=== PATIENT | male | born 1965 | race Caucasian/White ===

== ENCOUNTER → 2019-12-21 09:48 | Outpatient (BNVA) | payer MEDICAID, SELFPAY | PROVIDERS: PCP Internal Medicine; Referring Provider Internal Medicine; Visit Provider Internal Medicine Cardiovascular Disease | DX: Z76.89 Persons encountering health services in other specified circumstances (principal) | CPT/HCPCS: 99204 ==

== ENCOUNTER → 2020-01-19 09:25 | Outpatient (REF) | payer MEDICAID, SELFPAY ==
--- NOTE | 2020-01-19 | NM_ITS ---
EXERCISE MYOCARDIAL PERFUSION STUDY INDICATION: Chest pain, hypertension, hyperlipidemia, assess for coronary disease, ischemia TECHNIQUE: The patient was brought in for an exercise perfusion study on 01/19/2020. Patient performed exercise as per Haris protocol and was injected 40 mCi of sestamibi once target heart rate was achieved. Images were obtained using the SPECT gamma camera interlaced with the gating device. Images were obtained in supine and prone position. Resting perfusion study was performed on 01/20/2020. Patient was administered 40 mCi of sestamibi intravenously at rest. Images were then obtained in supine position. Images were processed with the software and compared side to side in short axis, horizontal long axis and vertical long axis views. FINDINGS: Raw images were reviewed. The stress perfusion study showed diminished tracer uptake along the inferior wall. This is more prominent in the basal to mid inferior wall. Using prone imaging, there is significant improvement in uptake suggestive of diaphragmatic attenuation artifact. The gated study shows normal LV systolic function with calculated LVEF of 64%. LV cavity is normal in size. The gated study shows normal wall thickening and contraction of segments. Resting study shows diminished tracer uptake along the basal to mid inferior wall. Gating at rest reveals normal wall motion with ejection fraction at 69%. The findings are consistent with fixed inferior perfusion defect suspected to be from diaphragmatic artifact. No reversible defects. NM/NM amaury perf SPECT rest & str IMPRESSION: 1. Myocardial perfusion imaging study shows no evidence of any ischemia or infarction. Fixed inferior defect from diaphragmatic attenuation artifact. 2. Gated LVEF is 64% during stress and 69% during rest. 3. Transient ischemic dilatation not present. EKG component of the test reported separately.
--- NOTE | 2020-01-19 09:30 | CA_ITS ---
Acquisition Time: 2020-01-19 09:48:01 Total Exercise Time: 00:06:55 Test Indications: Chest Pain Medications: Protocol: RICH Max HR: 153 BPM 91% of Pred: 168 BPM Max BP: 150/080 mmHG Max Work Load: 8.4 METS Exercise stress nuclear using Rich protocol. Total of 6 min 55 sec., METS 8.4. Pt tolerated well, Moderate SOB at peak exercise, that improves in recovery, denies CP. EKG without any arrhythmias, ST inversion in leads 2, 3, aVF, V3 and V6 seen in recovery period. Nuclear images to follow. Normotensive response to exercise Test reviewed with Dr. Blanton. Referred By: Bhavin Munguia Overread By: Usha Hatch
== END ==
LOC: HO.CARD 09:25
PROVIDERS: Visit Provider Internal Medicine Cardiovascular Disease
DX: R07.9 Chest pain, unspecified (principal)
CPT/HCPCS: 78452; 93017; A9500; J0280; J2785; J2805

== ENCOUNTER → 2020-01-26 09:13 | Outpatient (BNVA) | payer MEDICAID, SELFPAY | PROVIDERS: PCP Internal Medicine; Referring Provider Internal Medicine; Visit Provider Hospitalist | DX: G47.33 Obstructive sleep apnea (adult) (pediatric) (principal); J45.909 Unspecified asthma, uncomplicated; F17.200 Nicotine dependence, unspecified, uncomplicated; Z79.899 Other long term (current) drug therapy; Z99.89 Dependence on other enabling machines and devices; Z71.6 Tobacco abuse counseling | CPT/HCPCS: 99212 ==

== ENCOUNTER → 2020-02-05 09:50 | Outpatient (BNVA) | payer MEDICAID, SELFPAY | PROVIDERS: PCP Internal Medicine; Referring Provider Internal Medicine; Visit Provider Internal Medicine Endocrinology, Diabetes & Metabolism | DX: Z76.89 Persons encountering health services in other specified circumstances (principal) ==

== ENCOUNTER → 2020-02-22 10:38 | Outpatient (BNVA) | payer MEDICAID, SELFPAY | PROVIDERS: PCP Internal Medicine; Referring Provider Internal Medicine; Visit Provider Internal Medicine Cardiovascular Disease | DX: K21.9 Gastro-esophageal reflux disease without esophagitis (principal); I10 Essential (primary) hypertension; R07.9 Chest pain, unspecified | CPT/HCPCS: 99212 ==

== ENCOUNTER → 2020-04-08 10:11 | Outpatient (BNVA) | payer MEDICAID, SELFPAY | PROVIDERS: PCP Internal Medicine; Visit Provider Nurse Practitioner ==

== ENCOUNTER 2020-04-21 | Outpatient (REF) | payer MEDICAID, SELFPAY | END 2020-04-21 00:01 | disposition home or self-care (01) | LOC: HO.LNP | PROVIDERS: Visit Provider Nurse Practitioner | DX: R10.13 Epigastric pain (principal) | CPT/HCPCS: 87338 ==

== ENCOUNTER 2020-04-21 09:26 | Outpatient (REF) | payer MEDICAID, SELFPAY ==
--- NOTE | 2020-04-21 09:56 | XR_ITS ---
EXAMINATION: XR CHEST CLINICAL INFORMATION: Chest pain. COMPARISON: 11/03/2019 chest radiograph. TECHNIQUE: 2 views of the chest were obtained. FINDINGS: No significant abnormality is noted involving the heart, lungs, mediastinum, bony thorax or soft tissues. XR/XR chest 2V IMPRESSION: No acute cardiopulmonary process.
[2020-04-21 10:25] LABS: Estimated Average Glucose 252 mg/dL; Hemoglobin A1c % 10.4 %
[2020-04-21 10:50] LABS: Alanine Aminotransferase 28 U/L (0-40); Albumin Level 4.6 g/dL (3.5-5.0); Alkaline Phosphatase 83 U/L (39-117); Anion Gap 12 (12-20); Aspartate Amino Transferase 19 U/L (5-37); Bilirubin Total 0.3 mg/dL (0.0-1.0); Blood Urea Nitrogen 11 mg/dL (9-16); Calcium 9.5 mg/dL (8.4-10.2); Carbon Dioxide 26 mmol/L (22-29); Chloride 101 mmol/L (96-108); Cholesterol 234 mg/dL; Estimated Glomerular Filt Rate > 60; Glucose Fasting 249 mg/dL (60-99); HDL Cholesterol 42 mg/dL; LDL Cholesterol Calculated 154 mg/dl; Potassium 4.4 mmol/L (3.3-5.1); Sodium 135 mmol/L (135-145); Total Protein 7.8 g/dL (6.5-8.0); Triglycerides 190 mg/dL
[2020-04-21 10:57] LABS: Creatinine Urine 217.92 mg/dL; Microalbum/Creatinine Ratio Ur 24.7 ug/mg cr
[2020-04-21 11:08] LABS: Vitamin B12 618 pg/mL (200-900)
[2020-04-22 04:07] LABS: LDL Cholesterol Direct 151 mg/dL (<100)
== END 2020-04-21 09:27 | disposition home or self-care (01) ==
LOC: HO.LAB 09:26
PROVIDERS: PCP Internal Medicine; Visit Provider Internal Medicine Endocrinology, Diabetes & Metabolism
DX: R07.9 Chest pain, unspecified (principal); E11.65 Type 2 diabetes mellitus with hyperglycemia
CPT/HCPCS: 36415; 71046; 80053; 80061; 82043; 82607; 83036; 83721

== ENCOUNTER → 2020-04-22 11:08 | Outpatient (BNVA) | payer MEDICAID, SELFPAY | PROVIDERS: Visit Provider Nurse Practitioner ==

== ENCOUNTER 2020-04-22 16:59 | Outpatient (REF) | payer MEDICAID, SELFPAY | END 2020-04-22 17:00 | disposition home or self-care (01) | LOC: HO.LNP 16:59 | PROVIDERS: Visit Provider Nurse Practitioner | DX: Z13.89 Encounter for screening for other disorder (principal) ==

== ENCOUNTER → 2020-04-29 12:14 | Outpatient (BNVA) | payer MEDICAID, SELFPAY | PROVIDERS: PCP Internal Medicine; Visit Provider Internal Medicine Endocrinology, Diabetes & Metabolism ==

== ENCOUNTER → 2020-05-30 10:07 | Outpatient (BNVA) | payer MEDICAID, SELFPAY | PROVIDERS: PCP Internal Medicine; Visit Provider Nurse Practitioner ==

== ENCOUNTER → 2020-06-06 13:35 | Outpatient (BNVA) | payer MEDICAID, SELFPAY | PROVIDERS: PCP Internal Medicine; Visit Provider Dietitian, Registered ==

== ENCOUNTER → 2020-06-27 11:13 | Outpatient (BNVA) | payer MEDICAID, SELFPAY | PROVIDERS: PCP Internal Medicine; Visit Provider Nurse Practitioner ==

== ENCOUNTER 2020-07-13 13:12 | Outpatient (REF) | payer MEDICAID, SELFPAY ==
--- NOTE | ~2020-07-13 | US_ITS ---
EXAMINATION: US EXTRACRANIAL CAROTID DUPLEX, BILATERAL CLINICAL INFORMATION: This is a 54-year-old male with history of diabetes, tobacco use, hypertension, hyperlipidemia. Carotid artery disease. COMPARISON: None TECHNIQUE: Real-time ultrasound and Doppler techniques (integrating B-mode 2-D vascular images, Doppler spectral analysis and color-flow Doppler imaging) were utilized to interrogate the extracranial carotid arteries, the vertebral arteries and proximal subclavian arteries bilaterally. The degree of stenosis is determined by criteria similar to NASCET. FINDINGS: Right Side: 1. There is minimal atherosclerotic plaque seen in the bifurcation/proximal ICA region. 2. The common carotid artery PSV proximally is 147 cm/s and distally 96 cm/s. 3. The proximal internal carotid artery velocities are 64 cm/s systolic and 77 cm/s diastolic. 4. The proximal external carotid artery PSV is 143 cm/s. 5. The vertebral artery shows antegrade flow. 6. The subclavian artery waveforms are normal. Left Side: 1. There is normal atherosclerotic plaque seen in the bifurcation/proximal ICA region. 2. The common carotid artery PSV proximally is 156 cm/s and distally 100 cm/s. 3. The proximal internal carotid artery velocities are 75 cm/s systolic and 32 cm/s diastolic. 4. The proximal external carotid artery PSV is 118 cm/s. 5. The vertebral artery shows antegrade flow. 6. The subclavian artery waveforms are normal. US/US carotid duplex BI IMPRESSION: 1. RIGHT: Minimal, non-hemodynamically significant stenosis of the proximal right internal carotid artery corresponding to a 0-49% stenosis by velocity criteria. 2. LEFT: Minimal, non-hemodynamically significant stenosis of the proximal left internal carotid artery corresponding to a 0-49% stenosis by velocity criteria.
== END 2020-07-13 13:13 | disposition home or self-care (01) ==
LOC: HO.US 13:12
PROVIDERS: Visit Provider Internal Medicine
DX: R42 Dizziness and giddiness (principal)
CPT/HCPCS: 93880

== ENCOUNTER → 2020-07-18 12:13 | Outpatient (BNVA) | payer MEDICAID, SELFPAY | PROVIDERS: PCP Internal Medicine; Visit Provider Nurse Practitioner | DX: E11.65 Type 2 diabetes mellitus with hyperglycemia (principal); Z12.11 Encounter for screening for malignant neoplasm of colon; R10.9 Unspecified abdominal pain; R10.13 Epigastric pain; K59.04 Chronic idiopathic constipation; K21.9 Gastro-esophageal reflux disease without esophagitis; R68.81 Early satiety; R14.0 Abdominal distension (gaseous) | CPT/HCPCS: 97803 ==

== ENCOUNTER → 2020-07-26 09:04 | Outpatient (BNVA) | payer MEDICAID, SELFPAY | PROVIDERS: PCP Internal Medicine; Visit Provider Hospitalist | DX: G47.33 Obstructive sleep apnea (adult) (pediatric) (principal); K21.00 Gastro-esophageal reflux disease with esophagitis, without bleeding; J45.40 Moderate persistent asthma, uncomplicated | CPT/HCPCS: 99212 ==

== ENCOUNTER → 2020-09-22 09:55 | Outpatient (BNVA) | payer MEDICAID, SELFPAY | PROVIDERS: PCP Internal Medicine; Visit Provider Hospitalist | DX: G47.33 Obstructive sleep apnea (adult) (pediatric) (principal); J45.40 Moderate persistent asthma, uncomplicated; F17.200 Nicotine dependence, unspecified, uncomplicated | CPT/HCPCS: 99212 ==

== ENCOUNTER 2020-11-15 08:48 | Outpatient (REF) | payer MEDICAID, SELFPAY ==
[2020-11-15 09:14] LABS: MANUAL DIFF FLAG NO
[2020-11-15 09:21] LABS: Basophils Percent Auto 0.4 % (0-2); Eosinophils Absolute Auto 0.3 X10*3/uL (0.0-0.4); Eosinophils Percent Auto 4.2 % (0-4); Hemoglobin 15.3 g/dl (14.0-18.0); Imm Gran Abs Auto 0.02 X10*3/uL (0.00-0.03); Imm Gran Pct Auto 0.3 % (0.0-0.4); Lymphocytes Absolute Auto 2.7 X10*3/uL (1.2-4.9); Mean Corpuscular HGB Conc 33.3 g/dl (31.0-36.0); Mean Corpuscular Hemoglobin 28.8 pg (27.0-33.0); Mean Corpuscular Volume 86.5 fL (80-98); Mean Platelet Volume 9.9 fL (9.4-12.4); Monocytes Absolute Auto 0.5 X10*3/uL (0.1-1.2); Monocytes Percent Auto 6.5 % (2-11); Neutrophils Absolute Auto 3.4 X10*3/uL (2.0-8.3); Neutrophils Percent Auto 49.6 % (45-73); Platelet Count 282 X10*3/uL (160-400); Red Blood Count 5.32 X10*6/uL (4.60-5.80); Red Cell Distribution Width 13.1 % (11.0-16.0); White Blood Count 6.9 X10*3/uL (4.8-10.8)
[2020-11-15 09:45] LABS: Alanine Aminotransferase 25 U/L (0-40); Albumin Level 4.6 g/dL (3.5-5.0); Alkaline Phosphatase 81 U/L (39-117); Aspartate Amino Transferase 21 U/L (5-37); Bilirubin Direct < 0.2 mg/dL (0.0-0.5); Bilirubin Total 0.6 mg/dL (0.0-1.0); Cholesterol 235 mg/dL; HDL Cholesterol 42 mg/dL; LDL Cholesterol Calculated 152 mg/dl; Total Protein 7.6 g/dL (6.5-8.0); Triglycerides 206 mg/dL
[2020-11-15 14:29] LABS: Estimated Average Glucose 226 mg/dL; Hemoglobin A1c % 9.5 %
== END 2020-11-15 08:49 | disposition home or self-care (01) ==
LOC: HO.LAB 08:48
PROVIDERS: PCP Internal Medicine; Visit Provider Internal Medicine
DX: Z00.00 Encounter for general adult medical examination without abnormal findings (principal)
CPT/HCPCS: 36415; 80061; 80076; 83036; 85025

== ENCOUNTER → 2021-01-12 15:37 | Outpatient (BNVA) | payer MEDICAID, SELFPAY | PROVIDERS: Visit Provider Nurse Practitioner ==

== ENCOUNTER → 2021-01-25 09:37 | Outpatient (BNVA) | payer MEDICAID, SELFPAY | PROVIDERS: PCP Internal Medicine; Visit Provider Nurse Practitioner Gerontology | DX: E11.65 Type 2 diabetes mellitus with hyperglycemia (principal); E11.42 Type 2 diabetes mellitus with diabetic polyneuropathy; I10 Essential (primary) hypertension; E78.5 Hyperlipidemia, unspecified; E66.9 Obesity, unspecified; Z79.4 Long term (current) use of insulin; Z91.19 Patient's noncompliance with other medical treatment and regimen | CPT/HCPCS: 82947; 99212 ==

== ENCOUNTER → 2021-02-14 13:14 | Outpatient (BNVA) | payer MEDICAID, SELFPAY | PROVIDERS: PCP Internal Medicine; Visit Provider Dietitian, Registered | DX: E11.65 Type 2 diabetes mellitus with hyperglycemia (principal); E11.42 Type 2 diabetes mellitus with diabetic polyneuropathy; I10 Essential (primary) hypertension; I87.2 Venous insufficiency (chronic) (peripheral); E78.5 Hyperlipidemia, unspecified; E66.9 Obesity, unspecified; G47.33 Obstructive sleep apnea (adult) (pediatric); F17.210 Nicotine dependence, cigarettes, uncomplicated; Z79.4 Long term (current) use of insulin; Z71.3 Dietary counseling and surveillance | CPT/HCPCS: 97803 ==

== ENCOUNTER → 2021-03-29 15:05 | Outpatient (BNVA) | payer MEDICAID, SELFPAY | PROVIDERS: PCP Internal Medicine; Visit Provider Dietitian, Registered | DX: E11.65 Type 2 diabetes mellitus with hyperglycemia (principal); E66.9 Obesity, unspecified | CPT/HCPCS: 97803 ==

== ENCOUNTER → 2021-04-10 10:19 | Outpatient (BNVA) | payer MEDICAID, SELFPAY | PROVIDERS: PCP Internal Medicine; Visit Provider Hospitalist | DX: G47.33 Obstructive sleep apnea (adult) (pediatric) (principal); J45.40 Moderate persistent asthma, uncomplicated; F17.210 Nicotine dependence, cigarettes, uncomplicated | CPT/HCPCS: 99212 ==

== ENCOUNTER → 2021-05-19 09:57 | Outpatient (BNVA) | payer MEDICAID, SELFPAY | PROVIDERS: PCP Internal Medicine; Visit Provider Nurse Practitioner Gerontology | DX: E11.65 Type 2 diabetes mellitus with hyperglycemia (principal); E11.42 Type 2 diabetes mellitus with diabetic polyneuropathy; E78.5 Hyperlipidemia, unspecified; E66.9 Obesity, unspecified; I10 Essential (primary) hypertension; Z91.19 Patient's noncompliance with other medical treatment and regimen; Z79.4 Long term (current) use of insulin; Z68.37 Body mass index [BMI] 37.0-37.9, adult | CPT/HCPCS: 82947; 83036; 99212 ==

== ENCOUNTER 2021-05-31 09:01 | Outpatient (REF) | payer MEDICAID, SELFPAY ==
[2021-05-31 10:14] LABS: Alanine Aminotransferase 28 U/L (0-40); Albumin Level 4.7 g/dL (3.5-5.0); Alkaline Phosphatase 88 U/L (39-117); Anion Gap 14 (12-20); Aspartate Amino Transferase 22 U/L (5-37); Bilirubin Total 0.5 mg/dL (0.0-1.0); Blood Urea Nitrogen 10 mg/dL (9-16); Calcium 10.2 mg/dL (8.4-10.2); Carbon Dioxide 27 mmol/L (22-29); Chloride 102 mmol/L (96-108); Cholesterol 235 mg/dL; Estimated Glomerular Filt Rate > 60; Glucose Fasting 231 mg/dL (60-99); HDL Cholesterol 41 mg/dL; LDL Cholesterol Calculated 155 mg/dl; Potassium 4.6 mmol/L (3.3-5.1); Sodium 138 mmol/L (135-145); Triglycerides 196 mg/dL
== END 2021-05-31 09:02 | disposition home or self-care (01) ==
LOC: HO.LAB 09:01
PROVIDERS: PCP Internal Medicine; Visit Provider Nurse Practitioner Gerontology
DX: E11.65 Type 2 diabetes mellitus with hyperglycemia (principal)
CPT/HCPCS: 36415; 80053; 80061

== ENCOUNTER 2021-06-01 14:49 | Outpatient (REF) | payer MEDICAID, SELFPAY ==
[2021-06-01 15:48] LABS: Creatinine Urine 144.69 mg/dL
== END 2021-06-01 14:50 | disposition home or self-care (01) ==
LOC: HO.LNP 14:49
PROVIDERS: Visit Provider Nurse Practitioner Gerontology
DX: E11.65 Type 2 diabetes mellitus with hyperglycemia (principal)
CPT/HCPCS: 82043

== ENCOUNTER → 2021-06-09 08:55 | Outpatient (BNVA) | payer MEDICAID, SELFPAY | PROVIDERS: PCP Internal Medicine; Visit Provider Registered Nurse Diabetes Educator | DX: E11.65 Type 2 diabetes mellitus with hyperglycemia (principal); Z79.4 Long term (current) use of insulin | CPT/HCPCS: 99202; 99211 ==

== ENCOUNTER → 2021-06-29 12:55 | Outpatient (BNVA) | payer MEDICAID, SELFPAY | PROVIDERS: PCP Internal Medicine; Visit Provider Dietitian, Registered | DX: E11.65 Type 2 diabetes mellitus with hyperglycemia (principal) | CPT/HCPCS: 97803 ==

== ENCOUNTER → 2021-08-01 14:48 | Outpatient (BNVA) | payer MEDICAID, SELFPAY | PROVIDERS: PCP Internal Medicine; Visit Provider Hospitalist | DX: G47.33 Obstructive sleep apnea (adult) (pediatric) (principal); J45.40 Moderate persistent asthma, uncomplicated; F17.210 Nicotine dependence, cigarettes, uncomplicated | CPT/HCPCS: 99212 ==

== ENCOUNTER 2021-08-28 11:24 | Outpatient (REF) | payer MEDICAID, SELFPAY ==
--- NOTE | ~2021-08-28 | XR_ITS ---
EXAMINATION: XR CHEST CLINICAL INFORMATION: Cough COMPARISON: Chest radiographs 04/21/2020, 11/03/2019 TECHNIQUE: 2 views of the chest were obtained. FINDINGS: The lungs are clear and there is no airspace consolidation, groundglass opacity, or effusion. The cardiac and hilar and mediastinal contours and visualized bony structures are similar to prior studies. XR/XR chest 2V IMPRESSION: Unremarkable examination.
== END 2021-08-28 11:25 | disposition home or self-care (01) ==
LOC: HO.XRAY 11:24
PROVIDERS: Absent Provider Internal Medicine; PCP Internal Medicine; Visit Provider Emergency Medicine
DX: R05.9 Cough, unspecified (principal); Z72.0 Tobacco use
CPT/HCPCS: 71046

== ENCOUNTER → 2021-09-01 15:49 | Outpatient (BNVA) | payer MEDICAID, SELFPAY | PROVIDERS: PCP Internal Medicine; Visit Provider Nurse Practitioner | DX: K59.04 Chronic idiopathic constipation (principal); K21.00 Gastro-esophageal reflux disease with esophagitis, without bleeding; R10.13 Epigastric pain; Z91.19 Patient's noncompliance with other medical treatment and regimen | CPT/HCPCS: 99212 ==

== ENCOUNTER 2022-01-06 14:46 | Emergency (ER) | payer MEDICAID, SELFPAY ==
[2022-01-06 15:18] VITALS: BP 143/69; PULSE 93; RESP 18; TEMP 36.8; O2SAT 96; BMI 37.1
[2022-01-06 15:58] LABS: MANUAL DIFF FLAG NO
[2022-01-06 15:59] LABS: Basophils Percent Auto 0.3 % (0-2); Eosinophils Absolute Auto 0.2 X10*3/uL (0.0-0.4); Eosinophils Percent Auto 1.9 % (0-4); Hematocrit 44.6 % (42.0-52.0); Hemoglobin 15.1 g/dl (14.0-18.0); Imm Gran Abs Auto 0.02 X10*3/uL (0.00-0.03); Imm Gran Pct Auto 0.2 % (0.0-0.4); Lymphocytes Absolute Auto 2.2 X10*3/uL (1.2-4.9); Lymphocytes Percent Auto 23.5 % (20-40); Mean Corpuscular HGB Conc 33.9 g/dl (31.0-36.0); Mean Corpuscular Hemoglobin 29.1 pg (27.0-33.0); Mean Corpuscular Volume 85.9 fL (80.0-98.0); Mean Platelet Volume 9.8 fL (9.4-12.4); Monocytes Absolute Auto 0.6 X10*3/uL (0.1-1.2); Monocytes Percent Auto 6.2 % (2-11); Neutrophils Absolute Auto 6.5 x10*3/uL (2.0-8.3); Neutrophils Percent Auto 67.9 % (45-73); Platelet Count 289 X10*3/uL (160-400); Red Blood Count 5.19 X10*6/uL (4.60-5.80); Red Cell Distribution Width 12.5 % (11.0-16.0); White Blood Count 9.5 X10*3/uL (4.8-10.8)
[2022-01-06 16:11] LABS: Anion Gap 14 (12-20); Blood Urea Nitrogen 10 mg/dL (9-16); Calcium 9.9 mg/dL (8.4-10.2); Carbon Dioxide 25 mmol/L (22-29); Chloride 103 mmol/L (96-108); Creatinine Clr Calc Pharmacy 125.7; Estimated Glomerular Filt Rate > 60; Glucose Random 201 mg/dL (60-115); Potassium 4.3 mmol/L (3.3-5.1); Sodium 138 mmol/L (135-145)
--- NOTE | 2022-01-06 20:36 | PC.NURSE ---
Pt c/o left foot pain, cannot walk long distances on it. Has been like this for approx one month. On observation, three toes are affected (middle towards the left). skin is red and raw with some skin peeling. Pt states it does not hurt when this nurse touched them but typically hurts when he puts pressure on them
--- NOTE | 2022-01-06 21:17 | ED_ITS ---
HPI - General Adult General Chief complaint: General Medical Stated complaint: L foot issue Time Seen by Provider: 01/06/22 20:28 Source: patient Mode of arrival: ambulatory Limitations: no limitations History of Present Illness HPI narrative: Patient comes to the emergency room complaining of a fungal infection in his toes on the left foot. Patient has tried topical steroid, oral fluconazole four doses, oral terbinafine for 2 weeks, and 1 round of Bactrim. Patient states that he has not improved but it is not getting any worse either. Patient denies fever chills, no pain Related Data Home Medications Medication Instructions Recorded Confirmed albuterol sulfate 90 mcg/actuation 2 puff inhalation Q6H PRN 12/21/19 01/25/21 aerosol inhaler (ProAir HFA) fluticasone propionate 50 1 spray intranasal DAILY 12/21/19 01/25/21 mcg/actuation nasal spray,suspension (Flonase Allergy Relief) sertraline 100 mg tablet 100 mg PO DAILY 12/21/19 01/25/21 aspirin 81 mg tablet,delayed 81 mg PO DAILY 01/12/21 01/25/21 release calcium carbonate 200 mg calcium 400 mg PO BID 01/12/21 01/25/21 (500 mg) chewable tablet (Calcium Antacid) fluvoxamine 25 mg tablet 25 mg PO BEDTIME 01/25/21 01/25/21 empagliflozin 10 mg tablet 10 mg PO QAM 11/24/21 (Jardiance) Previous Rx's Medication Instructions Recorded nicotine 14 mg/24 hr daily 1 patch transdermal DAILY 28 days 01/26/20 transdermal patch #28 ea insulin syringe-needle U-100 0.5 #100 ea 04/29/20 mL 30 gauge x 1/2 (BD Insulin Syringe Ultra-Fine) budesonide-formoterol HFA 160 2 puff PO BID #10.2 grams 06/28/20 mcg-4.5 mcg/actuation aerosol inhaler (Symbicort) nicotine 10 mg inhalation 1 inh inhalation Q2-4H PRN 07/26/20 cartridge (Nicotrol) nicotine cravings 30 days #168 ea lisinopril 10 mg tablet 10 mg PO DAILY 30 days #30 tabs 01/25/21 rosuvastatin 20 mg tablet 20 mg PO DAILY 30 days #30 tabs 01/25/21 montelukast 10 mg tablet 10 mg PO DAILY #30 tabs 04/28/21 blood sugar diagnostic (FreeStyle #100 ea 05/02/21 Lite Strips) gabapentin 300 mg capsule 300 mg PO BEDTIME #30 caps 05/02/21 lancets 33 gauge (TRUEplus Lancets) #100 ea 05/02/21 insulin glargine 100 unit/mL 18 unit (0.18 mL) subcut DAILY 30 05/19/21 subcutaneous solution (Lantus days #10 mL U-100 Insulin) insulin lispro 100 unit/mL 4 unit (0.04 mL) subcut TID #15 mL 05/19/21 subcutaneous pen (Humalog KwikPen (U-100) Insulin) pen needle, diabetic 32 gauge x #100 ea 05/19/21 (BD Ultra-Fine Madhavi Pen Needle) linaclotide 290 mcg capsule 290 mcg PO QAM 30 days #30 caps 08/01/21 (Linzess) dexlansoprazole 60 mg 60 mg PO DAILY #30 caps 09/01/21 capsule,biphase delayed release (Dexilant) terbinafine HCl 250 mg tablet 250 mg PO DAILY #30 tabs 01/06/22 Allergies Allergy/AdvReac Type Severity Reaction Status Date / Time No Known Allergies Allergy Verified 01/06/22 15:18 Review of Systems Review of Systems: Constitutional : No Weight loss, No Fever, No Chills, No Night Sweats, No Fatigue, No Malaise ENT/Mouth : No Hearing loss, No Ear Pain, No Nasal Congestion, No Sinus Pain, No Hoarseness, No sore throat, No Rhinorrhea, No Swallowing Difficulty Eyes: No Eye Pain, No Swelling, No Redness, No Foreign Body, No Discharge, No Vision Changes Cardiovascular : No Chest Pain, No SOB, No Dyspnea on Exertion, No Orthopnea, No Edema, No Palpitations Respiratory : No Cough, No Sputum, No Wheezing, No Smoke Exposure, No Dyspnea Gastrointestinal : No Nausea, No Vomiting, No Diarrhea, No Constipation, No abdominal Pain, No Hematochezia, No Melena Genitourinary : no irregular bleeding, No Dysuria, No Urinary Frequency, No Hematuria, No Urinary Incontinence, No Urgency, No Flank Pain, No Urinary Flow Changes, No Hesitancy Musculoskeletal : No joint pain, No Myalgias, No Joint Swelling Skin : Fungal infection in the left foot between the toes Neuro : No Weakness, No Numbness, No Paresthesias, No Loss of Consciousness, No Dizziness, No Headache Psych : No Anxiety/Panic, No Depression, No SI/HI/AH/VH, No Social Issues, Heme/Lymph: No Bruising, No Bleeding,No Lymphadenopathy Endocrine : No Polyuria, No Polydipsia, No Temperature Intolerance PMFSH Past Medical History Medical History Asthma Diabetes Diabetes type 2, uncontrolled Diabetic polyneuropathy associated with type 2 diabetes mellitus Hyperlipidemia Hypertension MCC (current) use of insulin Non-adherence to medical treatment Obesity (BMI 30-39.9) TENZIN (obstructive sleep apnea) Tobacco dependence Venous insufficiency Surgical History History of surgery History of tonsillectomy Hx of hernia repair Family History Family History Father Renal failure Mother Depression Hypertension Social History Social History Household Members: Spouse and Children Alcohol intake: current Alcohol intake frequency: does not drink Patient Tobacco Use Status: Current everyday Tobacco user Tobacco use type: Cigarette Cigarettes Per Day: 10 Years Smoked: since age 19 Advance Directives: No Advance Directives Information Provided: No Current occupational status: disabled Physical Exam ED Vital Signs: Vital Signs - 24 hr 01/06/22 15:18 Temperature 98.3 F Pulse Rate 93 Respiratory Rate 18 Blood Pressure 143/69 H Pulse Oximetry 96 Oxygen Delivery Method Room Air BMI result Body Mass Index 37.1 Const Other: Appearance: Alert. Oriented X3. No acute distress. Eyes: Pupils equal, round and reactive to light. ENT: Pharynx normal. Neck: Normal inspection. Neck supple. No lymph nodes noted. No crepitus CVS: Normal heart rate and rhythm. Pulses normal. Normal S1 and S2 Respiratory: No respiratory distress. Breath sounds normal. No Wheezing. No rales Abdomen: Soft and nontender. No rigidity. No distention. Skin: Skin warm and dry. Patient has athlete's foot in the left foot between the toes, peeling in between the toes Extremities: No lower extremity edema. No Lacerations. No Rash Neuro: Oriented X 3. No motor deficit. No sensory deficit. Moving all extremities. No slurred speech. CN 2 through 12 grossly intact Psych: calm, cooperative, normal affect Course Course Course Narrative: I discussed with the patient that the treatment may be weeks to months. Patient's LFTs are pending. Patient's LFTs are within normal limits. I will prescribe of 4 weeks worth of the treatment for the patient. I discussed with the patient that he needs close follow-up with his primary care physician as he will need LFT check Medical Decision Making Lab Data Result diagrams: 01/06/22 15:53 01/06/22 15:53 Labs: Lab Results 01/06/22 01/06/22 Range/Units 15:53 15:53 WBC 9.5 (4.8-10.8) X10*3/uL RBC 5.19 (4.60-5.80) X10*6/uL Hgb 15.1 (14.0-18.0) g/dl Hct 44.6 (42.0-52.0) % MCV 85.9 (80.0-98.0) fL MCH 29.1 (27.0-33.0) pg MCHC 33.9 (31.0-36.0) g/dl RDW 12.5 (11.0-16.0) % Plt Count 289 (160-400) X10*3/uL MPV 9.8 (9.4-12.4) fL Immature Gran % (Auto) 0.2 (0.0-0.4) % Neut % (Auto) 67.9 (45-73) % Lymph % (Auto) 23.5 (20-40) % [place] % (Auto) 6.2 (2-11) % Eos % (Auto) 1.9 (0-4) % Baso % (Auto) 0.3 (0-2) % Lymph # (Auto) 2.2 (1.2-4.9) X10*3/uL [place] # (Auto) 0.6 (0.1-1.2) X10*3/uL Eos # (Auto) 0.2 (0.0-0.4) X10*3/uL Baso # (Auto) 0.0 (0.0-0.2) X10*3/uL Abs Immat Gran (auto) 0.02 (0.00-0.03) X10*3/uL Absolute Neuts (auto) 6.5 (2.0-8.3) x10*3/uL Absolute Nucleated RBC 0.000 (0.0-0.012) X10*3/uL Nucleated RBC % (auto) 0.0 (0.0-0.2) /100WBC Sodium 138 (135-145) mmol/L Potassium 4.3 (3.3-5.1) mmol/L Chloride 103 (96-108) mmol/L Carbon Dioxide 25 (22-29) mmol/L Anion Gap 14 (12-20) BUN 10 (9-16) mg/dL Creatinine 0.76 (0.5-1.4) mg/dL Estim Creat Clear Calc 125.7 Estimated GFR > 60 Random Glucose 201 H (60-115) mg/dL Calcium 9.9 (8.4-10.2) mg/dL Total Bilirubin 0.2 (0.0-1.0) mg/dL Direct Bilirubin < 0.2 (0.0-0.5) mg/dL AST 21 (5-37) U/L ALT 20 (0-40) U/L Alkaline Phosphatase 100 (39-117) U/L Total Protein 7.8 (6.5-8.0) g/dL Albumin 4.7 (3.5-5.0) g/dL Discharge Plan Discharge Clinical Impression: Fungal infection of foot Patient Disposition: Home, Self-Care Instructions: Skin Yeast Infection (ED) Additional Instructions: Please follow-up with your primary care physician tomorrow. If you have any worsening or new symptoms, please return to the emergency room or call 911 Prescriptions: New terbinafine HCl 250 mg tablet 250 mg PO DAILY Qty: 30 0RF No Action budesonide-formoterol [Symbicort] 160-4.5 mcg/actuation HFA aerosol inhaler 2 puff PO BID Qty: 10.2 3RF montelukast 10 mg tablet 10 mg PO DAILY Qty: 30 11RF gabapentin 300 mg capsule 300 mg PO BEDTIME Qty: 30 6RF (DME) FreeStyle Lite Strips Strip See Rx Instructions .Route Qty: 100 11RF Rx Instructions: As directed to test blood sugars 4 times daily (DME) lancets [TRUEplus Lancets] 33 gauge misc See Rx Instructions .Route Qty: 100 11RF Rx Instructions: As directed 4 times a day Linzess 290 mcg capsule 290 mcg PO QAM 30 Days Qty: 30 1RF nicotine 14 mg/24 hr patch 24 hour 1 patch transdermal DAILY 28 Days Qty: 28 5RF Nicotrol 10 mg cartridge 1 inh inhalation Q2-4H PRN (Reason: nicotine cravings) 30 Days Qty: 168 5RF (DME) insulin syringe-needle U-100 [BD Insulin Syringe Ultra-Fine] 0.5 mL 30 gauge x 1/2 syringe See Rx Instructions .ROUTE .MEDSUPPLY Qty: 100 3RF Rx Instructions: Daily rosuvastatin 20 mg tablet 20 mg PO DAILY 30 Days Qty: 30 6RF lisinopril 10 mg tablet 10 mg PO DAILY 30 Days Qty: 30 6RF sertraline 100 mg tablet 100 mg PO DAILY albuterol sulfate [ProAir HFA] 90 mcg/actuation HFA aerosol inhaler 2 puff inhalation Q6H PRN fluticasone propionate [Flonase Allergy Relief] 50 mcg/actuation spray,suspension 1 spray intranasal DAILY Rx Instructions: administer into each nostril calcium carbonate [Calcium Antacid] 200 mg calcium (500 mg) tablet,chewable 400 mg PO BID aspirin 81 mg tablet,delayed release (DR/EC) 81 mg PO DAILY fluvoxamine 25 mg tablet 25 mg PO BEDTIME dexlansoprazole [Dexilant] 60 mg capsule,biphase delayed releas 60 mg PO DAILY Qty: 30 6RF insulin lispro [Humalog KwikPen Insulin] 100 unit/mL insulin pen 4 unit subcut TID Qty: 15 5RF Lantus U-100 Insulin 100 unit/mL solution 18 unit subcut DAILY 30 Days Qty: 10 5RF (DME) pen needle, diabetic [BD Ultra-Fine Madhavi Pen Needle] 32 gauge x / needle See Rx Instructions .ROUTE .MEDSUPPLY Qty: 100 11RF Rx Instructions: As directed three times a day Jardiance 10 mg tablet 10 mg PO QAM
[2022-01-06 21:50] LABS: Alanine Aminotransferase 20 U/L (0-40); Albumin Level 4.7 g/dL (3.5-5.0); Alkaline Phosphatase 100 U/L (39-117); Aspartate Amino Transferase 21 U/L (5-37); Bilirubin Direct < 0.2 mg/dL (0.0-0.5); Bilirubin Total 0.2 mg/dL (0.0-1.0); Total Protein 7.8 g/dL (6.5-8.0)
== END 2022-01-06 22:27 | disposition home or self-care (01) ==
PROVIDERS: Emergency Provider Emergency Medicine; PCP Internal Medicine
DX: B35.3 Tinea pedis (principal); E11.9 Type 2 diabetes mellitus without complications; I10 Essential (primary) hypertension; E78.5 Hyperlipidemia, unspecified; F17.210 Nicotine dependence, cigarettes, uncomplicated; Z79.4 Long term (current) use of insulin; Z79.02 Long term (current) use of antithrombotics/antiplatelets; Z79.899 Other long term (current) drug therapy
CPT/HCPCS: 36415; 80048; 80076; 85025; 99283

== ENCOUNTER → 2022-02-01 11:21 | Outpatient (BNVA) | payer MEDICAID, SELFPAY | PROVIDERS: PCP Internal Medicine; Visit Provider Hospitalist | DX: G47.33 Obstructive sleep apnea (adult) (pediatric) (principal); J45.40 Moderate persistent asthma, uncomplicated; F17.200 Nicotine dependence, unspecified, uncomplicated; Z99.89 Dependence on other enabling machines and devices | CPT/HCPCS: 99212 ==

== ENCOUNTER → 2022-02-27 10:52 | Outpatient (BNVA) | payer MEDICAID, SELFPAY | PROVIDERS: PCP Internal Medicine; Visit Provider Nurse Practitioner | DX: K59.04 Chronic idiopathic constipation (principal); K21.00 Gastro-esophageal reflux disease with esophagitis, without bleeding; R10.13 Epigastric pain; R14.0 Abdominal distension (gaseous); Z12.11 Encounter for screening for malignant neoplasm of colon; Z91.14 Patient's other noncompliance with medication regimen | CPT/HCPCS: 99212 ==

== ENCOUNTER → 2022-06-29 11:12 | Outpatient (BNVA) | payer MEDICAID, SELFPAY | PROVIDERS: PCP Internal Medicine; Visit Provider Hospitalist ==

== ENCOUNTER → 2022-08-28 11:03 | Outpatient (BNVA) | payer MEDICAID, SELFPAY | PROVIDERS: PCP Internal Medicine; Visit Provider Nurse Practitioner | DX: K59.04 Chronic idiopathic constipation (principal); K21.00 Gastro-esophageal reflux disease with esophagitis, without bleeding; R14.0 Abdominal distension (gaseous) | CPT/HCPCS: 99212 ==

== ENCOUNTER 2022-10-09 10:05 | Outpatient (AMB) | payer MEDICAID, SELFPAY ==
[2022-10-09 10:12] VITALS: BP 133/59; PULSE 99; BMI 36.9
--- NOTE | 2022-10-09 10:12 | MHC.OFFVIS ---
Intake Vital Signs 10/09/22 10:12 Height 5 ft 6.5 in Weight 232 lb 5.875 oz BMI 36.9 BP 133/59 L Blood Pressure Location Rt brachial Position Sitting Pulse 99 Intake Visit Reasons: follow up Intake Note: Sergo presents in the office as a 6 month follow up of GERD. CC: He states he has been having abdominal cramps but is having BM. He reports occasional diarrhea. 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 However, he continues to have trouble with CIC with his stools coming out hard initially then softer. He usually is now taking the Linzess 290 daily unless he forgets. I will add bisacodyl at night for him 1-2 tablets along with the LInzess. He continues on his Dexilant with good control of his GERD. ROV 6 weeks. (2) Chronic idiopathic constipation: ?Code(s): K59.04 - Chronic idiopathic constipation (3) GERD (gastroesophageal reflux disease): ?Code(s): K21.9 - Gastro-esophageal reflux disease without esophagitis ?Qualifiers: ?Esophagitis bleeding:?without hemorrhage??Esophagitis presence:?with esophagitis? Qualified Code(s):?K21.00 - Gastro-esophageal reflux disease with esophagitis, without bleeding ? ? ? Medications: New bisacodyl ([place] x (bisacodyl)) 1-2 tabs qhs prn c ic orally bedtime; ? 60 tabs 6RF 30 d ays K59.04 - Chronic i diopathic constipa tion ? Refilled linaclotide (Linze ss) 290 mcg PO QAM 30 caps 6RF 30 days K59.04 - Chronic i diopathic constipa tion ? dexlansoprazole (D exilant) 60 mg PO DAILY 30 caps 6RF K21.9 - Gastro-eso phageal reflux dis ease without esoph agitis, R10.13 - E pigastric pain, Z9 1.19 - Patient's n oncompliance with other medical elisabet tment and regimen ?Patient Instructions: Para munoz estre?imiento, contin?e con Linzess 290 mcg por la ma?cb e intentaremos agregar 5 mg de bisacodilo 1-2 tabletas a la hora de acostarse y puede usar seg?n munoz criterio. TODAY'S VISIT MONTENEGRIN #Vane Rice He has been having episodes of periumbilical abdominal pain, that is severe but only lasts for minutes, but recurs. It is followed by diarrhea at times. BUT he is taking the bisacodyl every night and I think this is too much. He is educated. Also I will give him dicyclomine to see if this is cramping. He continues on his Linzess 290 and his Dexilant in the past he his simethicone chewable by think this has fallen off his medication list. ROV 6 weeks to evaluate his response to modify the medication and potentially the dicyclomine. [facility] Medical History Asthma Diabetes Diabetes type 2, uncontrolled Diabetic polyneuropathy associated with type 2 diabetes mellitus Hyperlipidemia Hypertension [facility] (current) use of insulin Non-adherence to medical treatment Obesity (BMI 30-39.9) TENZIN (obstructive sleep apnea) Tobacco dependence Venous insufficiency Surgical History History of surgery History of tonsillectomy Hx of hernia repair Family History Father Renal failure Mother Depression Hypertension Social History Household Members: Spouse and Children Alcohol intake: current Alcohol intake frequency: does not drink Patient Tobacco Use Status: Current everyday Tobacco user Tobacco use type: Cigarette Cigarettes Per Day: 10 Years Smoked: since age 19 Current occupational status: disabled Review of Systems Const Denies fatigue, Denies fever(s), Denies night sweats, Denies poor appetite and Denies weight loss ENT Reports Normal hearing present, Denies dental pain, Denies dysphagia, Denies hearing loss, Denies mouth pain, Denies odynophagia, Denies throat swelling, Denies tongue swelling and Reports other (Dentition adequate) Card Reports no additional complaints Resp Reports no additional complaints GI Denies abdominal pain, Denies melena, Reports bloating, Denies hematochezia, Reports constipation, Reports GI cramping, Denies dysphagia, Denies excessive flatus, Denies early satiety, Reports heartburn, Denies diarrhea, Denies nausea, Denies odynophagia, Denies vomiting and Denies hematemesis Skin/Breast Denies pruritus, Denies lesions, Denies rash and Denies jaundice Neuro Reports Normal hearing present and Denies Abnormal speech present Endo Denies fatigue Aller/Immun Denies throat swelling and Denies tongue swelling Physical Exam Vital Signs: Last Vital Signs Pulse 99 10/09/22 10:12 BP 133/59 L 10/09/22 10:12 BMI result Body Mass Index 36.9 Const General: cooperative, no acute distress, well developed and well groomed Nutritional Appearance: well nourished and obese centrally obese Orientation/consciousness: oriented to person, oriented to place and oriented to time Limitations: language barrier HEENT Head: Yes normocephalic and Yes atraumatic Eyes General: appearance normal, both eyes and all related structures Pupils: Equal, round and reactive pupils present Neck Neck: Yes normal visual inspection and Yes no lymphadenopathy Thyroid: Thyroid normal Resp Effort & Inspection: normal respiratory effort and able to speak in complete sentences Auscultation: clear to auscultation bilaterally Cardio Rate: regular rate Rhythm: regular rhythm Heart sounds: Normal, physiologic split S2 sound present Peripheral pulses: radial pulses present and posterior tibial pulses present GI Inspection: Yes distended, No Abdominal panniculus present and Yes obesity Palpation (GI): Soft to palpation, nontender, no guarding, not rigid and No hepatosplenomegaly present Percussion: Yes normal to percussion Auscultation: normal bowel sounds Rectal Exam - Male: Yes deferred Abdomen image: 1. Surgical scar Skin General skin exam: no rashes or lesions noted, turgor normal, skin not dry, no jaundice, No spider nevi and no striae Rashes: no rashes Nails: normal Neuro General: oriented to person, oriented to place and oriented to time Cranial nerves: Yes Equal, round and reactive pupils present and Yes Normal hearing present Speech: No Abnormal speech present Extrem General: Yes normal to inspection, No clubbing, No cyanosis and No edema Psych Appearance: grossly normal and well kempt Mental Status: mental status grossly normal Speech and movement: Normal speech and movement present Affect: normal affect Attitude: cooperative Thought process: Normal thought process present and not confabulating Thought content: Normal thought content present Insight: Limited insight present (Psych) Judgement: Limited judgement present (Psych) Assessment & Plan Assessment & Plan (1) Chronic idiopathic constipation: Code(s): K59.04 - Chronic idiopathic constipation Plan: MONTENEGRIN #Vane Rice He has been having episodes of periumbilical abdominal pain, that is severe but only lasts for minutes, but recurs. It is followed by diarrhea at times. BUT he is taking the bisacodyl every night and I think this is too much. He is educated. Also I will give him dicyclomine to see if this is cramping. He continues on his Linzess 290 and his Dexilant in the past he his simethicone chewable by think this has fallen off his medication list. ROV 6 weeks to evaluate his response to modify the medication and potentially the dicyclomine. (2) GERD (gastroesophageal reflux disease): Code(s): K21.9 - Gastro-esophageal reflux disease without esophagitis Qualifiers: Esophagitis bleeding: without hemorrhage Esophagitis presence: with esophagitis Qualified Code(s): K21.00 - Gastro-esophageal reflux disease with esophagitis, without bleeding (3) Abdominal bloating: Code(s): R14.0 - Abdominal distension (gaseous) Medications: New dicyclomine 20 mg PO QID 30 days PRN 120 tabs 1RF abdominal pain Patient Instructions: Sergo MoralesPara el dolor, tome el bisacodyl solo por la noche cuando no est? defecando y se sienta retenido. Contin?e tomando Linzess todas las ma?anas. SI esto detiene el dolor, joyce. Tangela tambi?n le remigio? un medicamento llamado diciclomina para que lo use para el dolor si esto no lo lauro. Puede airam enid medicamento hasta 4 veces al d?a si es necesario. Quiero verte en 6 semanas para jah c?mo te va Quality Reporting (2019) Adult ([facility] 138/05/09/68) Smoking risk assessment performed?: Yes Patient Tobacco Use Status: Current everyday Tobacco user Coding Level of Care Code Est Pt Level 3 (07632) Diagnoses Chronic idiopathic constipation K59.04 GERD (gastroesophageal reflux disease) K21.00 Esophagitis bleeding: without hemorrhage Esophagitis presence: with esophagitis Abdominal bloating R14.0
== END 2022-10-09 10:32 | disposition home or self-care (01) ==
PROVIDERS: PCP Internal Medicine; Visit Provider Nurse Practitioner
DX: K59.04 Chronic idiopathic constipation (principal); K21.00 Gastro-esophageal reflux disease with esophagitis, without bleeding; R14.0 Abdominal distension (gaseous)
CPT/HCPCS: 99213

== ENCOUNTER → 2022-10-09 10:05 | Outpatient (BNVA) | payer MEDICAID, SELFPAY | PROVIDERS: PCP Internal Medicine; Visit Provider Nurse Practitioner | DX: K21.00 Gastro-esophageal reflux disease with esophagitis, without bleeding (principal); K59.04 Chronic idiopathic constipation; R14.0 Abdominal distension (gaseous) | CPT/HCPCS: 99213 ==

== ENCOUNTER 2022-11-06 14:21 | Outpatient (REF) | payer MEDICAID, SELFPAY ==
--- NOTE | ~2022-11-06 | XR_ITS ---
EXAMINATION: XR KNEE, LEFT CLINICAL INFORMATION: Left knee pain for 4 days. COMPARISON: None available. TECHNIQUE: Four views of the left knee. FINDINGS: No fracture or joint effusion. Alignment is anatomic. Joint spaces are maintained. No abnormal soft tissue calcification. XR/XR knee LT 4V IMPRESSION: Unremarkable left knee.
== END 2022-11-06 14:22 | disposition home or self-care (01) ==
LOC: HO.HHCX 14:21
PROVIDERS: Visit Provider Internal Medicine
DX: M17.12 Unilateral primary osteoarthritis, left knee (principal)
CPT/HCPCS: 73564

== ENCOUNTER 2022-11-27 10:28 | Outpatient (AMB) | payer MEDICAID, SELFPAY ==
--- NOTE | 2022-11-27 10:31 | A.OFFVIS_ITS ---
Intake Vital Signs 11/27/22 10:32 Height 5 ft 6.5 in Weight 230 lb 2.601 oz BMI 36.6 BP 152/76 H Blood Pressure Location Lt brachial Position Sitting Pulse 85 Intake Visit Reasons: 7 week follow up Intake Note: Sergo presents in the office as a 7 weeks follow up of GERD. CC: Patient reports he has been doing better from abdominal pain and Registered Nurse Bone Marrow Transplant Required: Yes Registered Nurse Bone Marrow Transplant Name: Vane Rice science interpreter Accompanied by: Self / Same As Patient Allergies No Known Allergies Allergy (Verified 10/09/22 10:17) HPI 7 week follow up HPI Details Assessment & Plan (1) Chronic idiopathic constipation: Code(s): K59.04 - Chronic idiopathic constipation Plan: [place] [place] #Vane Rice He has been having episodes of periumbilical abdominal pain, that is severe but only lasts for minutes, but recurs. It is followed by diarrhea at times. BUT he is taking the bisacodyl every night and I think this is too much. He is educated. Also I will give him dicyclomine to see if this is cramping. He continues on his Linzess 290 and his Dexilant in the past he his simethicone chewable by think this has fallen off his medication list. ROV 6 weeks to evaluate his response to modify the medication and potentially the dicyclomine. (2) GERD (gastroesophageal reflux diseas e): Code(s): K21.9 - Gastro-esophageal reflux disease without esophagitis Qualifiers: Esophagitis bleeding: without hemorrhage Esophagitis presence: with esophagitis Qualified Code(s): K21.00 - Gastro-esophageal reflux disease with esophagitis, without bleeding (3) Abdominal bloating: Code(s): R14.0 - Abdominal distension (gaseous) Medications: New dicyclomine 20 mg PO QID 30 d ays PRN 120 tabs 1 RF abdominal pain Patient Instructions: Sergo MoralesPara el dolor, tome el bisacodyl solo por la noche cuando no est? defecando y se sienta retenido. Contin?e tomando Linzess todas las ma?anas. SI esto detiene el dolor, joyce. Tangela tambi?n le remigio? un medicamento llamado diciclomina para que lo use para el dolor si esto no lo lauro. Puede airam enid medicamento hasta 4 veces al d?a si es necesario. Quiero verte en 6 semanas para jah c?mo te va TODAY'S VISIT CENTRAL AFRICAN #[employer] [employer] He was having alysia umbilical abd pain and diarrhea last visit. I asked him to cut back on the bisacodyl and use it only prn, and we added bentyl. He is having normal BM's now, and only occasional pain. When he has the pain it is a severe burning but this is only occurring about once a month. HOWEVER, he does not know if he stopped the bisacodyl or not, so this makes it hard for me to know what to do next. I would say to take 2 bentyl when he has severe pain (20mg tabs x 2) but it may be better to decrease the bisacodyl. I reiterate this and will reprint the instructions in [place]. He has an unrelated problem of not getting his CPAP supplies - he has the machine but not the rest. There appears to be a disconnect in communication between the company and Dr. Ritter office. Supply company is [phone] [facility] Josiane martinez. ROV 3 weeks. Bring all meds to his next visit. 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 Non-adherence to medical treatment Obesity (BMI 30-39.9) TENZIN (obstructive sleep apnea) Tobacco dependence Venous insufficiency Surgical History History of surgery History of tonsillectomy Hx of hernia repair Family History Father Renal failure Mother Depression Hypertension Social History Household Members: Spouse and Children Alcohol intake: current Alcohol intake frequency: does not drink Patient Tobacco Use Status: Current everyday Tobacco user Tobacco use type: Cigarette Cigarettes Per Day: 10 Years Smoked: since age 19 Current occupational status: disabled Review of Systems Const Denies fatigue, Denies fever(s), Denies night sweats, Denies poor appetite, Reports snoring and Denies weight loss Eyes Details: glasses Reports requires corrective lenses ENT Reports Normal hearing present, Denies dental pain, Denies dysphagia, Denies hearing loss, Denies mouth pain, Denies odynophagia, Denies throat swelling, Denies tongue swelling and Reports other (Dentition adequate) Card Reports no additional complaints Resp Reports snoring GI Denies abdominal pain, Denies melena, Reports bloating, Denies hematochezia, Reports constipation, Reports GI cramping, Denies dysphagia, Denies excessive flatus, Denies early satiety, Reports heartburn, Reports diarrhea, Denies nausea, Denies odynophagia, Denies vomiting and Denies hematemesis Skin/Breast Denies pruritus, Denies lesions, Denies rash and Denies jaundice Neuro Reports Normal hearing present and Denies Abnormal speech present Endo Denies fatigue Aller/Immun Denies throat swelling and Denies tongue swelling Physical Exam Vital Signs: Last Vital Signs Pulse 85 11/27/22 10:32 BP 152/76 H 11/27/22 10:32 BMI result Body Mass Index 36.6 Const General: cooperative, no acute distress, well developed and well groomed Nutritional Appearance: well nourished and obese Orientation/consciousness: oriented to person, oriented to place and oriented to time Limitations: language barrier HEENT Head: Yes normocephalic and Yes atraumatic Eyes General: appearance normal, both eyes and all related structures Pupils: Equal, round and reactive pupils present Neck Neck: Yes normal visual inspection and Yes no lymphadenopathy Thyroid: Thyroid normal Resp Effort & Inspection: normal respiratory effort and able to speak in complete sentences Auscultation: clear to auscultation bilaterally Cardio Rate: regular rate Rhythm: regular rhythm Heart sounds: Normal, physiologic split S2 sound present Peripheral pulses: radial pulses present and posterior tibial pulses present GI Inspection: No distended, No Abdominal panniculus present and Yes obesity Palpation (GI): Soft to palpation, nontender, no guarding, not rigid and No hepatosplenomegaly present Percussion: Yes normal to percussion Auscultation: normal bowel sounds Rectal Exam - Male: Yes deferred Skin General skin exam: no rashes or lesions noted, turgor normal, skin not dry, no jaundice, No spider nevi and no striae Rashes: no rashes Nails: normal Neuro General: oriented to person, oriented to place and oriented to time Cranial nerves: Yes Equal, round and reactive pupils present and Yes Normal hearing present Speech: No Abnormal speech present Extrem General: Yes normal to inspection, No clubbing, No cyanosis and No edema Psych Appearance: grossly normal and well kempt Mental Status: mental status grossly normal Speech and movement: Normal speech and movement present Affect: normal affect Attitude: cooperative Thought process: Normal thought process present and not confabulating Thought content: Normal thought content present Insight: Fair insight present (Psych) and Limited insight present (Psych) Judgement: Fair judgement present (Psych) and Limited judgement present (Psych) Assessment & Plan Assessment & Plan (1) Chronic idiopathic constipation: Code(s): K59.04 - Chronic idiopathic constipation Plan: [place] [place] #[employer] He was having alysia umbilical abd pain and diarrhea last visit. I asked him to cut back on the bisacodyl and use it only prn, and we added bentyl. He is having normal BM's now, and only occasional pain. When he has the pain it is a severe burning but this is only occurring about once a month. HOWEVER, he does not know if he stopped the bisacodyl or not, so this makes it hard for me to know what to do next. I would say to take 2 bentyl when he has severe pain (20mg tabs x 2) but it may be better to decrease the bisacodyl. I reiterate this and will reprint the instructions in [place]. He has an unrelated problem of not getting his CPAP supplies - he has the chrissy e but not the rest. There appears to be a disconnect in communication between the company and Dr. Ritter office. Supply company is [phone] [facility] Josiane martinez. ROV 3 weeks. Bring all meds to his next visit. (2) GERD (gastroesophageal reflux disease): Code(s): K21.9 - Gastro-esophageal reflux disease without esophagitis Qualifiers: Esophagitis bleeding: without hemorrhage Esophagitis presence: with esophagitis Qualified Code(s): K21.00 - Gastro-esophageal reflux disease with esophagitis, without bleeding (3) Abdominal bloating: Code(s): R14.0 - Abdominal distension (gaseous) (4) Abdominal cramping: Code(s): R10.9 - Unspecified abdominal pain (5) TENZIN (obstructive sleep apnea): Code(s): G47.33 - Obstructive sleep apnea (adult) (pediatric) Medications: Changed From dicyclomine 20 mg PO QID 30 days PRN 120 tabs 1RF abdominal pain R10.9 - Unspecified abdominal pain To dicyclomine 20 mg PO .six times a day 30 days 180 tabs 6RF abdominal pain R10.9 - Unspecified abdominal pain Patient Instructions: Sergo Garcia Por favor, suspenda el bisacodilo por ahora. Contin?e tomando Linzess todas las ma?anas. SI esto detiene el dolor, joyce. Tangela tambi?n le remigio? un medicamento llamado diciclomina para que lo use para el dolor si esto no lo lauro. Puede airam enid medicamento hasta 4 veces al ? Si tiene dolor intenso, tome 2 diciclominas a la vez para controlarlo. Quiero verte en 3 semanas para jah c?mo va esto. Traiga todos aniket medicamentos a munoz pr?xima visita para que pueda ayudarle a saber qu? airam. . Quality Reporting (2020) Adult ([facility] 138/05/09/68) Smoking risk assessment performed?: Yes Patient Tobacco Use Status: Current everyday Tobacco user Coding Level of Care Code Est Pt Level 3 (24399) Diagnoses Chronic idiopathic constipation K59.04 Gastroesophageal reflux disease with esophagitis without hemorrhage K21.00 Esophagitis bleeding: without hemorrhage Esophagitis presence: with esophagitis Abdominal bloating R14.0 Abdominal cramping R10.9 TENZIN (obstructive sleep apnea) G47.33
[2022-11-27 10:32] VITALS: BP 152/76; PULSE 85; BMI 36.6
== END 2022-11-27 11:47 | disposition home or self-care (01) ==
PROVIDERS: PCP Internal Medicine; Visit Provider Nurse Practitioner
DX: K59.04 Chronic idiopathic constipation (principal); K21.00 Gastro-esophageal reflux disease with esophagitis, without bleeding; R14.0 Abdominal distension (gaseous); R10.9 Unspecified abdominal pain; G47.33 Obstructive sleep apnea (adult) (pediatric)
CPT/HCPCS: 99213

== ENCOUNTER → 2022-11-27 10:28 | Outpatient (BNVA) | payer MEDICAID, SELFPAY | PROVIDERS: PCP Internal Medicine; Visit Provider Nurse Practitioner | DX: K59.04 Chronic idiopathic constipation (principal); K21.00 Gastro-esophageal reflux disease with esophagitis, without bleeding; R14.0 Abdominal distension (gaseous); R10.9 Unspecified abdominal pain; G47.33 Obstructive sleep apnea (adult) (pediatric) | CPT/HCPCS: 99212 ==

== ENCOUNTER 2023-01-11 13:42 | Outpatient (AMB) | payer MEDICAID, SELFPAY ==
[2023-01-11 13:53] VITALS: BP 130/60; PULSE 88; BMI 36.7
--- NOTE | 2023-01-11 13:53 | A.OFFVIS_ITS ---
Intake Vital Signs 01/11/23 13:53 Height 5 ft 6.5 in Weight 231 lb 0.711 oz BMI 36.7 BP 130/60 Blood Pressure Location Rt brachial Position Sitting Pulse 88 Intake Visit Reasons: 3 Weeks Follow up Intake Note: Sergo presents in the office as a 3 weeks follow up of GERD. CC: Patient reports he has been doing better with medications and denies having any GI symptoms or concerns. Motor Route Carrier Required: Yes Accompanied by: Self / Same As Patient Allergies No Known Allergies Allergy (Verified 02/15/23 14:28) HPI 3 Weeks Follow up HPI Details Assessment & Plan (1) Chronic idiopathic constipation: Code(s): K59.04 - Chronic idiopathic constipation Plan: [place] [facility] [employer] He was having alysia umbilical abd pain and diarrhea last visit. I asked him to cut back on the bisacodyl and use it only prn, and we added bentyl. He is having normal BM's now, and only occasional pain. When he has the pain it is a severe burning but this is only occurring about once a month. HOWEVER, he does not know if he stopped the bisacodyl or not, so this makes it hard for me to know what to do next. I would say to take 2 bentyl when he has severe pain (20mg tabs x 2) but it may be better to decrease the bisacodyl. I reiterate this and will reprint the instructions in E[place]an. He has an unrelated problem of not getting his CPAP supplies - he has the machine but not the rest. There appears to be a disconnect in communication between the company and Dr. Ritter office. Supply [facility] [phone] [facility] Bring all meds to his next visit. (2) GERD (gastroesophageal reflux diseas e): Code(s): K21.9 - Gastro-esophageal reflux disease without esophagitis Qualifiers: Esophagitis bleeding: without hemorrhage Esophagitis presence: with esophagitis Qualified Code(s): K21.00 - Gastro-esophageal reflux disease with esophagitis, without bleeding (3) Abdominal bloating: Code(s): R14.0 - Abdominal distension (gaseous) (4) Abdominal cramping: Code(s): R10.9 - Unspecified abdominal pain (5) TENZIN (obstructive sleep apnea): Code(s): G47.33 - Obstructive sleep apnea (adult) (pediatric) Medications: Changed From dicyclomine 20 mg PO QID 30 d ays PRN 120 tabs 1 RF abdominal pain R10.9 - Unspecifie d abdominal pain To dicyclomine 20 mg PO .six nela es a day 30 days 1 80 tabs 6RF abdomi nal pain R10.9 - Unspecifie d abdominal pain Patient Instructions: Sergo Garcia Por favor, suspenda el bisacodilo por ahora. Contin?e tomando Linzess todas las ma?anas. SI esto detiene el dolor, joyce. Tangela tambi?n le remigio? un medicamento llamado diciclomina para que lo use para el dolor si esto no lo lauro. Puede airam enid medicamento hasta 4 veces al ? Si tiene dolor intenso, tome 2 diciclominas a la vez para controlarlo. Quiero verte en 3 semanas para jah c?mo va esto. Traiga todos aniket medicamentos a munoz pr?xima visita para que pueda ayudarle a saber qu? airam. TODAY'S VISIT [place] [facility] [employer] He still has pain in the lower rib area that radiates up to the chest. He feels like air is stuck in the lower esophagus, but this is not well relieved with his simethicone. He continues on his Dexilant. He cannot say that the pain occurs a particular time of day but it is worsened with straining to lift things, but it is also worsened when he drinks juices and carbonated things. He also admits that he had stopped coffee because of his GERD and he is now drinking about 3 cups a day again. He is moving his bowels well now. Since he is a diabetic and out of an abundance of caution I think that we should get an EKG a chest x-ray and a troponin. I will also give him a trial of famotidine to take when the pain is bad to see if this helps relieve it. It may be that we need to changes PPI depending on how he response to this and how these tests progress. He also mentions that his primary care visit his blood pressure was high and he was supposed to go for nursing visit to recheck it but he missed the appointment because he was having ?panic attacks. ? he does have a machine at home and he checks his pressure. I explained to him that when we get abnormal readings we want to check it against a home machine because sometimes the small units can get out of calibration and give inaccurate information. However, today in the office his blood pressure appears to be well controlled at 130 systolic. Return office visit in 3 weeks [facility] Medical History Tobacco dependence Non-adherence to medical treatment Obesity (BMI 30-39.9) [facility] (current) use of insulin Diabetic polyneuropathy associated with type 2 diabetes mellitus Diabetes type 2, uncontrolled Asthma TENZIN (obstructive sleep apnea) Venous insufficiency Diabetes Hypertension Hyperlipidemia Surgical History History of surgery History of tonsillectomy Hx of hernia repair Family History Father Renal failure Mother Depression Hypertension Social History (Updated 02/15/23 @ 14:31 by Noni Overton [facility]) Household Members: Spouse and Children Alcohol intake: current Alcohol intake frequency: does not drink Patient Tobacco Use Status: Current everyday Tobacco user Tobacco use type: Cigarette Cigarettes Per Day: 7 Years Smoked: since age 19 Current occupational status: disabled Review of Systems Const Denies fatigue, Denies fever(s), Denies night sweats, Denies poor appetite and Denies weight loss ENT Reports Normal hearing present, Denies dental pain, Denies dysphagia, Denies hearing loss, Denies mouth pain, Denies odynophagia, Denies throat swelling, Denies tongue swelling and Reports other (Dentition adequate) Card Reports chest pain Resp Reports no additional complaints GI Denies abdominal pain, Denies melena, Reports bloating, Denies hematochezia, Reports constipation, Reports GI cramping, Denies dysphagia, Denies excessive flatus, Denies early satiety, Reports heartburn, Denies diarrhea, Denies nausea, Denies odynophagia, Denies vomiting and Denies hematemesis Skin/Breast Denies pruritus, Denies lesions, Denies rash and Denies jaundice Neuro Reports Normal hearing present and Denies Abnormal speech present Endo Denies fatigue Aller/Immun Denies throat swelling and Denies tongue swelling Physical Exam Vital Signs: Last Vital Signs Pulse 88 01/11/23 13:53 BP 130/60 01/11/23 13:53 BMI result Body Mass Index 36.7 Const General: cooperative, no acute distress, well developed and well groomed Nutritional Appearance: well nourished and obese Orientation/consciousness: oriented to person, oriented to place and oriented to time Limitations: language barrier HEENT Head: Yes normocephalic and Yes atraumatic Eyes General: appearance normal, both eyes and all related structures Pupils: Equal, round and reactive pupils present Neck Neck: Yes normal visual inspection and Yes no lymphadenopathy Thyroid: Thyroid normal Resp Effort & Inspection: normal respiratory effort and able to speak in complete sentences Auscultation: clear to auscultation bilaterally Cardio Rate: regular rate Rhythm: regular rhythm Heart sounds: Normal, physiologic split S2 sound present Peripheral pulses: radial pulses present and posterior tibial pulses present GI Inspection: No distended, No Abdominal panniculus present and Yes obesity Palpation (GI): Soft to palpation, nontender, no guarding, not rigid and No hepatosplenomegaly present Percussion: Yes normal to percussion Auscultation: normal bowel sounds Rectal Exam - Male: Yes deferred Skin General skin exam: no rashes or lesions noted, turgor normal, skin not dry, no jaundice, No spider nevi and no striae Rashes: no rashes Nails: normal Neuro General: oriented to person, oriented to place and oriented to time Cranial nerves: Yes Equal, round and reactive pupils present and Yes Normal hearing present Speech: No Abnormal speech present Extrem General: Yes normal to inspection, No clubbing, No cyanosis and No edema Psych Appearance: grossly normal and well kempt Mental Status: mental status grossly normal Speech and movement: Normal speech and movement present Affect: normal affect Attitude: cooperative Thought process: Normal thought process present and not confabulating Thought content: Normal thought content present Insight: Limited insight present (Psych) Judgement: Limited judgement present (Psych) Assessment & Plan Assessment & Plan (1) Chronic idiopathic constipation: Code(s): K59.04 - Chronic idiopathic constipation (2) GERD (gastroesophageal reflux disease): Code(s): K21.9 - Gastro-esophageal reflux disease without esophagitis Qualifiers: Esophagitis bleeding: without hemorrhage Esophagitis presence: with esophagitis Qualified Code(s): K21.00 - Gastro-esophageal reflux disease with esophagitis, without bleeding (3) Abdominal bloating: Code(s): R14.0 - Abdominal distension (gaseous) (4) Epigastric pain: Code(s): R10.13 - Epigastric pain (5) Chest pain: Comment: Her cardiac evaluation. She does have an x-ray repeated. Code(s): R07.9 - Chest pain, unspecified Plan [place] [facility] [employer] He still has pain in the lower rib area that radiates up to the chest. He feels like air is stuck in the lower esophagus, but this is not well relieved with his simethicone. He continues on his Dexilant. He cannot say that the pain occurs a particular time of day but it is worsened with straining to lift things, but it is also worsened when he drinks juices and carbonated things. He also admits that he had stopped coffee because of his GERD and he is now drinking about 3 cups a day again. He is moving his bowels well now. He continues on his bisacodyl, Linzess 290, simethicone, Dexilant daily with famotidine for breakthrough, and dicyclomine for cramping. Since he is a diabetic and out of an abundance of caution I think that we should get an EKG a chest x-ray and a troponin. I will also give him a trial of famotidine to take when the pain is bad to see if this helps relieve it. It may be that we need to changes PPI depending on how he response to this and how these tests progress. He also mentions that his primary care visit his blood pressure was high and he was supposed to go for nursing visit to recheck it but he missed the appointment because he was having ?panic attacks. ? he does have a machine at home and he checks his pressure. I explained to him that when we get abnormal readings we want to check it against a home machine because sometimes the small units can get out of calibration and give inaccurate information. However, today in the office his blood pressure appears to be well controlled at 130 systolic. Return office visit in 3 weeks Orders: Orders Troponin-I High Sensitivity 01/11/23 R07.9 - Chest pain, unspecified ECG 12 lead EKG 01/11/23 R07.9 - Chest pain, unspecified XR chest 2V 01/11/23 R07.9 - Chest pain, unspecified Medications: New famotidine (Pepcid) 40 mg PO BEDTIME 30 tabs 3RF R10.13 - Epigastric pain, K21.9 - Gastro-esophageal reflux disease without esophagitis Quality Reporting (2019) Adult ([facility] 138/05/09/68) Smoking risk assessment performed?: Yes Patient Tobacco Use Status: Current everyday Tobacco user Coding Level of Care Code Est Pt Level 4 (33167) Diagnoses Chronic idiopathic constipation K59.04 Gastroesophageal reflux disease with esophagitis without hemorrhage K21.00 Esophagitis bleeding: without hemorrhage Esophagitis presence: with esophagitis Abdominal bloating R14.0 Epigastric pain R10.13 Chest pain R07.9
== END 2023-01-11 14:34 | disposition home or self-care (01) ==
PROVIDERS: PCP Internal Medicine; Visit Provider Nurse Practitioner
DX: K59.04 Chronic idiopathic constipation (principal); K21.00 Gastro-esophageal reflux disease with esophagitis, without bleeding; R14.0 Abdominal distension (gaseous); R10.13 Epigastric pain; R07.9 Chest pain, unspecified
CPT/HCPCS: 99214

== ENCOUNTER → 2023-01-11 13:42 | Outpatient (BNVA) | payer MEDICAID, SELFPAY | PROVIDERS: PCP Internal Medicine; Visit Provider Nurse Practitioner | DX: K59.04 Chronic idiopathic constipation (principal); K21.00 Gastro-esophageal reflux disease with esophagitis, without bleeding; R10.13 Epigastric pain; R14.0 Abdominal distension (gaseous); R07.9 Chest pain, unspecified | CPT/HCPCS: 99212 ==

== ENCOUNTER 2023-02-15 14:17 | Outpatient (AMB) | payer MEDICAID, SELFPAY ==
--- NOTE | 2023-02-15 14:23 | A.OFFVIS_ITS ---
Intake Vital Signs 02/15/23 14:24 Height 5 ft 6.5 in Weight 224 lb BMI 35.6 BP 110/58 L Blood Pressure Location Lt brachial Position Sitting Pulse 90 Pulse Source Pulse Oximeter Pulse Oximetry (%) 97 Oxygen Delivery Method Room Air Intake Visit Reasons: chidi Intake Note: pt is here for follow up and is so so, states pain when breathing, problems with cpap, hasn't used it in 6 months. Allergies No Known Allergies Allergy (Verified 02/15/23 14:28) HPI HPI Comments History of Present Illness Details The patient is 57 y/o man with asthma and CHIDI. He has a history of obstructive sleep apnea on CPAP in addition to asthma. He has been having issues with his CPAP. He has been using a nasal mask and then having a dry mouth. After awhile he does take off the mask because of worsening shortness of breath and he feels like his throat is closing up . He is concerned that this could be something serious. I reassured him that is likely dryness of the throat due to the fact that he is leaking air through his mouth. Therefore, I did supply him with a fullface mask,F30. In addition to that he has been having increasing wheezing. He has been using his short-acting beta agonists 3 to 4 times a week. He is wondering if he should be on other medication. We also have to perform his pulmonary function studies. 11/03/2019The patient is here for pulmonary follow-up visit. Since we last spoke he has been using his CPAP in the CPAP therapy continues to be affecting beneficial. He does uses CPAP more than 4 hours a night. Back during the last visit we did request supplies from his current [employer] company. However, they have not delivered any as of yet for unclear reason. I did call the [employer] company and will resend another script for supplies to be delivered to the patient. He needs to have a mask fitting and therefore I did talk to the DME and they will give him a call to set up an appointment with the respiratory therapist in order to set up his mask fitting. In the meantime he is complaining of chest pain. Substernal in nature pressure sensation for out of 10. Seems to be constant. Does radiate to the back. Also has a respiratory phasic component. Sometimes it wakes him up. In the office she did have an EKG demonstrating some nonspecific T-wave changes very similar to his previous EKG from April 2019. He also go for chest x-ray and blood work. He needs to be set up with a customer care team coach, therefore, will make arrangements for that so he can have a stress test. In the meantime he continues with his current respiratory therapy and will try to facilitate him getting CPAP supplies as soon as possible as well. 01/26/2020 the patient is here for pulmonary follow-up visit. He continues uses CPAP. The CPAP therapy continues to be affecting beneficial. He has been getting supplies. This the [employer] has been trying to get in touch with them in order to since supplies per the patient has not responded calls. We emphasized importance of responding to the [employer] company in order for him to continue getting regular supplies and staying active with accompanying. In the meantime the patient continues to have shortness of breath and wheezing. He also has intermittent coughing moderate severity. Unfortunately has not been using his inhalers in he has also been smoking. Patient understands that he needs to quit. She is willing to try the nicotine patch at this time. He did undergo a cardiac evaluation and overall doing well from that standpoint. 07/26/2020 the patient is here for pulmonary follow-up visit. Overall he is doing a lot better. He continues uses CPAP every night. The therapy continues to be very effective beneficial for him. He does use it for more than 4 hours a night. He still having hard time with smoking. He continues to smoke on a daily basis. This is resulting increasing chest congestion and also shortness of breath. Wjef-zf-pctvvank severity. He does uses respiratory therapy including Symbicort in his albuterol with partial resolution of the symptoms. He needs to make sure that he use Symbicort on a regular basis. At this point the patient is willing to try the Nicotrol inhaler to quit smoking altogether. I did send a prescription to the pharmacy and helping get covered. Once he gets it will be able to alternate cigarette for the Nicotrol inhaler and subsequently wing of all surgery and continue with the Nicotrol inhaler as needed. 09/22/2020 The patient is here for pulmonary follow-up visit. Overall the patient is doing well from a respiratory status. He continues uses inhalers with good adherence. Unfortunately, Still's struggling with smoking. He did follow-up with his psychologist in new continue supplementation symptoms the pharmacy. Patient will start taking this time. In regards to the CPAP he has been using very well. The CPAP therapy continues to be affecting beneficial. He has been getting supplies from his DME company. He has major concerns about the COVID-19 vaccine. He has been concerned about potential adverse effects from the vaccine self. I reassured him that vaccine safe but, the virus was not specially since he is high risk. Therefore, will need an appointment to get back needed disease coming Saturday at [facility]. Did provide him with all the information about the date and time of his vaccination. 04/10/2021 the patient is here for a pulmonary follow-up visit. Overall the patient has been doing relatively good. He is still trying to uses CPAP as much as possible. The CPAP therapy has been affecting beneficial. His grandson was playing with a and change him settings and he thinks he is now not working appropriately. He did bring it in. I was able to increase the ramp time to 30 minutes at 6 cm and then currently the CPAP is set up at 9 cm. His AHI is down to 1.6. His average use is more than 6 hours. However, looking at the machine there appears to be some mold growing inside of it. I am concerned that this is within the inside of the machine in no longer able to be clean appropriately. He has had this machine now for more than 5 years. The patient should get a replacement machine at this time. Will submit a application for new machine through his [employer] company. The patient stands with the pandemic and the recall with the rest bronchus machine this will take a longer than usual. In the mean time he is going to try to clean as well as possible although I know that he will be about clinic completely. Will send a script for new CPAP to replace is older contaminated machine to his [employer] company. The patient also has a Symbicort inhaler. We did go to the instructions on how to use it correctly. I answered all his questions. Will set him up to follow up with deployment technician in order to help him with the CPAP that he is having some difficulties with as well. I did provide him with a new [employer] nasal mask. He does need new supplies delivered. 08/01/2021 the patient is here for a pulmonary follow-up visit. He is frustrated that he has not been able to get any supplies from his CPAP company. Explained to the patient that he needs to agree to get supplies and therefore the DME companies to call him and gets verbal agreement. However, he does not filler picker his phone. I did reach out to the [employer] company to try to help him. In addition to that his machine is colonized with mold and is not working appropriately. He does need a replacement machine whenever possible. from an asthma standpoint the patient is doing well continues uses Symbicort has not had to use his rescue inhaler. He continues on his allergy medicine. Otherwise follow-up in 6 months. If the patient does not hear back from the [employer] by next week he is to [facility]. In the meantime the patient continues smoking. He has tried to cut down. He is not ready to quit. 02/01/2022 the patient is here for a pulmonary follow-up visit. He is going to significant changes in his life. Recently moved to a different residence. He has everything box. Unfortunate has not been able to find his CPAP in all the boxes. He is going to start looking for it. Since he has not used it he has notice increasing daytime drowsiness. His has been concerned about his significant snoring in his apneic episodes. His Magnolia score is elevated 02/08. More importantly explained to the patient that untreated sleep apnea can result in heart disease and worsening cardiovascular risks. The patient is already having elevations in the blood pressure. Therefore, he is now more opt to starting to use it more regularly. In addition to this he still smoking cigarettes. He has been concerned about using a patch because he may forget about it and smoke over a. Explained to him that it is reasonable at least for him to try the smallest patch that will be safe. He is down to about a quarter pack a day which is reassuring. He continues with respiratory therapy. Does have some shortness of breath with activity. Mild in severity. But overall doing well. 02/15/2023 this is a pulmonary follow-up visit.. Still struggling with sleep. He does have significant daytime drowsiness. He wakes up with headaches. His Magnolia score is elevated 24. He is having a lot of snoring and apneic episodes that his is very concerned. His machine was no longer working and he needs a replacement. I did send a script back in January and sent other scrip in May to try to get the patient a replacement machine. However, he has not received any machine as of yet. He still struggling with the old 1 is not getting supplies. I did reach out to the [employer] to see if they can help with his status. The patient is also Thai-speaking only so therefore he will need a sexual assault counsellor when calling his home for supplies. From a respiratory status unfortunately continues to smoke cigarettes. He is still having shortness of breath and chest tightness and cough. Oclz-cx-itfiqxyy severity. He does use his respiratory therapy partial improvement of the symptoms. The patient understands the need to quit smoking altogether in order to improve his symptoms. [facility] Medical History Tobacco dependence Non-adherence to medical treatment Obesity (BMI 30-39.9) MCC (current) use of insulin Diabetic polyneuropathy associated with type 2 diabetes mellitus Diabetes type 2, uncontrolled Asthma CHIDI (obstructive sleep apnea) Venous insufficiency Diabetes Hypertension Hyperlipidemia Surgical History History of surgery History of tonsillectomy Hx of hernia repair Family History Father Renal failure Mother Depression Hypertension Social History (Updated 02/15/23 @ 14:31 by Noni Overton [facility]) Household Members: Spouse and Children Alcohol intake: current Alcohol intake frequency: does not drink Patient Tobacco Use Status: Current everyday Tobacco user Tobacco use type: Cigarette Cigarettes Per Day: 7 Years Smoked: since age 19 Current occupational status: disabled Review of Systems Const Denies fatigue, Denies fever(s), Denies night sweats, Denies poor appetite and Denies weight loss Eyes Reports requires corrective lenses ENT Reports Normal hearing present, Denies dental pain, Denies dysphagia, Denies hearing loss, Denies mouth pain, Denies odynophagia, Denies throat swelling, Denies tongue swelling and Reports other (Dentition adequate) GI Denies abdominal pain, Denies melena, Denies bloating, Denies hematochezia, Denies constipation, Denies GI cramping, Denies dysphagia, Denies excessive flatus, Denies early satiety, Denies heartburn, Denies diarrhea, Denies nausea, Denies odynophagia, Denies vomiting and Denies hematemesis Skin/Breast Denies pruritus, Denies lesions, Denies rash and Denies jaundice Neuro Reports Normal hearing present and Denies Abnormal speech present Endo Denies fatigue Aller/Immun Denies throat swelling and Denies tongue swelling Physical Exam Vital Signs: Last Vital Signs Pulse 90 02/15/23 14:24 BP 110/58 L 02/15/23 14:24 Pulse Ox 97 02/15/23 14:24 Oxygen Delivery Method Room Air 02/15/23 14:24 BMI result Body Mass Index 35.6 Const General: cooperative, no acute distress, well developed and well groomed Nutritional Appearance: well nourished and obese Orientation/consciousness: oriented to person, oriented to place and oriented to time Limitations: language barrier HEENT Head: Yes normocephalic and Yes atraumatic Eyes General: appearance normal, both eyes and all related structures Pupils: Equal, round and reactive pupils present Neck Neck: Yes normal visual inspection and Yes no lymphadenopathy Thyroid: Thyroid normal Resp Effort & Inspection: normal respiratory effort and able to speak in complete sentences Auscultation: diminished lung sounds Cardio Rate: regular rate Rhythm: regular rhythm Heart sounds: Normal, physiologic split S2 sound present Peripheral pulses: radial pulses present and posterior tibial pulses present GI Inspection: No distended, No Abdominal panniculus present and Yes obesity Palpation (GI): Soft to palpation, nontender, no guarding, not rigid and No hepatosplenomegaly present Percussion: Yes normal to percussion Auscultation: normal bowel sounds Rectal Exam - Male: Yes deferred Skin General skin exam: no rashes or lesions noted, turgor normal, skin not dry, no jaundice, No spider nevi and no striae Rashes: no rashes Nails: normal Neuro General: oriented to person, oriented to place and oriented to time Cranial nerves: Yes Equal, round and reactive pupils present and Yes Normal hearing present Speech: No Abnormal speech present Extrem General: Yes normal to inspection, No clubbing, No cyanosis and No edema Psych Appearance: grossly normal and well kempt Mental Status: mental status grossly normal Speech and movement: Normal speech and movement present Affect: normal affect Attitude: cooperative Thought process: Normal thought process present and not confabulating Thought content: Normal thought content present Insight: Limited insight present (Psych) Judgement: Limited judgement present (Psych) Assessment & Plan Assessment & Plan (1) CHIDI (obstructive sleep apnea): Code(s): G47.33 - Obstructive sleep apnea (adult) (pediatric) (2) Asthma: Code(s): J45.909 - Unspecified asthma, uncomplicated Qualifiers: Asthma complication type: uncomplicated Asthma persistence: persistent Asthma severity: moderate Qualified Code(s): J45.40 - Moderate persistent asthma, uncomplicated (3) Tobacco dependence: Code(s): F17.200 - Nicotine dependence, unspecified, uncomplicated Plan short-acting beta agonist as needed continue Symbicort twice a day CPAP therapy broken beyond repair. Needs replacement and also needs supplies. We did reach out to the [employer] tobacco cessation refer to LDCT program follow-up in 6 months Orders: Referrals Thoracic Surgery Referral F17.200 - Nicotine dependence, unspecified, uncomplicated Quality Reporting (2019) Adult ([facility] 138/05/09/68) Smoking risk assessment performed?: Yes Patient Tobacco Use Status: Current everyday Tobacco user Coding Level of Care Code Est Pt Level 4 (06986) Diagnoses CHIDI (obstructive sleep apnea) G47.33 Moderate persistent asthma without complication J45.40 Asthma complication type: uncomplicated Asthma persistence: persistent Asthma severity: moderate Tobacco dependence F17.200 Time Spent (min) 17
[2023-02-15 14:24] VITALS: BP 110/58; PULSE 90; O2SAT 97; BMI 35.6
== END 2023-02-15 14:53 | disposition home or self-care (01) ==
PROVIDERS: PCP Internal Medicine; Visit Provider Hospitalist
DX: G47.33 Obstructive sleep apnea (adult) (pediatric) (principal); J45.40 Moderate persistent asthma, uncomplicated; F17.200 Nicotine dependence, unspecified, uncomplicated
CPT/HCPCS: 99214

== ENCOUNTER → 2023-02-15 14:17 | Outpatient (BNVA) | payer MEDICAID, SELFPAY | PROVIDERS: PCP Internal Medicine; Visit Provider Hospitalist | DX: G47.33 Obstructive sleep apnea (adult) (pediatric) (principal); J45.40 Moderate persistent asthma, uncomplicated; F17.210 Nicotine dependence, cigarettes, uncomplicated | CPT/HCPCS: 99212 ==

== ENCOUNTER 2023-02-22 13:13 | Emergency (ER) | payer MEDICAID, SELFPAY ==
--- NOTE | ~2023-02-22 | XR_ITS ---
EXAMINATION: XR FOOT, LEFT CLINICAL INFORMATION: Pain. COMPARISON: None available. TECHNIQUE: AP, lateral, and oblique views of the left foot. FINDINGS: The bones and soft tissues are normal. No fracture. Alignment is anatomic. Joint spaces are maintained. There is a small calcaneal heel and retrocalcaneal enthesophyte XR/XR foot LT min 3V IMPRESSION: Small calcaneal heel and Small calcaneal heel and retrocalcaneal enthesophytes. No visible acute fracture or dislocation. No evidence of periosteal elevation or thickening, especially involving the second digit. No soft tissue swelling or gas seen.
--- NOTE | 2023-02-22 13:50 | ED_ITS ---
HPI - General Adult General Chief complaint: Extremity Injury, Lower Stated complaint: foot rash ? Time Seen by Provider: 02/22/23 15:37 Source: patient Mode of arrival: ambulatory Limitations: no limitations History of Present Illness HPI narrative: patient is a 57-year-old male with past medical history of asthma, type 2 diabetes insulin-dependent with polyneuropathy, hyperlipidemia, hypertension DM obesity, TENZIN, venous insufficiency presenting to emergency department for evaluation of pain to the left foot. He was seen at urgent care earlier today and advised to come to the emergency department to rule out osteomyelitis of the left 2nd and 3rd digit which currently has increasing redness, swelling, and drainage. He has been treated for recurrent tinea pedis in this region not responding to clotrimazole cream or terbinafine as this resulted in side effects. Related Data Home Medications Medication Instructions Recorded Confirmed albuterol sulfate 90 mcg/actuation 2 puff inhalation Q6H PRN 12/21/19 01/25/21 aerosol inhaler (ProAir HFA) fluticasone propionate 50 1 spray intranasal DAILY 12/21/19 01/25/21 mcg/actuation nasal spray,suspension (Flonase Allergy Relief) sertraline 100 mg tablet 100 mg PO DAILY 12/21/19 01/25/21 aspirin 81 mg tablet,delayed 81 mg PO DAILY 01/12/21 01/25/21 release empagliflozin 10 mg tablet 10 mg PO QAM 11/24/21 (Jardiance) insulin syringe-needle U-100 1/2 #10 ea 02/27/22 mL 31 gauge x 15/64 (BD Veo Insulin Syringe Ultra-Fine) clonazepam 0.5 mg tablet 0.5 mg PO DAILY 06/29/22 cholecalciferol (vitamin D3) 50 50 mcg PO QAM 11/27/22 mcg (2,000 unit) tablet sertraline 50 mg tablet 50 mg PO DAILY 01/11/23 Previous Rx's Medication Instructions Recorded insulin syringe-needle U-100 0.5 #100 ea 04/29/20 mL 30 gauge x 1/2 (BD Insulin Syringe Ultra-Fine) budesonide-formoterol HFA 160 2 puff PO BID #10.2 grams 06/28/20 mcg-4.5 mcg/actuation aerosol inhaler (Symbicort) montelukast 10 mg tablet 10 mg PO DAILY #30 tabs 04/28/21 blood sugar diagnostic (FreeStyle #100 ea 05/02/21 Lite Strips) gabapentin 300 mg capsule 300 mg PO BEDTIME #30 caps 05/02/21 lancets 33 gauge (TRUEplus Lancets) #100 ea 05/02/21 insulin glargine 100 unit/mL 18 unit (0.18 mL) subcut DAILY 30 05/19/21 subcutaneous solution (Lantus days #10 mL U-100 Insulin) insulin lispro 100 unit/mL 4 unit (0.04 mL) subcut TID #15 mL 05/19/21 subcutaneous pen (Humalog KwikPen (U-100) Insulin) pen needle, diabetic 32 gauge x #100 ea 05/19/21 (BD Ultra-Fine Madhavi Pen Needle) terbinafine HCl 250 mg tablet 250 mg PO DAILY #30 tabs 01/08/22 lisinopril 10 mg tablet 10 mg PO DAILY 30 days #30 tabs 02/19/22 rosuvastatin 20 mg tablet 20 mg PO DAILY 30 days #30 tabs 02/19/22 simethicone 125 mg chewable tablet 125 mg PO TID abdominal distention 02/27/22 (Gas Relief (simethicone)) #90 tabs bisacodyl 5 mg tablet,delayed See Rx Instructions PO BEDTIME 30 08/28/22 release (Dulcolax (bisacodyl)) days #60 tabs dexlansoprazole 60 mg 60 mg PO DAILY #30 caps 08/28/22 capsule,biphase delayed release (Dexilant) linaclotide 290 mcg capsule 290 mcg PO QAM 30 days #30 caps 08/28/22 (Linzess) dicyclomine 20 mg tablet 20 mg PO .six times a day 11/27/22 abdominal pain 30 days #180 tabs famotidine 40 mg tablet (Pepcid) 40 mg PO BEDTIME #30 tabs 01/11/23 cephalexin 500 mg capsule 500 mg PO QID #28 caps 02/22/23 doxycycline hyclate 100 mg capsule 100 mg PO BID #14 caps 02/22/23 Allergies Allergy/AdvReac Type Severity Reaction Status Date / Time No Known Allergies Allergy Verified 02/22/23 13:51 Review of Systems 2 Review of Systems: Yes all other systems are reviewed and are negative PMFSH Past Medical History Attestation statement: The following information was validated with the patient. 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 Diabetic polyneuropathy associated with type 2 diabetes mellitus Diabetes type 2, uncontrolled Asthma TENZIN (obstructive sleep apnea) Venous insufficiency Diabetes Hypertension Hyperlipidemia Surgical History History of surgery History of tonsillectomy Hx of hernia repair Family History Family History Father Renal failure Mother Depression Hypertension Social History Social History (Updated 02/15/23 @ 14:31 by Noni Overton Van) Household Members: Spouse and Children Alcohol intake: current Alcohol intake frequency: does not drink Patient Tobacco Use Status: Current everyday Tobacco user Tobacco use type: Cigarette Cigarettes Per Day: 7 Years Smoked: since age 19 Advance Directives: No Advance Directives Information Provided: Yes Current occupational status: disabled Physical Exam ED Vital Signs: Vital Signs - 24 hr 02/22/23 13:51 Temperature 97.8 F Pulse Rate 92 Respiratory Rate 16 Blood Pressure 133/68 Pulse Oximetry 98 Oxygen Delivery Method Room Air BMI result Body Mass Index 35.7 Appearance: Alert.?Oriented to person, place and time. No acute distress.?Normal affect. Eyes: Pupils equal, round and reactive to light.? ENT: Pharynx normal.?? Neck: Normal inspection.? Neck supple.?? CVS: Heart sounds normal. Normal heart rate and rhythm.? Pulses normal.?? Respiratory: No respiratory distress.? Lung sounds clear to auscultation bilaterally?? Abdomen: Soft and non-tender. Normoactive bowel sounds. Skin: Skin warm and dry.? Normal skin color.? Extremities: No lower extremity edema.? No calf ttp? Neuro: Moves all extremities spontaneously. Sensation intact bilaterally. Ambulates with normal steady gait. Course Course Course Narrative: DIONNA- 57-year-old male presents for evaluation of left foot pain. He was sent by urgent care to rule out osteomyelitis of the left 2nd 3rd toes. Plan for labs, x-ray Medical Decision Making Medical Decision Making [facility] Narrative: patient is a 57-year-old male with past medical history of asthma, type 2 diabetes insulin-dependent with polyneuropathy, hyperlipidemia, hypertension DM obesity, TENZIN, venous insufficiency presenting to emergency department for evaluation of wound to the left foot as per HPI. Overall he is well-appearing, nontoxic, afebrile. Examination of the foot reveals Findings most concerning for tinea pedis, although given reported worsening of symptoms and purulent drainage on the dressing I have concern for superimposed bacterial infection for which I will send course of treatment with cephalexin and doxycycline to pharmacy to cover MRSA. Serum labs are overall unremarkable. XR of the foot reveals no visible fracture dislocation, no evidence of periosteal elevation or thickening, no soft tissue swelling or gas is seen. Lower likelihood that this is osteomyelitis at this time. Reviewed these findings with patient and his spouse. Advised outpatient follow-up with primary care provider, worrisome signs and symptoms that would warrant re-evaluation in the emergency department. All questions answered. Stable for discharge. 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 CBC is without leukocytosis or left shift. ESR and CRP are within normal limits. CMP is unremarkable. No lactic acidosis. Blood cultures were sent remain pending at this time. 02/22/23 14:37 02/22/23 14:37 Labs: Lab Results 02/22/23 Range/Units 14:37 WBC 9.0 (4.8-10.8) X10*3/uL RBC 5.49 (4.60-5.80) X10*6/uL Hgb 15.7 (14.0-18.0) g/dl Hct 47.4 (42.0-52.0) % MCV 86.3 (80.0-98.0) fL MCH 28.6 (27.0-33.0) pg MCHC 33.1 (31.0-36.0) g/dl RDW 13.3 (11.0-16.0) % Plt Count 330 (160-400) X10*3/uL MPV 9.4 (9.4-12.4) fL Immature Gran % (Auto) 0.2 (0.0-0.4) % Neut % (Auto) 68.5 (45-73) % Lymph % (Auto) 22.4 (20-40) % Hinds % (Auto) 5.3 (2-11) % Eos % (Auto) 3.3 (0-4) % Baso % (Auto) 0.3 (0-2) % Lymph # (Auto) 2.0 (1.2-4.9) X10*3/uL Hinds # (Auto) 0.5 (0.1-1.2) X10*3/uL Eos # (Auto) 0.3 (0.0-0.4) X10*3/uL Baso # (Auto) 0.0 (0.0-0.2) X10*3/uL Abs Immat Gran (auto) 0.02 (0.00-0.03) X10*3/uL Absolute Neuts (auto) 6.2 (2.0-8.3) x10*3/uL Absolute Nucleated RBC 0.000 (0.0-0.012) X10*3/uL Nucleated RBC % (auto) 0.0 (0.0-0.2) /100WBC ESR 12 (0-15) MM/HR Sodium 141 (135-145) mmol/L Potassium 4.0 (3.3-5.1) mmol/L Chloride 105 (96-108) mmol/L Carbon Dioxide 28 (22-29) mmol/L Anion Gap 12 (12-20) BUN 10 (9-16) mg/dL Creatinine 0.83 (0.5-1.4) mg/dL Estim Creat Clear Calc 111.4 Estimated GFR > 60 Random Glucose 152 H (60-115) mg/dL Lactic Acid 1.8 (0.5-2.0) mmol/L Calcium 10.2 (8.4-10.2) mg/dL Total Bilirubin 0.5 (0.0-1.0) mg/dL AST 19 (5-37) U/L ALT 17 (0-40) U/L Alkaline Phosphatase 107 (39-117) U/L C-Reactive Protein 0.20 (< or = 0.50) mg/dL Total Protein 8.9 H (6.5-8.0) g/dL Albumin 5.0 (3.5-5.0) g/dL Independent Interpretation I performed an independent interpretation of an: Plain X-Ray ( I personally interpreted XR imaging and agree with radiologist impression.) Radiology Impression Discussion of test interpretation with radiology: I have reviewed the radiologist's reading. Radiologist Impression: XR/XR foot LT min 3V IMPRESSION: Small calcaneal heel and Small calcaneal heel and retrocalcaneal enthesophytes. No visible acute fracture or dislocation. No evidence of periosteal elevation or thickening, especially involving the second digit. No soft tissue swelling or gas seen. Independent Historian Clinical information obtained from an independent historian. History obtained from or confirmed by: Spouse ( Present who confirms history) External Record Review External record reviewed: Outpatient record Prescription Management I considered prescription management with: Antibiotic Chronic Conditions Patient?s care impacted by: Diabetes and Hypertension Discharge Plan Discharge Clinical Impression: Cellulitis, Tinea pedis Patient Disposition: Home, Self-Care Instructions: Athlete's Foot (ED), Cellulitis (ED) Additional Instructions: Complete the entire course of antibiotics as prescribed. Return back to emergency department any new or worsening symptoms or concerns, follow up with her primary care provider, as discussed, we sent referrals for visiting nurse services to come to the home and assist with dressing changes and wound management, you will receive a telephone call regarding establishing the services Prescriptions: New cephalexin 500 mg capsule 500 mg PO QID Qty: 28 0RF doxycycline hyclate 100 mg capsule 100 mg PO BID Qty: 14 0RF No Action budesonide-formoterol [Symbicort] 160-4.5 mcg/actuation HFA aerosol inhaler 2 puff PO BID Qty: 10.2 3RF montelukast 10 mg tablet 10 mg PO DAILY Qty: 30 11RF gabapentin 300 mg capsule 300 mg PO BEDTIME Qty: 30 6RF (DME) FreeStyle Lite Strips Strip See Rx Instructions .Route Qty: 100 11RF Rx Instructions: As directed to test blood sugars 4 times daily (DME) lancets [TRUEplus Lancets] 33 gauge misc See Rx Instructions .Route Qty: 100 11RF Rx Instructions: As directed 4 times a day rosuvastatin 20 mg tablet 20 mg PO DAILY 30 Days Qty: 30 0RF lisinopril 10 mg tablet 10 mg PO DAILY 30 Days Qty: 30 0RF terbinafine HCl 250 mg tablet 250 mg PO DAILY Qty: 30 0RF (DME) insulin syringe-needle U-100 [BD Insulin Syringe Ultra-Fine] 0.5 mL 30 gauge x 1/2 syringe See Rx Instructions .ROUTE .MEDSUPPLY Qty: 100 3RF Rx Instructions: Daily sertraline 100 mg tablet 100 mg PO DAILY albuterol sulfate [ProAir HFA] 90 mcg/actuation HFA aerosol inhaler 2 puff inhalation Q6H PRN fluticasone propionate [Flonase Allergy Relief] 50 mcg/actuation spray,suspension 1 spray intranasal DAILY Rx Instructions: administer into each nostril aspirin 81 mg tablet,delayed release (DR/EC) 81 mg PO DAILY clonazepam 0.5 mg tablet 0.5 mg PO DAILY insulin lispro [Humalog KwikPen Insulin] 100 unit/mL insulin pen 4 unit subcut TID Qty: 15 5RF Lantus U-100 Insulin 100 unit/mL solution 18 unit subcut DAILY 30 Days Qty: 10 5RF (DME) pen needle, diabetic [BD Ultra-Fine Madhavi Pen Needle] 32 gauge x 5/32 needle See Rx Instructions .ROUTE .MEDSUPPLY Qty: 100 11RF Rx Instructions: As directed three times a day Jardiance 10 mg tablet 10 mg PO QAM (DME) insulin syringe-needle U-100 [BD Veo Insulin Syringe UF] 1/2 mL 31 gauge x 15/64 syringe See Rx Instructions .ROUTE BEDTIME Qty: 10 Rx Instructions: As directed simethicone [Gas Relief (simethicone)] 125 mg tablet,chewable 125 mg PO TID Qty: 90 6RF bisacodyl [Dulcolax (bisacodyl)] 5 mg tablet,delayed release (DR/EC) See Rx Instructions PO BEDTIME 30 Days Qty: 60 6RF Rx Instructions: 1-2 tabs qhs prn cic orally bedtime; Linzess 290 mcg capsule 290 mcg PO QAM 30 Days Qty: 30 6RF dexlansoprazole [Dexilant] 60 mg capsule,biphase delayed releas 60 mg PO DAILY Qty: 30 6RF cholecalciferol (vitamin D3) 50 mcg (2,000 unit) tablet 50 mcg PO QAM dicyclomine 20 mg tablet 20 mg PO .six times a day 30 Days Qty: 180 6RF sertraline 50 mg tablet 50 mg PO DAILY famotidine [Pepcid] 40 mg tablet 40 mg PO BEDTIME Qty: 30 3RF Referrals: Physician,None [Primary Care Provider] -
[2023-02-22 13:51] VITALS: BP 133/68; PULSE 92; RESP 16; TEMP 36.6; O2SAT 98; BMI 35.7
[2023-02-22 14:44] LABS: MANUAL DIFF FLAG NO
[2023-02-22 14:46] LABS: Basophils Percent Auto 0.3 % (0-2); Eosinophils Absolute Auto 0.3 X10*3/uL (0.0-0.4); Eosinophils Percent Auto 3.3 % (0-4); Hematocrit 47.4 % (42.0-52.0); Hemoglobin 15.7 g/dl (14.0-18.0); Imm Gran Abs Auto 0.02 X10*3/uL (0.00-0.03); Imm Gran Pct Auto 0.2 % (0.0-0.4); Lymphocytes Percent Auto 22.4 % (20-40); Mean Corpuscular HGB Conc 33.1 g/dl (31.0-36.0); Mean Corpuscular Hemoglobin 28.6 pg (27.0-33.0); Mean Corpuscular Volume 86.3 fL (80.0-98.0); Mean Platelet Volume 9.4 fL (9.4-12.4); Monocytes Absolute Auto 0.5 X10*3/uL (0.1-1.2); Monocytes Percent Auto 5.3 % (2-11); Neutrophils Absolute Auto 6.2 x10*3/uL (2.0-8.3); Neutrophils Percent Auto 68.5 % (45-73); Platelet Count 330 X10*3/uL (160-400); Red Blood Count 5.49 X10*6/uL (4.60-5.80); Red Cell Distribution Width 13.3 % (11.0-16.0)
[2023-02-22 14:57] LABS: Lactic Acid 1.8 mmol/L (0.5-2.0)
[2023-02-22 15:00] LABS: Alanine Aminotransferase 17 U/L (0-40); Alkaline Phosphatase 107 U/L (39-117); Anion Gap 12 (12-20); Aspartate Amino Transferase 19 U/L (5-37); Bilirubin Total 0.5 mg/dL (0.0-1.0); Blood Urea Nitrogen 10 mg/dL (9-16); Calcium 10.2 mg/dL (8.4-10.2); Carbon Dioxide 28 mmol/L (22-29); Chloride 105 mmol/L (96-108); Creatinine Clr Calc Pharmacy 111.4; Estimated Glomerular Filt Rate > 60; Glucose Random 152 mg/dL (60-115); Sodium 141 mmol/L (135-145); Total Protein 8.9 g/dL (6.5-8.0)
[2023-02-22 15:31] LABS: Erythrocyte Sedimentation Rate 12 MM/HR (0-15)
--- NOTE | 2023-02-22 16:41 | MHC.CM.PN ---
REFERRALS TO [facility], [facility], AND [facility] TO INQUIRE ABOUT 2-3 X/WEEK DRESSING CHANGE AND TEACH.
--- NOTE | 2023-02-23 14:24 | MHC.CM.ED ---
Patient was d/c'd from ER on 02/22. VNA was attempted to be arranged. No agency has accepted patient yet. Referral rebroadcasted. Continue to monitor for d/c needs.
--- NOTE | 2023-02-26 07:38 | MHC.CM.ED ---
[facility] accepted patient.
--- NOTE | 2023-02-26 12:01 | MHC.CM.ED ---
Late Entry for 02/25/23 Pt has been accepted onto service with [facility] for wound care and teaching. Message left for pt informing him of agency.
== END 2023-02-22 17:39 | disposition home or self-care (01) ==
PROVIDERS: Physician Assistant; Emergency Provider Emergency Medicine
DX: L03.116 Cellulitis of left lower limb (principal); R21 Rash and other nonspecific skin eruption; B35.3 Tinea pedis; E11.9 Type 2 diabetes mellitus without complications; F17.210 Nicotine dependence, cigarettes, uncomplicated; Z71.6 Tobacco abuse counseling; Z79.4 Long term (current) use of insulin; Z79.899 Other long term (current) drug therapy
CPT/HCPCS: 36415; 73630; 80053; 83605; 85025; 85652; 86140; 87040; 99283

== ENCOUNTER 2023-03-06 13:09 | Outpatient (REF) | payer MEDICAID, SELFPAY ==
--- NOTE | ~2023-03-06 | XR_ITS ---
EXAMINATION: XR CHEST CLINICAL INFORMATION: Chest pain COMPARISON: None available. TECHNIQUE: 2 views of the chest were obtained. FINDINGS: No significant abnormality is noted involving the heart, lungs, mediastinum, bony thorax or soft tissues. XR/XR chest 2V IMPRESSION: Unremarkable chest examination.
--- NOTE | 2023-03-06 13:18 | ECG_ITS ---
Test Reason : chest pain Blood Pressure : / mmHG Vent. Rate : 090 BPM Atrial Rate : 090 BPM P-R Int : 196 ms QRS Dur : 084 ms QT Int : 350 ms P-R-T Axes : 058 041 -09 degrees QTc Int : 428 ms Normal sinus rhythm Normal ECG When compared with ECG of 05-MAY-2019 07:48, No significant change was found Referred By: Yany Cole Electronically Signed By:JOSH SIMEON MD
[2023-03-06 14:11] LABS: Troponin-I High Sensitivity < 2.7 ng/L (<3.5-35.0)
== END 2023-03-06 13:10 | disposition home or self-care (01) ==
LOC: HO.XRAY 13:09
PROVIDERS: PCP Internal Medicine; Visit Provider Nurse Practitioner
DX: R07.9 Chest pain, unspecified (principal)
CPT/HCPCS: 36415; 71046; 84484; 93005

== ENCOUNTER → 2023-03-06 13:18 | Outpatient (BNV) | payer MEDICAID, SELFPAY | PROVIDERS: PCP Internal Medicine; Visit Provider Internal Medicine Cardiovascular Disease | DX: R07.9 Chest pain, unspecified (principal) | CPT/HCPCS: 93010 ==

== ENCOUNTER → 2023-04-01 15:43 | Outpatient (REF) | payer MEDICAID, SELFPAY | LOC: HO.SL 15:43 | PROVIDERS: PCP Internal Medicine; Visit Provider Hospitalist | DX: G47.33 Obstructive sleep apnea (adult) (pediatric) (principal) | CPT/HCPCS: 95806 ==

== ENCOUNTER → 2023-04-01 15:52 | Outpatient (BNV) | payer MEDICAID, SELFPAY | PROVIDERS: PCP Internal Medicine; Visit Provider Internal Medicine | DX: G47.33 Obstructive sleep apnea (adult) (pediatric) (principal) | CPT/HCPCS: 95806 ==

== ENCOUNTER 2023-04-26 10:24 | Outpatient (AMB) | payer MEDICAID, SELFPAY ==
--- NOTE | 2023-04-26 09:03 | MHC.OFFVIS ---
Intake Intake Visit Reasons: LDCT SD Allergies No Known Allergies Allergy (Verified 02/22/23 13:51) HPI HPI Comments History of Present Illness Details Sergo is a pleasant 57 year old male, current/former smoker with a 33 PYH. Patient has been smoking since age 19 for 38 years at 1/2 to 3/4 ppd. Previously smoking 1 ppd x 19 years. Denies marijuana use. Denies exposure to chemicals or substances like asbestos. Denies second hand smoke exposure. Denies known family history of lung cancer. Denies personal history of cancers. Denies chest CT in last year. Reports travel to [place]. Denies testing positive for COVID. Admits receiving COVID Vaccine. Denies fever, chills, chest pain, new cough, hemoptysis or unintentional weight loss. Lung Cancer Screening Questionnaire reviewed with patient by provider. Shared Decision Making Completed. Discussed in detail with patient, the risk versus benefit of LDCT screening. Patient in agreement of proceeding with scan. 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 Diabetic polyneuropathy associated with type 2 diabetes mellitus Diabetes type 2, uncontrolled Asthma TENZIN (obstructive sleep apnea) Venous insufficiency Diabetes Hypertension Hyperlipidemia Surgical History History of surgery History of tonsillectomy Hx of hernia repair Family History Father Renal failure Mother Depression Hypertension Social History (Updated 04/26/23 @ 10:51 by Luciana Gagnon NP) Household Members: Spouse and Children Alcohol intake: current Alcohol intake frequency: does not drink Patient Tobacco Use Status: Current everyday Tobacco user Tobacco use type: Cigarette Cigarettes Per Day: 15 Years Smoked: since age 19 Current occupational status: disabled Assessment & Plan Assessment & Plan (1) Nicotine dependence, cigarettes, uncomplicated: Code(s): F17.210 - Nicotine dependence, cigarettes, uncomplicated Plan Shared decision-making visit completed today in office. This patient meets criteria for LDCT for lung cancer screening purposes and is asymptomatic. Offered smoking cessation, will enter referral to nurse navigator. Patient has been scheduled for a low dose chest CT for screening purposes at [facility]. We discussed how the results will be obtained depending on CT findings. RADS 1 and RADS 2 will receive a letter with results and will follow up for annual LDCT. Patient informed they will be contacted at later date to schedule upcoming LDCT scan. RADS 3 and RADS 4 will receive a telephone call, or an office visit after reviewing case at our Lung Cancer Conference to determine when the next LDCT will be scheduled or further interventions that may be needed. Discussed importance of screening program and compliance with yearly LDCT scan as scheduled. Risks, benefits, and alternatives were discussed in detail and patient agrees to proceed. Risks discussed include but are not limited to: radiation exposure and possibility of additional intervention for benign disease. Benefits include detection of lung cancer at an early stage. A copy of today's visit and LDCT results will be sent to patient's PCP. Incidental findings on LDCT are PCP's responsibility. If there are incidental findings, our office will ensure that PCP office is aware of these findings. All questions were answered and patient is in agreement of plan. Orders: Referrals Nurse Navigator Referral F17.200 - Nicotine dependence, unspecified, uncomplicated Quality Reporting (2019) Adult ([facility] 138//) Smoking risk assessment performed?: Yes Patient Tobacco Use Status: Current everyday Tobacco user Coding Level of Care Code Lung Cancer Screening G0296 Diagnoses Nicotine dependence, cigarettes, uncomplicated F17.210
== END 2023-04-26 10:55 | disposition home or self-care (01) ==
PROVIDERS: PCP Internal Medicine; Referring Provider Hospitalist; Visit Provider Nurse Practitioner Family
DX: F17.210 Nicotine dependence, cigarettes, uncomplicated (principal)
CPT/HCPCS: G0296

== ENCOUNTER 2023-04-26 10:47 | Outpatient (REF) | payer MEDICAID, SELFPAY ==
--- NOTE | ~2023-04-26 | CT_ITS ---
EXAMINATION: CT CHEST SCREENING CLINICAL INFORMATION: Nicotine dependence. COMPARISON: Chest x-ray 03/06/2023. TECHNIQUE: Multidetector volumetric CT imaging of the chest is performed without contrast using low dose technique. Additional 2D coronal and sagittal reformatted images and axial 3D maximum intensity projection (MIP) images are generated on the CT workstation. This CT examination was performed using dose optimization techniques as appropriate, variously including the following: *Automated exposure control *Adjustment of mA and/or kV according to patient size (this includes techniques or standardized protocols for targeted exams where dose is matched to indication/reason for exam; i.e. extremities or head) *Use of iterative reconstruction technique DLP: 65 mGy-cm FINDINGS: LUNGS: The lungs are well expanded and clear of acute pneumonic process. There are no pulmonary nodule, mass, consolidation or atelectasis. No ground-glass attenuation seen either. MEDIASTINUM: Thyroid lobes are symmetrical and normal. Central trachea and the bronchi are widely patent. Heart size and the great vessels are normal caliber. There is no pericardial effusion. No abnormal-sized mediastinal or hilar lymph nodes seen. CORONARY ARTERY CALCIFICATION: Mild coronary artery calcifications are present. PLEURA: There is no pleural effusion. No pleural mass or thickening. AXILLA: No lymphadenopathy. UPPER ABDOMEN: Visualized liver, spleen, pancreas and bilateral adrenal glands are unremarkable. No radiopaque gallstone seen. OSSEOUS STRUCTURES: No aggressive lytic or sclerotic process seen. There is moderate ventral spondylosis mid and lower dorsal spine. CT/CT lung screening IMPRESSION: Unremarkable CT chest exam. ASSESSMENT: Lung-RADS category 1: Negative. RECOMMENDATION: Low-dose annual CT chest
== END 2023-04-26 10:48 | disposition home or self-care (01) ==
LOC: HO.CT 10:47
PROVIDERS: PCP Internal Medicine; Visit Provider Nurse Practitioner Family
DX: Z12.2 Encounter for screening for malignant neoplasm of respiratory organs (principal); F17.210 Nicotine dependence, cigarettes, uncomplicated
CPT/HCPCS: 71271; G0296

== ENCOUNTER 2023-05-09 14:08 | Outpatient (AMB) | payer MEDICAID, SELFPAY ==
[2023-05-09 14:43] VITALS: BMI 35.8
--- NOTE | 2023-05-09 14:43 | MHC.OFFVIS ---
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 Pt went back to PCP again and was sent to ED again. He was sent for some Xray testing to r/o osteomyelitis, nothing was found. 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 Complaints include pain over varicosities, swelling of lower extremities, cramping, fatigue, and heaviness of the lower extremities. It has been affecting there daily activities including walking. It is noted more so in left leg. Patient denies any previous venous surgery or injections. Patient denies any history of DVT/ PE. Patient denies any history of phlebitis. Trial of compression includes - [id number] They now present for vascular evaluation regarding their varicose veins. 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 Diabetic polyneuropathy associated with type 2 diabetes mellitus Diabetes type 2, uncontrolled Asthma TENZIN (obstructive sleep apnea) Venous insufficiency Diabetes Hypertension Hyperlipidemia Surgical History History of surgery History of tonsillectomy Hx of hernia repair Family History Father Renal failure Mother Depression Hypertension Social History Household Members: Spouse and Children Alcohol intake: current Alcohol intake frequency: does not drink Patient Tobacco Use Status: Current everyday Tobacco user Tobacco use type: Cigarette Cigarettes Per Day: 15 Years Smoked: since age 19 Current occupational status: disabled Review of Systems Const Reports as per HPI ENT Reports no additional complaints Card Denies chest pain, Denies chest pain at rest and Denies chest pain with activity Resp Denies chest congestion and Denies cough GI Reports no additional complaints Musc Details: pain over varicosities, aching of lower extremities, swelling, cramping, heaviness and tiredness, itching Denies abnormal gait Skin/Breast Reports pruritus and Denies wounds Neuro Reports no additional complaints and Denies abnormal gait Psych Denies no additional complaints Physical Exam Vital Signs: BMI result Body Mass Index 35.8 Const General: cooperative, healthy appearing and comfortable Orientation/consciousness: oriented to person, oriented to place and oriented to time Neck Carotids: no bruits Chest Chest palpation & inspection: normal inspection of the chest and normal palpation of entire chest wall Resp Effort & Inspection: normal respiratory effort and able to speak in complete sentences Cardio Rate: regular rate Heart sounds: S1 normal heart sound present and S2 normal heart sound present Peripheral pulses: Peripheral pulses 2+ throughout GI Inspection: Yes normal to inspection Skin Other: +2 edema CEAP Classification C4 - skin color changes Ep - Etiology Primary As - superficial veins P - reflux There excoriated open areas between toes 234 General skin exam: dry skin Wounds: wounds noted Neuro General: oriented to person, oriented to place and oriented to time Extrem Right lower extremity: full ROM, normal capillary refill and edema Left lower extremity: full ROM, normal capillary refill and edema Psych Mental Status: mental status grossly normal Assessment & Plan Assessment & Plan (1) Varicose veins of left lower extremity with inflammation: Code(s): I83.12 - Varicose veins of left lower extremity with inflammation Plan: In short, the patient has evidence of venous insufficiency. I have discussed the pathophysiology with the patient. In addition I have provided informational material regarding venous disease to the patient. We have discussed conservative measures including compression, elevation, and exercise. I have also provided a handout regarding appropriate use of compression stockings and where to purchase good compression stockings as well. I have taken the liberty of ordering venous insufficiency testing with the patient. They will follow up with me after testing. In addition I have prescribed an antifungal cream for in between his toes to try to see if that will help with these excoriated areas. The patient had an opportunity to ask questions regarding the treatment plan. All questions were answered. Imaging studies, laboratory studies and physical exam results were discussed and reviewed in detail. No major barriers to understanding were identified. The patient expressed understanding and agreement with the above treatment plan. The patient is aware they should contact our office by phone for worsening of the current condition or the appearance of new symptoms. Thank you for allowing me to participate in the vascular care of this patient. If you have any questions or concerns regarding the treatment for the above condition please do not hesitate to contact me. The office telephone contact is [phone]. This note is constructed using voice recognition software. While every effort has been made to ensure accuracy, cnc laser operator errors may have been included. Thank you for allowing me to participate in the care of your patient. Yours sincerely, Abdon Kaur MD, FACS, R.P.V.I. Orders: Orders US venous insuf bilat 1 Week I83.12 - Varicose veins of left lower extremity with inflammation Medications: New nystatin-triamcinolone 100,000-0.1 unit/g-% Please apply between toes daily 1 appl topical DAILY 30 grams 0RF I83.12 - Varicose veins of left lower extremity with inflammation Quality Reporting (2019) Adult ([facility] ) Smoking risk assessment performed?: Yes Patient Tobacco Use Status: Current everyday Tobacco user Coding Level of Care Code Est Pt Level 4 (74069) Diagnoses Varicose veins of left lower extremity with inflammation I83.12
== END 2023-05-09 15:37 | disposition home or self-care (01) ==
PROVIDERS: PCP Internal Medicine; Visit Provider Surgery Vascular Surgery
DX: I83.12 Varicose veins of left lower extremity with inflammation (principal)
CPT/HCPCS: 99214

== ENCOUNTER → 2023-05-09 14:08 | Outpatient (BNVA) | payer MEDICAID, SELFPAY | PROVIDERS: PCP Internal Medicine; Visit Provider Surgery Vascular Surgery | DX: I83.12 Varicose veins of left lower extremity with inflammation (principal) | CPT/HCPCS: 99212 ==

== ENCOUNTER 2023-05-20 12:51 | Outpatient (REF) | payer MEDICAID, SELFPAY ==
--- NOTE | ~2023-05-20 | US_ITS ---
EXAMINATION: US LOWER EXTREMITY VENOUS (REFLUX EXAM), BILATERAL CLINICAL INFORMATION: Varicose veins of left lower extremity with inflammation COMPARISON: None. TECHNIQUE: Color flow triplex imaging and compression Doppler was performed to evaluate both the deep and the superficial systems bilaterally. To evaluate the superficial system, the examination was performed in the upright position. Color-flow Doppler ultrasound and compression ultrasound were utilized. In addition, maneuvers were utilized to demonstrate reflux. FINDINGS: 1. DEEP VENOUS ULTRASOUND OF THE RIGHT LOWER EXTREMITY: Common Femoral Vein: Compressible, normal respiratory variation and augmented flow. Femoral Vein: Compressible, normal color flow and augmentation. Popliteal Vein: Compressible, normal augmentation. Deep Reflux: There is no evidence of reflux in the deep system in either the common femoral vein, superficial femoral or the popliteal vein. There is no evidence of a Cole's cyst. Prominent lymph nodes in the right inguinal region are seen. 2. SUPERFICIAL ULTRASOUND WITH DOPPLER OF RIGHT LOWER EXTREMITY: GREAT SAPHENOUS VEIN: Saphenofemoral Junction: 0.6 cm; Reflux: 0 ms Proximal Thigh: 0.3 cm; Reflux: 0 ms Mid Thigh: 0.2 cm; Reflux: 0 ms Distal Thigh: 0.2 cm; Reflux: 0 ms At Knee: 0.2 cm; Reflux: 0 ms Proximal Calf: 0.3 cm; Reflux: 0 ms Mid Calf: 0.2 cm; Reflux: 0 ms Distal Calf: 0.2 cm; Reflux: 0 ms DUPLICATED RIGHT LATERAL GREAT SAPHENOUS VEIN: Diameter: 0.3; Reflux: 0 SMALL SAPHENOUS VEIN: Saphenopopliteal Junction: 0.2 cm; Reflux: 0 ms Proximal: 0.2 cm; Reflux: 0 ms Distal: 0.2 cm; Reflux: 0 ms PERFORATORS: Location: Distal small saphenous vein Size: 0.2; Reflux: 0 Location: Proximal calf Size: 0.2; Reflux: 0 Location: Midcalf Size: 0.3; Reflux: 0 3. DEEP VENOUS ULTRASOUND OF THE LEFT LOWER EXTREMITY: Common Femoral Vein: Compressible, normal respiratory variation and augmented flow. Femoral Vein: Compressible, normal color flow and augmentation. Popliteal Vein: Compressible, normal augmentation. Deep Reflux: There is no evidence of reflux in the deep system in either the common femoral vein, superficial femoral or the popliteal vein. There is no evidence of a Cole's cyst. Prominent lymph nodes in the left inguinal region and left popliteal fossa are seen. 4. SUPERFICIAL ULTRASOUND WITH DOPPLER OF LEFT LOWER EXTREMITY: GREAT SAPHENOUS VEIN: Saphenofemoral Junction: 0.6 cm; Reflux: 0 ms Proximal Thigh: 0.3 cm; Reflux: 0 ms Mid Thigh: 0.3 cm; Reflux: 0 ms Distal Thigh: 0.3 cm; Reflux: 0 ms At Knee: 0.3 cm; Reflux: 0 ms Proximal Calf: 0.3 cm; Reflux: 0 ms Mid Calf: 0.2 cm; Reflux: 0 ms Distal Calf: 0.2 cm; Reflux: 0 ms SMALL SAPHENOUS VEIN: Saphenopopliteal Junction: 0.1 cm; Reflux: 0 ms Proximal: 0.06 cm; Reflux: 0 ms Distal: 0.2 cm; Reflux: 0 ms PERFORATORS: Location: Mid small saphenous vein Size: 0.2; Reflux: 0 Location: Distal thigh Size: 0.2; Reflux: 0 Location: Proximal calf Size: 0.1; Reflux: 0 US/US venous insuf bilat IMPRESSION: 1. No evidence of deep venous thrombosis in the bilateral common femoral veins, femoral veins, and popliteal veins. 2. No evidence of reflux in the bilateral superficial veins. 3. Multiple bilateral perforators visualized without reflux. 4. Prominent bilateral inguinal and left popliteal lymph nodes.
== END 2023-05-20 12:52 | disposition home or self-care (01) ==
LOC: HO.US 12:51
PROVIDERS: Visit Provider Surgery Vascular Surgery
DX: I83.12 Varicose veins of left lower extremity with inflammation (principal)
CPT/HCPCS: 93970

== ENCOUNTER 2023-05-23 12:02 | Outpatient (AMB) | payer MEDICAID, SELFPAY ==
--- NOTE | 2023-05-23 12:09 | A.OFFVIS_ITS ---
Intake Vital Signs 05/23/23 12:14 Height 5 ft 6 in Weight 210 lb 12.191 oz BMI 34.0 BP 137/64 Blood Pressure Location Rt brachial Position Sitting Pulse 88 Intake Visit Reasons: CI, CIC follow up PT has many N/S Intake Note: Sergo presents in the office today in follow up of CIC. CC: Patient c/o abdominal pain for a few weeks. Denies other GI symptoms. Compensation Administrator Required: Yes Accompanied by: Self / Same As Patient Allergies No Known Allergies Allergy (Verified 05/23/23 12:22) HPI CI, CIC follow up PT has many N/S HPI Details Assessment & Plan (1) Chronic idiopathic constipation: Code(s): K59.04 - Chronic idiopathic constipation (2) GERD (gastroesophageal reflux diseas e): Code(s): K21.9 - Gastro-esophageal reflux disease without esophagitis Qualifiers: Esophagitis bleeding: without hemorrhage Esophagitis presence: with esophagitis Qualified Code(s): K21.00 - Gastro-esophageal reflux disease with esophagitis, without bleeding (3) Abdominal bloating: Code(s): R14.0 - Abdominal distension (gaseous) (4) Epigastric pain: Code(s): R10.13 - Epigastric pain (5) Chest pain: Comment: Her cardiac evaluation. She does have an x-ray repeated. Code(s): R07.9 - Chest pain, unspecified Plan TRISTANIAN #Jacinta Live He still has pain in the lower rib area that radiates up to the chest. He feels like air is stuck in the lower esophagus, but this is not well relieved with his simethicone. He continues on his Dexilant. He cannot say that the pain occurs a particular time of day but it is worsened with straining to lift things, but it is also worsened when he drinks juices and carbonated things. He also admits that he had stopped coffee because of his GERD and he is now drinking about 3 cups a day again. He is moving his bowels well now. He continues on his bisacodyl, Linzess 290, simethicone, Dexilant daily with famotidine for breakthrough, and dicyclomine for cramping. Since he is a diabetic and out of an abundance of caution I think that we should get an EKG a chest x-ray and a troponin. I will also give him a trial of famotidine to take when the pain is bad to see if this helps relieve it. It may be that we need to changes PPI depending on how he response to this and how these tests progress. He also mentions that his primary care visit his blood pressure was high and he was supposed to go for nursing visit to recheck it but he missed the appointment because he was having ?panic attacks. ? he does have a machine at home and he checks his pressure. I explained to him that when we get abnormal readings we want to check it against a home machine because sometimes the small units can get out of calibration and give inaccurate information. However, today in the office his blood pressure appears to be well controlled at 130 systolic. Return office visit in 3 weeks Orders: Orders Troponin-I High Se nsitivity 01/11/23 R07.9 - Chest pain , unspecified ECG 12 lead EKG 01/11/23 R07.9 - Chest pain , unspecified XR chest 2V 01/11/23 R07.9 - Chest pain , unspecified Medications: New famotidine (Pepcid ) 40 mg PO BEDTIME 3 0 tabs 3RF R10.13 - Epigastri c pain, K21.9 - Ga stro-esophageal re flux disease witho ut esophagitis . LABS: Laboratory Tests 03/06/23 13:15 Troponin I High Se ns < 2.7 EKG 03/06/23 Test Reason : chest pain Blood Pressure : / mmHG Vent. Rate : 090 BPM Atrial Rate : 090 BPM P-R Int : 196 ms QRS Dur : 084 ms QT Int : 350 ms P-R-T Axes : 058 041 -09 degrees QTc Int : 428 ms Normal sinus rhythm Normal ECG When compared with ECG of 05-MAY-2019 07:48, No significant change was found CHEST X-RAY FINDINGS: No significant abnormality is noted involving the heart, lungs, mediastinum, bony thorax or soft tissues. XR/XR chest 2V IMPRESSION: Unremarkable chest examination. CHEST CT OSSEOUS STRUCTURES: No aggressive lytic or sclerotic process seen. There is moderate ventral spondylosis mid and lower dorsal spine. TODAY'S VISIT TRISTANIAN #Annalee Rice We review the cardiac testing which I am happy did not seem to indicate any serious cause for his chest pain relative to the cardiac system. He is now having pain lower in the bilateral mid abdomen he describes as burning/throbbing. It comes and goes out of nowhere. It is not r/t eating or moving his bowels. It does not happen every day. Once it starts it will last 5-6 minutes. Overall, this sounds musculoskeletal to me, and he does have spondylosis of the thoracic and lumbar spine. He also endorses a lot of low back pain. He just started on Ozempic and has lost 20 lbs, he is unsure if this may be a c/f. He continues on his bisacodyl, Linzess 290, simethicone, Dexilant daily with famotidine for breakthrough, and dicyclomine for cramping. ROV 6 mos. 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 Diabetic polyneuropathy associated with type 2 diabetes mellitus Diabetes type 2, uncontrolled Asthma TENZIN (obstructive sleep apnea) Venous insufficiency Diabetes Hypertension Hyperlipidemia Surgical History History of surgery History of tonsillectomy Hx of hernia repair Family History Father Renal failure Mother Depression Hypertension Social History Household Members: Spouse and Children Alcohol intake: current Alcohol intake frequency: does not drink Patient Tobacco Use Status: Current everyday Tobacco user Tobacco use type: Cigarette Cigarettes Per Day: 15 Years Smoked: since age 19 Current occupational status: disabled Review of Systems Const Denies fatigue, Denies fever(s), Denies night sweats, Denies poor appetite and Denies weight loss Eyes Details: glasses Reports requires corrective lenses ENT Reports Normal hearing present, Denies dental pain, Denies dysphagia, Denies hearing loss, Denies mouth pain, Denies odynophagia, Denies throat swelling, Denies tongue swelling and Reports other (Dentition adequate) Card Reports no additional complaints Resp Reports no additional complaints GI Details: Reports abdominal pain, Denies melena, Denies bloating, Denies hematochezia, Reports constipation, Denies GI cramping, Denies dysphagia, Denies excessive flatus, Denies early satiety, Reports heartburn, Denies diarrhea, Denies nausea, Denies odynophagia, Denies vomiting and Denies hematemesis Musc Reports back pain and Reports myalgias Skin/Breast Denies pruritus, Denies lesions, Denies rash and Denies jaundice Neuro Reports Normal hearing present and Denies Abnormal speech present Endo Denies fatigue Aller/Immun Denies throat swelling and Denies tongue swelling Physical Exam Vital Signs: Last Vital Signs Pulse 88 05/23/23 12:14 BP 137/64 05/23/23 12:14 BMI result Body Mass Index 34.0 Const General: cooperative, no acute distress, well developed and well groomed Nutritional Appearance: well nourished and obese Orientation/consciousness: oriented to person, oriented to place and oriented to time Limitations: language barrier HEENT Head: Yes normocephalic and Yes atraumatic Eyes General: appearance normal, both eyes and all related structures Pupils: Equal, round and reactive pupils present Neck Neck: Yes normal visual inspection and Yes no lymphadenopathy Thyroid: Thyroid normal Resp Effort & Inspection: normal respiratory effort and able to speak in complete sentences Auscultation: clear to auscultation bilaterally Cardio Rate: regular rate Rhythm: regular rhythm Heart sounds: Normal, physiologic split S2 sound present Peripheral pulses: radial pulses present and posterior tibial pulses present GI Inspection: No distended, No Abdominal panniculus present and Yes obesity Palpation (GI): Soft to palpation, nontender, no guarding, not rigid and No hepatosplenomegaly present Percussion: Yes normal to percussion Auscultation: normal bowel sounds Rectal Exam - Male: Yes deferred Skin General skin exam: no rashes or lesions noted, turgor normal, skin not dry, no jaundice, No spider nevi and no striae Rashes: no rashes Nails: normal Neuro General: oriented to person, oriented to place and oriented to time Cranial nerves: Yes Equal, round and reactive pupils present and Yes Normal hearing present Speech: No Abnormal speech present Extrem General: Yes normal to inspection, No clubbing, No cyanosis and No edema Psych Appearance: grossly normal and well kempt Mental Status: mental status grossly normal Speech and movement: Normal speech and movement present Affect: normal affect Attitude: cooperative Thought process: Normal thought process present and not confabulating Thought content: Normal thought content present Insight: Limited insight present (Psych) Judgement: Limited judgement present (Psych) Assessment & Plan Assessment & Plan (1) Chronic idiopathic constipation: Code(s): K59.04 - Chronic idiopathic constipation (2) GERD (gastroesophageal reflux disease): Code(s): K21.9 - Gastro-esophageal reflux disease without esophagitis Qualifiers: Esophagitis bleeding: without hemorrhage Esophagitis presence: with es ophagitis Qualified Code(s): K21.00 - Gastro-esophageal reflux disease with esophagitis, without bleeding (3) Epigastric pain: Code(s): R10.13 - Epigastric pain Plan TRISTANIAN #Annalee Live We review the cardiac testing which I am happy did not seem to indicate any serious cause for his chest pain relative to the cardiac system. He is now having pain lower in the bilateral mid abdomen he describes as burning/throbbing. It comes and goes out of nowhere. It is not r/t eating or moving his bowels. It does not happen every day. Once it starts it will last 5-6 minutes. Overall, this sounds musculoskeletal to me, and he does have spondylosis of the thoracic and lumbar spine. He also endorses a lot of low back pain. He just started on Ozempic and has lost 20 lbs, he is unsure if this may be a c/f. He continues on his bisacodyl, Linzess 290, simethicone, Dexilant daily with famotidine for breakthrough, and dicyclomine for cramping. ROV 6 mos. Medications: Refilled linaclotide (Linzess) 290 mcg PO QAM 30 days 30 caps 6RF K59.04 - Chronic idiopathic constipation simethicone (Gas Relief (simethicone)) 125 mg PO TID 90 tabs 6RF abdominal dist ention bisacodyl 5 - 10 mg (1 - 2 x 5 mg) PO BEDTIME PRN 60 tabs 6RF constipation K59.04 - Chronic idiopathic constipation dexlansoprazole (Dexilant) 60 mg PO DAILY 30 caps 6RF K21.9 - Gastro-esophageal reflux disease without esophagitis, R10.13 - Epigastric pain, Z91.19 - Patient's noncompliance with other medical treatment and regimen dicyclomine 20 mg PO .six times a day 30 days 180 tabs 6RF abdominal pain R10.9 - Unspecified abdominal pain famotidine (Pepcid) 40 mg PO BEDTIME 30 tabs 3RF K21.9 - Gastro-esophageal reflux disease without esophagitis, R10.13 - Epigastric pain Quality Reporting (2019) Adult ([facility] 13805/09/68) Smoking risk assessment performed?: Yes Patient Tobacco Use Status: Current everyday Tobacco user Coding Level of Care Code Est Pt Level 3 (42875) Diagnoses Chronic idiopathic constipation K59.04 Gastroesophageal reflux disease with esophagitis without hemorrhage K21.00 Esophagitis bleeding: without hemorrhage Esophagitis presence: with esophagitis Epigastric pain R10.13
[2023-05-23 12:14] VITALS: BP 137/64; PULSE 88; BMI 34.0
== END 2023-05-23 13:11 | disposition home or self-care (01) ==
PROVIDERS: PCP Internal Medicine; Visit Provider Nurse Practitioner
DX: K59.04 Chronic idiopathic constipation (principal); K21.00 Gastro-esophageal reflux disease with esophagitis, without bleeding; R10.13 Epigastric pain
CPT/HCPCS: 99213

== ENCOUNTER → 2023-05-23 12:02 | Outpatient (BNVA) | payer MEDICAID, SELFPAY | PROVIDERS: PCP Internal Medicine; Visit Provider Nurse Practitioner | DX: K59.04 Chronic idiopathic constipation (principal); K21.00 Gastro-esophageal reflux disease with esophagitis, without bleeding; R10.13 Epigastric pain | CPT/HCPCS: 99212 ==

== ENCOUNTER 2023-06-21 14:18 | Outpatient (AMB) | payer MEDICAID, SELFPAY ==
--- NOTE | 2023-06-21 14:29 | A.OFFVIS_ITS ---
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 He has a history of obstructive sleep apnea on CPAP in addition to asthma. He has been having issues with his CPAP. He has been using a nasal mask and then having a dry mouth. After awhile he does take off the mask because of worsening shortness of breath and he feels like his throat is closing up . He is concerned that this could be something serious. I reassured him that is likely dryness of the throat due to the fact that he is leaking air through his mouth. Therefore, I did supply him with a fullface mask,F30. In addition to that he has been having increasing wheezing. He has been using his short-acting beta agonists 3 to 4 times a week. He is wondering if he should be on other medication. We also have to perform his pulmonary function studies. 11/03/2019The patient is here for pulmonary follow-up visit. Since we last spoke he has been using his CPAP in the CPAP therapy continues to be affecting beneficial. He does uses CPAP more than 4 hours a night. Back during the last visit we did request supplies from his current DME company. However, they have not delivered any as of yet for unclear reason. I did call the DME company and will resend another script for supplies to be delivered to the patient. He needs to have a mask fitting and therefore I did talk to the [employer] and they will give him a call to set up an appointment with the respiratory therapist in order to set up his mask fitting. In the meantime he is complaining of chest pain. Substernal in nature pressure sensation for out of 10. Seems to be constant. Does radiate to the back. Also has a respiratory phasic component. Sometimes it wakes him up. In the office she did have an EKG demonstrating some nonspecific T-wave changes very similar to his previous EKG from April 2019. He also go for chest x-ray and blood work. He needs to be set up with a section cutter, therefore, will make arrangements for that so he can have a stress test. In the meantime he continues with his current respiratory therapy and will try to facilitate him getting CPAP supplies as soon as possible as well. 01/26/2020 the patient is here for pulmonary follow-up visit. He red gutierrez uses CPAP. The CPAP therapy continues to be affecting beneficial. He has been getting supplies. This the [employer] has been trying to get in touch with them in order to since supplies per the patient has not responded calls. We emphasized importance of responding to the [employer] company in order for him to continue getting regular supplies and staying active with accompanying. In the meantime the patient continues to have shortness of breath and wheezing. He also has intermittent coughing moderate severity. Unfortunately has not been using his inhalers in he has also been smoking. Patient understands that he needs to quit. She is willing to try the nicotine patch at this time. He did undergo a cardiac evaluation and overall doing well from that standpoint. 07/26/2020 the patient is here for pulmonary follow-up visit. Overall he is doing a lot better. He continues uses CPAP every night. The therapy continues to be very effective beneficial for him. He does use it for more than 4 hours a night. He still having hard time with smoking. He continues to smoke on a daily basis. This is resulting increasing chest congestion and also shortness of breath. [id number] severity. He does uses respiratory therapy including Symbicort in his albuterol with partial resolution of the symptoms. He needs to make sure that he use Symbicort on a regular basis. At t his point the patient is willing to try the Nicotrol inhaler to quit smoking altogether. I did send a prescription to the pharmacy and helping get covered. Once he gets it will be able to alternate cigarette for the Nicotrol inhaler and subsequently wing of all surgery and continue with the Nicotrol inhaler as needed. 09/22/2020 The patient is here for pulmonary follow-up visit. Overall the patient is doing well from a respiratory status. He continues uses inhalers with good adherence. Unfortunately, Still's struggling with smoking. He did follow-up with his psychologist in new continue supplementation symptoms the pharmacy. Patient will start taking this time. In regards to the CPAP he has been using very well. The CPAP therapy continues to be affecting beneficial. He has been getting supplies from his DME company. He has major concerns about the COVID-19 vaccine. He has been concerned about potential adverse effects from the vaccine self. I reassured him that vaccine safe but, the virus was not specially since he is high risk. Therefore, will need an appointment to get back needed disease coming Saturday at [facility]. Did provide him with all the information about the date and time of his vaccination. 04/10/2021 the patient is here for a pulmonary follow-up visit. Overall the patient has been doing relatively good. He is still trying to uses CPAP as much as possible. The CPAP therapy has been affecting beneficial. His grandson was playing with a and change him settings and he thinks he is now not working appropriately. He did bring it in. I was able to increase the ramp time to 30 minutes at 6 cm and then currently the CPAP is set up at 9 cm. His AHI is down to 1.6. His average use is more than 6 hours. However, looking at the machine there appears to be some mold growing inside of it. I am concerned that this is within the inside of the machine in no longer able to be clean appropriately. He has had this machine now for more than 5 years. The patient should get a replacement machine at this time. Will submit a application for new machine through his [employer] company. The patient stands with the pandemic and the recall with the rest bronchus machine this will take a longer than usual. In the meantime he is going to try to clean as well as possible although I know that he will be about clinic completely. Will send a script for new CPAP to replace is older contaminated machine to his [employer]. The patient also has a Symbicort inhaler. We did go to the instructions on how to use it correctly. I answered all his questions. Will set him up to follow up with dietetic technician in order to help him with the CPAP that he is having some difficulties with as well. I did provide him with a new [employer] nasal mask. He does need new supplies delivered. 08/01/2021 the patient is here for a pulmonary follow-up visit. He is frustrated that he has not been able to get any supplies from his CPAP company. Explained to the patient that he needs to agree to get supplies and therefore the [employer] companies to call him and gets verbal agreement. However, he does not leaf size picker his phone. I did reach out to the [employer] to try to help him. In addition to that his machine is colonized with mold and is not working appropriately. He does need a replacement machine whenever possible. from an asthma standpoint the patient is doing well continues uses Symbicort has not had to use his rescue inhaler. He continues on his allergy medicine. Otherwise follow-up in 6 months. If the patient does not hear back from the [employer] by next week he is to [facility]. In the meantime the patient continues smoking. He has tried to cut down. He is not ready to quit. 02/01/2022 the patient is here for a pulmonary follow-up visit. He is going to significant changes in his life. Recently moved to a different residence. He has everything box. Unfortunate has not been able to find his CPAP in all the boxes. He is going to start looking for it. Since he has not used it he has notice increasing daytime drowsiness. His has been concerned about his significant snoring in his apneic episodes. His Dora score is elevated 02/08. More importantly explained to the patient that untreated sleep apnea can result in heart disease and worsening cardiovascular risks. The patient is already having elevations in the blood pressure. Therefore, he is now more opt to starting to use it more regularly. In addition to this he still smoking cigarettes. He has been concerned about using a patch because he may forget about it and smoke over a. Explained to him that it is reasonable at least for him to try the smallest patch that will be safe. He is down to about a quarter pack a day which is reassuring. He continues with respiratory therapy. Does have some shortness of breath with activity. Mild in severity. But overall doing well. 02/15/2023 this is a pulmonary follow-up visit.. Still struggling with sleep. He does have significant daytime drowsiness. He wakes up with headaches. His Dora score is elevated 24. He is having a lot of snoring and apneic episodes that his is very concerned. His machine was no longer working and he needs a replacement. I did send a script back in January and sent other scrip in May to try to get the patient a replacement machine. However, he has not received any machine as of yet. He still struggling with the old 1 is not getting supplies. I did reach out to the DME company to see if they can help with his status. The patient is also Hebrew-speaking only so therefore he will need a hunting and fishing guide when calling his home for supplies. From a respiratory status unfortunately continues to smoke c daisy. He is still having shortness of breath and chest tightness and cough. [id number] severity. He does use his respiratory therapy partial improvement of the symptoms. The patient understands the need to quit smoking altogether in order to improve his symptoms. 06/21/2023 the patient is here for pulmonary follow-up visit. The patient overall has been doing better. He continues uses CPAP every night. The CPAP therapy has been affecting beneficial. He does use it for more than 4 hours a night. His AHI is still little bit above 5 so therefore will adjust the pressures further. He also has an issue with his mask. He does better with an N30 I mask. I did have unavailable and did provide him 1 to use. I am also going to request it from his DME company. He will try the new settings and call me if he has any issues. He was also getting a lot of condensation so we changed to automated humidity. From a respiratory status seems doing well to his using his respiratory therapy as prescribed. He is also participating in the lung cancer screening program. He will continue with the yearly CT scans at this time. He is cutting down on smoking. He is also losing weight he is motivated and focused on his health which is reassuring. 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 Diabetic polyneuropathy associated with type 2 diabetes mellitus Diabetes type 2, uncontrolled Asthma TENZIN (obstructive sleep apnea) Venous insufficiency Diabetes Hypertension Hyperlipidemia Surgical History History of surgery History of tonsillectomy Hx of hernia repair Family History Father Renal failure Mother Depression Hypertension Social History Household Members: Spouse and Children Alcohol intake: current Alcohol intake frequency: does not drink Patient Tobacco Use Status: Current everyday Tobacco user Tobacco use type: Cigarette Cigarettes Per Day: 15 Years Smoked: since age 19 Current occupational status: disabled Review of Systems Const Denies fatigue, Denies fever(s), Denies night sweats, Denies poor appetite and Reports weight loss Eyes Reports requires corrective lenses ENT Reports Normal hearing present, Denies dental pain, Denies dysphagia, Denies hearing loss, Denies mouth pain, Denies odynophagia, Denies throat swelling, Denies tongue swelling and Reports other (Dentition adequate) GI Denies abdominal pain, Denies melena, Denies bloating, Denies hematochezia, Denies constipation, Denies GI cramping, Denies dysphagia, Denies excessive flatus, Denies early satiety, Denies heartburn, Denies diarrhea, Denies nausea, Denies odynophagia, Denies vomiting and Denies hematemesis Skin/Breast Denies pruritus, Denies lesions, Denies rash and Denies jaundice Neuro Reports Normal hearing present and Denies Abnormal speech present Endo Denies fatigue Aller/Immun Denies throat swelling and Denies tongue swelling Physical Exam Vital Signs: Last Vital Signs Pulse 89 06/21/23 14:30 BP 124/70 06/21/23 14:30 Pulse Ox 97 06/21/23 14:30 Oxygen Delivery Method Room Air 06/21/23 14:30 BMI result Body Mass Index 33.9 Const General: cooperative, no acute distress, well developed and well groomed Nutritional Appearance: well nourished and obese Orientation/consciousness: oriented to person, oriented to place and oriented to time Limitations: language barrier HEENT Head: Yes normocephalic and Yes atraumatic Eyes General: appearance normal, both eyes and all related structures Pupils: Equal, round and reactive pupils present Neck Neck: Yes normal visual inspection and Yes no lymphadenopathy Thyroid: Thyroid normal Resp Effort & Inspection: normal respiratory effort and able to speak in complete sentences Auscultation: clear to auscultation bilaterally Cardio Rate: regular rate Rhythm: regular rhythm Heart sounds: Normal, physiologic split S2 sound present Peripheral pulses: radial pulses present and posterior tibial pulses present GI Inspection: No distended, No Abdominal panniculus present and Yes obesity Palpation (GI): Soft to palpation, nontender, no guarding, not rigid and No hepatosplenomegaly present Percussion: Yes normal to percussion Auscultation: normal bowel sounds Rectal Exam - Male: Yes deferred Skin General skin exam: no rashes or lesions noted, turgor normal, skin not dry, no jaundice, No spider nevi and no striae Rashes: no rashes Nails: normal Neuro General: oriented to person, oriented to place and oriented to time Cranial nerves: Yes Equal, round and reactive pupils present and Yes Normal hearing present Speech: No Abnormal speech present Extrem General: Yes normal to inspection, No clubbing, No cyanosis and No edema Psych Appearance: grossly normal and well kempt Mental Status: mental status grossly normal Speech and movement: Normal speech and movement present Affect: normal affect Attitude: cooperative Thought process: Normal thought process present and not confabulating Thought content: Normal thought content present Insight: Limited insight present (Psych) Judgement: Limited judgement present (Psych) Assessment & Plan Assessment & Plan (1) TENZIN (obstructive sleep apnea): Code(s): G47.33 - Obstructive sleep apnea (adult) (pediatric) (2) Asthma: Code(s): J45.909 - Unspecified asthma, uncomplicated Qualifiers: Asthma complication type: uncomplicated Asthma persistence: persistent Asthma severity: moderate Qualified Code(s): J45.40 - Moderate persistent asthma, uncomplicated (3) Tobacco dependence: Code(s): F17.200 - Nicotine dependence, unspecified, uncomplicated Plan short-acting beta agonist as needed continue Symbicort twice a day continue APAP. Requesting N30i med mask tobacco cessation LDCT program follow-up in 6-12 months Quality Reporting (2019) Adult ([facility] 138/05/09/68) Smoking risk assessment performed?: Yes Patient Tobacco Use Status: Current everyday Tobacco user Coding Level of Care Code Est Pt Level 4 (71154) Diagnoses TENZIN (obstructive sleep apnea) G47.33 Moderate persistent asthma without complication J45.40 Asthma complication type: uncomplicated Asthma persistence: persistent Asthma severity: moderate Tobacco dependence F17.200 Time Spent (min) 18
[2023-06-21 14:30] VITALS: BP 124/70; PULSE 89; O2SAT 97; BMI 33.9
== END 2023-06-21 14:53 | disposition home or self-care (01) ==
PROVIDERS: PCP Internal Medicine; Visit Provider Hospitalist
DX: G47.33 Obstructive sleep apnea (adult) (pediatric) (principal); J45.40 Moderate persistent asthma, uncomplicated; F17.200 Nicotine dependence, unspecified, uncomplicated
CPT/HCPCS: 99214

== ENCOUNTER → 2023-06-21 14:18 | Outpatient (BNVA) | payer MEDICAID, SELFPAY | PROVIDERS: PCP Internal Medicine; Visit Provider Hospitalist | DX: G47.33 Obstructive sleep apnea (adult) (pediatric) (principal); J45.40 Moderate persistent asthma, uncomplicated; F17.210 Nicotine dependence, cigarettes, uncomplicated | CPT/HCPCS: 99212 ==

== ENCOUNTER 2023-08-08 13:51 | Outpatient (AMB) | payer MEDICAID, SELFPAY ==
--- NOTE | 2023-08-08 13:53 | MHC.OFFVIS ---
Intake Visit Reasons: Follow up 05/19 [facility] Intake Note: Patient presents for 05/19 . Patient states he has bilateral leg pain. He states he experiences leg pain when climbing stairs. Allergies No Known Allergies Allergy (Verified 08/08/23 14:00) [facility] HPI Follow up 05/19 [facility]: Details: Very pleasant 57-year-old gentleman presents for routine surveillance follow-up regarding his legs. Has generalized discomfort of his lower extremities. He does have some pain and numbness. He now presents for routine follow-up with venous insufficiency testing. 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 Diabetic polyneuropathy associated with type 2 diabetes mellitus Diabetes type 2, uncontrolled Asthma TENZIN (obstructive sleep apnea) Venous insufficiency Diabetes Hypertension Hyperlipidemia Surgical History History of surgery History of tonsillectomy Hx of hernia repair Family History Father Renal failure Mother Depression Hypertension Social History Household Members: Spouse and Children Alcohol intake: current Alcohol intake frequency: does not drink Patient Tobacco Use Status: Current everyday Tobacco user Tobacco use type: Cigarette Cigarettes Per Day: 15 Years Smoked: since age 19 Current occupational status: disabled Review of Systems Const All systems reviewed & are unremarkable except as noted in HPI and below Reports no additional complaints ENT Reports Normal hearing present Card Denies chest pain, Denies chest pain at rest, Denies chest pain with activity and Denies pedal edema Resp Denies cough GI Denies abdominal pain Musc Denies abnormal gait, Denies muscle cramps and Denies radiating pain into limb Skin/Breast Denies skin ulcer and Denies wounds Neuro Reports Normal hearing present and Denies abnormal gait Psych Reports no additional complaints Physical Exam Const General: cooperative, healthy appearing and comfortable Orientation/consciousness: oriented to person, oriented to place and oriented to time HEENT Head: Yes normal to inspection Neck Neck: Yes normal visual inspection Carotids: no bruits Chest Chest palpation & inspection: normal inspection of the chest Resp Effort & Inspection: normal respiratory effort and able to speak in complete sentences Auscultation: clear to auscultation bilaterally, no crackles, no rales, no rhonchi and no wheezes Cardio Rate: regular rate Rhythm: regular rhythm Heart sounds: S1 normal heart sound present and S2 normal heart sound present Bruits: no carotid bruits Peripheral pulses: Peripheral pulses 2+ throughout GI Inspection: Yes normal to inspection Skin Wounds: no wounds Hair: normal Neuro General: oriented to person, oriented to place and oriented to time Cranial nerves: Yes CN's II-XII intact bilaterally and Yes Normal hearing present Cognition (Neuro): normal cognition Motor exam (neuro): 5/5 motor strength present throughout Extrem Other: venous exam: No significant superficial varicosities or spider telangiectasias, minimal edema General: No clubbing, No cyanosis and No edema Psych Appearance: grossly normal Mental Status: mental status grossly normal Speech and movement: Normal speech and movement present Quality Reporting (2019) Adult ([facility] ) Smoking risk assessment performed?: Yes Patient Tobacco Use Status: Current everyday Tobacco user Results Reviewed Results Reviewed: Brief summary of venous insufficiency testing is as follows: right great saphenous vein: negative right small saphenous vein: negative right accessory vein: none present left great saphenous vein: negative left small saphenous vein: negative left accessory vein: none present Please note there is no evidence of any venous aneurysms or significant tortuosity Assessment & Plan Assessment & Plan (1) Varicose veins of left lower extremity with inflammation: Code(s): I83.12 - Varicose veins of left lower extremity with inflammation Category: Medical Plan: In short patient is negative for any significant venous insufficiency. We did discuss routine conservative measures including compression elevation and exercise. Should symptoms persist I do believe that it may be potentially neurogenic due to his history of diabetes and may be related to a little bit of neuropathy. He will follow up with us on an as-needed basis. Thank you for allowing us to assist in his care. If there are any questions or concerns please do not hesitate to contact us. Coding Level of Care Code Est Pt Level 4 (53298) Diagnoses Varicose veins of left lower extremity with inflammation I83.12
== END 2023-08-08 14:15 | disposition home or self-care (01) ==
PROVIDERS: PCP Internal Medicine; Visit Provider Surgery Vascular Surgery
DX: I83.12 Varicose veins of left lower extremity with inflammation (principal)
CPT/HCPCS: 99213

== ENCOUNTER → 2023-08-08 13:51 | Outpatient (BNVA) | payer MEDICAID, SELFPAY | PROVIDERS: PCP Internal Medicine; Visit Provider Surgery Vascular Surgery | DX: I83.12 Varicose veins of left lower extremity with inflammation (principal) | CPT/HCPCS: 99212 ==

== ENCOUNTER 2023-10-11 10:51 | Emergency (ER) | payer MEDICAID, SELFPAY ==
[2023-10-11 11:07] VITALS: BP 135/70; PULSE 85; RESP 17; TEMP 36.7; O2SAT 96; BMI 34.4
--- NOTE | 2023-10-11 11:10 | ED.EYEPROB ---
HPI - Eye Problem General Chief complaint: Eye Problems Stated complaint: eye problems Time Seen by Provider: 10/11/23 11:19 Source: patient Mode of arrival: ambulatory Limitations: language barrier (Hungarian-speaking interpreter deaf utilized) History of Present Illness HPI Narrative: Patient is a 57-year-old male who presents emergency department for evaluation of bilateral eye redness and irritation. Reports yesterday he was cutting the grass and he felt something plan to revise. Today he noticed increasing redness and irritation particularly to the left eye with associated blurred vision. 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 for glasses, denies use of contact lenses. Related Data Home Medications ?Medication ?Instructions ?Recorded ?Confirmed albuterol sulfate 90 mcg/actuation 2 puff inhalation Q6H PRN 12/21/19 01/25/21 aerosol inhaler (ProAir HFA) fluticasone propionate 50 1 spray intranasal DAILY 12/21/19 01/25/21 mcg/actuation nasal spray,suspension (Flonase Allergy Relief) sertraline 100 mg tablet 100 mg PO DAILY 12/21/19 01/25/21 aspirin 81 mg tablet,delayed 81 mg PO DAILY 01/12/21 01/25/21 release empagliflozin 10 mg tablet 10 mg PO QAM 11/24/21 (Jardiance) insulin syringe-needle U-100 1/2 #10 ea 02/27/22 mL 31 gauge x 15/64 (BD Veo Insulin Syringe Ultra-Fine) clonazepam 0.5 mg tablet 0.5 mg PO DAILY 06/29/22 cholecalciferol (vitamin D3) 50 50 mcg PO QAM 11/27/22 mcg (2,000 unit) tablet sertraline 50 mg tablet 50 mg PO DAILY 01/11/23 CPAP (CPAP Machine/Device) 06/21/23 Previous Rx's ?Medication ?Instructions ?Recorded insulin syringe-needle U-100 0.5 #100 ea 04/29/20 mL 30 gauge x 1/2 (BD Insulin Syringe Ultra-Fine) budesonide-formoterol HFA 160 2 puff PO BID #10.2 grams 06/28/20 mcg-4.5 mcg/actuation aerosol inhaler (Symbicort) montelukast 10 mg tablet 10 mg PO DAILY #30 tabs 04/28/21 blood sugar diagnostic (FreeStyle #100 ea 05/02/21 Lite Strips) gabapentin 300 mg capsule 300 mg PO BEDTIME #30 caps 05/02/21 lancets 33 gauge (TRUEplus Lancets) #100 ea 05/02/21 insulin glargine 100 unit/mL 18 unit (0.18 mL) subcut DAILY 30 05/19/21 subcutaneous solution (Lantus days #10 mL U-100 Insulin) insulin lispro 100 unit/mL 4 unit (0.04 mL) subcut TID #15 mL 05/19/21 subcutaneous pen (Humalog KwikPen (U-100) Insulin) pen needle, diabetic 32 gauge x #100 ea 05/19/21 (BD Ultra-Fine Madhavi Pen Needle) terbinafine HCl 250 mg tablet 250 mg PO DAILY #30 tabs 01/08/22 lisinopril 10 mg tablet 10 mg PO DAILY 30 days #30 tabs 02/19/22 rosuvastatin 20 mg tablet 20 mg PO DAILY 30 days #30 tabs 02/19/22 nystatin-triamcinolone 100,000 1 appl topical DAILY #30 grams 05/10/23 unit/g-0.1 % topical cream bisacodyl 5 mg tablet,delayed 5 - 10 mg (1 - 2 x 5 mg) PO 05/23/23 release BEDTIME PRN constipation #60 tabs dexlansoprazole 60 mg 60 mg PO DAILY #30 caps 05/23/23 capsule,biphase delayed release (Dexilant) dicyclomine 20 mg tablet 20 mg PO .six times a day 05/23/23 abdominal pain 30 days #180 tabs linaclotide 290 mcg capsule 290 mcg PO QAM 30 days #30 caps 05/23/23 (Linzess) simethicone 125 mg chewable tablet 125 mg PO TID abdominal distention 05/23/23 (Gas Relief (simethicone)) #90 tabs famotidine 40 mg tablet 40 mg PO BEDTIME #30 tabs 09/04/23 ofloxacin 0.3 % eye drops 2 drp ophthalmic (eye) QID #5 mL 10/11/23 Allergies Allergy/AdvReac Type Severity Reaction Status Date / Time No Known Allergies Allergy Verified 10/11/23 11:17 Review of Systems Review of Systems: Yes all other systems are reviewed and are negative PMFSH Past Medical History Attestation statement: The following information was validated with the patient. 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 (BMI 30-39.9) care home (current) use of insulin Diabetic polyneuropathy associated with type 2 diabetes mellitus Diabetes type 2, uncontrolled Asthma TENZIN (obstructive sleep apnea) Venous insufficiency Diabetes Hypertension Hyperlipidemia Surgical History History of surgery History of tonsillectomy Hx of hernia repair Family History Family History Father Renal failure Mother Depression Hypertension Social History Social History Household Members: Spouse and Children Alcohol intake: current Alcohol intake frequency: does not drink Patient Tobacco Use Status: Current everyday Tobacco user Tobacco use type: Cigarette Cigarettes Per Day: 15 Years Smoked: since age 19 Current occupational status: disabled Physical Exam Vital Signs: Vital Signs: Last Vital Signs Temp 98.1 F 10/11/23 11:07 Pulse 85 10/11/23 11:07 Resp 17 10/11/23 11:07 BP 135/70 10/11/23 11:07 Pulse Ox 96 10/11/23 11:07 O2 Del Method Room Air 10/11/23 11:07 BMI result Body Mass Index 34.4 Appearance: Alert.?Oriented to person, place and time. No acute distress.?Normal affect. Eyes: Pupils equal, round and reactive to light.? EOMI. No nystagmus. Mild conjunctival erythema on the right, left conjunctival erythema and sclera injected on the left. Excellent visual acuity bilaterally. Multiple areas of fluorescein uptake along the left upper sclera bordering the iris, right eye normal , no fluorescein uptake. ENT: Pharynx normal.?? Neck: Normal inspection.? Neck supple.?? CVS: Heart sounds normal. Normal heart rate and rhythm.? Pulses normal.?? Respiratory: No respiratory distress.? Lung sounds clear to auscultation bilaterally??? Skin: Skin warm and dry.? Normal skin color.? Neuro: Moves all extremities spontaneously. Sensation intact bilaterally. CN II-XII intact. No focal neuro deficits. Ambulates with normal steady gait. Course Course Course Narrative: This is a Rapid Medical Examination (RME) performed by Nirmal Curry PA-C in triage. Full HPI, ROS, assessment and treatment plan per primary provider in the Main ED. 57 yo male hx of HTN, HDL, TENZIN, asthma, T2DM w/ diabetic polyneuropathy, venous insufficiency, tobacco dependence here for eval of bilateral eye redness/irritation x which began while trimming his grass yesterday. admits he felt something fly into both of his eyes however reports worsening irritation to his left eye. assoc blurred vision to L eye. he does wear glasses. denies contact use. +L eye conjunctival injection. no pain on EOMs. Plan: VA, tetracaine, fluorescein exam Medications Administered Discontinued Medications Generic Name Dose Route Start Last Admin Trade Name Freq PRN Reason Stop Dose Admin Fluorescein Sodium 1 strip 10/11/23 11:15 10/11/23 11:22 Fluorescein Sodium Strip EYE-BOTH 10/11/23 11:16 1 strip ONCE ONE Administration Tetracaine HCl 1 drop 10/11/23 11:15 10/11/23 11:22 Tetracaine Hcl/Pf 0.5% Oph Clara 4 Ml Drops EYE-BOTH 10/11/23 11:16 1 drop ONCE ONE Administration Medical Decision Making Medical Decision Making MDM Narrative: Patient is a 57-year-old male with past medical history of HTN, HDL, TENZIN, asthma, T2DM w/ diabetic polyneuropathy, venous insufficiency, tobacco dependence presenting to emergency department for evaluation of bilateral eye irritation as per HPI. Examination is consistent with corneal abrasion of the left eye, see physical exam portion of this note. No change in visual acuity. He has an technical staff engineer that he follows with outpatient. Discussed worrisome signs symptoms that would warrant re-evaluation emergency department. All questions answered. Stable for discharge Differential Diagnosis Differential Diagnoses: The differential diagnosis associated with the presentation includes (Corneal abrasion, conjunctivitis, scleritis, iritis, examination not consistent with ruptured globe; negative Chris sign.) Independent Historian Clinical information obtained from an independent historian. History obtained from or confirmed by: Friend External Record Review External record reviewed: Outpatient record Prescription Management I considered prescription management with: Antibiotic Discharge Plan Discharge Clinical Impression: Corneal abrasion, left Patient Disposition: Home, Self-Care Instructions: Corneal Abrasion (ED) Additional Instructions: As discussed, it is very important that you follow-up with your eye doctor for further evaluation. You may return back to emergency department any new or worsening symptoms or concerns. Prescriptions: New ofloxacin 0.3 % drops 2 drp ophthalmic (eye) QID Qty: 5 0RF No Action budesonide-formoterol [Symbicort] 160-4.5 mcg/actuation HFA aerosol inhaler 2 puff PO BID Qty: 10.2 3RF montelukast 10 mg tablet 10 mg PO DAILY Qty: 30 11RF gabapentin 300 mg capsule 300 mg PO BEDTIME Qty: 30 6RF (DME) FreeStyle Lite Strips Strip See Rx Instructions .Route Qty: 100 11RF Rx Instructions: As directed to test blood sugars 4 times daily (DME) lancets [TRUEplus Lancets] 33 gauge misc See Rx Instructions .Route Qty: 100 11RF Rx Instructions: As directed 4 times a day rosuvastatin 20 mg tablet 20 mg PO DAILY 30 Days Qty: 30 0RF lisinopril 10 mg tablet 10 mg PO DAILY 30 Days Qty: 30 0RF famotidine 40 mg tablet 40 mg PO BEDTIME Qty: 30 3RF terbinafine HCl 250 mg tablet 250 mg PO DAILY Qty: 30 0RF (DME) insulin syringe-needle U-100 [BD Insulin Syringe Ultra-Fine] 0.5 mL 30 gauge x 1/2 syringe See Rx Instructions .ROUTE .MEDSUPPLY Qty: 100 3RF Rx Instructions: Daily sertraline 100 mg tablet 100 mg PO DAILY albuterol sulfate [ProAir HFA] 90 mcg/actuation HFA aerosol inhaler 2 puff inhalation Q6H PRN fluticasone propionate [Flonase Allergy Relief] 50 mcg/actuation spray,suspension 1 spray intranasal DAILY Rx Instructions: administer into each nostril aspirin 81 mg tablet,delayed release (DR/EC) 81 mg PO DAILY clonazepam 0.5 mg tablet 0.5 mg PO DAILY insulin lispro [Humalog KwikPen Insulin] 100 unit/mL insulin pen 4 unit subcut TID Qty: 15 5RF Lantus U-100 Insulin 100 unit/mL solution 18 unit subcut DAILY 30 Days Qty: 10 5RF (DME) pen needle, diabetic [BD Ultra-Fine Madhavi Pen Needle] 32 gauge x / needle See Rx Instructions .ROUTE .MEDSUPPLY Qty: 100 11RF Rx Instructions: As directed three times a day Jardiance 10 mg tablet 10 mg PO QAM (DME) insulin syringe-needle U-100 [BD Veo Insulin Syringe UF] 1/2 mL 31 gauge x 15/64 syringe See Rx Instructions .ROUTE BEDTIME Qty: 10 Rx Instructions: As directed cholecalciferol (vitamin D3) 50 mcg (2,000 unit) tablet 50 mcg PO QAM sertraline 50 mg tablet 50 mg PO DAILY nystatin-triamcinolone 100,000-0.1 unit/g-% cream 1 appl topical DAILY Qty: 30 0RF Rx Instructions: Please apply between toes daily bisacodyl 5 mg tablet,delayed release (DR/EC) 5 - 10 mg PO BEDTIME PRN (Reason: constipation) Qty: 60 6RF dexlansoprazole [Dexilant] 60 mg capsule,biphase delayed releas 60 mg PO DAILY Qty: 30 6RF dicyclomine 20 mg tablet 20 mg PO .six times a day 30 Days Qty: 180 6RF Linzess 290 mcg capsule 290 mcg PO QAM 30 Days Qty: 30 6RF simethicone [Gas Relief (simethicone)] 125 mg tablet,chewable 125 mg PO TID Qty: 90 6RF (DME) CPAP Machine/Device Device See Rx Instructions .ROUTE Rx Instructions: As directed Referrals: Teri Nick MD [Primary Care Provider] - Print Language: Hungarian
[2023-10-11] MEDS: Tetracaine HCl/PF 0.5% Oph Sol 4 ML DROPS 1 DROP EYE-BOTH (11:22)
[2023-10-11] MEDS: Fluorescein Sodium STRIP 1 STRIP EYE-BOTH (11:22)
[2023-10-11 11:56] VITALS: BP 00/00; PULSE 0; RESP 0; TEMP -17.7; TEMP 0; O2SAT 0
== END 2023-10-11 11:58 | disposition home or self-care (01) ==
PROVIDERS: Emergency Provider Emergency Medicine; PCP Internal Medicine
DX: S05.02XA Injury of conjunctiva and corneal abrasion without foreign body, left eye, initial encounter (principal); X58.XXXA Exposure to other specified factors, initial encounter; E11.9 Type 2 diabetes mellitus without complications; I10 Essential (primary) hypertension; E78.5 Hyperlipidemia, unspecified; J45.909 Unspecified asthma, uncomplicated; F17.210 Nicotine dependence, cigarettes, uncomplicated; Z79.4 Long term (current) use of insulin; Z79.899 Other long term (current) drug therapy; Z79.82 Long term (current) use of aspirin; Y93.H2 Activity, gardening and landscaping; Y92.017 Garden or yard in single-family (private) house as the place of occurrence of the external cause; Y99.9 Unspecified external cause status
CPT/HCPCS: 99282; 99283

== ENCOUNTER 2023-11-21 11:51 | Outpatient (AMB) | payer MEDICAID, SELFPAY ==
--- NOTE | 2023-11-21 11:56 | MHC.OFFVIS ---
Vital Signs 11/21/23 11:57 Height 5 ft 6 in Weight 217 lb BMI 35.0 BP 118/59 L Blood Pressure Location Lt brachial Position Sitting Pulse 87 Intake Visit Reasons: 6 mnth follow up Intake Note: Patient 6 month follow up Patient cc: acid reflex on and off, pain before BM on and off, difficulty swallowing tablet or capsule, denies any other GI issues or concern. Life Management Teacher Required: Yes Life Management Teacher Name: [facility] Accompanied by: Self / Same As Patient Allergies No Known Allergies Allergy (Verified 11/21/23 11:56) HPI HPI 6 mnth follow up: Details: Assessment & Plan (1) Chronic idiopathic constipation: Code(s): K59.04 - Chronic idiopathic constipation (2) GERD (gastroesophageal reflux disease): Code(s): K21.9 - Gastro-esophageal reflux disease without esophagitis Qualifiers: Esophagitis bleeding: without hemorrhage Esophagitis presence: with esophagitis Qualified Code(s): K21.00 - Gastro-esophageal reflux disease with esophagitis, without bleeding (3) Epigastric pain: Code(s): R10.13 - Epigastric pain Plan KOREAN #Annalee Live We review the cardiac testing which I am happy did not seem to indicate any serious cause for his chest pain relative to the cardiac system. He is now having pain lower in the bilateral mid abdomen he describes as burning/throbbing. It comes and goes out of nowhere. It is not r/t eating or moving his bowels. It does not happen every day. Once it starts it will last 5-6 minutes. Overall, this sounds musculoskeletal to me, and he does have spondylosis of the thoracic and lumbar spine. He also endorses a lot of low back pain. He just started on Ozempic and has lost 20 lbs, he is unsure if this may be a c/f. He continues on his bisacodyl, Linzess 290, simethicone, Dexilant daily with famotidine for breakthrough, and dicyclomine for cramping. ROV 6 mos. Medications: Refilled linaclotide (Linzess) 290 mcg PO QAM 30 days 30 caps 6RF K59.04 - Chronic idiopathic constipation simethicone (Gas Relief (simethicone)) 125 mg PO TID 90 tabs 6RF abdominal distention bisacodyl 5 - 10 mg (1 - 2 x 5 mg) PO BEDTIME PRN 60 tabs 6RF constipation K59.04 - Chronic idiopathic constipation dexlansoprazole (Dexilant) 60 mg PO DAILY 30 caps 6RF K21.9 - Gastro-esophageal reflux disease without esophagitis, R10.13 - Epigastric pain, Z91.19 - Patient's noncompliance with other medical treatment and regimen dicyclomine 20 mg PO .six times a day 30 days 180 tabs 6RF abdominal pain R10.9 - Unspecified abdominal pain famotidine (Pepcid) 40 mg PO BEDTIME 30 tabs 3RF K21.9 - Gastro-esophageal reflux disease without esophagitis, R10.13 - Epigastric pain TODAYS VISIT Malagasy #Ariel Live He continues on his bisacodyl, Linzess 290, simethicone, Dexilant daily with famotidine for breakthrough, and dicyclomine for cramping. He has declined colonoscopies, and we discuss Cologuard and show him the video. He is aware that if it comes back + we will have to consider colonoscopy. ROV 8 weeks. 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 Diabetic polyneuropathy associated with type 2 diabetes mellitus Diabetes type 2, uncontrolled Asthma TENZIN (obstructive sleep apnea) Venous insufficiency Diabetes Hypertension Hyperlipidemia Surgical History History of surgery History of tonsillectomy Hx of hernia repair Family History Father Renal failure Mother Depression Hypertension Social History Household Members: Spouse and Children Alcohol intake: current Alcohol intake frequency: does not drink Patient Tobacco Use Status: Current everyday Tobacco user Tobacco use type: Cigarette Cigarettes Per Day: 15 Years Smoked: since age 19 Current occupational status: disabled Review of Systems Const Denies fatigue, Denies fever(s), Denies night sweats, Denies poor appetite and Denies weight loss Eyes Details: glasses Reports requires corrective lenses ENT Reports Normal hearing present, Denies dental pain, Denies dysphagia, Denies hearing loss, Denies mouth pain, Denies odynophagia, Denies throat swelling, Denies tongue swelling and Reports other (Dentition adequate) Card Reports no additional complaints Resp Reports no additional complaints GI Details: Denies abdominal pain, Denies melena, Reports bloating, Denies hematochezia, Reports constipation, Denies GI cramping, Denies dysphagia, Denies excessive flatus, Denies early satiety, Reports heartburn, Denies diarrhea, Denies nausea, Denies odynophagia, Denies vomiting and Denies hematemesis Skin/Breast Denies pruritus, Denies lesions, Denies rash and Denies jaundice Neuro Reports Normal hearing present and Denies Abnormal speech present Endo Denies fatigue Aller/Immun Denies throat swelling and Denies tongue swelling Physical Exam Vital Signs: Last Vital Signs Pulse 87 11/21/23 11:57 BP 118/59 L 11/21/23 11:57 BMI result Body Mass Index 35.0 Const General: cooperative, no acute distress, well developed and well groomed Nutritional Appearance: well nourished and obese Orientation/consciousness: oriented to person, oriented to place and oriented to time Limitations: language barrier HEENT Head: Yes normocephalic and Yes atraumatic Eyes General: appearance normal, both eyes and all related structures Pupils: Equal, round and reactive pupils present Neck Neck: Yes normal visual inspection and Yes no lymphadenopathy Thyroid: Thyroid normal Resp Effort & Inspection: normal respiratory effort and able to speak in complete sentences Auscultation: clear to auscultation bilaterally Cardio Rate: regular rate Rhythm: regular rhythm Heart sounds: Normal, physiologic split S2 sound present Peripheral pulses: radial pulses present and posterior tibial pulses present GI Inspection: No distended, No Abdominal panniculus present and Yes obesity Palpation (GI): Soft to palpation, nontender, no guarding, not rigid and No hepatosplenomegaly present Percussion: Yes normal to percussion Auscultation: normal bowel sounds Rectal Exam - Male: Yes deferred Skin General skin exam: no rashes or lesions noted, turgor normal, skin not dry, no jaundice, No spider nevi and no striae Rashes: no rashes Nails: normal Neuro General: oriented to person, oriented to place and oriented to time Cranial nerves: Yes Equal, round and reactive pupils present and Yes Normal hearing present Speech: No Abnormal speech present Extrem General: Yes normal to inspection, No clubbing, No cyanosis and No edema Psych Appearance: grossly normal and well kempt Mental Status: mental status grossly normal Speech and movement: Normal speech and movement present Affect: normal affect Attitude: cooperative Thought process: Normal thought process present and not confabulating Thought content: Normal thought content present Insight: Limited insight present (Psych) Judgement: Limited judgement present (Psych) Quality Reporting (2019) Adult ([facility] ) Smoking risk assessment performed?: Yes Patient Tobacco Use Status: Current everyday Tobacco user Assessment & Plan Assessment & Plan (1) GERD (gastroesophageal reflux disease): Code(s): K21.9 - Gastro-esophageal reflux disease without esophagitis Category: Medical Qualifiers: Esophagitis bleeding: without hemorrhage Esophagitis presence: with esophagitis Qualified Code(s): K21.00 - Gastro-esophageal reflux disease with esophagitis, without bleeding (2) Chronic idiopathic constipation: Code(s): K59.04 - Chronic idiopathic constipation Category: Medical (3) Encounter for colorectal cancer screening using Cologuard test: Code(s): Z12.11 - Encounter for screening for malignant neoplasm of colon; Z12.12 - Encounter for screening for malignant neoplasm of rectum Category: Medical (4) Abdominal bloating: Code(s): R14.0 - Abdominal distension (gaseous) Category: Medical Plan He continues on his bisacodyl, Linzess 290, simethicone, Dexilant daily with famotidine for breakthrough, and dicyclomine for cramping. He has declined colonoscopies, and we discuss Cologuard and show him the video. He is aware that if it comes back + we will have to consider colonoscopy. ROV 8 weeks. Medications: Refilled famotidine 40 mg PO BEDTIME 30 tabs 3RF K21.9 - Gastro-esophageal reflux disease without esophagitis, R10.13 - Epigastric pain simethicone (Gas Relief (simethicone)) 125 mg PO TID 90 tabs 6RF abdominal distention bisacodyl 5 - 10 mg (1 - 2 x 5 mg) PO BEDTIME PRN 60 tabs 6RF constipation K59.04 - Chronic idiopathic constipation dexlansoprazole (Dexilant) 60 mg PO DAILY 30 caps 6RF K21.9 - Gastro-esophageal reflux disease without esophagitis, R10.13 - Epigastric pain, Z91.19 - Patient's noncompliance with other medical treatment and regimen linaclotide (Linzess) 290 mcg PO QAM 30 caps 6RF 30 days K59.04 - Chronic idiopathic constipation dicyclomine 20 mg PO .six times a day 180 tabs 6RF abdominal pain 30 days R10.9 - Unspecified abdominal pain Coding Level of Care Code Est Pt Level 3 (81749) Diagnoses Gastroesophageal reflux disease with esophagitis without hemorrhage K21.00 Esophagitis bleeding: without hemorrhage Esophagitis presence: with esophagitis Chronic idiopathic constipation K59.04 Encounter for colorectal cancer screening using Cologuard test Z12.11; Z12.12 Abdominal bloating R14.0
[2023-11-21 11:57] VITALS: BP 118/59; PULSE 87; BMI 35.0
== END 2023-11-21 13:04 | disposition home or self-care (01) ==
PROVIDERS: PCP Internal Medicine; Visit Provider Nurse Practitioner
DX: K21.00 Gastro-esophageal reflux disease with esophagitis, without bleeding (principal); K59.04 Chronic idiopathic constipation; Z12.11 Encounter for screening for malignant neoplasm of colon; Z12.12 Encounter for screening for malignant neoplasm of rectum; R14.0 Abdominal distension (gaseous)
CPT/HCPCS: 99213

== ENCOUNTER → 2023-11-21 11:51 | Outpatient (BNVA) | payer MEDICAID, SELFPAY | PROVIDERS: PCP Internal Medicine; Visit Provider Nurse Practitioner | DX: K59.04 Chronic idiopathic constipation (principal); K21.00 Gastro-esophageal reflux disease with esophagitis, without bleeding; R14.0 Abdominal distension (gaseous); R10.13 Epigastric pain; Z91.199 Patient's noncompliance with other medical treatment and regimen due to unspecified reason | CPT/HCPCS: 99212 ==

== ENCOUNTER 2023-12-13 14:49 | Outpatient (AMB) | payer MEDICAID, SELFPAY ==
[2023-12-13 14:57] VITALS: BP 128/70; PULSE 78; O2SAT 98; BMI 35.0
--- NOTE | 2023-12-13 14:57 | A.OFFVIS_ITS ---
Vital Signs 12/13/23 14:57 Height 5 ft 6 in Weight 216 lb 11.43 oz BMI 35.0 BP 128/70 Blood Pressure Location Rt brachial Position Sitting Pulse 78 Pulse Source Pulse Oximeter Pulse Oximetry (%) 98 Oxygen Delivery Method Room Air Intake Visit Reasons: Obstructive sleep apnea Communications Systems Engineer Required: No Allergies No Known Allergies Allergy (Verified 12/13/23 15:01) HPI Comments Details: The patient is 58 y/o man with asthma and TENZIN. He has a history of obstructive sleep apnea on CPAP in addition to asthma. He has been having issues with his CPAP. He has been using a nasal mask and then having a dry mouth. After awhile he does take off the mask because of worsening shortness of breath and he feels like his throat is closing up . He is concerned that this could be something serious. I reassured him that is likely dryness of the throat due to the fact that he is leaking air through his mouth. Therefore, I did supply him with a fullface mask,F30. In addition to that he has been having increasing wheezing. He has been using his short-acting beta agonists 3 to 4 times a week. He is wondering if he should be on other medication. We also have to perform his pulmonary function studies. 11/03/2019The patient is here for pulmonary follow-up visit. Since we last spoke he has been using his CPAP in the CPAP therapy continues to be affecting beneficial. He does uses CPAP more than 4 hours a night. Back during the last visit we did request supplies from his current DME company. However, they have not delivered any as of yet for unclear reason. I did call the DME company and will resend another script for supplies to be delivered to the patient. He needs to have a mask fitting and therefore I did talk to the [employer] and they will give him a call to set up an appointment with the respiratory therapist in order to set up his mask fitting. In the meantime he is complaining of chest pain. Substernal in nature pressure sensation for out of 10. Seems to be constant. Does radiate to the back. Also has a respiratory phasic component. Sometimes it wakes him up. In the office she did have an EKG demonstrating some nonspecific T-wave changes very similar to his previous EKG from April 2019. He also go for chest x-ray and blood work. He needs to be set up with a wood filler, therefore, will make arrangements for that so he can have a stress test. In the meantime he continues with his current respiratory therapy and will try to facilitate him getting CPAP supplies as soon as possible as well. 01/26/2020 the patient is here for pulmonary follow-up visit. He continues uses CPAP. The CPAP therapy continues to be affecting beneficial. He has been getting supplies. This the [employer] has been trying to get in touch with them in order to since supplies per the patient has not responded calls. We emphasized importance of responding to the [employer] company in order for him to continue getting regular supplies and staying active with accompanying. In the meantime the patient continues to have shortness of breath and wheezing. He also has intermittent coughing moderate severity. Unfortunately has not been using his inhalers in he has also been smoking. Patient understands that he needs to quit. She is willing to try the nicotine patch at this time. He did undergo a cardiac evaluation and overall doing well from that standpoint. 07/26/2020 the patient is here for pulmonary follow-up visit. Overall he is doing a lot better. He continues uses CPAP every night. The therapy continues to be very effective beneficial for him. He does use it for more than 4 hours a night. He still having hard time with smoking. He continues to smoke on a daily basis. This is resulting increasing chest congestion and also shortness of breath. Avjl-ra-yubumysa severity. He does uses respiratory therapy including Symbicort in his albuterol with partial resolution of the symptoms. He needs to make sure that he use Symbicort on a regular basis. At this point the patient is willing to try the Nicotrol inhaler to quit smoking altogether. I did send a prescription to the pharmacy and helping get covered. Once he gets it will be able to alternate cigarette for the Nicotrol inhaler and subsequently wing of all surgery and continue with the Nicotrol inhaler as needed. 09/22/2020 The patient is here for pulmonary follow-up visit. Overall the patient is doing well from a respiratory status. He continues uses inhalers with good adherence. Unfortunately, Still's struggling with smoking. He did follow-up with his psychologist in new continue supplementation symptoms the pharmacy. Patient will start taking this time. In regards to the CPAP he has been using very well. The CPAP therapy continues to be affecting beneficial. He has been getting supplies from his DME company. He has major concerns about the COVID-19 vaccine. He has been concerned about potential adverse effects from the vaccine self. I reassured him that vaccine safe but, the virus was not specially since he is high risk. Therefore, will need an appointment to get back needed disease coming Saturday at [facility]. Did provide him with all the information about the date and time of his vaccination. 04/10/2021 the patient is here for a pulmonary follow-up visit. Overall the patient has been doing relatively good. He is still trying to uses CPAP as much as possible. The CPAP therapy has been affecting beneficial. His grandson was playing with a and change him settings and he thinks he is now not working appropriately. He did bring it in. I was able to increase the ramp time to 30 minutes at 6 cm and then currently the CPAP is set up at 9 cm. His AHI is down to 1.6. His average use is more than 6 hours. However, looking at the machine there appears to be some mold growing inside of it. I am concerned that this is within the inside of the machine in no longer able to be clean appropriately. He has had this machine now for more than 5 years. The patient should get a replacement machine at this time. Will submit a application for new machine through his [employer]. The patient stands with the pandemic and the recall with the rest bronchus machine this will take a longer than usual. In the meantime he is going to try to clean as well as possible although I know that he will be about clinic completely. Will send a script for new CPAP to replace is older contaminated machine to his [employer]. The patient also has a Symbicort inhaler. We did go to the instructions on how to use it correctly. I answered all his questions. Will set him up to follow up with salvage engineering technician in order to help him with the CPAP that he is having some difficulties with as well. I did provide him with a new DreamWear nasal mask. He does need new supplies delivered. 08/01/2021 the patient is here for a pulmonary follow-up visit. He is frustrated that he has not been able to get any supplies from his CPAP company. Explained to the patient that he needs to agree to get supplies and therefore the [employer] companies to call him and gets verbal agreement. However, he does not picker and sorter load and unload his phone. I did reach out to the DME company to try to help him. In addition to that his machine is colonized with mold and is not working appropriately. He does need a replacement machine whenever possible. from an asthma standpoint the patient is doing well continues uses Symbicort has not had to use his rescue inhaler. He continues on his allergy medicine. Otherwise follow-up in 6 months. If the patient does not hear back from the [employer] by next week he is to [facility]. In the meantime the patient continues smoking. He has tried to cut down. He is not ready to quit. 02/01/2022 the patient is here for a pulmonary follow-up visit. He is going to significant changes in his life. Recently moved to a different residence. He has everything box. Unfortunate has not been able to find his CPAP in all the boxes. He is going to start looking for it. Since he has not used it he has notice increasing daytime drowsiness. His has been concerned about his significant snoring in his apneic episodes. His Gillette score is elevated 24. More importantly explained to the patient that untreated sleep apnea can result in heart disease and worsening cardiovascular risks. The patient is already having elevations in the blood pressure. Therefore, he is now more opt to starting to use it more regularly. In addition to this he still smoking cigarettes. He has been concerned about using a patch because he may forget about it and smoke over a. Explained to him that it is reasonable at least for him to try the smallest patch that will be safe. He is down to about a quarter pack a day which is reassuring. He continues with respiratory therapy. Does have some shortness of breath with activity. Mild in severity. But overall doing well. 02/15/2023 this is a pulmonary follow-up visit.. Still struggling with sleep. He does have significant daytime drowsiness. He wakes up with headaches. His Gillette score is elevated /24. He is having a lot of snoring and apneic episodes that his is very concerned. His machine was no longer working and he needs a replacement. I did send a script back in January and sent other scrip in May to try to get the patient a replacement machine. However, he has not received any machine as of yet. He still struggling with the old 1 is not getting supplies. I did reach out to the [employer] to see if they can help with his status. The patient is also Serbian-speaking only so therefore he will need a plant sprayer when calling his home for supplies. From a respiratory status unfortunately continues to smoke cigarettes. He is still having shortness of breath and chest tightness and cough. [id number]-[id number]-xdmqeujn severity. He does use his respiratory therapy partial improvement of the symptoms. The patient understands the need to quit smoking altogether in order to improve his symptoms. 06/21/2023 the patient is here for pulmonary follow-up visit. The patient overall has been doing better. He continues uses CPAP every night. The CPAP therapy has been affecting beneficial. He does use it for more than 4 hours a night. His AHI is still little bit above 5 so therefore will adjust the pressures further. He also has an issue with his mask. He does better with an N30 I mask. I did have unavailable and did provide him 1 to use. I am also going to request it from his [employer]. He will try the new settings and call me if he has any issues. He was also getting a lot of condensation so we ch anged to automated humidity. From a respiratory status seems doing well to his using his respiratory therapy as prescribed. He is also participating in the lung cancer screening program. He will continue with the yearly CT scans at this time. He is cutting down on smoking. He is also losing weight he is motivated and focused on his health which is reassuring. 12/13/2023 the patient is here for a pulmonary follow-up visit. Overall he is doing well. He has been using his CPAP as prescribed. He does try to use it more than 4 hours a night. He was having an issue with his mask where we he was not getting the right size therefore was not effective for him. Subsequently after that he has noticed that she has been shutting off on its own. Therefore he did bring it in. I did review the machine and supplies. It appears that most likely that the previous mask was leaking significant amount of air and since he had the smart stop on was shutting off. I did show off this month. Button and did get a new mask that is feeling better he does have a medium N30 eye. He will continue with his mask is working for him. He is also working on cutting down on smoking. He is having hard time quitting altogether. He understands that he needs to quit. He already has pulmonary and cardiovascular disease. In addition to that he continues uses respiratory medicines. Is participating in the lung cancer screening program at this time. REPLACED BY [facility] Medical History (Updated 11/21/23 @ 16:38 by NOE Marroquin) Colon cancer screening Diabetes Chest pain Early satiety Abdominal cramping Epigastric pain Tobacco dependence Non-adherence to medical treatment Obesity (BMI 30-39.9) [facility] (current) use of insulin Diabetic polyneuropathy associated with type 2 diabetes mellitus Diabetes type 2, uncontrolled Asthma TENZIN (obstructive sleep apnea) Venous insufficiency Diabetes Hypertension Hyperlipidemia Surgical History History of surgery History of tonsillectomy Hx of hernia repair Family History Father Renal failure Mother Depression Hypertension Social History Household Members: Spouse and Children Alcohol intake: current Alcohol intake frequency: does not drink Patient Tobacco Use Status: Current everyday Tobacco user Tobacco use type: Cigarette Cigarettes Per Day: 15 Years Smoked: since age 19 Current occupational status: disabled Review of Systems Const Denies fatigue, Denies fever(s), Denies night sweats, Denies poor appetite and Reports weight loss Eyes Reports requires corrective lenses ENT Reports Normal hearing present, Denies dental pain, Denies dysphagia, Denies hearing loss, Denies mouth pain, Denies odynophagia, Denies throat swelling, Denies tongue swelling and Reports other (Dentition adequate) GI Denies abdominal pain, Denies melena, Denies bloating, Denies hematochezia, Denies constipation, Denies GI cramping, Denies dysphagia, Denies excessive flatus, Denies early satiety, Denies heartburn, Denies diarrhea, Denies nausea, Denies odynophagia, Denies vomiting and Denies hematemesis Skin/Breast Denies pruritus, Denies lesions, Denies rash and Denies jaundice Neuro Reports Normal hearing present and Denies Abnormal speech present Endo Denies fatigue Aller/Immun Denies throat swelling and Denies tongue swelling Physical Exam Vital Signs: Last Vital Signs Pulse 78 12/13/23 14:57 BP 128/70 12/13/23 14:57 Pulse Ox 98 12/13/23 14:57 Oxygen Delivery Method Room Air 12/13/23 14:57 BMI result Body Mass Index 35.0 Const General: cooperative, no acute distress, well developed and well groomed Nutritional Appearance: well nourished and obese Orientation/consciousness: oriented to person, oriented to place and oriented to time Limitations: language barrier HEENT Head: Yes normocephalic and Yes atraumatic Eyes General: appearance normal, both eyes and all related structures Pupils: Equal, round and reactive pupils present Neck Neck: Yes normal visual inspection and Yes no lymphadenopathy Thyroid: Thyroid normal Resp Effort & Inspection: normal respiratory effort and able to speak in complete sentences Auscultation: clear to auscultation bilaterally Cardio Rate: regular rate Rhythm: regular rhythm Heart sounds: Normal, physiologic split S2 sound present Peripheral pulses: radial pulses present and posterior tibial pulses present GI Inspection: No distended, No Abdominal panniculus present and Yes obesity Palpation (GI): Soft to palpation, nontender, no guarding, not rigid and No hepatosplenomegaly present Percussion: Yes normal to percussion Auscultation: normal bowel sounds Rectal Exam - Male: Yes deferred Skin General skin exam: no rashes or lesions noted, turgor normal, skin not dry, no jaundice, No spider nevi and no striae Rashes: no rashes Nails: normal Neuro General: oriented to person, oriented to place and oriented to time Cranial nerves: Yes Equal, round and reactive pupils present and Yes Normal hearing present Speech: No Abnormal speech present Extrem General: Yes normal to inspection, No clubbing, No cyanosis and No edema Psych Appearance: grossly normal and well kempt Mental Status: mental status grossly normal Speech and movement: Normal speech and movement present Affect: normal affect Attitude: cooperative Thought process: Normal thought process present and not confabulating Thought content: Normal thought content present Insight: Limited insight present (Psych) Judgement: Limited judgement present (Psych) Quality Reporting (2019) Adult ([facility] 138/05/09/68) Smoking risk assessment performed?: Yes Patient Tobacco Use Status: Current everyday Tobacco user Assessment & Plan Assessment & Plan (1) TENZIN (obstructive sleep apnea): Code(s): G47.33 - Obstructive sleep apnea (adult) (pediatric) Category: Medical (2) Asthma: Code(s): J45.909 - Unspecified asthma, uncomplicated Category: Medical Qualifiers: Asthma severity: moderate Asthma persistence: persistent Asthma complication type: uncomplicated Qualified Code(s): J45.40 - Moderate persistent asthma, uncomplicated (3) Tobacco dependence: Code(s): F17.200 - Nicotine dependence, unspecified, uncomplicated Category: Medical Plan short-acting beta agonist as needed continue Symbicort twice a day continue APAP. Requesting N30i med mask tobacco cessation LDCT program follow-up in 6-12 months Coding Level of Care Code Est Pt Level 4 (67934) Diagnoses TENZIN (obstructive sleep apnea) G47.33 Moderate persistent asthma without complication J45.40 Asthma severity: moderate Asthma persistence: persistent Asthma complication type: uncomplicated Tobacco dependence F17.200 Time Spent (min) 17
== END 2023-12-13 15:31 | disposition home or self-care (01) ==
PROVIDERS: PCP Internal Medicine; Visit Provider Hospitalist
DX: G47.33 Obstructive sleep apnea (adult) (pediatric) (principal); J45.40 Moderate persistent asthma, uncomplicated; F17.200 Nicotine dependence, unspecified, uncomplicated
CPT/HCPCS: 99214

== ENCOUNTER → 2023-12-13 14:49 | Outpatient (BNVA) | payer MEDICAID, SELFPAY | PROVIDERS: PCP Internal Medicine; Visit Provider Hospitalist | DX: G47.33 Obstructive sleep apnea (adult) (pediatric) (principal); J45.40 Moderate persistent asthma, uncomplicated; F17.210 Nicotine dependence, cigarettes, uncomplicated | CPT/HCPCS: 99212 ==

== ENCOUNTER 2024-01-16 13:11 | Outpatient (AMB) | payer MEDICAID, SELFPAY ==
--- NOTE | 2024-01-16 13:24 | A.OFFVIS_ITS ---
Vital Signs 01/16/24 13:25 Height 5 ft 6 in Weight 213 lb 13.574 oz BMI 34.5 BP 105/50 L Blood Pressure Location Lt brachial Position Sitting Pulse 92 Intake Visit Reasons: 8 weeks f/u Intake Note: Sergo presents in the office as a 8 week follow up. CC: Allergies No Known Allergies Allergy (Verified 01/16/24 13:26) HPI HPI 8 weeks f/u: Details: Assessment & Plan (1) GERD (gastroesophageal reflux disease): Code(s): K21.9 - Gastro-esophageal reflux disease without esophagitis Category: Medical Qualifiers: Esophagitis bleeding: without hemorrhage Esophagitis presence: with esophagitis Qualified Code(s): K21.00 - Gastro-esophageal reflux disease with esophagitis, without bleeding (2) Chronic idiopathic constipation: Code(s): K59.04 - Chronic idiopathic constipation Category: Medical (3) Encounter for colorectal cancer screening using Cologuard test: Code(s): Z12.11 - Encounter for screening for malignant neoplasm of colon; Z12.12 - Encounter for screening for malignant neoplasm of rectum Category: Medical (4) Abdominal bloating: Code(s): R14.0 - Abdominal distension (gaseous) Category: Medical Plan He continues on his bisacodyl, Linzess 290, simethicone, Dexilant daily with famotidine for breakthrough, and dicyclomine for cramping. He has declined colonoscopies, and we discuss Cologuard and show him the video. He is aware that if it comes back + we will have to consider colonoscopy. ROV 8 weeks. Medications: Refilled famotidine 40 mg PO BEDTIME 30 tabs 3RF K21.9 - Gastro-esophageal reflux disease without esophagitis, R10.13 - Epigastric pain simethicone (Gas Relief (simethicone)) 125 mg PO TID 90 tabs 6RF abdominal distention bisacodyl 5 - 10 mg (1 - 2 x 5 mg) PO BEDTIME PRN 60 tabs 6RF constipation K59.04 - Chronic idiopathic constipation dexlansoprazole (Dexilant) 60 mg PO DAILY 30 caps 6RF K21.9 - Gastro-esophageal reflux disease without esophagitis, R10.13 - Epigastric pain, Z91.19 - Patient's noncompliance with other medical treatment and regimen linaclotide (Linzess) 290 mcg PO QAM 30 caps 6RF 30 days K59.04 - Chronic idiopathic constipation dicyclomine 20 mg PO .six times a day 180 tabs 6RF abdominal pain 30 days R10.9 - Unspecified abdominal pain TODAY'S VISIT HAITIAN [facility] He never received the Cologuard kit. He continues on his bisacodyl, Linzess 290, simethicone, Dexilant daily with famotidine for breakthrough, and dicyclomine for cramping. 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 He has old XR's form 2018 showing similar DJD and I will order another set of XRAYS ot LS and TS to update this condition. He wants to take them to his PCP and consider referral to an arthritis specialist. ROV 12 weeks. 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 Diabetic polyneuropathy associated with type 2 diabetes mellitus Diabetes type 2, uncontrolled Asthma TENZIN (obstructive sleep apnea) Venous insufficiency Diabetes Hypertension Hyperlipidemia Surgical History History of surgery History of tonsillectomy Hx of hernia repair Family History Father Renal failure Mother Depression Hypertension Social History Household Members: Spouse and Children Alcohol intake: current Alcohol intake frequency: does not drink Patient Tobacco Use Status: Current everyday Tobacco user Tobacco use type: Cigarette Cigarettes Per Day: 15 Years Smoked: since age 19 Current occupational status: disabled Review of Systems Const Denies fatigue, Denies fever(s), Denies night sweats, Denies poor appetite and Denies weight loss ENT Reports Normal hearing present, Denies dental pain, Denies dysphagia, Denies hearing loss, Denies mouth pain, Denies odynophagia, Denies throat swelling, Denies tongue swelling and Reports other (Dentition adequate) Card Reports no additional complaints Resp Reports no additional complaints GI Details: Denies abdominal pain, Denies melena, Denies bloating, Denies hematochezia, Reports constipation, Denies GI cramping, Denies dysphagia, Denies excessive flatus, Denies early satiety, Reports heartburn, Denies diarrhea, Denies nausea, Denies odynophagia, Denies vomiting and Denies hematemesis Musc Reports back pain Skin/Breast Denies pruritus, Denies lesions, Denies rash and Denies jaundice Neuro Reports Normal hearing present and Denies Abnormal speech present Endo Denies fatigue Aller/Immun Denies throat swelling and Denies tongue swelling Physical Exam Vital Signs: Last Vital Signs Pulse 92 01/16/24 13:25 BP 105/50 L 01/16/24 13:25 BMI result Body Mass Index 34.5 Const General: cooperative, no acute distress, well developed and well groomed Nutritional Appearance: well nourished and obese Orientation/consciousness: oriented to person, oriented to place and oriented to time Limitations: language barrier HEENT Head: Yes normocephalic and Yes atraumatic Eyes General: appearance normal, both eyes and all related structures Pupils: Equal, round and reactive pupils present Neck Neck: Yes normal visual inspection and Yes no lymphadenopathy Thyroid: Thyroid normal Resp Effort & Inspection: normal respiratory effort and able to speak in complete sentences Auscultation: clear to auscultation bilaterally Cardio Rate: regular rate Rhythm: regular rhythm Heart sounds: Normal, physiologic split S2 sound present Peripheral pulses: radial pulses present and posterior tibial pulses present GI Inspection: No distended, No Abdominal panniculus present and Yes obesity Palpation (GI): Soft to palpation, nontender, no guarding, not rigid and No hepatosplenomegaly present Percussion: Yes normal to percussion Auscultation: normal bowel sounds Rectal Exam - Male: Yes deferred Skin General skin exam: no rashes or lesions noted, turgor normal, skin not dry, no jaundice, No spider nevi and no striae Rashes: no rashes Nails: normal Neuro General: oriented to person, oriented to place and oriented to time Cranial nerves: Yes Equal, round and reactive pupils present and Yes Normal hearing present Speech: No Abnormal speech present Extrem General: Yes normal to inspection, No clubbing, No cyanosis and No edema Psych Appearance: grossly normal and well kempt Mental Status: mental status grossly normal Speech and movement: Normal speech and movement present Affect: normal affect Attitude: cooperative Thought process: Normal thought process present and not confabulating Thought content: Normal thought content present Insight: Limited insight present (Psych) Judgement: Limited judgement present (Psych) Quality Reporting (2019) Adult ([facility] 138/05/09/68) Smoking risk assessment performed?: Yes Patient Tobacco Use Status: Current everyday Tobacco user Assessment & Plan Assessment & Plan (1) Encounter for colorectal cancer screening using Cologuard test: Code(s): Z12.11 - Encounter for screening for malignant neoplasm of colon; Z12.12 - Encounter for screening for malignant neoplasm of rectum Category: Medical (2) Chronic idiopathic constipation: Code(s): K59.04 - Chronic idiopathic constipation Category: Medical (3) GERD (gastroesophageal reflux disease): Code(s): K21.9 - Gastro-esophageal reflux disease without esophagitis Category: Medical Qualifiers: Esophagitis presence: with esophagitis Esophagitis bleeding: without hemorrhage Qualified Code(s): K21.00 - Gastro-esophageal reflux disease with esophagitis, without bleeding (4) Back pain: Code(s): M54.9 - Dorsalgia, unspecified Category: Medical Plan HAITIAN #[employer] He never received the Cologuard kit. He continues on his bisacodyl, Linzess 290, simethicone, Dexilant daily with famotidine for breakthrough, and dicyclomine for cramping. 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 He has old XR's form 2018 showing similar DJD and I will order another set of XRAYS ot LS and TS to update this condition. He wants to take them to his PCP and consider referral to an arthritis specialist. ROV 12 weeks. Orders: Orders XR thoracic spine 2V 01/16/24 M54.9 - Dorsalgia, unspecified XR lumbar spine 2-3V 01/16/24 M54.9 - Dorsalgia, unspecified Medications: Discontinued lisinopril Discontinued Reason: Duplicate 10 mg PO DAILY 30 days 30 tabs 0RF E11.65 - Type 2 diabetes mellitus with hyperglycemia Coding Level of Care Code Est Pt Level 3 (94809) Diagnoses Encounter for colorectal cancer screening using Cologuard test Z12.11; Z12.12 Chronic idiopathic constipation K59.04 Gastroesophageal reflux disease with esophagitis without hemorrhage K21.00 Esophagitis presence: with esophagitis Esophagitis bleeding: without hemorrhage Back pain M54.9
[2024-01-16 13:25] VITALS: BP 105/50; PULSE 92; BMI 34.5
== END 2024-01-16 13:49 | disposition home or self-care (01) ==
LOC: HO.HGI 13:11
PROVIDERS: PCP Internal Medicine; Visit Provider Nurse Practitioner
DX: K59.04 Chronic idiopathic constipation (principal); K21.00 Gastro-esophageal reflux disease with esophagitis, without bleeding; M54.9 Dorsalgia, unspecified
CPT/HCPCS: 99213

== ENCOUNTER → 2024-01-16 13:11 | Outpatient (BNVA) | payer MEDICAID, SELFPAY | PROVIDERS: PCP Internal Medicine; Visit Provider Nurse Practitioner | DX: K21.00 Gastro-esophageal reflux disease with esophagitis, without bleeding (principal); K59.04 Chronic idiopathic constipation; R14.0 Abdominal distension (gaseous) | CPT/HCPCS: 99212 ==

== ENCOUNTER 2024-02-14 10:25 | Outpatient (REF) | payer MEDICAID, SELFPAY | END 2024-02-14 10:26 | disposition home or self-care (01) | LOC: HO.XRAY 10:25 | PROVIDERS: Absent Provider Internal Medicine; PCP Internal Medicine; Visit Provider Nurse Practitioner | DX: M54.9 Dorsalgia, unspecified (principal) | CPT/HCPCS: 72070; 72100 ==

== ENCOUNTER 2024-06-11 12:15 | Outpatient (AMB) | payer MEDICAID, SELFPAY ==
--- NOTE | 2024-06-11 12:18 | A.OFFVIS_ITS ---
Intake Visit Reasons: Follow up Cologuard Intake Note: ESTABLISHED PATIENT for mgmt of bloating + CIC. Cologuard FUV. Chief Complaint; Pharmacy verified? [facility] Allergies No Known Allergies Allergy (Verified 06/11/24 12:19) HPI HPI Follow up Cologuard : Details: Assessment & Plan (1) Encounter for colorectal cancer screening using Cologuard test: Code(s): Z12.11 - Encounter for screening for malignant neoplasm of colon; Z12.12 - Encounter for screening for malignant neoplasm of rectum Category: Medical (2) Chronic idiopathic constipation: Code(s): K59.04 - Chronic idiopathic constipation Category: Medical (3) GERD (gastroesophageal reflux disease): Code(s): K21.9 - Gastro-esophageal reflux disease without esophagitis Category: Medical Qualifiers: Esophagitis presence: with esophagitis Esophagitis bleeding: without hemorrhage Qualified Code(s): K21.00 - Gastro-esophageal reflux disease with esophagitis, without bleeding (4) Back pain: Code(s): M54.9 - Dorsalgia, unspecified Category: Medical Plan SAMMARINESE #[employer] He never received the Cologuard kit. He continues on his bisacodyl, Linzess 290, simethicone, Dexilant daily with famotidine for breakthrough, and dicyclomine for cramping. 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 He has old XR's form 2018 showing similar DJD and I will order another set of XRAYS ot LS and TS to update this condition. He wants to take them to his PCP and consider referral to an arthritis specialist. ROV 12 weeks. Orders: Orders XR thoracic spine 2V 01/16/24 M54.9 - Dorsalgia, unspecified XR lumbar spine 2-3V 01/16/24 M54.9 - Dorsalgia, unspecified Medications: Discontinued lisinopril Discontinued Reason: Duplicate 10 mg PO DAILY 30 days 30 tabs 0RF E11.65 - Type 2 diabetes mellitus with hyperglycemia X-RAY OF THE LUMBAR AND THORACIC SPINES 03/10/24 FINDINGS: There is no fracture or bone destruction seen and the vertebral alignment is normal. There is no disc space narrowing. There is no abnormality of the paraspinal soft tissues. XR/XR thoracic spine 2V IMPRESSION: Unremarkable examination. * LUMBAR SPINE FINDINGS: Chronic bilateral spondylolysis at L5-S1 with anterolisthesis measuring 1.3 cm in AP dimension, increased in prominence when compared to the prior radiographs. No acute fracture. No loss of vertebral body height. Multilevel loss of intervertebral disc height with anterior endplate osteophytes, most severe at L5-S1 and progressed when compared to the prior radiographs. No concerning lytic or blastic osseous lesion. No abnormal soft tissue calcification. XR/XR lumbar spine 2-3V IMPRESSION: 1. Chronic bilateral spondylolysis at L5-S1 with anterolisthesis measuring 1.3 cm, increased when compared to the prior radiographs. TODAY'S VISIT SAMMARINESE #[facility] [employer] [facility] from 05/2024 is negative, repeat in 3 years. He continues on Linzess, bisacodyl, Dexilant and simethicone. He feels that the medication is still workign well for him. He is currently in PT for his back pain. He wants copies of his xrays to take to the therapist and I provide this. He recently had a new discovery of skin cancer, but they were successful in removing it all. ROV 6 mos. 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 Diabetic polyneuropathy associated with type 2 diabetes mellitus Diabetes type 2, uncontrolled Asthma TENZIN (obstructive sleep apnea) Venous insufficiency Hypertension Hyperlipidemia Surgical History History of ventral hernia repair History of surgery on lower extremity History of tonsillectomy Family History Father Renal failure Mother Depression Hypertension Social History (Reviewed 06/11/24 @ 12:19 by Jayce Santana [facility]) Household Members: Spouse and Children Alcohol intake: current Alcohol intake frequency: does not drink Patient Tobacco Use Status: Current everyday Tobacco user Tobacco use type: Cigarette Cigarettes Per Day: 15 Years Smoked: since age 19 Current occupational status: disabled Review of Systems Const Denies fatigue, Denies fever(s), Denies night sweats, Denies poor appetite and Denies weight loss ENT Reports Normal hearing present, Denies dental pain, Denies dysphagia, Denies hearing loss, Denies mouth pain, Denies odynophagia, Denies throat swelling, Denies tongue swelling and Reports other (Dentition adequate) Card Reports no additional complaints Resp Reports no additional complaints GI Details: Denies abdominal pain, Denies melena, Reports bloating, Denies hematochezia, Reports constipation, Denies GI cramping, Denies dysphagia, Denies excessive flatus, Denies early satiety, Reports heartburn, Denies diarrhea, Denies nausea, Denies odynophagia, Denies vomiting and Denies hematemesis Musc Reports back pain Skin/Breast Denies pruritus, Denies lesions, Denies rash and Denies jaundice Neuro Reports Normal hearing present and Denies Abnormal speech present Endo Denies fatigue Aller/Immun Denies throat swelling and Denies tongue swelling Physical Exam Const General: cooperative, no acute distress, well developed and well groomed Nutritional Appearance: well nourished and overweight Orientation/consciousness: oriented to person, oriented to place and oriented to time Limitations: language barrier HEENT Head: Yes normocephalic and Yes atraumatic Eyes General: appearance normal, both eyes and all related structures Pupils: Equal, round and reactive pupils present Neck Neck: Yes normal visual inspection and Yes no lymphadenopathy Thyroid: Thyroid normal Resp Effort & Inspection: normal respiratory effort and able to speak in complete sentences Auscultation: clear to auscultation bilaterally Cardio Rate: regular rate Rhythm: regular rhythm Heart sounds: Normal, physiologic split S2 sound present Peripheral pulses: radial pulses present and posterior tibial pulses present GI Inspection: No distended, No Abdominal panniculus present and Yes obesity Palpation (GI): Soft to palpation, nontender, no guarding, not rigid and No hepatosplenomegaly present Percussion: Yes normal to percussion Auscultation: normal bowel sounds Rectal Exam - Male: Yes deferred Skin General skin exam: no rashes or lesions noted, turgor normal, skin not dry, no jaundice, No spider nevi and no striae Rashes: no rashes Nails: normal Neuro General: oriented to person, oriented to place and oriented to time Cranial nerves: Yes Equal, round and reactive pupils present and Yes Normal hearing present Speech: No Abnormal speech present Extrem General: Yes normal to inspection, No clubbing, No cyanosis and No edema Psych Appearance: grossly normal and well kempt Mental Status: mental status grossly normal Speech and movement: Normal speech and movement present Affect: normal affect Attitude: cooperative Thought process: Normal thought process present and not confabulating Thought content: Normal thought content present Insight: Fair insight present (Psych) Judgement: Fair judgement present (Psych) Results Reviewed Results Reviewed: X-RAY OF THE LUMBAR AND THORACIC SPINES 03/10/24 FINDINGS: There is no fracture or bone destruction seen and the vertebral alignment is normal. There is no disc space narrowing. There is no abnormality of the paraspinal soft tissues. XR/XR thoracic spine 2V IMPRESSION: Unremarkable examination. * LUMBAR SPINE FINDINGS: Chronic bilateral spondylolysis at L5-S1 with anterolisthesis measuring 1.3 cm in AP dimension, increased in prominence when compared to the prior radiographs. No acute fracture. No loss of vertebral body height. Multilevel loss of intervertebral disc height with anterior endplate osteophytes, most severe at L5-S1 and progressed when compared to the prior radiographs. No concerning lytic or blastic osseous lesion. No abnormal soft tissue calcification. XR/XR lumbar spine 2-3V IMPRESSION: 1. Chronic bilateral spondylolysis at L5-S1 with anterolisthesis measuring 1.3 cm, increased when compared to the prior radiographs. Assessment & Plan Assessment & Plan (1) Encounter for colorectal cancer screening using Cologuard test: Comment: 05/2024=negative Cologuard repeat in 3 years Code(s): Z12.11 - Encounter for screening for malignant neoplasm of colon; Z12.12 - Encounter for screening for malignant neoplasm of rectum Category: Medical (2) Back pain: Code(s): M54.9 - Dorsalgia, unspecified Category: Medical (3) GERD (gastroesophageal reflux disease): Code(s): K21.9 - Gastro-esophageal reflux disease without esophagitis Category: Medical Qualifiers: Esophagitis bleeding: without hemorrhage Esophagitis presence: with esophagitis Qualified Code(s): K21.00 - Gastro-esophageal reflux disease with esophagitis, without bleeding (4) Chronic idiopathic constipation: Code(s): K59.04 - Chronic idiopathic constipation Category: Medical Plan SAMMARINESE #Justyna Live The Cologuard from 05/2024 is negative, repeat in 3 years. He continues on Linzess, bisacodyl, Dexilant and simethicone. He feels that the medication is still working well for him. He is currently in PT for his back pain. He wants copies of his xrays to take to the therapist and I provide this. He recently had a new discovery of skin cancer, but they were successful in removing it all. ROV 6 mos. Medications: Refilled dicyclomine 20 mg PO .six times a day 180 tabs 6RF abdominal pain 30 days R10.9 - Unspecified abdominal pain famotidine 40 mg PO BEDTIME 30 tabs 3RF K21.9 - Gastro-esophageal reflux disease without esophagitis, R10.13 - Epigastric pain simethicone (Gas Relief (simethicone)) 125 mg PO TID 90 tabs 6RF abdominal distention bisacodyl 5 - 10 mg (1 - 2 x 5 mg) PO BEDTIME PRN 60 tabs 6RF constipation K59.04 - Chronic idiopathic constipation dexlansoprazole (Dexilant) 60 mg PO DAILY 30 caps 6RF K21.9 - Gastro-esophageal reflux disease without esophagitis, R10.13 - Epigastric pain, Z91.19 - Patient's noncompliance with other medical treatment and regimen linaclotide (Linzess) 290 mcg PO QAM 30 caps 6RF 30 days K59.04 - Chronic idiopathic constipation Coding Level of Care Code Est Pt Level 3 (37764) Diagnoses Encounter for colorectal cancer screening using Cologuard test Z12.11; Z12.12 Back pain M54.9 Gastroesophageal reflux disease with esophagitis without hemorrhage K21.00 Esophagitis bleeding: without hemorrhage Esophagitis presence: with esophagitis Chronic idiopathic constipation K59.04
== END 2024-06-11 12:35 | disposition home or self-care (01) ==
LOC: HO.HGI 12:15
PROVIDERS: PCP Internal Medicine; Visit Provider Nurse Practitioner
DX: K21.00 Gastro-esophageal reflux disease with esophagitis, without bleeding (principal); K59.04 Chronic idiopathic constipation
CPT/HCPCS: 99213

== ENCOUNTER → 2024-06-11 12:15 | Outpatient (BNVA) | payer MEDICAID, SELFPAY | PROVIDERS: PCP Internal Medicine; Visit Provider Nurse Practitioner | DX: K59.04 Chronic idiopathic constipation (principal); K21.00 Gastro-esophageal reflux disease with esophagitis, without bleeding; M54.9 Dorsalgia, unspecified; R10.13 Epigastric pain; Z91.199 Patient's noncompliance with other medical treatment and regimen due to unspecified reason; Z12.11 Encounter for screening for malignant neoplasm of colon; Z12.12 Encounter for screening for malignant neoplasm of rectum | CPT/HCPCS: 99212 ==

== ENCOUNTER 2024-06-17 07:49 | Outpatient (REF) | payer MEDICAID, SELFPAY ==
--- NOTE | ~2024-06-17 | CT_ITS ---
CLINICAL HISTORY: F17.210 - Nicotine dependence, cigarettes, uncomplicated Examination CT lung cancer screening History Screening examination performed for pulmonary nodules Technique Axial CT images of the chest using low-dose technique. Effective radiation dose total: 64.8 mGy-cm, CTDIvol 1.8 mGy. Referring provider counseled the patient on shared decision-making for LDCT screening. Additional counseling was provided on smoking cessation. Comparison: CT/SR - CT LUNG SCREENING - 04/26/23 10:52 EST Findings: Lungs: No pulmonary nodules or emphysema Coronary artery calcifications: Moderate Other: None Limited upper abdomen: Unremarkable Impression: LungRADS 1: Negative exam. Continue annual screening with low dose Chest CT in 12 months. ##L1# Category 1: Normal; continue annual screening Category 2: Benign appearance or behavior, continue annual screening Category 3: Probably benign, [address] recommended Category 4A: Suspicious, [address] recommended; may consider PET/CT Category 4B: Suspicious, Additional diagnostics and/or tissue sampling recommended Category 4X: Suspicious, Additional diagnostics and/or tissue sampling recommended Category 0: Recalls (incomplete screen due to Incomplete coverage, Noise, Respiratory motion, Expiration, Obscured by acute abnormality) This document has been electronically signed by: Niecy Epps MD on 06/17/2024 17:07:07
--- OUTSIDE RECORDS SUMMARY | 2024-06-17 07:52 | XMS_ITS | Encounter Summary ---
Author Organization [employer] Address [address] [place] [address] Care Team Providers Care Anesthesiologist Name Role Phone Teri Nick MD Primary Care Provide r Reason for Visit * Reason Onset Date Comments FYI 02/22/2023 Encounter Details Date Type Department Care Team ([facility] st Contact Info) Description 02/22/2023 Telephone [facility] MEDICINE [address], [place] [phone] Teri Nick MD [address], [place] [phone] FYI Social History Tobacco Use Types Packs/Day Years Used Date Smoking Tobacco: Every Day Cigarettes Passive Smoke Exposure: Current Smokeless Tobacco: Never Depression Answer Date Recorded Patient Health Questionnaire-9 Score 0 07/17/2022 Housing Stability Answer Date Recorded What is your housing situation today? I have senthil chavira 12/31/[address] you li ve. Do you have problems with any of the following? None of the above 12/31/2022 Food Insecurity Answer Date Recorded Within the past 12 months, y ou worried that your food would run out before you got money to buy more: Never True 12/31/2022 Within the past 12 months,th e food you bought just didn't last and you didn't have enough money to get more: Never True Transportation Answer Date Recorded In the past 12 months, has l ack of transportation kept you from medical appts, meetings, work or from getting things needed for daily living? No 12/31/2022 Utilities Answer Date Recorded In the past 12 months, has t he electric, gas, oil or water [employer] threatened to shut off services in your home? No 12/31/2022 Depression Answer Date Recorded Patient Health Questionnaire-2 Score 0 07/17/2022 Sex and Gender Information Value Date Recorded Sex Assigned at Male 01/15/2022 10:21 AM EDT Legal Sex Male 10:21 AM EDT Gender Identity Male 01/15/2022 10:21 AM EDT Sexual Orientation Choose not to disclose 2021 10:21 AM EDT documented as of this encounter Miscellaneous Notes * Telephone Encounter - Benita Mosqueda - 02/22/2023 9:10 AM EST Tc from pt calling in requesting an appt, due to leg pain symptom. Assembly Line Inspector advised triage message [facility] was available, at this time. Pt did not agree or denied offers, pt hung up. documented in this encounter Plan of Treatment Upcoming Encounters Date Type Department Care Team (Late st Contact Info) Description 07/22/2024 10:00 AM EDT Office Visit [facility] [address] [place] [address] Teri Nick MD [address] [place] [address] documented as of this encounter Visit Diagnoses Not on filedocumented in this encounter Additional Health Concerns Assessment Noted Time PHQ-9 Depression Total Score: 0 07/18/19 23 10:46 AM EDT documented as of this encounter Care Teams Anesthesiologist Relationship Specialty Start Date End Date Teri Nick MD [address] [place] [phone] PCP - General Family Medicine 06/11/19 Jeanne Holloway [employer] [facility] 01/11/23 [facility] [place] [facility] 02/26/23 documented as of this encounter
--- OUTSIDE RECORDS SUMMARY | 2024-06-17 07:52 | XMS_ITS | Encounter Summary ---
Author Organization [employer] Address [address] [facility] [address] [place] [address] Care Team Providers Care Online Education Manager Name Role Phone Teri Nick MD Primary Care Provide r Reason for Visit * Reason Comments Med Refill Encounter Details Date Type Department Care Team (Late st Contact Info) Description 06/16/[address] [facility] MED & PEDS [address] [place], [place] [phone] Teri Nick MD [address] [place] [address] Other hyperlipidemia Social History Tobacco Use Types Packs/Day Years Used Date Smoking Tobacco: Every Day Cigarettes Passive Smoke Exposure: Current Smokeless Tobacco: Never Depression Answer Date Recorded Patient Health Questionnaire-9 Score 11 08/07/2023 Patient Health Questionnaire-9 Score 11 08/07/2023 Last PHQ-9: Questionnaire Data Not on file 0 08/07/2023 Housing Stability Answer Date Recorded What is [...] t he electric, gas, oil or water company threatened to shut off services in your home? No 12/31/2022 Depression Answer Date Recorded Patient Health Questionnaire-2 Score 3 08/07/2023 Sex and Gender Information Value Date Recorded Sex Assigned at Male 01/15/2022 10:21 AM EDT Legal Sex Male 10:21 AM EDT Gender Identity Male 01/15/2022 10:21 AM EDT Sexual Orientation Choose not to disclose 2021 10:21 AM EDT documented as of this encounter Plan of Treatment Upcoming Encounters Date Type Department Care Team (Late st Contact Info) Description 07/22/2024 10:00 AM EDT Office Visit [facility] MEDICINE [address] [place], [place] [phone] Teri Nick MD [address] [place], [place] [phone] documented as of this encounter Goals Goal Patient Goal Type Associated Problems Recent Progress Patient-Stated? Author Blood Pressure < 140/90 Blood Pressure 122/82(2023 2:17 PM EDT) No Ilene Ovalles Hemoglobin A1c < 7 Result Component 6.5( 2:48 PM EDT) No Ilene Ovalles documented as of this encounter Visit Diagnoses Diagnosis Other hyperlipidemia documented in this encounter Additional Health Concerns Assessment Noted Time PHQ-9 Depression Total Score: 11 024 2:19 PM EDT documented as of this encounter Care Teams Online Education Manager Relationship Specialty Start Date End Date Teri Nick MD [address] [place], [place] [phone] PCP - General Family Medicine 06/11/19 Jeanne Holloway Sound Recording Technician 01/11/23 [facility] [place] [place] 02[place]23 documented as of this encounter
--- OUTSIDE RECORDS SUMMARY | 2024-06-17 07:52 | XMS_ITS | Encounter Summary ---
Author Organization [employer] Address [address] [place] [address] [address] [place] [address] Care Team Providers Care Grinding Machine Operator Name Role Phone Teri Nick MD Primary Care Provide r Encounter Details Date Type Department Care Team (Late Contact Info) Description 11/29/2022 Orders Only [facility] MED & PEDS [address] [place] [address] Kristin Aguilar LPN Social History Tobacco Use Types Packs/Day Years Used Date Smoking Tobacco: Every Day Cigarettes Passive Smoke Exposure: Current Smokeless Tobacco: Never Depression Answer Date Recorded Patient Health Questionnaire-9 Score 0 07/17/2022 Depression Answer Date Recorded Patient Health Questionnaire-2 [...] Description 07/22/2024 10:00 AM EDT Office Visit [facility] MEDICINE [address] [place], [place] [phone] Teri Nick MD [address] [place], [place] [phone] documented as of this encounter Procedures Procedure Name Priority Date/Time Associated Diagnosis Comments HIGH SENSITIVITY TROPONIN I Routine 03/06/2023 1:15 PM EST documented in this encounter Results * High Sensitivity Troponin I (03/06/2023 1:15 PM EST) TROPONIN I HIGH SENSITIVITY <2.7 <3.5 - 35.0 ng/L [facility] Comment:The Alonzo high sens itivity Troponin-I results should beused in conjunction with other diagnostic information suchas ECG, clinical observations and information, and patientsymptoms to aid in the diagnosis of IL. 03/06/2023 1:15 PM EST 03/06/2023 1:19 PM EST us Generic External Data Provider LAB BLOOD ORDERAB LES Final Result Performing Organization Address City/State/[facility] Co de Phone Number [facility] [address] [place] [phone] documented in this encounter Visit Diagnoses Not on filedocumented in this encounter Additional Health Concerns Assessment Noted Time PHQ-9 Depression Total Score: 0 07/18/19 10:46 AM EDT documented as of this encounter Care Teams Grinding Machine Operator Relationship Specialty Start Date End Date Teri Nick MD [address] [place] [address] PCP - General Family Medicine 06/11/19 Jeanne Holloway Unit Coordinator 01/11/23 [facility] 02/26/23 documented as of this encounter
--- OUTSIDE RECORDS SUMMARY | 2024-06-17 07:52 | XMS_ITS | Clinical Summary ---
Author Organization [employer] Address [address] [place] [address] [address] [place] [address] Care Team Providers Care Wildlife Manager Name Role Phone Teri Nick MD Primary Care Provide r Allergies No known active allergies Medications Blood Glucose Monitoring Suppl (FreeStyle Lite) w/Device kitIndications:Ty pe 2 diabetes mellitus with other specified complication, unspecified whether emt intermediate insulin use ([facility]) 1 each in the morning and at bedtime. Test blood sugar twice daily as directed 1 kit 022 Active clotrimazole (Lotrimin) 1 % creamIndications: Tinea pedis of both feet Apply 1 Application. topically 2 times daily. Apply to the affected areas and surrounding areas twice daily 30 g 023 Active Additional Information Patient not taking.Reported on 06/17/2023 BD Veo Insulin Syringe U/F 31G X 15/64 0.5 ML misc USE FOR INSULIN INJECTION AT BEDTIME 100 each 3 023 Active TRUEplus Lancets 33G misc TEST BLOOD SUGAR FOUR TIMES DAILY 100 each 11 024 Active glucose blood (FREESTYLE LITE) test strip apply 1 by to skin route 4 times every day as directed 100 each 11 024 Active lisinopril 40 MG tabletIndications :Essential hypertension Take 1 tablet (40 mg) by mouth in the morning. 30 tablet 11 024 Active Bisacodyl EC 5 MG EC tablet TAKE 1 TO 2 TABLETS BY MOUTH DAILY AT BEDTIME NEEDED Active Dexilant [address] capsule Take 1 capsule by mouth in the morning. 023 Active dicyclomine (Bentyl) 20 MG tablet TAKE 1 TABLET BY MOUTH SIX TIMES DAILY FOR FOR ABDOMINAL PAIN Active famotidine (Pepcid) 40 MG tablet Take 40 mg by mouth at bedtime. Active fluticasone (Flonase) 50 MCG/ACT nasal spray Administer 2 sprays into each nostril in the morning. Active Linzess 290 MCG capsule Take 290 mcg by mouth before breakfast. Active nystatin-triamcin olone (Mycolog II) cream APPLY TOPICALLY BETWEEN TOES ONCE DAILY Active simethicone (Mylicon) 125 MG chewable tablet Chew 1 tablet 3 times daily. Active DULoxetine (Cymbalta) [address] capsule Take 60 mg by mouth in the morning. Do not crush or chew. Active LORazepam (Ativan) 0.5 MG tablet Take 0.5 mg by mouth in the morning. As needed for anxiety Active betamethasone, augmented, (Diprolene) 0.05 % ointment APPLY A THIN LAYER TO AFFECTED AREA(S) TWICE DAILY 50 g 1 Active Ozempic, 0.25 or 0.5 MG/DOSE, 2 MG/3ML solution pen-injectorIndic ations:Type 2 diabetes mellitus with hyperglycemia, without long-term current use of insulin ([facility]) INJECT 0.5 MG SUBCUTANEOUSLY ONCE A WEEK 3 mL Active Lantus 100 UNIT/ML injectionIndicati ons:Type 2 diabetes mellitus with hyperglycemia, without long-term current use of insulin ([facility]) INJECT 20 UNITS SUBCUTANEOUSLY EVERY DAY 10 mL Active empagliflozin (Jardiance) 10 MG Take 1 tablet (10 mg) by mouth in the morning. 90 tablet Active calcipotriene (Dovonex) 0.005 % cream Apply topically 2 times daily. APPLY TOPICALLY TO AFFECTED AREA(S) TWICE DAILY 60 g 1 Active gabapentin (Neurontin) 300 MG capsuleIndication s:Chronic bilateral low back pain, unspecified whether sciatica present Take 1 capsule (300 mg) by mouth 3 times daily. 90 capsule 025 2025 Active Acetaminophen Extra Strength 500 MG tabletIndications :Muscle spasm TAKE 2 TABLETS BY MOUTH EVERY 8 HOURS NEEDED FOR PAIN 40 tablet 1 025 Active Ventolin HFA 108 (90 Base) MCG/ACT inhalerIndication s:Mild intermittent asthma, unspecified whether complicated INHALE 2 PUFFS BY MOUTH EVERY 4 HOURS NEEDED FOR COUGH, FOR WHEEZING, OR SHORTNESS OF BREATH 18 g 3 025 Active rosuvastatin (Crestor) 20 MG tabletIndications :Other hyperlipidemia TAKE 1 TABLET BY MOUTH EVERY DAY 90 tablet 3 025 Active Acetaminophen Extra Strength 500 MG tabletIndications :Muscle spasm TAKE 2 TABLETS BY MOUTH EVERY 8 HOURS NEEDED FOR MILD PAIN 30 tablet 1 024 2024 Discontinued rosuvastatin (Crestor) 20 MG tabletIndications :Other hyperlipidemia TAKE 1 TABLET BY MOUTH EVERY DAY 90 tablet 3 024 2024 Discontinued Ventolin HFA 108 (90 Base) MCG/ACT inhalerIndication s:Mild intermittent asthma, unspecified whether complicated INHALE 2 PUFFS BY MOUTH EVERY 4 HOURS NEEDED FOR COUGH, WHEEZING, OR SHORTNESS OF BREATH 18 g 3 024 2024 Discontinued Active Problems Problem Noted Date Diagnosed Date Health care maintenance 08/08/2023 Neck pain 08/07/2023 Chronic bilateral low back pain 08/07/2023 Assessment & Plan (04/23/2024 5:03 PM EST): Apply heat on affected area I will prescribe for him gabapentin 300 mg 3 times a day I will prescribe for patient acetaminophen 1000 mg every 8 hours as needed X-ray and PT ordered today Diabetic foot ulcer associat ed with secondary diabetes mellitus 03/12/2023 Assessment & Plan (03/12/2023 3:50 PM EST): Continue with [facility] wound care STAT referral to podiatry Referral to vascular C/w improvement of diabetes management Terbinafine 250mg daily for tinea and bactrim for wound Vascular disease, peripheral 03/12/2023 Colon cancer screening 02/06/2023 Arthritis of left knee 11/06/2022 Assessment & Plan (11/06/2022 8:23 PM EDT): Take tylenol prn Refer to PT Primary osteoarthritis of right knee 11/06/2022 Cellulitis of right leg 11/06/2022 Assessment & Plan (11/06/2022 8:23 PM EDT): Likely hx trauma Use bactrim DS to cover MRSA Tinea corporis 11/06/2022 Balanitis 07/17/2022 Dizziness 07/17/2022 Homeless 07/17/2022 Mood disorder 07/17/2022 Psoriasis 07/17/2022 Phimosis 07/17/2022 Muscle spasm 07/17/2022 Assessment & Plan (07/18/2022 1:23 PM EDT): Apply heat on affected area [place] of Cyclobenzaprine and acetaminophen PRN Moderate persistent asthma 08/28/2021 Gastroesophageal reflux disease 06/05/2018 Essential hypertension 04/09/2017 Assessment & Plan (04/23/2024 5:04 PM EST): Blood pressure seem to be under control, I advise low-sodium diet, continue to take his blood pressure medications every day and continue with weight reduction Assessment & Plan (08/08/2023 10:38 AM EDT): Maintenance: BMP: ordered Lipid Panel: ordered ASCVD Risk: Calculate pending labs - Aerobic exercise to reduce BP. Initial goal of 30 min walk 3-5x/week. Increase as tolerated. - low-sodium diet (goal: <2g/day) and heart healthy diet such as DASH to reduce BP and prevent ASCVD. - Home BP monitoring 1-2 x day with goal of <140/90. - Seek immediate medical attention for chest pain, palpitations, SOB, syncope, or sudden changes in mental status. - Do not change or discontinue current prescriptions without first consulting health care provider Assessment & Plan (04/23/2023 9:46 AM EST): -I increase his lisinopril form 20mg to 40mg today plan is for him to come back to in 2 weeks with nurse for BP check if BP is not at goal plan is to add amlodipine 2.5mg I advise: - Aerobic exercise to reduce BP. Initial goal of 30 min walk 3-5x/week. Increase as tolerated. - low-sodium diet (goal: <2g/day) and heart healthy diet such as DASH to reduce BP and prevent ASCVD. - Home BP monitoring 1-2 x day with goal of <140/90. - Seek immediate medical attention for chest pain, palpitations, SOB, syncope, or sudden changes in mental status. - Do not change or discontinue current prescriptions without first consulting health care provider Assessment & Plan (02/06/2023 2:42 PM EST): - Aerobic exercise to reduce BP. Initial goal of 30 min walk 3-5x/week. Increase as tolerated. - low-sodium diet (goal: <2g/day) and heart healthy diet such as DASH to reduce BP and prevent ASCVD. - Home BP monitoring 1-2 x day with goal of <140/90. - Seek immediate medical attention for chest pain, palpitations, SOB, syncope, or sudden changes in mental status. - Do not change or discontinue current prescriptions without first consulting health care provider Assessment & Plan (12/13/2022 1:06 PM EDT): extensive counseling about taking his medications every day done It was advise low Na diet and weight reduction I advise to monitor BP at home and reports back if he continues to have numbers >140/90mmhg I increase lisinopril to 20mg daily if BP not at goal at nurse visit add amlodipine 5mg Assessment & Plan (07/18/2022 1:22 PM EDT): Maintenance: BMP: ordered Lipid Panel: ordered ASCVD Risk: patient is currently on statin - Aerobic exercise to reduce BP. Initial goal of 30 min walk 3-5x/week. Increase as tolerated. - low-sodium diet (goal: <2g/day) and heart healthy diet such as DASH to reduce BP and prevent ASCVD. - Home BP monitoring 1-2 x day with goal of <140/90. - Seek immediate medical attention for chest pain, palpitations, SOB, syncope, or sudden changes in mental status. - Do not change or discontinue current prescriptions without first consulting health care provider, I extensibly explain to patient he needs to take his medication every day as prescribed Type 2 diabetes mellitus 04/20/2013 Assessment & Plan (04/23/2024 5:03 PM EST): Diabetes seem to be stable, I advised to continue with diabetic diet and same medications Assessment & Plan (08/08/2023 10:40 AM EDT): Diabetes is: controlled - Lab Results Component Value Date HGBA1C 6.5 (A) 06/17/2023 HGBA1C 7.4 (A) 03/12/2023 HGBA1C 10.2 (A) 12/13/2022 - Lab Results Component Value Date CREATININE 0.66 (L) 07/18/2022 -Changes: none - Diabetic eye exam:referral today - Diabetic foot exam:up to date - Continue lifestyle modifications - Continue current medications - Follow up: 3 months Assessment & Plan (04/23/2023 9:46 AM EST): Glucose numbers are getting better C/w same medication regimen Assessment & Plan (03/12/2023 3:49 PM EST): A1c has had a significant improve since ozempic was started patient has also lost 11lbs - Lab Results Component Value Date HGBA1C 7.4 (A) 03/12/2023 HGBA1C 10.2 (A) 12/13/2022 HGBA1C 10.4 (A) 07/17/2022 - Lab Results Component Value Date CREATININE 0.66 (L) 07/18/2022 - Diabetic eye exam:up to date - Diabetic foot exam:podiatry referral - Continue lifestyle modifications - Continue current medications Assessment & Plan (02/06/2023 2:43 PM EST): Patient reports FS are better, he has manage to lose 11lbs in 2 months - Lab Results Component Value Date HGBA1C 10.2 (A) 12/13/2022 HGBA1C 10.4 (A) 07/17/2022 - Lab Results Component Value Date CREATININE 0.66 (L) 07/18/2022 - Continue lifestyle modifications - Continue current medications Assessment & Plan (12/13/2022 1:06 PM EDT): - Lab Results Component Value Date HGBA1C 10.2 (A) 12/13/2022 HGBA1C 10.4 (A) 07/17/2022 - Lab Results Component Value Date CREATININE 0.66 (L) 07/18/2022 - Continue lifestyle modifications Increase lats to 20 U daily, I advise not to miss his ozempic, c/w rest of medications Assessment & Plan (07/18/2022 1:25 PM EDT): - Lab Results Component Value Date HGBA1C 10.4 (A) 07/17/2022 - Lab Results Component Value Date CREATININE 0.76 01/06/2022 CREATININE 0.76 01/06/2022 - Diabetic eye exam: pending - Diabetic foot exam: pending - I instructed patient to log glucose AM and PM for next appointment, to use his insulin as prescribe every day - I added today ozempic - Smoker 04/03/2012 Heartburn 01/15/2012 Hypertension 01/15/2012 Tinea pedis 11/30/2011 Assessment & Plan (11/06/2022 8:22 PM EDT): Keep area clean and dry, counseled re tight control of DM Use clotrimazole bid to affected areas FU w PCP Allergic rhinitis 08/29/2011 Anxiety state 08/29/2011 Chronic obstructive lung disease 08/29/2011 Constipation 08/29/2011 Hemorrhoids 08/29/2011 Obesity 08/29/2011 Encounters Date Type Department Care Team Description 06/16/2024 Refill [facility] & PEDS [address] [place] [address] Teri Nick MD Other hyperlipidemia 06/07/2024 Refill [facility] PEDS [address] [place] [address] Teri Nick MD Mild intermittent asthma, unspecified whether complicated 05/29/2024 Population Health Risk Score Community [facility] (C3) Department [address] [phone] Provider, Population Health Generic 05/28/2024 Refill [facility] MEDICINE [address] [place] [phone] Teri Nick MD Muscle spasm 04/23/2024 1:00 PM EST Telemedicine [address] [phone] Teri Nick MD Chronic bilateral low back pain, unspecified whether sciatica present (Primary Dx); Type 2 diabetes mellitus without complication, without long-term current use of insulin ([facility]); Essential hypertension 04/23/2024 Travel 04/22/[address] [address] Giovanna Oliva MA R\S APPT 04/16/[address] [address] Giovanna Oliva MA CHART PREP 04/13/2024 Patient Outreach [address] [address] Teri Nick MD Pre-visit Planning ((Unable to reach for PVP screening and or LVM)) 03/24/2024 Refill [facility] PEDS [address] [place] [address] Teri Nick MD from Last 3 Months Immunizations Name Administration Dates Next Due Hep A, Adult 09/12/2012 Hep B, adult 01/27/2013,10/13/2012,09/12/2012 Influenza Injectable Quadriv alant Preservative Free IIV4 MDCK 03/26/2018 Influenza injectable quadriv alent IIV4 with preservative 12/26/2016 Influenza injectable quadriv alent preservative free 02/06/2023,12/22/2021,01/24/2021 Influenza, IIV3, injectable 03/08/2014 Influenza, Split (incl. gianni fied surface antigen) 12/26/2012,04/03/2012 Pfizer Covid-19 Vaccine 12+ 10/15/2020, Pneumococcal Polysaccharide PPSV23 04/09/2017 Tdap 12/26/2012 Social History Tobacco Use Types Packs/Day Years Used Date Smoking Tobacco: Every Day Cigarettes Passive Smoke Exposure: Current Smokeless Tobacco: Never Tobacco Cessation:Ready to Q uit: Not Asked; Counseling Given: Not Answered Depression Answer Date Recorded Patient Health Questionnaire-9 Score 11 08/07/2023 Patient Health Questionnaire-9 Score 11 08/07/2023 Last PHQ-9: Questionnaire Data Not on file 0 08/07/2023 Housing Stability Answer Date Recorded What is your housing situation today? I have senthil cait 12/31/[address] you li [...] not to disclose 2021 10:21 AM EDT Last Filed Vital Signs Vital Sign Reading Time Taken Comments Blood Pressure 122/82 08/07/2023 2:17 PM EDT Pulse 72 08/07/2023 2:17 PM EDT Temperature 36.7 ??C (98 ??F) 08/07/2023 2:17 PM EDT Respiratory Rate 17 08/07/2023 2:17 PM EDT Oxygen Saturation 97% 04/23/2023 9:18 AM EST Inhaled Oxygen Concentration - - Weight 96.9 kg (213 lb 9.6 oz) 08/07/2023 2:17 P M EDT Height 167.6 cm (5' 6 ) 08/07/2023 2:17 PM EDT Body Mass Index 34.48 08/07/2023 2:17 PM EDT Plan of Treatment Upcoming Encounters Date Type Department Care Team (Late st Contact Info) Description 07/22/2024 10:00 AM EDT Office Visit [facility] MEDICINE [address] [place] [address] Teri Nick MD [address] [place] [address] Health Maintenance Due Date Last Done Comments CT Colonography 1967 Colonoscopy 1967 Colorectal Cancer Screening 1967 FIT DNA/Cologuard 1967 FIT 1967 FOBT 1967 HIV Screening 1967 Sigmoidoscopy 1967 Eye Exam 10/19/1977 Alcohol/Substance Use Screening 1979 Hepatitis C Screening 10/19/1985 Zoster Vaccines (1 of 2) 10/19/2017 Pneumococcal Vaccine: 50+ Years (2 of 2 - PCV) 04/09/2018 04/09/2017 Diabetes: Urine Protein Screening 06/01/2022 06/01/2021, 04/21/2020, 04/28/2019 DTaP/Tdap/Td Vaccines (2 - Td or Tdap) 12/26/2022 12/26/2012 SDOH Screening 07/18/2023 07/17/2022 Lipid Panel 07/19/2023 07/18/2022, 08/3 03/2020, 04/21/2020 COVID-19 Vaccine ( season) 2023 10/15/2020, 09/24/2020 Influenza Vaccine (#1) 2023 , 12/22/2021, 01/24/2021, Additional history exists Diabetes: Hemoglobin A1C 12/17/2023 024, 03/12/2023, 12/13/2022, Additional history exists Depression Monitoring (PHQ-9) 02/07/2024 08/07/2023, 08/07/2023 Diabetes: Foot Exam 03/12/2024 03/12/2023, 03/12/2023, 03/12/2023, Additional history exists Depression Screening 08/06/2024 08/07/2023, 08/07/19 24 Tobacco Screening 08/06/2024 08/07/2023 RSV Patients and Patients Aged 60 years or older (1 - 1-dose 75+ series) 10/19/2042 Hepatitis A Vaccines Aged Out 09/12/2012 No long er eligible based on patient's age to complete this topic Hepatitis B Vaccines Completed 01/27/2013, 10/13/2012, 09/12/2012 HIB Vaccines Aged Out No longer eligi ble based on patient's age to complete this topic HPV Vaccines Aged Out No longer eligi ble based on patient's age to complete this topic IPV Vaccines Aged Out No longer eligi ble based on patient's age to complete this topic Meningococcal Vaccine Aged Out No chuck gurdeep eligible based on patient's age to complete this topic RSV under 20 months Aged Out No longe r eligible based on patient's age to complete this topic Rotavirus Vaccines Aged Out No longer eligible based on patient's age to complete this topic Goals Goal Patient Goal Type Associated Problems Recent Progress Patient-Stated? Author Blood Pressure < 140/90 Blood Pressure 122/82(2023 2:17 PM EDT) No Ilene Ovalles Hemoglobin A1c < 7 Result Component 6.5( 2:48 PM EDT) No Ilene Ovalles Procedures Procedure Name Priority Date/Time Associated Diagnosis Comments POCT GLYCATED HEMOGLOBIN, TOTAL Routine 06/17/2023 2:48 PM EDT Type 2 diabetes mellitus with hyperglycemia, without long-term current use of insulin ([facility]) LIPID PANEL, STANDARD Routine 07/18/2022 10:46 AM EDT Essential hypertension Type 2 diabetes mellitus with hyperglycemia, without long-term current use of insulin ([facility]) ZZZ HISTORICAL MICROALBUMIN/CREATIN INE RATIO, RANDOM URINE Routine 06/01/2021 9:25 AM EDT from Last 3 Months or Most Recently Relevant to Health Maintenance Results * (ABNORMAL) POCT A1C (06/17/2023 2:48 PM EDT) Hemoglobin A1C 6.5(A) 4.0 - 6.0 % QC Media Lot # [id number] Lot# Expiration Date [id number] Blood 06/17/2023 2:48 PM EDT Teri Martins MD POINT OF CARE TEST EN TER/EDIT ORDERABLES Final Result * (ABNORMAL) Lipid Panel, Standard (07/18/2022 10:46 AM EDT) Cholesterol, Total 210(H) <200 mg/dL [facility] HDL Cholesterol 49 > OR = 40 mg/dL [facility] Triglycerides 126 <150 mg/dL [facility] LDL Cholesterol 136(H) mg/dL (calc) [facility] Comment: Reference range: <100 Desirable range <100 mg/dL for primary prevention; ?? <70 mg/dL for patients with CHD or diabetic patients with > or = 2 CHD risk factors. LDL-C is now calculated using the Dequan-Donahue calculation, which is a validated novel method providing better accuracy than the Friedewald equation in the estimation of LDL-C. Dequan RODRIGUEZ et al. NORBERT. 2013;310(19): 6964-9135 (http://education.[employer].NGDATA/faq/WCQ890) Chol/HDLC Ratio 4.3 <5.0 (calc) [facility] Non-HDL Cholesterol 161(H) <130 mg/dL (calc) [facility] Comment: For patients with diabetes plus 1 major ASCVD risk factor, treating to a non-HDL-C goal of <100 mg/dL (LDL-C of <70 mg/dL) is considered a therapeutic option. Blood Venous blood specimen / Unknown 07/18/2022 10:46 AM EDT 07/18/2022 10:47 AM EDT Narrative [facility] - 07/18/2022 9:10 PM EDT FASTING:YES PATIENT UNABLE TO VOID; ADVISED TO RETURN FOR COLLECTION. FASTING: YES us Teri Martins MD LAB BLOOD ORDERABLES Final Result [facility] [address] [facility], [facility], [place] [address] [facility] [address] [place] [address] * MICROALBUMIN/CREATININE RATIO, RANDOM URINE (06/01/2021 9:25 AM EDT) Creatinine Urine 144.69 mg/dL [facility] Microalbum/Creati nine Ratio Ur 11.0 ug/mg cr [facility] Comment: ?Albumin/Creatinine Ratio Reference Ranges: ? Normal: < 30 ug/mg creatinine ? Microalbuminuria: ??30 - 300 ug/mg creatinine Clinical Albuminuria: ??> 300 ug/mg creatinine Microalbumin Urine 16.0 mg/L [facility] 06/01/2021 9:25 AM EDT us Historical Provider HISTORICAL/NON ORDERABLE LABS Final Result Performing Organization Address City/[facility] Co de Phone Number [facility] [address] from Last 3 Months or Most Recently Relevant to Health Maintenance Insurance [facility] * Guarantor: Sergo Garcia Account Type Relation to Patient Date of Phone Billing Address Personal/Family Self [place], [place] Care Teams Wildlife Manager Relationship Specialty Start Date End Date Teri Nick MD [address] [place] [phone] PCP - General Family Medicine 06/11/19 Jeanne Holloway Industrial Maintenance Repairer Helper 01/11/23 [facility] 02/26/23
== END 2024-06-17 07:50 | disposition home or self-care (01) ==
LOC: HO.CT 07:49
PROVIDERS: PCP Internal Medicine; Visit Provider Physician Assistant Medical
DX: Z12.2 Encounter for screening for malignant neoplasm of respiratory organs (principal); F17.210 Nicotine dependence, cigarettes, uncomplicated
CPT/HCPCS: 71271

== ENCOUNTER → 2024-06-17 07:50 | Outpatient (BNV) | payer MEDICAID, SELFPAY | PROVIDERS: PCP Internal Medicine; Visit Provider Radiology Diagnostic Radiology | DX: F17.210 Nicotine dependence, cigarettes, uncomplicated (principal) | CPT/HCPCS: 71271 ==

== ENCOUNTER 2024-06-19 10:35 | Outpatient (REF) | payer MEDICAID, SELFPAY ==
--- NOTE | ~2024-06-19 | XR_ITS ---
EXAMINATION: XR FOOT 3 OR MORE VIEWS RIGHT, XR ANKLE 3 OR MORE VIEWS RIGHT HISTORY: atraumatic pain x 1 mo COMPARISON: There are no prior studies available for comparison. FINDINGS: Three views of the right foot are submitted. Osseous mineralization is normal. A well-corticated osseous density is noted adjacent to the tip of the distal fibula, likely the result of old trauma. There is no acute fracture or dislocation. The joint spaces are preserved. The soft tissues are unremarkable. XR/XR ankle RT min 3V IMPRESSION: No evidence of fracture or significant degenerative change. Electronically signed by: Jony Emmanuel MD 06/19/2024 02:44 PM EDT
--- NOTE | ~2024-06-19 | XR_ITS ---
EXAMINATION: XR FOOT 3 OR MORE VIEWS RIGHT, XR ANKLE 3 OR MORE VIEWS RIGHT HISTORY: atraumatic pain x 1 mo COMPARISON: There are no prior studies available for comparison. FINDINGS: Three views of the right foot are submitted. Osseous mineralization is normal. A well-corticated osseous density is noted adjacent to the tip of the distal fibula, likely the result of old trauma. There is no acute fracture or dislocation. The joint spaces are preserved. The soft tissues are unremarkable. XR/XR foot RT min 3V IMPRESSION: No evidence of fracture or significant degenerative change. Electronically signed by: Jony Emmanuel MD 06/19/2024 02:44 PM EDT
--- OUTSIDE RECORDS SUMMARY | 2024-06-19 12:07 | XMS_ITS | Encounter Summary ---
Author Organization [employer] Address [address] [facility] [address] [place] [address] Care Team Providers Care Tire Specialist Name Role Phone Teri Nick MD Primary Care Provide r Reason for Visit * Reason Comments Med Refill Encounter Details Date Type Department Care Team (Late st Contact Info) Description 06/16/[address] [facility] CH[facility] MED & PEDS [address] [place], [place] [phone] Teri Nick MD [address] [place] [address] Other hyperlipidemia Social History Tobacco Use Types [...] Male 01/15/2022 10:21 AM EDT Sexual Orientation Straight 06/18/2024 12 :32 PM EDT documented as of this encounter Plan of Treatment Upcoming Encounters Date Type Department Care Team (Late st Contact Info) Description 07/22/2024 10:00 AM EDT Office Visit [facility] MEDICINE [address] [place], [place] [phone] Teri Nick MD [address] [place], [place] [phone] documented as of this encounter Goals Goal Patient Goal Type Associated Problems Recent Progress Patient-Stated? Author Blood Pressure < 140/90 Blood Pressure 123/64(2024 11:23 AM EDT) No Ilene Ovalles Hemoglobin A1c < 7 Result Component 6.5( 11:41 AM EDT) No Ilene Ovalles documented as of this encounter Visit Diagnoses Diagnosis Other hyperlipidemia documented in this encounter Additional Health Concerns Assessment Noted Time PHQ-9 Depression Total Score: 11 024 2:19 PM EDT documented as of this encounter Care Teams Tire Specialist Relationship Specialty Start Date End Date Teri Nick MD [address] [place], [place] [phone] PCP - General Family Medicine 06/11/19 Jeanne Holloway Product Marketing Consultant 01/11/23 [facility] 02/26/23 documented as of this encounter
--- OUTSIDE RECORDS SUMMARY | 2024-06-19 12:07 | XMS_ITS | Encounter Summary ---
Author Organization [employer] Address [address] [place] [address] 7 [place] [address] Care Team Providers Care Editor Department Name Role Phone Teri Nick MD Primary Care Provide r Encounter Details Date Type Department Care Team (Late Contact Info) Description 11/29/2022 Orders Only [facility]ED[facility] [address] [place] [address] Kristin Aguilar LPN Social History Tobacco Use [...] Description 07/22/2024 10:00 AM EDT Office Visit [facility] MEDICINE [address] [place], [place] [phone] Teri Nick MD [address] [place], [place] [phone] documented as of this encounter Procedures Procedure Name Priority Date/Time Associated Diagnosis Comments HIGH SENSITIVITY TROPONIN I Routine 03/06/2023 1:15 PM EST documented in this encounter Results * High Sensitivity Troponin I (03/06/2023 1:15 PM EST) TROPONIN I HIGH SENSITIVITY <2.7 <3.5 - 35.0 ng/L [facility] Comment:The Alonzo high sens itivity Troponin-I results should beused in conjunction with other diagnostic information suchas ECG, clinical observations and information, and patientsymptoms to aid in the diagnosis of AL. 03/06/2023 1:15 PM EST 03/06/2023 1:19 PM EST us Generic External Data Provider LAB BLOOD ORDERAB LES Final Result [facility] [address] [place] [phone] documented in this encounter Visit Diagnoses Not on filedocumented in this encounter Additional Health Concerns Assessment Noted Time PHQ-9 Depression Total Score: 0 07/18/19 23 10:46 AM EDT documented as of this encounter Care Teams Editor Department Relationship Specialty Start Date End Date Teri Nick MD [address] [place] [address] PCP - General Family Medicine 06/11/19 Jeanne Holloway Director Broadcast 01/11/23 [facility] 02/26/23 documented as of this encounter
--- OUTSIDE RECORDS SUMMARY | 2024-06-19 12:07 | XMS_ITS | Encounter Summary ---
Author Organization [employer] Address [address] [facility] 7t [place] [address] Care Team Providers Care Grades 7 And 8 Teacher Name Role Phone Teri Nick MD Primary Care Provide r Reason for Visit * Reason Comments sick on site Encounter Details Date Type Department Care Team (Latest Contact Info) Description 06/18/2024 11:00 AM EDT Office Visit [facility] MEDICINE [address] [place], [place] [phone] Christina Nelson ANP [address] [place], [place] [phone] Right leg pain (Primary Dx); Vascular disease, peripheral (CMS/HCC); Type 2 diabetes mellitus with hyperlipidemia (CMS/HCC) (CMS/HCC); Right foot pain; Acute right ankle pain Social History Tobacco Use Types Packs/Day Years [...] PM EDT documented as of this encounter Last Filed Vital Signs Vital Sign Reading Time Taken Comments Blood Pressure 123/64 06/18/2024 11:23 AM EDT Pulse 88 06/18/2024 11:23 AM EDT Temperature 36.9 ??C (98.5 ??F) 06/18/2024 11:23 AM E DT Respiratory Rate 14 06/18/2024 11:23 AM EDT Oxygen Saturation 98% 06/18/2024 11:23 AM EDT Inhaled Oxygen Concentration - - Weight 101 kg (222 lb 3.2 oz) 06/18/2024 11:23 A M EDT Height - - Body Mass Index 35.86 08/07/2023 2:17 PM EDT documented in this encounter Progress Notes * BELEM Enamorado - 06/18/2024 11:00 AM EDT Subjective Patient ID: Sergo Gacria is a 58 y.o. male who presents for sick on site. HPI PMH T2DM w/ neuropathy, HTN, PVD, chronic back pain, GERD, asthma, OA R knee Lab Results Component Value Date HGBA1C 6.5 (A) 06/17/2023 Here today for RLE pain pt reported he has Right LE pain with ankle swelling x 1 month also has a HX of Diabetes and lower back pain. RN advised patient that he can obtain a x-ray in [facility] if seen by a provider, pt preferred a appt with his PCP. RN unable to provide a appt with PCP however a appt was made with another provider on Green team 06/18/24 at 11 am. [employer] utilized for Portuguese interpretation. RLE pain: worse when he gets up from sitting to standing. Sx present for > 1 mo. He thinks r/t his neuropathy as well as PVD. Last visit w/ vascular 07/19/23 In short patient is negative for any significant venous insufficiency. We did discuss routine conservative measures including compression elevation and exercise. Should symptoms persist I do believe that it may be potentially neurogenic due to his history of diabetes and may be related to a little bit of neuropathy. He will follow up with us on an as-needed basis. He does have chronic low back pain. He limps when he walks d/t pain. In terms of quality, pain is worse when he moves foot left to R. Pain is sharp. Not worse in AM, worse all day. Lab Results Component Value Date HGBA1C 6.5 (A) 06/18/2024 Smokes 1/2 PPD Review of Systems Constitutional: Negative for chills and fever. Cardiovascular: Negative for leg swelling. Musculoskeletal: Positive for arthralgias. Neurological: Negative for weakness and numbness. Objective BP 123/64 (BP Location: Left arm, Patient Position: Sitting, BP Cuff Size: Adult) Pulse88 Temp 98.5 ??F (36.9 ??C) (Temporal) Resp 14 Wt 222 lb 3.2 oz (101 kg) SpO2 98% BMI 35.86 kg/m?? Physical Exam Vitals reviewed. Constitutional: General: He is not in acute distress. Appearance: Normal appearance. He is not ill-appearing. HENT: Head: Normocephalic and atraumatic. Eyes: General: No scleral icterus. Extraocular Movements: Extraocular movements intact. Pupils: Pupils are equal, round, and reactive to light. Cardiovascular: Rate and Rhythm: Normal rate. Pulses: Posterior tibial pulses are 2+ on the right side. Pulmonary: Effort: Pulmonary effort is normal. No accessory muscle usage or respiratory distress. Musculoskeletal: Right lower leg: No edema. Left lower leg: No edema. Comments: Exquisite pain with rotation of right foot and with flexion/extension; also tender to palpation plantar surface worse at ball of foot Skin: General: Skin is warm and dry. Neurological: Mental Status: He is alert and oriented to person, place, and time. Psychiatric: Mood and Affect: Mood normal. Behavior: Behavior normal. Assessment/Plan Diagnoses and all orders for this visit: Right leg pain Vascular disease, peripheral ([facility]/HCC) Mild per vascular note, reinforced recommendation for compression socks Type 2 diabetes mellitus with hyperlipidemia (CMS/HCC) ([facility]) Lab Results Component Value Date HGBA1C 6.5 (A) 06/18/2024 At goal </= 7.0 follow-up w/ PCP - POCT HGB A1C Right foot pain Etiology unclear. Does not appear to be neuropathic pain given the sharp quality reproducible with ankle and foot ROM. Possible tendinopathy or arthritis, possible element of plantar fasciitis given the plantar pain. No swelling. will check x-ray. Recommend Tylenol or ibuprofen as needed. Recommendice and heat. - XR Foot 3+ Views Right; Future Acute right ankle pain - XR Ankle 3+ Views Right; Future Future Appointments Date Time Provider Department Center 07/22/2024 10:00 AM Teri Martins MD MEDICINE [facility] documented in this encounter Plan of Treatment Upcoming Encounters Date Type Department Care Team (Late st Contact Info) Description 07/22/2024 10:00 AM EDT Office Visit [facility] MEDICINE [address] [place] [phone] Teri Nick MD [address] [place] [address] Scheduled Orders Name Type Priority Associated Diagnoses Orde r Schedule XR Ankle 3+ Views Right Imaging Routine Acute right ankle pain Expected: 06/18/2024, Expires: 06/18/2025 XR Foot 3+ Views Right Imaging Routine Right foot pain Expected: 06/18/2024, Expires: 06/18/2025 documented as of this encounter Goals Goal Patient Goal Type Associated Problems Recent Progress Patient-Stated? Author Blood Pressure < 140/90 Blood Pressure 123/64(2024 11:23 AM EDT) No Ilene Ovalles Hemoglobin A1c < 7 Result Component 6.5(04/03/202 5 11:41 AM EDT) No Ilene Ovalles documented as of this encounter Procedures Procedure Name Priority Date/Time Associated Diagnosis Comments POCT GLYCATED HEMOGLOBIN, TOTAL Routine 06/18/2024 11:41 AM EDT Type 2 diabetes mellitus with hyperlipidemia (CMS/HCC) ([facility]) documented in this encounter Results * (ABNORMAL) POCT HGB A1C (06/18/2024 11:41 AM EDT) Hemoglobin A1C 6.5(A) 4.0 - 6.0 % QC Media Lot # [id number] Lot# Expiration Date Blood 06/18/2024 11:4 1 AM EDT [facility] POINT OF CARE TEST ENTER/EDIT OR DERABLES Final Result documented in this encounter Visit Diagnoses Diagnosis Right leg pain- Primary Pain in soft tissues of limb Vascular disease, peripheral (CMS/HCC) Unspecified peripheral vascular disease Type 2 diabetes mellitus with hyperlipidemia (CMS/HCC) (CMS/HCC) Right foot pain Pain in soft tissues of limb Acute right ankle pain documented in this encounter Additional Health Concerns Assessment Noted Time PHQ-9 Depression Total Score: 11 024 2:19 PM EDT documented as of this encounter Care Teams Grades 7 And 8 Teacher Relationship Specialty Start Date End Date Teri Nick MD [address] [place] [address] PCP - General Family Medicine 06/11/19 Jeanne Holloway Carpenter And Joiner 01/11/23 [facility] 02/26/23 documented as of this encounter
--- OUTSIDE RECORDS SUMMARY | 2024-06-19 12:07 | XMS_ITS | Encounter Summary ---
Author Organization [employer] Address [address] [facility] [address] [place] [address] Care Team Providers Care Mountain Or Glacier Guide Name Role Phone Teri Nick MD Primary Care Provide r Reason for Visit * Reason Onset Date Comments FYI 02/22/2023 Encounter Details Date Type Department Care Team ([facility] st Contact Info) Description 02/22/2023 Telephone [facility] MEDICINE [address] [place], [place] [phone] Teri Nick MD [address] [place], [place] [phone] FYI Social History Tobacco Use Types Packs/Day [...] t he electric, gas, oil or water [email or web address] threatened to shut off services in your home? No 12/31/2022 Depression Answer Date Recorded Patient Health Questionnaire-2 Score 0 07/17/2022 Sex and Gender Information Value Date Recorded Sex Assigned at Male 01/15/2022 10:21 AM EDT Legal Sex Male 10:21 AM EDT Gender Identity Male 01/15/2022 10:21 AM EDT Sexual Orientation Straight 06/18/2024 12 :32 PM EDT documented as of this encounter Miscellaneous Notes * Telephone Encounter - Benita Sandhu Mosqueda - 02/22/2023 9:10 AM EST Tc from pt calling in requesting an appt, due to leg pain symptom. Clinical Audiologist advised triage message orWIC was available, at this time. Pt did not agree or denied offers, pt hung up. documented in this encounter Plan of Treatment Upcoming Encounters Date Type Department Care Team (Late st Contact Info) Description 07/22/2024 10:00 AM EDT Office Visit [facility] MEDICINE [address] [place] [address] Teri Nick MD [address] [place] [address] documented as of this encounter Visit Diagnoses Not on filedocumented in this encounter Additional Health Concerns Assessment Noted Time PHQ-9 Depression Total Score: 0 07/18/19 23 10:46 AM EDT documented as of this encounter Care Teams Mountain Or Glacier Guide Relationship Specialty Start Date End Date Teri Nick MD [address] [place] [address] PCP - General Family Medicine 06/11/19 Jeanne Holloway Line Puller 01/11/23 [facility] 02/26/23 documented as of this encounter
--- OUTSIDE RECORDS SUMMARY | 2024-06-19 12:07 | XMS_ITS | Encounter Summary ---
Author Organization [employer] Address [address] [facility] 7t [place] [address] Care Team Providers Care Machine Oiler Name Role Phone Teri Nick MD Primary Care Provide r Encounter Details Date Type Department Care Team (Late st Contact Info) Description 06/17/2024 Orders Only [facility] External Provider, [facility] Social History Tobacco Use Types Packs/Day Years [...] Description 07/22/2024 10:00 AM EDT Office Visit [facility] MEDICINE [address] [place] [address] Teri Nick MD [address] [place] [address] documented as of this encounter Goals Goal Patient Goal Type Associated Problems Recent Progress Patient-Stated? Author Blood Pressure < 140/90 Blood Pressure 123/64(2024 11:23 AM EDT) No Ilene Ovalles Hemoglobin A1c < 7 Result Component 6.5( 11:41 AM EDT) No Ilene Ovalles documented as of this encounter Procedures Procedure Name Priority Date/Time Associated Diagnosis Comments LDCT LUNG SCREENING Routine 06/17/2024 5 :07 PM EDT documented in this encounter Results * CT Lung Screening Low dose (06/17/2024 5:07 PM EDT) Anatomical Region Laterality Modality Lung Computed Tomogra phy 06/17/2024 5:07 PM EDT Narrative 06/17/2024 5:08 PM EDT ? [facility] ?[address] ?[place] [address] ? CT Scan Report ? Signed ? Patient: Garcia,Chapincito ?MR#: [id number] ?? [id number] ? : 1965 ?Acct:[id number] ? Age/Sex: 58 / M ?ADM Date: 04/02/25 ? Loc: HO.CT ? Attending Dr: Nancy Perez PA-C ? Ordering Physician: Nancy Perez PA-C ?? Date of Service: 06/17/24 ?? Procedure(s): CT lung screening ?? Accession Number(s): [id number] ? cc: Teri Nick MD; Nancy Perez PA-C ? Report Number: ?? [id number]: Total DLP = ?? 65.00 mGy-cm ? CLINICAL HISTORY: F17.210 - Nicotine dependence, cigarettes, uncomplicated ? Examination CT lung cancer screening ? History Screening examination performed for pulmonary nodules ? Technique Axial CT images of the chest using low-dose technique. Effective ?? radiation dose total: 64.8 mGy-cm, CTDIvol 1.8 mGy. Referring provider ?? counseled the patient on shared decision-making for LDCT screening. ?? Additional counseling was provided on smoking cessation. ? Comparison: CT/SR - CT LUNG SCREENING - 04/26/23 10:52 EST ? Findings: ?? Lungs: No pulmonary nodules or emphysema ? Coronary artery calcifications: Moderate ? Other: None ? Limited upper abdomen: Unremarkable ? Impression: LungRADS 1: Negative exam. Continue annual screening with low ?? dose Chest CT in 12 months. ? ##L1# ? Category 1: Normal; continue annual screening ?? Category 2: Benign appearance or behavior, continue annual screening ?? Category 3: Probably benign, [address] recommended ?? Category 4A: Suspicious, [address] recommended; may consider PET/CT ?? Category 4B: Suspicious, Additional diagnostics and/or tissue sampling ?? recommended ?? Category 4X: Suspicious, Additional diagnostics and/or tissue sampling ?? recommended ?? Category 0: Recalls (incomplete screen due to Incomplete coverage, Noise, ?? Respiratory motion, Expiration, Obscured by acute abnormality) ? This document has been electronically signed by: Niecy Epps MD ?? on 06/17/2024 17:07:07 ? Dictated By: ?Niecy Castellanos MD ? Signed By: ?<Electronically signed by Niecy Castellanos MD in OV> ? 06/17/241706 ? DD/ 06 ? TD/TT: 06/17/241706 ? Granulating Machine Operator: ? Procedure Note Donotuseinterpreter, Image - 06/17/[address] [address] [address] Scan Report Signed Patient: Sergo Garcia AMR#: [id number] : 1965Acct:[id number] Age/Sex: 58 / MADM Date: 06/17/24 Loc: HO.CT Attending Dr: Nancy Perez PA-C Ordering Physician: Nancy Perez PA-C Date of Service: 06/17/24 Procedure(s): CT lung screening Accession Number(s): [id number] cc: Teri Nick MD; Nancy Perez PA-C Report Number: [id number]: Total DLP = 65.00 mGy-cm CLINICAL HISTORY: F17.210 - Nicotine dependence, cigarettes, uncomplicated Examination CT lung cancer screening History Screening examination performed for pulmonary nodules Technique Axial CT images of the chest using low-dose technique. Effective radiation dose total: 64.8 mGy-cm, CTDIvol 1.8 mGy. Referring provider counseled the patient on shared decision-making for LDCT screening. Additional counseling was provided on smoking cessation. Comparison: CT/SR - CT LUNG SCREENING - 04/26/23 10:52 EST Findings: Lungs: No pulmonary nodules or emphysema Coronary artery calcifications: Moderate Other: None Limited upper abdomen: Unremarkable Impression: LungRADS 1: Negative exam. Continue annual screening with low dose Chest CT in 12 months. ##L1# Category 1: Normal; continue annual screening Category 2: Benign appearance or behavior, continue annual screening Category 3: Probably benign, [address] recommended Category 4A: Suspicious, [address] recommended; may consider PET/CT Category 4B: Suspicious, Additional diagnostics and/or tissue sampling recommended Category 4X: Suspicious, Additional diagnostics and/or tissue sampling recommended Category 0: Recalls (incomplete screen due to Incomplete coverage, Noise, Respiratory motion, Expiration, Obscured by acute abnormality) This document has been electronically signed by: Niecy Epps MD on 06/17/2024 17:07:07 Dictated By: Niecy Castellanos MD Signed By: <Electronically signed by Niecy Castellanos MD in OV> 06/17/241706 DD/ 06 TD/TT: 06/17/241706 Granulating Machine Operator: [facility] External Provider IMG CT PROCEDURES Final Result documented in this encounter Visit Diagnoses Not on filedocumented in this encounter Additional Health Concerns Assessment Noted Time PHQ-9 Depression Total Score: 11 024 2:19 PM EDT documented as of this encounter Care Teams Machine Oiler Relationship Specialty Start Date End Date Teri Nick MD [address] [place] [address] PCP - General Family Medicine 06/11/19 Jeanne Holloway Laborer Electroplating 01/11/23 [facility] 02/26/23 documented as of this encounter
--- OUTSIDE RECORDS SUMMARY | 2024-06-19 12:07 | XMS_ITS | Encounter Summary ---
Author Organization [employer] Address [address] [facility] 7t [place] [address] Care Team Providers Care Manufacturing Controller Name Role Phone Teri Nick MD Primary Care Provide r Encounter Details Date Type Department Care Team (Latest Contact Info) Description 06/18/2024 Travel Social History Tobacco Use Types Packs/Day Years [...] Description 07/22/2024 10:00 AM EDT Office Visit [facility] MEDICINE [address] [place] [address] Teri Nick MD [address] [place] [address] documented as of this encounter Goals Goal [...] documented as of this encounter Care Teams Manufacturing Controller Relationship Specialty Start Date End Date Teri Nick MD [address] [place] [address] PCP - General Family Medicine 06/11/19 Jeanne Holloway Poultry Vaccinator 01/11/23 [facility][Note 3] 02/26/23 documented as of this encounter
--- OUTSIDE RECORDS SUMMARY | 2024-06-19 12:07 | XMS_ITS | Encounter Summary ---
Author Organization [employer] Address [address] [facility] [address] [place] [address] Care Team Providers Care Form Grader Operator Name Role Phone Teri Nick MD Primary Care Provide r Reason for Visit * Reason Onset Date Comments walk in triage 06/17/2024 Encounter Details Date Type Department Care Team ([facility] st Contact Info) Description 06/17/2024 Telephone [facility] MEDICINE [address] [place], [place] [phone] Teri Nick MD [address] [place] [address] walk in triage Social History Tobacco Use Types Packs/Day Years [...] encounter Miscellaneous Notes * Telephone Encounter - Haleigh Stanton RN - 06/17/2024 12:27 PM EDT Patient arrived via ambulatory to [facility]. Patient reported he wanted to speak to the nurses regarding a issue he has. RN inquired about patient symptoms, pt reported he has Right LE pain with ankleswelling x 1 month also has a HX of Diabetes and lower back pain. RN advised patient that he can obtain a x-ray in [facility] if seen by a provider, pt preferred a appt with his PCP. RN unable to provide a appt with PCP however a appt was made with another provider on [facility] team 06/18/24 at 11 am. Patient agreed to appt date and time. documented in this encounter Plan of Treatment Upcoming Encounters Date Type Department Care Team (Late st Contact Info) Description 07/22/2024 10:00 AM EDT Office Visit [facility] MEDICINE [address] [place] [address] Teri Nick MD [address] [place] [address] documented as of this encounter Goals Goal [...] documented as of this encounter Care Teams Form Grader Operator Relationship Specialty Start Date End Date Teri Nick MD [address] [place] [address] PCP - General Family Medicine 06/11/19 Jeanne Holloway Clinical Analyst 01/11/23 [facility] 02/26/23 documented as of this encounter
--- OUTSIDE RECORDS SUMMARY | 2024-06-19 12:08 | XMS_ITS | Clinical Summary ---
Author Organization [employer] Address [address] [place] [address] 7[address] [place] [address] Care Team Providers Care Miner Operator Name Role Phone Teri Nick MD Primary Care Provide r Allergies No known active allergies Medications Blood Glucose Monitoring Suppl (FreeStyle Lite) w/Device kitIndications:Ty pe 2 diabetes mellitus with other specified complication, unspecified whether terminal carman insulin use ([facility]) 1 each in the morning and at [...] hyperglycemia, without long-term current use of insulin ([facility]) INJECT 0.5 MG SUBCUTANEOUSLY ONCE A WEEK 3 mL Active Lantus 100 UNIT/ML injectionIndicati ons:Type 2 diabetes mellitus with hyperglycemia, without long-term current use of insulin ([facility]) INJECT 20 UNITS SUBCUTANEOUSLY EVERY DAY 10 [...] PT Primary osteoarthritis of right knee 11/06/2022 Tinea corporis 11/06/2022 Balanitis 07/17/2022 Dizziness 07/17/2022 Homeless 07/17/2022 Mood disorder 07/17/2022 Psoriasis 07/17/2022 Phimosis 07/17/2022 Muscle spasm 07/17/2022 Assessment & Plan (07/18/2022 1:23 PM EDT): Apply heat on affected area [place] of Cyclobenzaprine and acetaminophen PRN Moderate persistent [...] 08/29/2011 Constipation 08/29/2011 Hemorrhoids 08/29/2011 Obesity 08/29/2011 Resolved Problems Problem Noted Date Diagnosed Date Resolved Date Cellulitis of right leg 11/06/2022 04/0 05/2024 Assessment & Plan (11/06/2022 8:23 PM EDT): Likely hx trauma Use bactrim DS to cover MRSA Encounters Date Type Department Care Team Description 06/18/2024 11:00 AM EDT Office Visit [facility] [address] [place] [address] Christina Nelson, BELEM Right leg pain (Primary Dx); Vascular disease, peripheral (CMS/HCC); Type 2 diabetes mellitus with hyperlipidemia (CMS/HCC) (CMS/HCC); Right foot pain; Acute right ankle pain 06/18/2024 Travel 06/17/2024 Orders Only [facility] External Provider, [facility] 06/17/2024 Telephone [facility] [address] [place] [address] Teri Nick MD walk in triage 06/16/2024 Refill [facility] [address] [place] [address] Teri Nick MD Other hyperlipidemia 06/07/2024 Refill [facility] [address] [place], [place] [phone] Teri Nick MD Mild intermittent asthma, unspecified whether complicated 05/29/2024 Population Health Risk Score [facility] () Department [address] [address] Provider, Population Health Generic 05/28/2024 Refill [facility] [address] [place] [phone] Teri Nick MD Muscle spasm 04/23/2024 1:00 PM EST Telemedicine [facility] [address] [place] [address] Teri Nick MD Chronic bilateral low back pain, unspecified whether sciatica present (Primary Dx); Type 2 diabetes mellitus without complication, without long-term current use of insulin ([facility]); Essential hypertension 04/23/2024 Travel 04/22/2024 Telephone [facility] [address] [place] [phone] Giovanna Oliva MA R\S APPT 04/16/2024 Telephone [facility] [address] [place] [phone] Giovanna Oliva MA CHART PREP 04/13/2024 Patient Outreach [facility] [address] [place] [address] [phone] Teri Nick MD Pre-visit Planning ((Unable to reach for PVP screening and or LVM)) 03/24/2024 Refill [facility] [address] [place], [place] [phone] Teri Nick MD from Last 3 Months [...] Orientation Straight 06/18/2024 12 :32 PM EDT Last Filed Vital Signs Vital Sign [...] oz) 06/18/2024 11:23 A M EDT Height 167.6 cm (5' 6 ) 08/07/2023 2:17 PM EDT Body Mass Index 35.86 08/07/2023 2:17 PM EDT Plan of Treatment Upcoming Encounters Date Type Department Care Team (Late st Contact Info) Description 07/22/2024 10:00 AM EDT Office Visit [facility] [address] [place] [address] Teri Nick MD [address] [place] [address] Health Maintenance Due Date Last Done Comments CT Colonography 1965 Colonoscopy 1965 FIT 1967 FOBT 1965 HIV Screening 1965 Sigmoidoscopy 1965 Eye Exam 10/19/1977 Hepatitis C Screening 10/19/1985 Zoster Vaccines (1 of 2) 10/19/2017 Pneumococcal Vaccine: 50+ Years (2 of 2 - PCV) 04/09/2018 04/09/2017 Diabetes: Urine Protein Screening 06/01/2022 06/01/2021, 04/21/2020, 04/28/2019 DTaP/Tdap/Td Vaccines (2 - Td or Tdap) 12/26/2022 12/26/2012 SDOH Screening 07/18/2023 07/17/2022 Lipid Panel 07/19/2023 07/18/2022, 0803/2020, 04/21/2020 COVID-19 Vaccine ( season) 2023 10/15/2020, 09/24/2020 Influenza Vaccine (#1) 2023 , 12/22/2021, 01/24/2021, Additional history exists Depression Monitoring (PHQ-9) 02/07/2024 08/07/2023, 08/07/2023 Diabetes: Foot Exam 03/12/2024 03/12/2023, 03/12/2023, 03/12/2023, Additional history exists Depression Screening 08/06/2024 08/07/2023, 08/07/19 24 Diabetes: Hemoglobin A1C 12/18/2024 025, 06/17/2023, 03/12/2023, Additional history exists Alcohol/Substance Use Screening 06/18/2025 06/18/2024 Tobacco Screening 06/18/2025 06/18/2024 Colorectal Cancer Screening 05/28/2027 FIT DNA/Cologuard 05/28/2027 05/27/2024 RSV Patients and Patients Aged 60 years [...] 6.5( 11:41 AM EDT) No Ilene Ovalles Procedures Procedure Name Priority Date/Time Associated Diagnosis Comments POCT GLYCATED HEMOGLOBIN, TOTAL Routine 06/18/2024 11:41 AM EDT Type 2 diabetes mellitus with hyperlipidemia ([facility]/HCC) ([facility]) LDCT LUNG SCREENING Routine 06/17/2024 5 :07 PM EDT LIPID PANEL, STANDARD Routine 07/18/2022 10:46 AM EDT Essential hypertension Type 2 diabetes mellitus with hyperglycemia, without long-term current use of insulin ([facility]) ZZZ HISTORICAL MICROALBUMIN/CREATI NINE RATIO, RANDOM URINE Routine 06/01/2021 9:25 AM EDT from Last 3 Months or Most Recently Relevant to Health Maintenance Results * (ABNORMAL) POCT HGB A1C (06/18/2024 11:41 AM EDT) Pathologist [facility] Hemoglobin A1C 6.5(A) 4.0 - 6.0 % QC Media Lot # [id number] Lot# Expiration Date Blood 06/18/2024 11:4 1 AM EDT us Christina PATRICIA POINT OF CARE TEST ENTER/EDIT OR DERABLES Final Result * CT Lung Screening Low dose (06/17/2024 5:07 PM EDT) Anatomical Region Laterality Modality Lung Computed Tomogra phy 06/17/2024 5:07 PM EDT Narrative 06/17/2024 5:08 PM EDT ? [facility] ?[address] ?[place] [address] ? CT Scan Report ? Signed ? Patient: Garcia,Chapincito ?MR#: [id number] ?? [id number] ? : 1965 ?Acct:[id number] ? Age/Sex: 58 / M ?ADM Date: 04/02/25 ? Loc: HO.CT ? Attending Dr: Nancy Perez PA-C ? Ordering Physician: Nancy Perez PA-C ?? Date of Service: 06/17/24 ?? Procedure(s): CT lung screening ?? Accession Number(s): [id number] ? cc: Teri Nick MD; Nancy Perez PA-C ? Report Number: ?? [id number]: Total DLP = ?? 65.00 mGy-cm ? [...] ? DD/ 06 ? TD/TT: 06/17/241706 ? Nail Setter: ? Procedure Note Donmingoter, Image - 06/17/[address] [place] [address] [address] Scan Report Signed Patient: Sergo Garcia AMR#: [id number] : 1965Acct:[id number] Age/Sex: 58 / MADM Date: 06/17/24 Loc: HO.CT Attending Dr: Nancy Perez PA-C Ordering Physician: Nancy Perez PA-C Date of Service: 06/17/24 Procedure(s): CT lung screening Accession Number(s): [id number] cc: Teri Nick MD; Nancy Perez PA-C Report Number: [id number]: Total DLP = 65.00 mGy-cm CLINICAL HISTORY: [...] in OV> 06/17/241706 DD/ 06 TD/TT: 06/17/241706 Nail Setter: [facility] External Provider IMG CT PROCEDURES Final Result * (ABNORMAL) Lipid Panel, Standard (07/18/2022 10:46 AM EDT) Cholesterol, Total 210(H) <200 mg/dL [facility] HDL Cholesterol 49 > OR = 40 mg/dL [facility] Triglycerides 126 <150 mg/dL [facility] LDL Cholesterol 136(H) mg/dL (calc) [facility] Comment: Reference range: <100 Desirable range <100 mg/dL for primary prevention; ?? <70 mg/dL for patients with CHD or diabetic patients with > or = 2 CHD risk factors. LDL-C is now calculated using the Dequan-Godfrey calculation, which is a validated novel method providing better accuracy than the Friedewald equation in the estimation of LDL-C. Dequan SS et al. NORBERT. 2013;310(19): 0803-2143 (http://education.[employer]/faq/UZK324) Chol/HDLC Ratio 4.3 <5.0 (calc) orderboltt Non-HDL Cholesterol 161(H) <130 mg/dL (calc) [facility] Comment: For patients with diabetes plus 1 [...] Martins MD LAB BLOOD ORDERABLES Final Result Performing Organization Address City/[facility]/ZIP Co de Phone Number [facility] [address], [place] [address] [facility] [address] [place] [address] * MICROALBUMIN/CREATININE RATIO, RANDOM URINE (06/01/2021 9:25 AM EDT) Creatinine Urine 144.69 mg/dL [facility] Microalbum/Creati nine Ratio Ur 11.0 ug/mg cr [facility] Comment: ?Albumin/Creatinine Ratio Reference Ranges: ? Normal: < 30 ug/mg creatinine ? Microalbuminuria: ??30 - 300 ug/mg creatinine Clinical Albuminuria: ??> 300 ug/mg creatinine Microalbumin Urine 16.0 mg/L [facility] 06/01/2021 9:25 AM EDT us Historical Provider HISTORICAL/NON ORDERABLE LABS Final Result Performing Organization Address City/[facility]/ZIP Co de Phone Number [facility] [address] [place] [address], from Last 3 Months or Most Recently Relevant to Health Maintenance Insurance Scayl C3 * Guarantor: Sergo Garcia Account Type Relation to Patient Date of Phone Billing Address Personal/Family Self [place], [place] * Guarantor: Sergo Garcia Account Type Relation to Patient Date of Phone Billing Address Personal/Family Self [place], [place] * Guarantor: Sergo Garcia Account Type Relation to Patient Date of Phone Billing Address Personal/Family Self [place], [place] Care Teams Miner Operator Relationship Specialty Start Date End Date Teri Nick MD [address] [place] [phone] PCP - General Family Medicine 06/11/19 Jeanne Holloway Relief Manager 01/11/23 [facility] 02/26/23
== END 2024-06-19 10:36 | disposition home or self-care (01) ==
LOC: HO.XRAY 10:35
PROVIDERS: PCP Internal Medicine; Visit Provider Nurse Practitioner Primary Care
DX: M25.571 Pain in right ankle and joints of right foot (principal); M79.671 Pain in right foot
CPT/HCPCS: 73610; 73630

== ENCOUNTER → 2024-06-19 10:46 | Outpatient (BNV) | payer MEDICAID, SELFPAY | PROVIDERS: PCP Internal Medicine; Visit Provider Radiology Diagnostic Radiology | DX: M25.571 Pain in right ankle and joints of right foot (principal) | CPT/HCPCS: 73610; 73630 ==

== ENCOUNTER 2024-07-01 10:00 | Outpatient (RCR) | payer MEDICAID, SELFPAY | END 2024-07-08 10:26 | disposition home or self-care (01) | LOC: HO.PTCHIC 10:00 | PROVIDERS: PCP Internal Medicine; Visit Provider Internal Medicine | DX: M54.50 Low back pain, unspecified (principal); G89.29 Other chronic pain | CPT/HCPCS: 97110; 97140; 97161 ==

== ENCOUNTER 2024-08-21 09:02 | Outpatient (AMB) | payer MEDICAID, SELFPAY ==
[2024-08-21 09:08] VITALS: BP 130/64; PULSE 90; O2SAT 97; BMI 35.4
--- NOTE | 2024-08-21 09:08 | A.OFFVIS_ITS ---
Vital Signs 08/21/24 09:08 Height 5 ft 6 in Weight 219 lb 5.759 oz BMI 35.4 BP 130/64 Blood Pressure Location Lt brachial Position Sitting Pulse 90 Pulse Source Pulse Oximeter Pulse Oximetry (%) 97 Oxygen Delivery Method Room Air Intake Visit Reasons: Obstructive sleep apnea Allergies No Known Allergies Allergy (Verified 08/21/24 09:10) HPI Comments Details: The patient is 58 y/o man with asthma and TENZIN. He has a history of obstructive sleep apnea on CPAP in addition to asthma. He has been having issues with his CPAP. He has been using a nasal mask and then having a dry mouth. After awhile he does take off the mask because of worsening shortness of breath and he feels like his throat is closing up . He is concerned that this could be something serious. I reassured him that is likely dryness of the throat due to the fact that he is leaking air through his mouth. Therefore, I did supply him with a fullface mask,F30. In addition to that he has been having increasing wheezing. He has been using his short-acting beta agonists 3 to 4 times a week. He is wondering if he should be on other medication. We also have to perform his pulmonary function studies. 11/03/2019The patient is here for pulmonary follow-up visit. Since we last spoke he has been using his CPAP in the CPAP therapy continues to be aff ecting beneficial. He does uses CPAP more than 4 hours a night. Back during the last visit we did request supplies from his current DME company. However, they have not delivered any as of yet for unclear reason. I did call the DME company and will resend another script for supplies to be delivered to the patient. He needs to have a mask fitting and therefore I did talk to the [employer] and they will give him a call to set up an appointment with the respiratory therapist in order to set up his mask fitting. In the meantime he is complaining of chest pain. Substernal in nature pressure sensation for out of 10. Seems to be constant. Does radiate to the back. Also has a respiratory phasic component. Sometimes it wakes him up. In the office she did have an EKG demonstrating some nonspecific T-wave changes very similar to his previous EKG from April 2019. He also go for chest x-ray and blood work. He needs to be set up with a pharmacovigilance safety expert, therefore, will make arrangements for that so he can have a stress test. In the meantime he continues with his current respiratory therapy and will try to facilitate him getting CPAP supplies as soon as possible as well. 01/26/2020 the patient is here for pulmonary follow-up visit. He continues uses CPAP. The CPAP therapy continues to be affecting beneficial. He has been getting supplies. This the [employer] has been trying to get in touch with them in order to since supplies per the patient has not responded calls. We emphasized importance of responding to the [employer] company in order for him to continue getting regular supplies and staying active with accompanying. In the meantime the patient continues to have shortness of breath and wheezing. He also has intermittent coughing moderate severity. Unfortunately has not been using his inhalers in he has also been smoking. Patient understands that he needs to quit. She is willing to try the nicotine patch at this time. He did undergo a cardiac evaluation and overall doing well from that standpoint. 07/26/2020 the patient is here for pulmonary follow-up visit. Overall he is doing a lot better. He continues uses CPAP every night. The therapy continues to be very effective beneficial for him. He does use it for more than 4 hours a night. He still having hard time with smoking. He continues to smoke on a daily basis. This is resulting increasing chest congestion and also shortness of breath. Bnts-tb-[id number] severity. He does uses respiratory therapy including Symbicort in his albuterol with partial resolution of the symptoms. He needs to make sure that he use Symbicort on a regular basis. At this point the patient is willing to try the Nicotrol inhaler to quit smoking altogether. I did send a prescription to the pharmacy and helping get covered. Once he gets it will be able to alternate cigarette for the Nicotrol inhaler and subsequently wing of all surgery and continue with the Nicotrol inhaler as needed. 09/22/2020 The patient is here for pulmonary follow-up visit. Overall the patient is doing well from a respiratory status. He continues uses inhalers with good adherence. Unfortunately, Still's struggling with smoking. He did follow-up with his psychologist in new continue supplementation symptoms the pharmacy. Patient will start taking this time. In regards to the CPAP he has been using very well. The CPAP therapy continues to be affecting beneficial. He has been getting supplies from his DME company. He has major concerns about the COVID-19 vaccine. He has been concerned about potential adverse effects from the vaccine self. I reassured him that vaccine safe but, the virus was not specially since he is high risk. Therefore, will need an appointment to get back needed disease coming Saturday at [facility]. Did provide him with all the information about the date and time of his vaccination. 04/10/2021 the patient is here for a pulmonary follow-up visit. Overall the patient has been doing relatively good. He is still trying to uses CPAP as much as possible. The CPAP therapy has been affecting beneficial. His grandson was playing with a and change him settings and he thinks he is now not working appropriately. He did bring it in. I was able to increase the ramp time to 30 minutes at 6 cm and then currently the CPAP is set up at 9 cm. His AHI is down to 1.6. His average use is more than 6 hours. However, looking at the machine there appears to be some mold growing inside of it. I am concerned that this is within the inside of the machine in no longer able to be clean appropriately. He has had this machine now for more than 5 years. The patient should get a replacement machine at this time. Will submit a application for new machine through his [employer] company. The patient stands with the pandemic and the recall with the rest bronchus machine this will take a longer than usual. In the meantime he is going to try to clean as well as possible although I know that he will be about clinic completely. Will send a script for new CPAP to replace is older contaminated machine to his [employer] company. The patient also has a Symbicort inhaler. We did go to the instructions on how to use it correctly. I answered all his questions. Will set him up to follow up with refresh technician in order to help him with the CPAP that he is having some difficulties with as well. I did provide him with a new [employer]ear nasal mask. He does need new supplies delivered. 08/01/2021 the patient is here for a pulmonary follow-up visit. He is frustrated that he has not been able to get any supplies from his CPAP company. Explained to the patient that he needs to agree to get supplies and therefore the [employer] companies to call him and gets verbal agreement. However, he does not spanish moss picker his phone. I did reach out to the DME company to try to help him. In addition to that his machine is colonized with mold and is not working appropriately. He does need a replacement machine whenever possible. from an asthma standpoint the patient is doing well continues uses Symbicort has not had to use his rescue inhaler. He continues on his allergy medicine. Otherwise follow-up in 6 months. If the patient does not hear back from the [employer] by next week he is to [facility]. In the meantime the patient continues smoking. He has tried to cut down. He is not ready to quit. 02/01/2022 the patient is here for a pulmonary follow-up visit. He is going to significant changes in his life. Recently moved to a different residence. He has everything box. Unfortunate has not been able to find his CPAP in all the boxes. He is going to start looking for it. Since he has not used it he has notice increasing daytime drowsiness. His has been concerned about his significant snoring in his apneic episodes. His [place] score is elevated 24. More importantly explained to the patient that untreated sleep apnea can result in heart disease and worsening cardiovascular risks. The patient is already having elevations in the blood pressure. Therefore, he is now more opt to starting to use it more regularly. In addition to this he still smoking cigarettes. He has been concerned about using a patch because he may forget about it and smoke over a. Explained to him that it is reasonable at least for him to try the smallest patch that will be safe. He is down to about a quarter pack a day which is reassuring. He continues with respiratory therapy. Does have some shortness of breath with activity. Mild in severity. But overall doing well. 02/15/2023 this is a pulmonary follow-up visit.. Still struggling with sleep. He does have significant daytime drowsiness. He wakes up with headaches. His [place] score is elevated /24. He is having a lot of snoring and apneic episodes that his is very concerned. His machine was no longer working and he needs a replacement. I did send a script back in January and sent other scrip in May to try to get the patient a replacement machine. However, he has not received any machine as of yet. He still struggling with the old 1 is not getting supplies. I did reach out to the [employer] to see if they can help with his status. The patient is also Norwegian-speaking only so therefore he will need a sliding joint maker when calling his home for supplies. From a respiratory status unfortunately continues to smoke cigarettes. He is still having shortness of breath and chest tightness and cough. Asan-gw-ytknnhul severity. He does use his respiratory therapy partial improvement of the symptoms. The patient understands the need to quit smoking altogether in order to improve his symptoms. 06/21/2023 the patient is here for pulmonary follow-up visit. The pa zunildajani overall has been doing better. He continues uses CPAP every night. The CPAP therapy has been affecting beneficial. He does use it for more than 4 hours a night. His AHI is still little bit above 5 so therefore will adjust the pressures further. He also has an issue with his mask. He does better with an N30 I mask. I did have unavailable and did provide him 1 to use. I am also going to request it from his [employer]. He will try the new settings and call me if he has any issues. He was also getting a lot of condensation so we changed to automated humidity. From a respiratory status seems doing well to his using his respiratory therapy as prescribed. He is also participating in the lung cancer screening program. He will continue with the yearly CT scans at this time. He is cutting down on smoking. He is also losing weight he is motivated and focused on his health which is reassuring. 12/13/2023 the patient is here for a pulmonary follow-up visit. Overall he is doing well. He has been using his CPAP as prescribed. He does try to use it more than 4 hours a night. He was having an issue with his mask where we he was not getting the right size therefore was not effective for him. Subsequently after that he has noticed that she has been shutting off on its own. Therefore he did bring it in. I did review the machine and supplies. It appears that most likely that the previous mask was leaking significant amount of air and since he had the smart stop on was shutting off. I did show off this month. Button and did get a new mask that is feeling better he does have a medium N30 eye. He will continue with his mask is working for him. He is also working on cutting down on smoking. He is having hard time quitting altogether. He understands that he needs to quit. He already has pulmonary and cardiovascular disease. In addition to that he continues uses respiratory medicines. Is participating in the lung cancer screening program at this time. 08/21/2024 the patient is here for pulmonary follow-up visit. The patient overall has been doing well. He has been using the CPAP. CPAP therapy has been affecting beneficial. The mask is not fitting well. He has an N30 I air fit. Right now it is getting believe a small cushion. I did have a SW even a medium when available for him to try. One also he can also try the air touch as well to see if this is more comfortable. He will try them both in let me know which 1 he prefers so I can order them for him. From a respiratory status doing well he has not had to use any albuterol and has not had any flare-ups of his COPD. He did have a CT scan to the lung cancer screening program and he has minimal emphysema and is otherwise her consider rods 1. Overall stable. The patient otherwise is doing well follow-up in 6 months if he has any issues prior to this he will call for an earlier assessment. [facility] Medical History Nicotine dependence, cigarettes, uncomplicated Colon cancer screening Chest pain Early satiety Abdominal cramping Epigastric pain Non-adherence to medical treatment Obesity (BMI 30-39.9) senior living (current) use of insulin Diabetic polyneuropathy associated with type 2 diabetes mellitus Diabetes type 2, uncontrolled Asthma TENZIN (obstructive sleep apnea) Venous insufficiency Hypertension Hyperlipidemia Surgical History History of ventral hernia repair History of surgery on lower extremity History of tonsillectomy Family History Father Renal failure Mother Depression Hypertension Social History Household Members: Spouse and Children Alcohol intake: current Alcohol intake frequency: does not drink Patient Tobacco Use Status: Current everyday Tobacco user Tobacco use type: Cigarette Cigarettes Per Day: 15 Years Smoked: since age 19 Current occupational status: disabled Review of Systems Const Denies chills, Denies fatigue, Denies fever(s), Denies weight gain and Denies weight loss Eyes Reports requires corrective lenses ENT Reports Normal hearing present, Denies dizziness, Denies throat swelling and Denies tongue swelling Card Denies chest pain, Denies leg edema, Denies lightheadedness, Denies palpitations, Denies dyspnea on exertion, Denies orthopnea and Denies other Resp Denies cough and Denies dyspnea on exertion GI Denies hematochezia and Denies change in stool character Musc Denies abnormal gait, Denies muscle weakness, Denies numbness, Denies radiating pain into limb and Denies tingling Skin/Breast Denies pruritus, Denies lesions, Denies rash and Denies jaundice Neuro Reports Normal hearing present, Denies Abnormal speech present, Denies abnormal gait, Denies dizziness, Denies numbness and Denies tingling Endo Denies fatigue and Denies palpitations Aller/Immun Denies throat swelling and Denies tongue swelling Physical Exam Vital Signs: Last Vital Signs Pulse 90 08/21/24 09:08 BP 130/64 08/21/24 09:08 Pulse Ox 97 08/21/24 09:08 Oxygen Delivery Method Room Air 08/21/24 09:08 BMI result Body Mass Index 35.4 Const General: cooperative, no acute distress, well developed and well groomed Nutritional Appearance: well nourished and obese Orientation/consciousness: oriented to person, oriented to place and oriented to time Limitations: language barrier HEENT Head: Yes normocephalic and Yes atraumatic Eyes General: appearance normal, both eyes and all related structures Pupils: Equal, round and reactive pupils present Neck Neck: Yes normal visual inspection and Yes no lymphadenopathy Thyroid: Thyroid normal Chest Chest palpation & inspection: normal inspection of the chest Resp Effort & Inspection: normal respiratory effort and able to speak in complete sentences Auscultation: clear to auscultation bilaterally Cardio Rate: regular rate Rhythm: regular rhythm Heart sounds: Normal, physiologic split S2 sound present Peripheral pulses: radial pulses present and posterior tibial pulses present GI Inspection: No distended, No Abdominal panniculus present and Yes obesity Palpation (GI): Soft to palpation, nontender, no guarding, not rigid and No hepatosplenomegaly present Percussion: Yes normal to percussion Auscultation: normal bowel sounds Rectal Exam - Male: Yes deferred Skin General skin exam: no rashes or lesions noted, turgor normal, skin not dry, no jaundice, No spider nevi and no striae Rashes: no rashes Nails: normal Neuro General: oriented to person, oriented to place and oriented to time Cranial nerves: Yes Equal, round and reactive pupils present and Yes Normal hearing present Speech: No Abnormal speech present Extrem General: Yes normal to inspection, No clubbing, No cyanosis and No edema Psych Appearance: grossly normal and well kempt Mental Status: mental status grossly normal Speech and movement: Normal speech and movement present Affect: normal affect Attitude: cooperative Thought process: Normal thought process present and not confabulating Thought content: Normal thought content present Insight: Limited insight present (Psych) Judgement: Limited judgement present (Psych) Assessment & Plan Assessment & Plan (1) TENZIN (obstructive sleep apnea): Code(s): G47.33 - Obstructive sleep apnea (adult) (pediatric) Category: Medical (2) Asthma: Code(s): J45.909 - Unspecified asthma, uncomplicated Category: Medical Qualifiers: Asthma complication type: uncomplicated Asthma persistence: persistent Asthma severity: moderate Qualified Code(s): J45.40 - Moderate persistent asthma, uncomplicated (3) Tobacco dependence: Code(s): F17.200 - Nicotine dependence, unspecified, uncomplicated Category: Medical Plan short-acting beta agonist as needed continue Symbicort twice a day continue APAP. Requesting N30i med mask, will trial [facility] Tobacco cessation LDCT program Follow-up in 6-12 months Coding Level of Care Code Est Pt Level 4 (42067) Diagnoses TENZIN (obstructive sleep apnea) G47.33 Moderate persistent asthma without complication J45.40 Asthma complication type: uncomplicated Asthma persistence: persistent Asthma severity: moderate Tobacco dependence F17.200 Time Spent (min) 16
--- OUTSIDE RECORDS SUMMARY | 2024-08-21 09:24 | XMS_ITS | Encounter Summary ---
Author Organization [employer] Address [address] [place] [address] [address] [place] [address] Care Team Providers Care Gear Changer Name Role Phone Teri Nick MD Primary Care Provide r Encounter Details Date Type Department Care Team ([facility] st Contact Info) Description 11/29/2022 Orders Only [facility] [address] [place] [address] Kristin Aguilar LPN Social History Tobacco Use [...] as of this encounter Plan of Treatment Not on file documented as of this encounter Procedures Procedure Name Priority Date/Time Associated Diagnosis Comments HIGH SENSITIVITY TROPONIN I Routine 03/06/2023 1:15 PM EST documented in this encounter Results * High Sensitivity Troponin I (03/06/2023 1:15 PM EST) TROPONIN I HIGH SENSITIVITY <2.7 <3.5 - 35.0 ng/L [facility] Comment:The Alonzo high sens itivity Troponin-I results should beused in conjunction with other diagnostic information suchas ECG, clinical observations and information, and patientsymptoms to aid in the diagnosis of PA. 03/06/2023 1:15 PM EST 03/06/2023 1:19 PM EST us Generic External Data Provider LAB BLOOD ORDERAB LES Final Result [facility] [address] [place] [address] [phone] documented in this encounter Visit Diagnoses Not on filedocumented in this encounter Additional Health Concerns Assessment Noted Time PHQ-9 Depression Total Score: 0 07/18/19 10:46 AM EDT documented as of this encounter Care Teams Gear Changer Relationship Specialty Start Date End Date Teri Nick MD [address] [place] [address] PCP - General Family Medicine 06/11/19 Jeanne Holloway Cardroom Worker 01/11/23 [facility] 02/26/23 documented as of this encounter
== END 2024-08-21 09:30 | disposition home or self-care (01) ==
LOC: HO.HPS 09:03
PROVIDERS: PCP Internal Medicine; Visit Provider Hospitalist
DX: G47.33 Obstructive sleep apnea (adult) (pediatric) (principal); J45.40 Moderate persistent asthma, uncomplicated; F17.200 Nicotine dependence, unspecified, uncomplicated
CPT/HCPCS: 99214

== ENCOUNTER → 2024-08-21 09:02 | Outpatient (BNVA) | payer MEDICAID, SELFPAY | PROVIDERS: PCP Internal Medicine; Visit Provider Hospitalist | DX: G47.33 Obstructive sleep apnea (adult) (pediatric) (principal); J45.40 Moderate persistent asthma, uncomplicated; F17.210 Nicotine dependence, cigarettes, uncomplicated | CPT/HCPCS: 99212 ==

== ENCOUNTER 2024-10-06 13:05 | Emergency (ER) | payer MEDICAID, SELFPAY ==
--- NOTE | ~2024-10-06 | XR_ITS ---
EXAMINATION: XR CHEST 2 VIEWS HISTORY: chest pain COMPARISON: Comparison is made with the prior examination dated 03/06/2023. FINDINGS: PA and lateral views of the chest are submitted. The lungs are expanded and clear. There is no pleural effusion, pneumothorax, or pulmonary vascular congestion. The heart is normal in size. The bones are intact. XR/XR chest 2V IMPRESSION: No acute cardiopulmonary abnormality. Electronically signed by: Jony Emmanuel MD 10/06/2024 01:43 PM EDT
--- NOTE | 2024-10-06 13:07 | ECG_ITS ---
Test Reason : CP Blood Pressure : */* mmHG Vent. Rate : 94 BPM Atrial Rate : 94 BPM P-R Int : 180 ms QRS Dur : 82 ms QT Int : 362 ms P-R-T Axes : 55 22 8 degrees QTcB Int : 452 ms Normal sinus rhythm Possible Left atrial enlargement Borderline ECG When compared with ECG of 06-Mar-2023 13:16, No significant change was found Referred By: Francis Caraballo Electronically Signed By: Bhavin Munguia
[2024-10-06 13:13] VITALS: BP 169/81; PULSE 103; RESP 16; TEMP 36.7; O2SAT 95; BMI 33.6
--- NOTE | 2024-10-06 13:19 | ED_ITS ---
HPI - General Adult General Chief complaint: Chest Pain Stated complaint: CP, states his are his numb Time Seen by Provider: 10/06/24 18:05 Source: patient Mode of arrival: ambulatory Limitations: language barrier (Safety And Occupational Health Manager services utilized) History of Present Illness ED Provider: Rory ALONSO HPI narrative: The patient is a 58-year-old male with history of diabetes, hypertension, hyperlipidemia, asthma, TENZIN, diabetic neuropathy, GERD, and smoking, presenting to the ED for evaluation of left chest pain with radiation to the left arm with left arm paresthesias over the past week. The patient reports pain waxes and wanes independent of activity level. Patient reports pain is increased with pushing and pulling against resistance with the upper extremities, as well as direct palpation, and deep respiration. The patient reports intermittent mild nausea without associated vomiting, denies diaphoresis. The patient denies associated shortness of breath, cough, hemoptysis, diarrhea, abdominal pain, recent sick contacts, or recent trauma. The patient has been taking his regularly prescribed medication including gabapentin for diabetic neuropathy, denies taking any anti-inflammatories. Patient reports history of previous negative stress test, but not within the past few years. Chart review reveals unremarkable nuclear stress test performed in January of 2020. Related Data Home Medications ?Medication ?Instructions ?Recorded ?Confirmed albuterol sulfate 90 mcg/actuation 2 puff inhalation Q 6H PRN 12/21/19 01/25/21 aerosol inhaler (ProAir HFA) fluticasone propionate 50 1 spray intranasal DAILY 08/0401/25/21 mcg/actuation nasal spray,suspension (Flonase Allergy Relief) sertraline 100 mg tablet 100 mg PO DAILY 12/21/1901/05 aspirin 81 mg tablet,delayed 81 mg PO DAILY 01/12/21 1 03/27/20 release empagliflozin 10 mg tablet 10 mg PO QAM 11/24/21 (Jardiance) insulin syringe-needle U-100 1/2 #10 ea 02/27/22 mL 31 gauge x 15/64 (BD Veo Insulin Syringe Ultra-Fine) clonazepam 0.5 mg tablet 0.5 mg PO DAILY 06/29/22 sertraline 50 mg tablet 50 mg PO DAILY 01/11/23 CPAP (CPAP Machine/Device) 06/21/23 semaglutide 0.25 mg or 0.5 mg (2 0.25 mg subcut QWEEK 12/13/23 mg/3 mL) subcutaneous pen injector (Ozempic) fluorometholone 0.1 % eye 1 drp ophthalmic (eye) DAILY 01/16/24 drops,suspension lisinopril 40 mg tablet 40 mg PO QAM 01/16/24 calcipotriene 0.005 % topical cream appl topical BID 0 06/11/24 lorazepam 0.5 mg tablet 0.5 mg PO DAILY PRN anxiety 06/11/24 gabapentin 300 mg capsule 600 mg PO BEDTIME 08/21/24 Previous Rx's ?Medication ?Instructions ?Recorded insulin syringe-needle U-100 0.5 #100 ea 04/29/20 mL 30 gauge x 1/2 (BD Insulin Syringe Ultra-Fine) budesonide-formoterol HFA 160 2 puff PO BID #10.2 gram s 06/28/20 mcg-4.5 mcg/actuation aerosol inhaler (Symbicort) montelukast 10 mg tablet 10 mg PO DAILY #30 tabs 04/18 04/08 blood sugar diagnostic (FreeStyle #100 ea 05/02/21 Lite Strips) lancets 33 gauge (TRUEplus Lancets) #100 ea 05/02/21 insulin glargine 100 unit/mL 18 unit (0.18 mL) subcut DAILY 30 05/19/21 subcutaneous solution (Lantus days #10 mL U-100 Insulin) insulin lispro 100 unit/mL 4 unit (0.04 mL) subcut TID #15 mL 05/19/21 subcutaneous pen (Humalog KwikPen (U-100) Insulin) pen needle, diabetic 32 gauge x #100 ea 05/19/21 (BD Ultra-Fine Madhavi Pen Needle) terbinafine HCl 250 mg tablet 250 mg PO DAILY #30 tabs 01/08/22 rosuvastatin 20 mg tablet 20 mg PO DAILY 30 days #30 t abs 02/19/22 nystatin-triamcinolone 100,000 1 appl topical DAILY #3 0 grams 05/10/23 unit/g-0.1 % topical cream ofloxacin 0.3 % eye drops 2 drp ophthalmic (eye) QID # 5 mL 10/11/23 bisacodyl 5 mg tablet,delayed 5 - 10 mg (1 - 2 x 5 mg) PO 06/11/24 release BEDTIME PRN constipation #60 tabs dexlansoprazole 60 mg 60 mg PO DAILY #30 caps 05/17 10/09 capsule,biphase delayed release (Dexilant) dicyclomine 20 mg tablet 20 mg PO .six times a day abdominal pain 30 days #180 tabs linaclotide 290 mcg capsule 290 mcg PO QAM 30 days #30 caps 06/11/24 (Linzess) simethicone 125 mg chewable tablet 125 mg PO TID abdom inal distention 06/11/24 (Gas Relief (simethicone)) #90 tabs famotidine 40 mg tablet 40 mg PO BEDTIME #30 tabs Allergies Allergy/AdvReac Type Severity Reaction Status Date / Time No Known Allergies Allergy Verified 10/06/24 13:17 Review of Systems 2 Review of Systems: Yes all other systems are reviewed and are negative PMFSH Past Medical History Medical History Nicotine dependence, cigarettes, uncomplicated Colon cancer screening Chest pain Early satiety Abdominal cramping Epigastric pain Non-adherence to medical treatment Obesity (BMI 30-39.9) nursing home (current) use of insulin Diabetic polyneuropathy associated with type 2 diabetes mellitus Diabetes type 2, uncontrolled Asthma TENZIN (obstructive sleep apnea) Venous insufficiency Hypertension Hyperlipidemia Surgical History History of ventral hernia repair History of surgery on lower extremity History of tonsillectomy Family History Family History Father Renal failure Mother Depression Hypertension Social History Social History Household Members: Spouse and Children Alcohol intake: current Alcohol intake frequency: holidays/special occasions only Patient Tobacco Use Status: Current everyday Tobacco user Tobacco use type: Cigarette Cigarettes Per Day: 15 Years Smoked: since age 19 Smoked in Last 30 Days: Yes Use of substances other than those prescribed or required for medical reasons: No Advance Directives: No Advance Directives Information Provided: No Current occupational status: disabled Physical Exam ED Vital Signs: Vital Signs - 24 hr 10/06/24 13:13 10/06/24 19:02 10/06/24 19:02 Temperature 98.0 F 98.2 F 98.2 F Pulse Rate 103 H 78 78 Respiratory Rate 16 18 18 Blood Pressure 169/81 H 132/70 132/70 Pulse Oximetry 95 98 98 Oxygen Delivery Method Room Air Room Air Room Air BMI result Body Mass Index 33.6 CONSTITUTIONAL: The patient appears non-toxic, well nourished and in no acute distress. Vital signs as documented. HEAD: Atraumatic, normocephalic. EYES: EOMs grossly intact, pupils equal, conjunctiva clear, no exudate. ENT: Nares patent, no discharge. Airway patent, no audible stridor, visible mucosa is pink and moist without noted lesions. NECK: Trachea is midline, no obvious masses or gross abnormalities. CHEST: Symmetric movement, normal appearance. Pain is fully reproduced with direct palpation of the left ribs, and with pushing and pulling against resistance with the upper extremities. LUNGS: LS present and CTAB, no w/r/r. Non-labored work of breathing. CARDIAC: Regular Rhythm, S1/S2 appreciated, no murmurs, rubs or gallops. ABDOMEN: Abdomen soft and non-tender x4 quadrants, no palpable masses or organomegaly. Negative CVAT bilaterally. : Deferred. EXTREMITIES: Normal tone, moves all extremities spontaneously without reported pain. No obvious acute injury or deformity noted. No pedal edema. NEURO: Alert and oriented x3, CN II-XII appear grossly intact. Cerebellar Functioning grossly intact. No obvious sensory or motor deficits. Speech clear and appropriate. PSYCH: normal affect, appropriate eye contact, fluid speech, with appropriate response to questioning. No reported suicidality or homicidality. SKIN: Warm, dry, color appropriate, normal turgor. No rashes noted. Course Course Course Narrative: RME: 58-year-old male presents to ED for chest pain for 1 week. Patient states chest pain going down left arm. Patient denies any shortness of breath. Patient states history of angina. Labs EKG chest x-ray ordered. Medications Administered Discontinued Medications Generic Name Dose Route Start Last Admin Trade Name Freq PRN Reason Stop Dose Admin Acetaminophen 975 mg 10/06/24 18:34 10/06/24 18:39 Acetaminophen 325 Mg Tablet PO 10/06/24 18:35 975 mg ONCE ONE Administration Ketorolac Tromethamine 15 mg 10/06/24 18:34 10/06/24 18:40 Ketorolac Tromethamine 15 Mg/Ml Vial IVPUSH 10/06/24 18:35 15 mg ONCE ONE Administration Medical Decision Making Medical Decision Making [facility] Narrative: 6:43 PM 10/06/2024 (Nirmal ALONSO): The patient is a 58-year-old male with history of diabetes, hypertension, hyperlipidemia, and smoking presenting to the ED for evaluation of 1 week of left-sided chest pain with nausea and left arm paresthesias which is not exacerbated by exertion but does increase with direct palpation, pushing and pulling against resistance, and deep respiration. The patient's exam is able to fully reproduce the patient's pain. Patient had a negative nuclear stress test in January of 2020. The patient's workup in the ED shows nonischemic EKG, negative troponin x2, normal BNP, and nondiagnostic chest x-ray. The patient's laboratory evaluation reveals no anemia, leukocytosis, electrolyte abnormality, or MINA. Patient's heart score is 3. Given the lack of an exertional component/exacerbation, reproducibility of pain with musculoskeletal manipulation on exam, and reassuring workup, patient is likely suffering from musculoskeletal strain and is appropriate for discharge. We will treat with Toradol and Tylenol. However given his comorbidities and no stress test in the past 5 years, the patient has been educated he requires follow up with PCP for repeat stress test. Patient also noted to be hypertensive upon arrival to the ED, we will reassess. 7:06 PM 10/06/2024 (Nirmal ALONOS): Patient's repeat vital signs reviewed, hypertension and tachycardia resolved prior to discharge. Lab Data [facility] Lab Attestation statement: I reviewed the patient's lab results. 10/06/24 13:31 10/06/24 13:31 Labs: Lab Results 10/06/24 10/06/24 Range/Units 13:31 16:02 WBC 8.9 (4.8-10.8) X10*3/uL RBC 4.99 (4.60-5.80) X10*6/uL Hgb 15.0 (14.0-18.0) g/dl Hct 42.7 (42.0-52.0) % MCV 85.6 (80.0-98.0) fL MCH 30.1 (27.0-33.0) pg MCHC 35.1 (31.0-36.0) g/dl RDW 13.1 (11.0-16.0) % Plt Count 285 (160-400) X10*3/uL MPV 9.2 L (9.4-12.4) fL Immature Gran % (Auto) 0.2 (0.0-0.4) % Neut % (Auto) 64.2 (45-73) % Lymph % (Auto) 27.0 (20-40) % [place]upe % (Auto) 5.9 (2-11) % Eos % (Auto) 2.4 (0-4) % Baso % (Auto) 0.3 (0-2) % Lymph # (Auto) 2.4 (1.2-4.9) X10*3/uL [place] # (Auto) 0.5 (0.1-1.2) X10*3/uL Eos # (Auto) 0.2 (0.0-0.4) X10*3/uL Baso # (Auto) 0.0 (0.0-0.2) X10*3/uL Abs Immat Gran (auto) 0.02 (0.00-0.03) X10*3/uL Absolute Neuts (auto) 5.7 (2.0-8.3) x10*3/uL Absolute Nucleated RBC 0.000 (0.0-0.012) X10*3/uL Nucleated RBC % (auto) 0.0 (0.0-0.2) /100WBC PT 12.5 H (10.9-12.4) SEC INR 1.1 (0.9-1.1) APTT 35.6 (26.0-36.8) SEC Sodium 141 (135-145) mmol/L Potassium 3.9 (3.3-5.1) mmol/L Chloride 108 (96-108) mmol/L Carbon Dioxide 23 (22-29) mmol/L Anion Gap 14 (12-20) BUN 9 (9-16) mg/dL Creatinine 0.66 (0.5-1.4) mg/dL Estim Creat Clear Calc 134.4 Estimated GFR > 60 Random Glucose 146 H (60-115) mg/dL Calcium 9.5 D (8.4-10.2) mg/dL Total Bilirubin 0.7 (0.0-1.0) mg/dL AST 31 (5-37) U/L ALT 33 (0-40) U/L Alkaline Phosphatase 96 (39-117) U/L Troponin I High Sens < 2.7 < 2.7 (<3.5-35.0) ng/L B-Natriuretic Peptide < 10 (<100) pg/mL Total Protein 8.0 (6.5-8.0) g/dL Albumin 5.0 (3.5-5.0) g/dL Independent Interpretation I performed an independent interpretation of an: EKG (EKG shows sinus rhythm with a rate of 94, no evidence of acute ischemia, no ST elevation, no ectopy. QTC 452. Compared to previous on 03/06/2023 there are no acute morphology changes. ) Radiology Impression Discussion of test interpretation with radiology: I have reviewed the radiologist's reading. Radiologist Impression: HISTORY: chest pain COMPARISON: Comparison is made with the prior examination dated 03/06/2023. FINDINGS: PA and lateral views of the chest are submitted. The lungs are expanded and clear. There is no pleural effusion, pneumothorax, or pulmonary vascular congestion. The heart is normal in size. The bones are intact. XR/XR chest 2V IMPRESSION: No acute cardiopulmonary abnormality. Electronically signed by: Jony Emmanuel MD 10/06/2024 01:43 PM EDT RP External Record Review External record reviewed: Outpatient record Prescription Management I considered prescription management with: Pain Medication Chronic Conditions Patient?s care impacted by: Diabetes and Hypertension Discharge Plan Discharge Clinical Impression: Chest pain Patient Disposition: Home, Self-Care Instructions: Chest Pain (ED), Chest Wall Pain (ED) Additional Instructions: Thank you for choosing [facility]'s Emergency Department for your care today. Thankfully your laboratory evaluation, EKG, chest x-ray, and exam today are reassuring. At this time there is no evidence of a cardiac, infectious, pulmonary, metabolic, or other emergent cause for your symptoms and there was no indication for admission to the hospital or continued ED observation, and it is safe to discharge you home. Your pain may be related to musculoskeletal strain, or a somatic presentation of your stress. However given your history of hypertension, diabetes, and high cholesterol, it is extremely important that you follow up with your primary care provider by calling this week to discuss scheduling of an outpatient stress test as you have not had a stress test in the last 4-5 years. You may take alternating (staggered) doses of ibuprofen 600mg and Tylenol 1000mg every 4 hours as needed for any additional pain. Please continue taking all your other medications as prescribed. Please follow up with your primary care physician for additional evaluation as discussed, additional management of your symptoms, and continued preventative care. If you do not have a primary care physician, please call the [facility] at [phone] to establish a new primary care physician. While waiting to establish your new primary care physician, you can call our Walk[facility]in [facility] at [phone] for non-emergency needs. Please return to the emergency department if you develop a severe or sudden change in your symptoms, a fever over 100.4 that does not improve with Tylenol or Ibuprofen, recurrent vomiting, or any other new or worsening symptoms or concerns. Prescriptions: No Action budesonide-formoterol [Symbicort] 160-4.5 mcg/actuation HFA aerosol inhaler 2 puff PO BID Qty: 10.2 3RF montelukast 10 mg tablet 10 mg PO DAILY Qty: 30 11RF (DME) FreeStyle Lite Strips Strip See Rx Instructions .Route Qty: 100 11RF Rx Instructions: As directed to test blood sugars 4 times daily (DME) lancets [TRUEplus Lancets] 33 gauge misc See Rx Instructions .Route Qty: 100 11RF Rx Instructions: As directed 4 times a day rosuvastatin 20 mg tablet 20 mg PO DAILY 30 Days Qty: 30 0RF famotidine 40 mg tablet 40 mg PO BEDTIME Qty: 30 3RF terbinafine HCl 250 mg tablet 250 mg PO DAILY Qty: 30 0RF ofloxacin 0.3 % drops 2 drp ophthalmic (eye) QID Qty: 5 0RF (DME) insulin syringe-needle U-100 [BD Insulin Syringe Ultra-Fine] 0.5 mL 30 gauge x 1/2 syringe See Rx Instructions .ROUTE .MEDSUPPLY Qty: 100 3RF Rx Instructions: Daily sertraline 100 mg tablet 100 mg PO DAILY albuterol sulfate [ProAir HFA] 90 mcg/actuation HFA aerosol inhaler 2 puff inhalation Q6H PRN fluticasone propionate [Flonase Allergy Relief] 50 mcg/actuation spray,suspension 1 spray intranasal DAILY Rx Instructions: administer into each nostril aspirin 81 mg tablet,delayed release (DR/EC) 81 mg PO DAILY clonazepam 0.5 mg tablet 0.5 mg PO DAILY insulin lispro [Humalog KwikPen Insulin] 100 unit/mL insulin pen 4 unit subcut TID Qty: 15 5RF Lantus U-100 Insulin 100 unit/mL solution 18 unit subcut DAILY 30 Days Qty: 10 5RF (DME) pen needle, diabetic [BD Ultra-Fine Madhavi Pen Needle] 32 gauge x 532 needle See Rx Instructions .ROUTE .MEDSUPPLY Qty: 100 11RF Rx Instructions: As directed three times a day Jardiance 10 mg tablet 10 mg PO QAM (DME) insulin syringe-needle U-100 [BD Veo Insulin Syringe UF] 1/2 mL 31 gauge x 15/64 syringe See Rx Instructions .ROUTE BEDTIME Qty: 10 Rx Instructions: As directed sertraline 50 mg tablet 50 mg PO DAILY nystatin-triamcinolone 100,000-0.1 unit/g-% cream 1 appl topical DAILY Qty: 30 0RF Rx Instructions: Please apply between toes daily Ozempic 0.25 mg or 0.5 mg (2 mg/3 mL) pen injector 0.25 mg subcut QWEEK Rx Instructions: for 4 weeks lisinopril 40 mg tablet 40 mg PO QAM fluorometholone 0.1 % drops,suspension 1 drp ophthalmic (eye) DAILY gabapentin 300 mg capsule 600 mg PO BEDTIME (DME) CPAP Machine/Device Device See Rx Instructions .ROUTE Rx Instructions: As directed calcipotriene 0.005 % cream topical BID lorazepam 0.5 mg tablet 0.5 mg PO DAILY PRN (Reason: anxiety) bisacodyl 5 mg tablet,delayed release (DR/EC) 5 - 10 mg PO BEDTIME PRN (Reason: constipation) Qty: 60 6RF dexlansoprazole [Dexilant] 60 mg capsule,biphase delayed releas 60 mg PO DAILY Qty: 30 6RF dicyclomine 20 mg tablet 20 mg PO .six times a day 30 Days Qty: 180 6RF Linzess 290 mcg capsule 290 mcg PO QAM 30 Days Qty: 30 6RF simethicone [Gas Relief (simethicone)] 125 mg tablet,chewable 125 mg PO TID Qty: 90 6RF Referrals: [facility] [Primary Care Provider, Medical] Clinical Impression: Chest pain Interventions: ED Discharge Assessment Last Done: 10/06/24 19:02 Discharge Date/Time: 10/06/24 19:03 Print Language: Maori
[2024-10-06 13:36] LABS: MANUAL DIFF FLAG NO
[2024-10-06 13:42] LABS: Hematocrit 42.7 % (42.0-52.0); Hemoglobin 15.0 g/dl (14.0-18.0); INTERNATIONAL NORM RATIO 1.1 (0.9-1.1); Imm Gran Abs Auto 0.02 X10*3/uL (0.00-0.03); Imm Gran Pct Auto 0.2 % (0.0-0.4); Lymphocytes Absolute Auto 2.4 X10*3/uL (1.2-4.9); Mean Corpuscular HGB Conc 35.1 g/dl (31.0-36.0); Mean Corpuscular Hemoglobin 30.1 pg (27.0-33.0); Mean Corpuscular Volume 85.6 fL (80.0-98.0); NRBC Abs Auto 0.000 X10*3/uL (0.0-0.012); NRBC Pct Auto 0.0 /100WBC (0.0-0.2); Platelet Count 285 X10*3/uL (160-400); Prothrombin Time 12.5 SEC (10.9-12.4); Red Blood Count 4.99 X10*6/uL (4.60-5.80); White Blood Count 8.9 X10*3/uL (4.8-10.8)
[2024-10-06 13:45] LABS: Partial Thromboplastin Time 35.6 SEC (26.0-36.8)
[2024-10-06 13:55] LABS: Alanine Aminotransferase 33 U/L (0-40); Albumin Level 5.0 g/dL (3.5-5.0); Alkaline Phosphatase 96 U/L (39-117); Anion Gap 14 (12-20); Aspartate Amino Transferase 31 U/L (5-37); Blood Urea Nitrogen 9 mg/dL (9-16); Calcium 9.5 mg/dL (8.4-10.2); Carbon Dioxide 23 mmol/L (22-29); Chloride 108 mmol/L (96-108); Creatinine Clr Calc Pharmacy 134.4; Estimated Glomerular Filt Rate > 60; Potassium 3.9 mmol/L (3.3-5.1); Sodium 141 mmol/L (135-145); Total Protein 8.0 g/dL (6.5-8.0)
[2024-10-06 14:05] LABS: Troponin-I High Sensitivity < 2.7 ng/L (<3.5-35.0)
[2024-10-06 14:44] LABS: B Type Natriuretic Peptide < 10 pg/mL (<100)
[2024-10-06 16:12] VITALS: PULSE 58
[2024-10-06 16:29] LABS: Troponin-I High Sensitivity < 2.7 ng/L (<3.5-35.0)
--- OUTSIDE RECORDS SUMMARY | 2024-10-06 16:39 | XMS_ITS | Encounter Summary ---
Author Organization [employer] Address [address] [place] [address] Care Team Providers Care Veterans' Coordinator Name Role Phone Teri Nick MD Primary Care Provide r Encounter Details Date Type Department Care Team ([facility] st Contact Info) Description 11/29/2022 Orders Only [facility] [address] [place] [address] Kristin Aguilar LPN Social History Tobacco Use [...] HIGH SENSITIVITY <2.7 <3.5 - 35.0 ng/L [facility] Comment:The Alonzo high sens itivity Troponin-I results should beused in conjunction with other diagnostic information suchas ECG, clinical observations and information, and patientsymptoms to aid in the diagnosis of RI. 03/06/2023 1:15 PM EST 03/06/2023 1:19 PM EST us Generic External Data Provider LAB BLOOD ORDERAB LES Final Result [facility] [address] [place] [address] [phone] documented in this encounter Visit Diagnoses Not on filedocumented in this encounter Additional Health Concerns Assessment Noted Time PHQ-9 Depression Total Score: 0 07/18/19 10:46 AM EDT documented as of this encounter Care Teams Veterans' Coordinator Relationship Specialty Start Date End Date Teri Nick MD [address] [place] [address] PCP - General Family Medicine 06/11/19 Jeanne Holloway [employer] 01/11/23 [facility] 02/26/23 documented as of this encounter
[2024-10-06 19:02] VITALS: BP 132/70; PULSE 78; RESP 18; TEMP 36.8; O2SAT 98
== END 2024-10-06 19:03 | disposition home or self-care (01) ==
PROVIDERS: Physician Assistant; Emergency Provider Emergency Medicine Emergency Medical Services
DX: R07.9 Chest pain, unspecified (principal); F17.210 Nicotine dependence, cigarettes, uncomplicated; Z79.899 Other long term (current) drug therapy
CPT/HCPCS: 36415; 71046; 80053; 83880; 84484; 85025; 85610; 85730; 93005; 96374; 99284; 99285; J1885

== ENCOUNTER → 2024-10-06 13:07 | Outpatient (BNV) | payer MEDICAID, SELFPAY | PROVIDERS: Emergency Provider Emergency Medicine Emergency Medical Services; Visit Provider Internal Medicine Cardiovascular Disease | DX: R07.89 Other chest pain (principal) | CPT/HCPCS: 93010 ==

== ENCOUNTER → 2024-10-06 13:18 | Outpatient (BNV) | payer MEDICAID, SELFPAY | PROVIDERS: Visit Provider Radiology Diagnostic Radiology | DX: R07.9 Chest pain, unspecified (principal) | CPT/HCPCS: 71046 ==

== ENCOUNTER 2024-10-14 16:21 | Emergency (ER) | payer MEDICAID, SELFPAY ==
--- NOTE | ~2024-10-14 | CT_ITS ---
CLINICAL HISTORY: right flank pain, renal colic? CT abdomen and pelvis without contrast Comparison: None provided Findings: The lung bases are clear. The gallbladder and solid organs are within normal limits. No renal stones. No bowel obstruction, pneumoperitoneum, or pneumatosis. The bladder is decompressed. No bladder stones. Prostatic calcification. Prostate is not enlarged. No fluid collections or adenopathy. Nondilated vasculature. No acute fracture. IMPRESSION: No radiopaque renal stones or evidence of obstructive uropathy. No findings to explain the patient's flank pain within the confines of a noncontrast exam. No bowel or biliary obstruction. Normal appendix. This document has been electronically signed by: Bonny Silverio MD on 10/14/2024 20:20:55
[2024-10-14 17:10] VITALS: BP 105/59; PULSE 98; RESP 16; TEMP 36.8; O2SAT 96; BMI 33.1
--- NOTE | 2024-10-14 17:15 | ED.GENADULT ---
HPI - General Adult General Chief complaint: Urogenital-Male Stated complaint: inflammation/pain to kidneys Time Seen by Provider: 10/14/24 18:25 Source: patient Limitations: language barrier History of Present Illness ED Provider: Rebecca Dumont PA-C HPI narrative: 58 year-old male with pmhx of diabetes, sleep apnea, lower extremity neuropathy, GERD, and arthritis who presents to the ED with concern of brown urine and worsening low back pain. He states the pain started 1 week ago and is worse on the right side. The pain became more severe today. The pain is localized to the low back/flank. Reports having difficulty urinating. He is able to urinate with increased straining. Denies dysuria, recent fever, recent sickness, and N/V/D. Denies history of kidney stones. Denies weakness of lower extremity, paresthesia, urinary retention or bowel incontinence. Denies new activity, heavy lifting or trauma that could have precipitated his pain. Related Data Home Medications ?Medication ?Instructions ?Recorded ?Confirmed albuterol sulfate 90 mcg/actuation 2 puff inhalation Q6H PRN 12/21/19 01/25/21 aerosol inhaler (ProAir HFA) fluticasone propionate 50 1 spray intranasal DAILY 12/21/19 01/25/21 mcg/actuation nasal spray,suspension (Flonase Allergy Relief) sertraline 100 mg tablet 100 mg PO DAILY 12/21/19 01/25/21 aspirin 81 mg tablet,delayed 81 mg PO DAILY 01/12/21 01/25/21 release empagliflozin 10 mg tablet 10 mg PO QAM 11/24/21 (Jardiance) insulin syringe-needle U-100 1/2 #10 ea 02/27/22 mL 31 gauge x 15/64 (BD Veo Insulin Syringe Ultra-Fine) clonazepam 0.5 mg tablet 0.5 mg PO DAILY 06/29/22 sertraline 50 mg tablet 50 mg PO DAILY 01/11/23 CPAP (CPAP Machine/Device) 06/21/23 semaglutide 0.25 mg or 0.5 mg (2 0.25 mg subcut QWEEK 12/13/23 mg/3 mL) subcutaneous pen injector (Ozempic) fluorometholone 0.1 % eye 1 drp ophthalmic (eye) DAILY 01/16/24 drops,suspension lisinopril 40 mg tablet 40 mg PO QAM 01/16/24 calcipotriene 0.005 % topical cream appl topical BID 06/11/24 lorazepam 0.5 mg tablet 0.5 mg PO DAILY PRN anxiety 06/11/24 gabapentin 300 mg capsule 600 mg PO BEDTIME 08/21/24 Previous Rx's ?Medication ?Instructions ?Recorded insulin syringe-needle U-100 0.5 #100 ea 04/29/20 mL 30 gauge x 1/2 (BD Insulin Syringe Ultra-Fine) budesonide-formoterol HFA 160 2 puff PO BID #10.2 grams 06/28/20 mcg-4.5 mcg/actuation aerosol inhaler (Symbicort) montelukast 10 mg tablet 10 mg PO DAILY #30 tabs 04/28/21 blood sugar diagnostic (FreeStyle #100 ea 05/02/21 Lite Strips) lancets 33 gauge (TRUEplus Lancets) #100 ea 05/02/21 insulin glargine 100 unit/mL 18 unit (0.18 mL) subcut DAILY 30 05/19/21 subcutaneous solution (Lantus days #10 mL U-100 Insulin) insulin lispro 100 unit/mL 4 unit (0.04 mL) subcut TID #15 mL 05/19/21 subcutaneous pen (Humalog KwikPen (U-100) Insulin) pen needle, diabetic 32 gauge x #100 ea 05/19/21/32 (BD Ultra-Fine Madhavi Pen Needle) terbinafine HCl 250 mg tablet 250 mg PO DAILY #30 tabs 01/08/22 rosuvastatin 20 mg tablet 20 mg PO DAILY 30 days #30 tabs 02/19/22 nystatin-triamcinolone 100,000 1 appl topical DAILY #30 grams 05/10/23 unit/g-0.1 % topical cream ofloxacin 0.3 % eye drops 2 drp ophthalmic (eye) QID #5 mL 10/11/23 bisacodyl 5 mg tablet,delayed 5 - 10 mg (1 - 2 x 5 mg) PO 06/11/24 release BEDTIME PRN constipation #60 tabs dexlansoprazole 60 mg 60 mg PO DAILY #30 caps 06/11/24 capsule,biphase delayed release (Dexilant) dicyclomine 20 mg tablet 20 mg PO .six times a day 06/11/24 abdominal pain 30 days #180 tabs linaclotide 290 mcg capsule 290 mcg PO QAM 30 days #30 caps 06/11/24 (Linzess) simethicone 125 mg chewable tablet 125 mg PO TID abdominal distention 06/11/24 (Gas Relief (simethicone)) #90 tabs famotidine 40 mg tablet 40 mg PO BEDTIME #30 tabs 09/02/24 ketorolac 10 mg tablet 10 mg PO Q6H PRN pain #20 tabs 10/14/24 methocarbamol 750 mg tablet 1,500 mg (2 x 750 mg) PO Q12H PRN 10/14/24 pain, moderate #20 tabs Allergies Allergy/AdvReac Type Severity Reaction Status Date / Time No Known Allergies Allergy Verified 10/14/24 17:14 Review of Systems Review of Systems: Yes all other systems are reviewed and are negative Constitutional: Constitutional: Denies fatigue and Denies fever(s) Cardiovascular: Cardiovascular: Denies chest pain and Denies dyspnea Respiratory: Respiratory: Denies cough and Denies dyspnea Gastrointestinal: Gastrointestinal: Denies abdominal pain, Denies diarrhea, Denies nausea and Denies vomiting Genitourinary: Genitourinary: Denies hematuria, Denies dysuria, Reports flank pain and Reports urinary hesitancy Musculoskeletal: Musculoskeletal: Reports back pain, Denies muscle weakness, Denies numbness, Denies radiating pain into limb and Denies tingling Neurologic: Denies numbness and Denies tingling Endocrine: Endocrine: Denies fatigue PMFSH Past Medical History Attestation statement: The following information was validated with the patient. Medical History Nicotine dependence, cigarettes, uncomplicated Colon cancer screening Chest pain Early satiety Abdominal cramping Epigastric pain Non-adherence to medical treatment Obesity (BMI 30-39.9) retirement (current) use of insulin Diabetic polyneuropathy associated with type 2 diabetes mellitus Diabetes type 2, uncontrolled Asthma TENZIN (obstructive sleep apnea) Venous insufficiency Hypertension Hyperlipidemia Surgical History History of ventral hernia repair History of surgery on lower extremity History of tonsillectomy Family History Family History Father Renal failure Mother Depression Hypertension Social History Social History Household Members: Spouse and Children Alcohol intake: current Alcohol intake frequency: holidays/special occasions only Patient Tobacco Use Status: Current everyday Tobacco user Tobacco use type: Cigarette Cigarettes Per Day: 15 Years Smoked: since age 19 Smoked in Last 30 Days: Yes Use of substances other than those prescribed or required for medical reasons: No Advance Directives: No Advance Directives Information Provided: Yes Current occupational status: disabled Physical Exam ED Vital Signs: Vital Signs - 24 hr 10/14/24 17:10 10/14/24 19:36 Temperature 98.2 F 97.7 F Pulse Rate 98 81 Respiratory Rate 16 18 Blood Pressure 105/59 L 111/64 Pulse Oximetry 96 97 Oxygen Delivery Method Room Air Room Air BMI result Body Mass Index 33.1 Const Other: Alert well-appearing Orientation/consciousness: patient oriented x3 Resp Effort & Inspection: normal respiratory effort Cardio Other: Normal peripheral perfusion General: Yes no CVA tenderness Back/Spine/Pelvis Back: no CVA tenderness Skin Other: Warm dry no rash Neuro General: patient oriented x3, gait normal, no focal motor deficits and CN's II-XI intact bilaterally Psych Other: Cooperative Course Course Course Narrative: RME, this is a rapid medical exam performed by Feliberto White please refer to primary provider for complete H&P- 58-year-old male presents for evaluation of urinary frequency for the last week. He reports that he was seen at [facility] and had a negative urinalysis there. Plan for labs a repeat urinalysis Medications Administered Discontinued Medications Generic Name Dose Route Start Last Admin Trade Name Freq PRN Reason Stop Dose Admin Sodium Chloride 1,000 mls @ 999 mls/hr 10/14/24 18:45 10/14/24 18:56 Ns IV 10/14/24 19:45 999 mls/hr .Q1H1M RAINER Administration Ketorolac Tromethamine 15 mg 10/14/24 18:35 10/14/24 18:56 Ketorolac Tromethamine 15 Mg/Ml Vial IVPUSH 10/14/24 18:36 15 mg ONCE ONE Administration Medical Decision Making Medical Decision Making MDM Narrative: 58 year-old male with pmhx of diabetes, sleep apnea, lower extremity neuropathy, GERD, and arthritis who presents to the ED with concern of brown urine and worsening low back pain. He states the pain started 1 week ago and is worse on the right side. The pain became more severe today. The pain is localized to the low back/flank. Reports having difficulty urinating. He is able to urinate with increased straining. Denies dysuria, recent fever, recent sickness, and N/V/D. Denies history of kidney stones. Denies weakness of lower extremity, paresthesia, urinary retention or bowel incontinence. Denies new activity, heavy lifting or trauma that could have precipitated his pain. Problem: Diabetes, neuropathy, arthritis History: Per patient I have considered the following differential diagnoses: Lumbar strain, lumbar radiculopathy, cauda equina, renal colic, pyelonephritis, UTI, dehydration, rhabdomyolysis, Plan: Screening labs were already collected, the patient is a about to give a urine sample. Given back pain with discolored urine, I am concerned for renal colic. The patient does not have a mechanism of injury for trauma, to suggest rhabdomyolysis. He has no CVA tenderness to suggest pyelonephritis, he also has no dysuria. The patient could simply be dehydrated. The patient has known arthritis, this could also simply be lumbar strain without radicular symptoms, and he has no red flag signs symptoms concerning for cord compression. I have independently reviewed the following tests: Labs: No leukocytosis, not anemic, no elevation in renal function, urine concentrated but not infected CT abdomen and pelvis:Findings: The lung bases are clear. The gallbladder and solid organs are within normal limits. No renal stones. No bowel obstruction, pneumoperitoneum, or pneumatosis. The bladder is decompressed. No bladder stones. Prostatic calcification. Prostate is not enlarged. No fluid collections or adenopathy. Nondilated vasculature. No acute fracture. IMPRESSION: No radiopaque renal stones or evidence of obstructive uropathy. No findings to explain the patient's flank pain within the confines of a noncontrast exam. No bowel or biliary obstruction. Normal appendix. Lab Data 10/14/24 17:31 10/14/24 17:31 Labs: Lab Results 10/14/24 10/14/24 Range/Units 17: 19:00 WBC 11.3 H (4.8-10.8) X10*3/uL RBC 4.84 (4.60-5.80) X10*6/uL Hgb 14.4 (14.0-18.0) g/dl Hct 42.3 (42.0-52.0) % MCV 87.4 (80.0-98.0) fL MCH 29.8 (27.0-33.0) pg MCHC 34.0 (31.0-36.0) g/dl RDW 13.1 (11.0-16.0) % Plt Count 312 (160-400) X10*3/uL MPV 9.5 (9.4-12.4) fL Immature Gran % (Auto) 0.4 (0.0-0.4) % Neut % (Auto) 61.6 (45-73) % Lymph % (Auto) 30.1 (20-40) % Kemper % (Auto) 5.9 (2-11) % Eos % (Auto) 1.6 (0-4) % Baso % (Auto) 0.4 (0-2) % Lymph # (Auto) 3.4 (1.2-4.9) X10*3/uL Kemper # (Auto) 0.7 (0.1-1.2) X10*3/uL Eos # (Auto) 0.2 (0.0-0.4) X10*3/uL Baso # (Auto) 0.1 (0.0-0.2) X10*3/uL Abs Immat Gran (auto) 0.04 H (0.00-0.03) X10*3/uL Absolute Neuts (auto) 7.0 (2.0-8.3) x10*3/uL Absolute Nucleated RBC 0.000 (0.0-0.012) X10*3/uL Nucleated RBC % (auto) 0.0 (0.0-0.2) /100WBC Sodium 142 (135-145) mmol/L Potassium 3.8 (3.3-5.1) mmol/L Chloride 108 (96-108) mmol/L Carbon Dioxide 25 (22-29) mmol/L Anion Gap 13 (12-20) BUN 12 (9-16) mg/dL Creatinine 0.77 (0.5-1.4) mg/dL Estim Creat Clear Calc 114.3 Estimated GFR > 60 Random Glucose 126 H (60-115) mg/dL Calcium 9.7 (8.4-10.2) mg/dL Total Bilirubin 0.4 (0.0-1.0) mg/dL AST 33 (5-37) U/L ALT 33 (0-40) U/L Alkaline Phosphatase 89 (39-117) U/L Total Protein 7.8 (6.5-8.0) g/dL Albumin 4.9 (3.5-5.0) g/dL Lipase 29 (8-78) U/L Urine Color Dark Yellow Urine Appearance Clear Urine pH 5.5 (5.0-9.0) Ur Specific Temple >= 1.030 H (1.005-1.025) Urine Protein Negative (Neg-Trace) mg/dL Urine Glucose (UA) Negative (Negative) mg/dL Urine Ketones Trace (Negative) mg/dL Urine Blood Negative (Negative) Urine Nitrite Negative (Negative) Ur Leukocyte Esterase Negative (Negative) Urine RBC 0-2 (0-2) /HPF Urine WBC 0-5 (0-5) /HPF Ur Squamous Epith Cells 0-2 (0-2) /HPF Urine Bacteria None Seen (None Seen) Hyaline Casts 0-2 (0-2) /LPF Discharge Plan Discharge Clinical Impression: Lumbar strain Patient Disposition: Home, Self-Care Instructions: Low Back Strain (ED) Additional Instructions: All of your screening labs were normal, you were slightly dehydrated, hence the reason why your urine appeared dark. The CT scan of the abdomen and pelvis was normal. You are being treated for lumbar strain. See home care instructions. Use the ketorolac as directed, this is an anti-inflammatory, take it with food. Use the methocarbamol as needed for further pain, this is a muscle relaxant. Do not drive or operate machinery while taking the medication, as it will cause drowsiness. Follow up with your primary care provider as needed. Prescriptions: New ketorolac 10 mg tablet 10 mg PO Q6H PRN (Reason: pain) Qty: 20 0RF Rx Instructions: maximum total duration of 5 days from all oral, intranasal, or parenteral formulations. The patient received an IV dose of Toradol here in the emergency room methocarbamol 750 mg tablet 1,500 mg PO Q12H PRN (Reason: pain, moderate) Qty: 20 0RF No Action budesonide-formoterol [Symbicort] 160-4.5 mcg/actuation HFA aerosol inhaler 2 puff PO BID Qty: 10.2 3RF montelukast 10 mg tablet 10 mg PO DAILY Qty: 30 11RF (DME) FreeStyle Lite Strips Strip See Rx Instructions .Route Qty: 100 11RF Rx Instructions: As directed to test blood sugars 4 times daily (DME) lancets [TRUEplus Lancets] 33 gauge misc See Rx Instructions .Route Qty: 100 11RF Rx Instructions: As directed 4 times a day rosuvastatin 20 mg tablet 20 mg PO DAILY 30 Days Qty: 30 0RF famotidine 40 mg tablet 40 mg PO BEDTIME Qty: 30 3RF terbinafine HCl 250 mg tablet 250 mg PO DAILY Qty: 30 0RF ofloxacin 0.3 % drops 2 drp ophthalmic (eye) QID Qty: 5 0RF (DME) insulin syringe-needle U-100 [BD Insulin Syringe Ultra-Fine] 0.5 mL 30 gauge x 1/2 syringe See Rx Instructions .ROUTE .MEDSUPPLY Qty: 100 3RF Rx Instructions: Daily sertraline 100 mg tablet 100 mg PO DAILY albuterol sulfate [ProAir HFA] 90 mcg/actuation HFA aerosol inhaler 2 puff inhalation Q6H PRN fluticasone propionate [Flonase Allergy Relief] 50 mcg/actuation spray,suspension 1 spray intranasal DAILY Rx Instructions: administer into each nostril aspirin 81 mg tablet,delayed release (DR/EC) 81 mg PO DAILY clonazepam 0.5 mg tablet 0.5 mg PO DAILY insulin lispro [Humalog KwikPen Insulin] 100 unit/mL insulin pen 4 unit subcut TID Qty: 15 5RF Lantus U-100 Insulin 100 unit/mL solution 18 unit subcut DAILY 30 Days Qty: 10 5RF (DME) pen needle, diabetic [BD Ultra-Fine Madhavi Pen Needle] 32 gauge x needle See Rx Instructions .ROUTE .MEDSUPPLY Qty: 100 11RF Rx Instructions: As directed three times a day Jardiance 10 mg tablet 10 mg PO QAM (DME) insulin syringe-needle U-100 [BD Veo Insulin Syringe UF] 1/2 mL 31 gauge x 15/64 syringe See Rx Instructions .ROUTE BEDTIME Qty: 10 Rx Instructions: As directed sertraline 50 mg tablet 50 mg PO DAILY nystatin-triamcinolone 100,000-0.1 unit/g-% cream 1 appl topical DAILY Qty: 30 0RF Rx Instructions: Please apply between toes daily Ozempic 0.25 mg or 0.5 mg (2 mg/3 mL) pen injector 0.25 mg subcut QWEEK Rx Instructions: for 4 weeks lisinopril 40 mg tablet 40 mg PO QAM fluorometholone 0.1 % drops,suspension 1 drp ophthalmic (eye) DAILY gabapentin 300 mg capsule 600 mg PO BEDTIME (DME) CPAP Machine/Device Device See Rx Instructions .ROUTE Rx Instructions: As directed calcipotriene 0.005 % cream topical BID lorazepam 0.5 mg tablet 0.5 mg PO DAILY PRN (Reason: anxiety) bisacodyl 5 mg tablet,delayed release (DR/EC) 5 - 10 mg PO BEDTIME PRN (Reason: constipation) Qty: 60 6RF dexlansoprazole [Dexilant] 60 mg capsule,biphase delayed releas 60 mg PO DAILY Qty: 30 6RF dicyclomine 20 mg tablet 20 mg PO .six times a day 30 Days Qty: 180 6RF Linzess 290 mcg capsule 290 mcg PO QAM 30 Days Qty: 30 6RF simethicone [Gas Relief (simethicone)] 125 mg tablet,chewable 125 mg PO TID Qty: 90 6RF Print Language: Latvian
[2024-10-14 17:41] LABS: MANUAL DIFF FLAG NO
[2024-10-14 17:43] LABS: Hematocrit 42.3 % (42.0-52.0); Hemoglobin 14.4 g/dl (14.0-18.0); Imm Gran Abs Auto 0.04 X10*3/uL (0.00-0.03); Imm Gran Pct Auto 0.4 % (0.0-0.4); Lymphocytes Absolute Auto 3.4 X10*3/uL (1.2-4.9); Mean Corpuscular HGB Conc 34.0 g/dl (31.0-36.0); Mean Corpuscular Hemoglobin 29.8 pg (27.0-33.0); Mean Corpuscular Volume 87.4 fL (80.0-98.0); NRBC Abs Auto 0.000 X10*3/uL (0.0-0.012); NRBC Pct Auto 0.0 /100WBC (0.0-0.2); Platelet Count 312 X10*3/uL (160-400); Red Blood Count 4.84 X10*6/uL (4.60-5.80); White Blood Count 11.3 X10*3/uL (4.8-10.8)
[2024-10-14 17:58] LABS: Alanine Aminotransferase 33 U/L (0-40); Albumin Level 4.9 g/dL (3.5-5.0); Alkaline Phosphatase 89 U/L (39-117); Anion Gap 13 (12-20); Aspartate Amino Transferase 33 U/L (5-37); Blood Urea Nitrogen 12 mg/dL (9-16); Calcium 9.7 mg/dL (8.4-10.2); Carbon Dioxide 25 mmol/L (22-29); Chloride 108 mmol/L (96-108); Creatinine Clr Calc Pharmacy 114.3; Estimated Glomerular Filt Rate > 60; Lipase 29 U/L (8-78); Potassium 3.8 mmol/L (3.3-5.1); Sodium 142 mmol/L (135-145); Total Protein 7.8 g/dL (6.5-8.0)
[2024-10-14 19:07] LABS: Appearance Urine Clear; Glucose Urine UA Negative (Negative); PH 5.5 (5.0-9.0); Specific Gravity - Urine >= 1.030 (1.005-1.025)
[2024-10-14 19:36] VITALS: BP 111/64; PULSE 81; RESP 18; TEMP 36.5; O2SAT 97
[2024-10-14 20:58] VITALS: BP 111/64; PULSE 81; RESP 18; TEMP 36.5; O2SAT 97
== END 2024-10-14 21:07 | disposition home or self-care (01) ==
PROVIDERS: Physician Assistant; Emergency Provider Emergency Medicine; PCP Internal Medicine
DX: R10.9 Unspecified abdominal pain (principal); E11.9 Type 2 diabetes mellitus without complications; K21.9 Gastro-esophageal reflux disease without esophagitis; S39.012A Strain of muscle, fascia and tendon of lower back, initial encounter; X58.XXXA Exposure to other specified factors, initial encounter; Y93.9 Activity, unspecified; Y92.9 Unspecified place or not applicable; Y99.9 Unspecified external cause status; R39.198 Other difficulties with micturition; R82.90 Unspecified abnormal findings in urine
CPT/HCPCS: 36415; 74176; 80053; 81001; 83690; 85025; 96361; 96374; 99284; 99285; J1885

== ENCOUNTER → 2024-10-14 18:35 | Outpatient (BNV) | payer MEDICAID, SELFPAY | PROVIDERS: Emergency Provider Emergency Medicine; PCP Internal Medicine; Visit Provider Radiology Diagnostic Radiology | DX: R10.31 Right lower quadrant pain (principal) | CPT/HCPCS: 74176 ==

== ENCOUNTER 2024-11-26 08:46 | Outpatient (REF) | payer MEDICAID, SELFPAY ==
--- OUTSIDE RECORDS SUMMARY | 2024-11-26 09:54 | XMS_ITS | Encounter Summary ---
Author Organization [employer] Address [address] [place] [address] [address] [place] [address] Care Team Providers Care Combine Mechanic Name Role Phone Teri Nick MD Primary Care Provide r William Garcia PharmD Unavailable [phone] Encounter Details Date Type Department Care Team (Late st Contact Info) Description 11/29/2022 Orders Only [facility] [address] [place] [address] Kristin Aguilar LPN Social History Tobacco Use [...] Care Team (Late st Contact Info) Description 11/30/2024 10:30 AM EDT Medication Management [facility] [address], [place] [phone] William Garcia, PharmD [address] [place] [address] 12/08/2024 2:00 PM EDT Office Visit [facility] [address], [place] [phone] Jay Kidd [address] [place] [address] 01/11/2025 11:00 AM EDT Immunization [facility] [address] [place] [address] 01/13/2025 10:30 AM EDT Office Visit [facility] [address] [place] [address] Teri Nick MD [address] [place] [address] documented as of this encounter Procedures Procedure Name Priority Date/Time Associated Diagnosis Comments HIGH SENSITIVITY TROPONIN I Routine 03/06/2023 1:15 PM EST documented in this encounter Results * High Sensitivity Troponin I (03/06/2023 1:15 PM EST) TROPONIN I HIGH SENSITIVITY <2.7 <3.5 - 35.0 ng/L [facility] Comment:The Alonzo high sens itivity Troponin-I results should beused in conjunction with other diagnostic information suchas ECG, clinical observations and information, and patientsymptoms to aid in the diagnosis of [place]. 03/06/2023 1:15 PM EST 03/06/2023 1:19 PM EST us Generic External Data Provider LAB BLOOD ORDERAB LES Final Result [facility] [address] [place] [address] [phone] documented in this encounter Visit Diagnoses Not on filedocumented in this encounter Additional Health Concerns Assessment Noted Time PHQ-9 Depression Total Score: 0 07/18/19 23 10:46 AM EDT documented as of this encounter Care Teams Combine Mechanic Relationship Specialty Start Date End Date Teri Nick MD [address] [place] [address] PCP - General Family Medicine 06/11/19 William Garcia, PharmD [address] [place] [address] Pharmacist Pharmacy 11/02/24 Jeanne Holloway [employer] Crew Person 01/11/23 [facility] 02/26/23 documented as of this encounter
--- OUTSIDE RECORDS SUMMARY | 2024-11-26 09:55 | XMS_ITS | Clinical Summary ---
Author Organization [employer] Address [address] [place] [address] [address] [place] [address] Care Team Providers Care Sighter Name Role Phone Teri Nick MD Primary Care Provide r William Garcia PharmD Unavailable [phone] Allergies No known active allergies Medications TRUEplus Lancets 33G misc TEST BLOOD SUGAR FOUR TIMES DAILY 100 each 11 Active Bisacodyl EC 5 MG EC tablet [...] Take 40 mg by mouth at bedtime. 023 Active Linzess 290 MCG capsule Take 290 mcg by mouth before breakfast. 024 Active simethicone (Mylicon) 125 MG chewable tablet Chew 1 tablet 3 times daily. 023 Active LORazepam (Ativan) 0.5 MG tablet Take 0.5 mg by mouth Once daily as needed for anxiety. Active betamethasone, augmented, (Diprolene) 0.05 % ointment APPLY A THIN LAYER TO AFFECTED AREA(S) TWICE DAILY 50 g 1 024 Active Acetaminophen Extra Strength 500 MG tabletIndication s:Muscle spasm TAKE 2 TABLETS BY MOUTH EVERY 8 HOURS NEEDED FOR PAIN 40 tablet 1 025 Active rosuvastatin (Crestor) 20 MG tabletIndication s:Other hyperlipidemia TAKE 1 TABLET BY MOUTH EVERY DAY 90 tablet 3 025 Active calcipotriene (Dovonex) 0.005 % cream APPLY TOPICALLY TO THE AFFECTED AREA(S) TWICE DAILY DIRECTED 60 g 1 025 Active lisinopril 40 MG tabletIndication s:Essential hypertension TAKE 1 TABLET BY MOUTH ONCE DAILY IN THE MORNING 90 tablet 3 025 Active gabapentin (Neurontin) 600 MG tabletIndication s:Diabetic polyneuropathy associated with type 2 diabetes mellitus (CMS/HCC) Take 1 tablet (600 mg) by mouth 3 times daily. 90 tablet 2 025 2025 Active lidocaine (Lidoderm) 5 % patchIndications :Right foot pain Apply 1 patch topically Once per day. Remove & discard patch within 12 hours or as directed by . 30 patch 025 Active insulin glargine (Lantus) 100 UNIT/ML injectionIndicat ions:Type 2 diabetes mellitus with hyperglycemia, without long-term current use of insulin ([facility]) INJECT 20 UNITS SUBCUTANEOUSLY EVERY DAY 10 mL 5 025 Active BD Veo Insulin Syringe U/F 31G X 15/64 0.5 ML miscIndications: Type 2 diabetes mellitus with hyperlipidemia (CMS/HCC) (CMS/HCC) USE FOR INSULIN INJECTION AT BEDTIME 100 each 3 025 Active Continuous Glucose Utility Sales Representative (FreeStyle Hien 3 [place]) deviceIndication s:Type 2 diabetes mellitus with hyperlipidemia (CMS/HCC) (CMS/HCC),Diabet ic polyneuropathy associated with type 2 diabetes mellitus (CMS/HCC) 1 each Once per day. Use as directed for CGM 1 each 025 Active Continuous Glucose Sensor (FreeStyle Hien 3 Plus Sensor) miscIndications: Type 2 diabetes mellitus with hyperlipidemia (CMS/HCC) (CMS/HCC),Diabet ic polyneuropathy associated with type 2 diabetes mellitus (CMS/HCC) 1 each every 15 days. Apply 1 every 15 days as directed for CGM 2 each 11 025 Active glucose blood (FreeStyle Precision Caleb Test) test stripIndications :Type 2 diabetes mellitus with hyperlipidemia (CMS/HCC) (CMS/HCC),Diabet ic polyneuropathy associated with type 2 diabetes mellitus ([facility]/HCC) Use to test blood sugar 3 times daily in case of CGM failure or extremes of BG 100 each 2025 Active ibuprofen 600 MG tablet Take 1 tablet (600 mg) by mouth every 6 (six) hours if needed for mild pain for up to 20 doses. 20 tablet Active Ventolin HFA 108 (90 Base) MCG/ACT inhalerIndicatio ns:Mild intermittent asthma, unspecified whether complicated INHALE 2 PUFFS BY MOUTH EVERY 4 HOURS NEEDED FOR WHEEZING OR SHORTNESS OF BREATH 18 g 3 Active sertraline (Zoloft) 50 MG tablet Take 1.5 tablets by mouth Once per day. (TDD=75 mg) Active nicotine polacrilex (Nicorette) 2 MG gum CHEW 1 PIECE OF GUM IN MOUTH EVERY 2 HOURS NEEDED Active fluorometholone (FML) 0.1 % ophthalmic suspension PLACE 1 DROP IN THE LEFT EYE EVERY DAY DIRECTED Active glucose 4 g chewable tabletIndication s:Type 2 diabetes mellitus with hyperlipidemia (CMS/HCC) ([facility]) Chew 4 tablets (16 g) if needed for low blood sugar. 30 tablet Active aspirin 81 MG EC tabletIndication s:Type 2 diabetes mellitus with hyperlipidemia (CMS/HCC) (CMS/[facility]) Take 1 tablet (81 mg) by mouth Once per day. 30 tablet 2025 Active Tirzepatide (Mounjaro) 5 MG/0.5ML solution auto-injectorInd ications:Type 2 diabetes mellitus with hyperlipidemia (CMS/HCC) ([facility]) Inject 5 mg under the skin 1 (one) time per week. 2 mL 2 Active empagliflozin (Jardiance) 10 MGIndications:Ty pe 2 diabetes mellitus with hyperlipidemia (CMS/HCC) (CMS/HCC) Take 1 tablet (10 mg) by mouth in the morning. 30 tablet 2 Active Blood Glucose Monitoring Suppl (FreeStyle Lite) w/Device kitIndications:T ype 2 diabetes mellitus with other specified complication, unspecified whether intermediate insulin use ([facility]) 1 each in the morning and at bedtime. Test blood sugar twice daily as directed 1 kit 022 2024 Discontinued clotrimazole (Lotrimin) 1 % creamIndications :Tinea pedis of both feet Apply 1 Application. topically 2 times daily. Apply to the affected areas and surrounding areas twice daily 30 g 023 2024 Discontinued glucose blood (FREESTYLE LITE) test strip apply 1 by to skin route 4 times every day as directed 100 each 11 024 2024 Discontinued fluticasone (Flonase) 50 MCG/ACT nasal spray Administer 2 sprays into each nostril in the morning. 019 2024 Discontinued nystatin-triamci nolone (Mycolog II) cream APPLY TOPICALLY BETWEEN TOES ONCE DAILY 024 2024 Discontinued DULoxetine (Cymbalta) [address] capsule Take 60 mg by mouth in the morning. Do not crush or chew. 2024 Discontinued empagliflozin (Jardiance) 10 MG Take 1 tablet (10 mg) by mouth in the morning. 90 tablet 025 2024 Discontinued(R eorder (will not trigger notification to Pharmacy)) Ventolin HFA 108 (90 Base) MCG/ACT inhalerIndicatio ns:Mild intermittent asthma, unspecified whether complicated INHALE 2 PUFFS BY MOUTH EVERY 4 HOURS NEEDED FOR COUGH, FOR WHEEZING, OR SHORTNESS OF BREATH 18 g 3 025 2024 Discontinued Tirzepatide (Mounjaro) 5 MG/0.5ML solution auto-injectorInd ications:Type 2 diabetes mellitus with hyperlipidemia ([facility]/HCC) ([facility]) Inject 5 mg under the skin 1 (one) time per week. 2 mL 025 2024 Discontinued(R eorder (will not trigger notification to Pharmacy)) Active Problems Problem Noted Date Diagnosed Date Precordial pain 10/12/2024 Assessment & Plan (10/12/2024 1:35 PM EDT): I decided to refer patient back to cardiology for further evaluation Bilateral tinnitus 10/12/2024 Assessment & Plan (10/12/2024 1:36 PM EDT): I will refer this patient to ENT Right foot pain 07/22/2024 Assessment & Plan (07/22/2024 1:56 PM EDT): I will refer this patient to podiatry I will prescribe for him lidocaine patches Pain may be related to diabetic neuropathy? He is already on gabapentin 300 mg 3 times a day I decided to go up on the dose to 600 mg 3 times a day Diabetic polyneuropathy asso ciated with type 2 diabetes mellitus 07/22/2024 Assessment & Plan (10/12/2024 1:40 PM EDT): Diabetes is: not controlled - Lab Results Component Value Date HGBA1C 8.6 (A) 10/12/2024 HGBA1C 6.5 (A) 06/18/2024 HGBA1C 6.5 (A) 06/17/2023 - Lab Results Component Value Date CREATININE 0.66 (L) 07/18/2022 Today I will switch Ozempic to Mounjaro 5 mg weekly, also I will prescribe for patient CGM and I will refer him to pharmacy CDTM - Diabetic eye exam: Pending - Diabetic foot exam: Up-to-date - Continue lifestyle modifications - Continue current medications - Follow up: 3 months Health care maintenance 08/08/2023 Neck pain 08/07/2023 Chronic bilateral low back pain 08/07/2023 Assessment & Plan (07/22/2024 1:57 PM EDT): The patient tells me physical therapy did help a little bit so I am referring him back again Continue with as needed pain meds apply heat on affected area Assessment & Plan (04/23/2024 5:03 PM EST): [...] PM EDT): Apply heat on affected area [place] of Cyclobenzaprine and acetaminophen PRN Moderate persistent asthma 08/28/2021 Gastroesophageal reflux disease 06/05/2018 Essential hypertension 04/09/2017 Assessment & Plan (10/12/2024 1:35 PM EDT): I advised: - Aerobic exercise to reduce BP. Initial [...] consulting health care provider Assessment & Plan (07/22/2024 1:55 PM EDT): I advised: - Aerobic exercise to reduce BP. Initial [...] consulting health care provider Assessment & Plan (04/23/2024 5:04 PM EST): [...] 2 diabetes mellitus 04/20/2013 Assessment & Plan (07/22/2024 1:56 PM EDT): I will go up on Ozempic to 1 mg weekly Patient to come back in 3 months Assessment & Plan (04/23/2024 5:03 PM EST): [...] Encounters Date Type Department Care Team Description 11/05/2024 Telephone [facility] [address] [place] [phone] Teri Nick MD Referral 11/02/2024 Orders Only [facility] [address] [place], [place] [phone] Teri Nick MD Neoplasm of eye (Primary Dx) 11/02/2024 Travel 11/02/2024 Telephone [facility] [address] [place], [place] [phone] Teri Nick MD Referral 10/31/2024 Refill [facility] [address] [place], [place] [phone] Teri Nick MD Mild intermittent asthma, unspecified whether complicated 10/30/2024 1:00 PM EDT Office Visit [facility] [address] [facility] [place] [address] BernabeNeri ferrariio 10/19/[address] [address] Teri Nick MD Call Back Request 10/16/[address] [address] Teri Nick MD telephone call 10/16/[address] [address] Teri Nick MD Appointment Request 10/14/2024 3:40 PM EDT Office Visit [facility] [address] [place] [phone] Greg Negro MD Generalized abdominal pain (Primary Dx); Acute right-sided low back pain without sciatica; Dysuria 10/14/2024 Orders Only [facility] EXTERNAL DATA DEPARTMENT Provider, Generic External Data 10/14/[address] [address] Jenni Aquino, [employer] 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 OPERATOR Expect 10/14/2024 Travel 10/14/[address] [address] Teri Nick MD Triage 10/14/[address] [address] Teri Nick MD CGM PA 10/12/2024 10:45 AM EDT Office Visit [address] [address] Teri Nick MD Type 2 diabetes mellitus with diabetic polyneuropathy, without long-term current use of insulin (CMS/HCC) (Primary Dx); Type 2 diabetes mellitus with hyperlipidemia (CMS/HCC) (CMS/HCC); Essential hypertension; Precordial pain; Bilateral tinnitus; Diabetic polyneuropathy associated with type 2 diabetes mellitus (CMS/HCC) 10/12/2024 Travel 10/08/2024 Telephone [address] [place] [address] Teri Nick MD Prior Authorization ( [place]: Shabbir) 10/07/2024 Telephone [facility] [address] [place] [address] Sandra Lovett RN ER Follow-up 10/06/2024 Orders Only GENERIC EXTERNAL DATA DEPARTMENT Provider, Generic External Data 09/01/2024 Refill [facility] [address] [place] [address] Teri Nick MD Type 2 diabetes mellitus with hyperglycemia, without long-term current use of insulin ([facility]) from Last 3 Months Immunizations Immunization Administration Dates Next Due Hep A, Adult 09/12/2012 Hep B, adult 01/27/2013,10/13/2012,09/12/2012 Influenza Injectable Quadriv alant Preservative Free IIV4 MDCK 03/26/2018 Influenza injectable quadriv alent IIV4 with preservative 12/26/2016 Influenza injectable quadriv alent preservative free 02/06/2023,12/22/2021,01/24/2021,04/16 Influenza, IIV3, injectable 03/08/2014 Influenza, Split (incl. gianni fied surface antigen) 12/26/2012,04/03/2012 Pfizer Covid-19 Vaccine 12+ 10/15/2020, Pneumococcal Polysaccharide PPSV23 04/09/2017 Tdap 12/26/2012 Social History Tobacco Use Types Packs/Day Years Used Date Smoking Tobacco: Every Day Cigarettes Passive Smoke Exposure: Current Smokeless Tobacco: Never Tobacco Cessation:Ready to Q uit: Not Asked; Counseling Given: Not Answered Alcohol Use Standard Drinks/Week Comments Never 0 (1 standard drink = 0.6 oz pur e alcohol) Depression Answer Date Recorded Patient Health Questionnaire-9 [...] Sign Reading Time Taken Comments Blood Pressure 122/68 11/02/2024 10:57 AM EDT Pulse 88 11/02/2024 10:57 AM EDT Temperature 36.8 C (98.2 F) 10/14/2024 3:33 PM EDT Respiratory Rate 18 10/14/2024 3:33 PM EDT Oxygen Saturation 95% 10/14/2024 3:33 PM EDT Inhaled Oxygen Concentration - - Weight 93.4 kg (205 lb 12.8 oz) 10/14/2024 3:33 PM EDT Height 167.6 cm (5' 6 ) 10/12/2024 11:1 2 AM EDT Body Mass Index 33.22 10/12/2024 11:12 AM EDT Plan of Treatment Upcoming Encounters Date Type Department Care Team (Late st Contact Info) Description 11/30/2024 10:30 AM EDT Medication Management [facility] [address], [place] [phone] William Garcia, PharmD [address] [place], [place] [phone] 12/08/2024 2:00 PM EDT Office Visit [facility] [address] [place], [place] [phone] Jay Kidd [address] [place] [address] 01/11/2025 11:00 AM EDT Immunization [facility] [address] [place] [address] 01/13/2025 10:30 AM EDT Office Visit [facility] [address] [place] [address] Teri Nick MD [address] [place], [place] [phone] Health Maintenance Due Date Last Done Comments CT Colonography 1967 Colonoscopy 1967 Dental Oral Exam 1965 Dental Prophylaxis 1967 Dental X-Ray: Bitewings 1967 Dental X-Ray: Full Mouth 1967 FIT 1967 HIV Screening 1965 Sigmoidoscopy 1965 Eye Exam 10/19/1977 Hepatitis C Screening 10/19/1985 Zoster Vaccines (1 of 2) 10/19/2017 Pneumococcal Vaccine: 50+ Years (2 of 2 - PCV) 04/09/2018 04/09/2017 Diabetes: Urine Protein Screening 06/01/2022 06/01/2021, 04/21/2020, 04/28/2019 DTaP/Tdap/Td Vaccines (2 - Td or Tdap) 12/26/2022 12/26/2012 SDOH Screening 07/18/2023 07/17/2022 Lipid Panel 07/19/2023 07/18/2022, 08/3 03/2020, 04/21/2020 Depression Monitoring 02/07/2024 08/07/2023, 024 Diabetes: Foot Exam 03/12/2024 03/12/2023, 03/12/2023, 03/12/2023, Additional history exists COVID-19 Vaccine ( season) 2024 10/15/2020, 09/24/2020 Influenza Vaccine (#1) 2024 3, 12/22/2021, 01/24/2021, Additional history exists Diabetes: Hemoglobin A1C 01/12/2025 025, 06/18/2024, 06/17/2023, Additional history exists FOBT 05/27/2025 05/27/2024 Alcohol/Substance Use Screening 06/18/2025 06/18/2024 Disability Screening 07/22/2025 07/22/2024 Tobacco Screening 10/30/2025 10/30/2024 Colorectal Cancer Screening 05/28/2027 FIT DNA/Cologuard 05/28/2027 [...] patient's age to complete this topic Meningococcal B Vaccine Aged Out No l onger eligible based on patient's age to complete [...] Author Blood Pressure < 140/90 Blood Pressure 122/68(2024 10:57 AM EDT) No Ilene Ovalles Hemoglobin A1c < 7 Result Component 8.6( 11:15 AM EDT) No Ilene Ovalles Procedures Procedure Name Priority Date/Time Associated Diagnosis Comments CASE PRESENTATION, DETAILED AND EXTENSIVE TREATMENT PLANNING Routine 10/30/2024 1:00 PM EDT 14 INTRAORAL - PERIAPICAL FIRST RADIOGRAPHIC IMAGE Routine 10/30/2024 1:00 PM EDT 14 LIMITED ORAL EVALUATION - PROBLEM FOCUSED Routine 10/30/2024 1:00 PM EDT 14 EXTRACTION, ERUPTED TOOTH OR EXPOSED ROOT (ELEVATION/FORCEPS REMOVAL) Routine 10/30/2024 1:[address] ABDOMEN PELVIS WO CONTRAST Routine 10/14/2024 8:20 PM EDT URINALYSIS, COMPLETE, WITH REFLEX TO CULTURE Routine 10/14/2024 7:00 PM EDT LIPASE Routine 10/14/2024 5:31 PM EDT COMPREHENSIVE METABOLIC PANEL Routine 10/14/2024 5:31 PM EDT CBC WITH AUTO DIFFERENTIAL Routine 10/14/2024 5:31 PM EDT POCT URINALYSIS DIPSTICK Routine 10/14/2024 4:00 PM EDT Dysuria POCT GLYCATED HEMOGLOBIN, TOTAL Routine 10/12/2024 11:15 AM EDT Type 2 diabetes mellitus with hyperlipidemia (CMS/HCC) (CMS/HCC) POCT GLUCOSE Routine 10/12/2024 11:14 AM EDT Type 2 diabetes mellitus with hyperlipidemia (CMS/HCC) (CMS/HCC) HIGH SENSITIVITY TROPONIN I Routine 10/06/2024 4:02 PM EDT LIPID PANEL, STANDARD Routine 07/18/2022 10:46 AM EDT Essential hypertension Type 2 diabetes mellitus with hyperglycemia, without long-term current use of insulin (CMS/HCC) ZZZ HISTORICAL MICROALBUMIN/CREATINI NE RATIO, RANDOM URINE Routine 06/01/2021 9:25 AM EDT from Last 3 Months or Most Recently Relevant to Health Maintenance Results * CT Abdomen Pelvis w/o Contrast (10/14/2024 8:20 PM EDT) Anatomical Region Laterality Modality Body, Pelvis, Abdomen Computed T omography 10/14/2024 8:20 PM EDT Narrative 10/14/2024 8:22 PM EDT [address] [address] [address] Scan Report Signed Patient: Sergo Garcia MR#: [id number] : 1965 Acct:[id number] Age/Sex: 58 / M ADM Date: 10/14/24 Loc: HO.ED Attending Dr: Ordering Physician: Rebecca Dumont Date of Service: 10/14/24 Procedure(s): CT abdomen pelvis wo IV con Accession Number(s): [id number] cc: Teri Nick MD; Rebecca Dumont Report Number: [id number]: Total DLP = 636.00 mGy-cm CLINICAL HISTORY: right flank pain, renal colic? CT abdomen and pelvis without contrast Comparison: None provided Findings: The lung bases are clear. The gallbladder and solid organs are within normal limits. No renal stones. No bowel obstruction, pneumoperitoneum, or pneumatosis. The bladder is decompressed. No bladder stones. Prostatic calcification. Prostate is not enlarged. No fluid collections or adenopathy. Nondilated vasculature. No acute fracture. IMPRESSION: No radiopaque renal stones or evidence of obstructive uropathy. No findings to explain the patient's flank pain within the confines of a noncontrast exam. No bowel or biliary obstruction. Normal appendix. This document has been electronically signed by: Bonny Silverio MD on 10/14/2024 20:20:55 Dictated By: Bonny Silverio MD Signed By: <Electronically signed by Bonny Silverio MD in OV> 10/14/242020 DD/ 19 TD/TT: 10/14/242019 Data Collection Specialist: Procedure Note Donotuseinterpreter, Image - 10/14/[address] [address] [address] Scan Report Signed Patient: Sergo Garcia AMR#: [id number] : 1965Acct:[id number] Age/Sex: 58 / MADM Date: 10/14/24 Loc: HO.ED Attending Dr: Ordering Physician: Rebecca Dumont Date of Service: 10/14/24 Procedure(s): CT abdomen pelvis wo IV con Accession Number(s): [id number] cc: Teri Nick MD; Rebecca Dumont Report Number: [id number]: Total DLP = 636.00 mGy-cm CLINICAL HISTORY: right flank pain, renal colic? CT abdomen and pelvis without contrast Comparison: None provided Findings: The lung bases are clear. The gallbladder and solid organs are within normal limits. No renal stones. No bowel obstruction, pneumoperitoneum, or pneumatosis. The bladder is decompressed. No bladder stones. Prostatic calcification. Prostate is not enlarged. No fluid collections or adenopathy. Nondilated vasculature. No acute fracture. IMPRESSION: No radiopaque renal stones or evidence of obstructive uropathy. No findings to explain the patient's flank pain within the confines of a noncontrast exam. No bowel or biliary obstruction. Normal appendix. This document has been electronically signed by: Bonny Silverio MD on 10/14/2024 20:20:55 Dictated By: Bonny Silverio MD Signed By: <Electronically signed by Bonny Silverio MD in OV> 10/14/242020 DD/ 19 TD/TT: 10/14/242019 Data Collection Specialist: [facility] External Provider IMG CT PROCEDURES Final Result * (ABNORMAL) Urinalysis, Complete, with Reflex to Culture (10/14/2024 7:00 PM EDT) Color Urine Dark Yellow [facility] Appearance Urine Clear [facility] PH 5.5 5.0 - 9.0 [facility] Glucose Urine UA Negative Negative mg/dL [facility] Urine Blood Negative Negative [facility] Specific [place] - Urine >=1.030(H) 1.005 - 1.025 [facility] Urine Protein Negative Neg-Trace mg/dL [facility] Urine Ketones Trace Negative mg/dL [facility] Nitrite Urine Negative Negative [facility] Leukocyte Esterase Urine Negative Negative [facility] RBC Urine 0-2 0 - 2 /HPF [facility] Urine WBC 0-5 0 - 5 /HPF [facility] Urine Squamous Epithelial Cell 0-2 0 - 2 /HPF [facility] Urine Bacteria None Seen None Seen [facility] Hyaline Casts, Urine 0-2 0 - 2 /LPF [facility] 10/14/2024 7:00 PM EDT 10/14/2024 7:03 PM EDT Narrative [facility] - 10/14/2024 7:10 PM EDT Urine, Clean Catch us Generic External Data Provider LAB URINE ORDERAB LES Final Result [facility] [address] [place] [address] [phone] * (ABNORMAL) CBC auto differential (10/14/2024 5:31 PM EDT) White Blood Count 11.3(H) 4.8 - 10.8 X10*3/uL [facility] Red Blood Count 4.84 4.60 - 5.80 X10*6/uL [facility] Hemoglobin 14.4 14.0 - 18.0 g/dl [facility] Hematocrit 42.3 42.0 - 52.0 % [facility] Mean Corpuscular Volume 87.4 80.0 - 98.0 fL [facility] Mean Corpuscular Hemoglobin 29.8 27.0 - 33.0 pg [facility] Mean Corpuscular HGB Conc 34.0 31.0 - 36.0 g/dl [facility] Red Cell Distribution Width 13.1 11.0 - 16.0 % [facility] Platelet Count 312 160 - 400 X10*3/uL [facility] Mean Platelet Volume 9.5 9.4 - 12.4 fL [facility] Neutrophils Percent Auto 61.6 45 - 73 % [facility] Imm Gran Pct Auto 0.4 0.0 - 0.4 % [facility] Lymphocytes Percent Auto 30.1 20 - 40 % [facility] Monocytes Percent Auto 5.9 2 - 11 % [facility] Eosinophils Percent Auto 1.6 0 - 4 % [facility] Basophils Percent Auto 0.4 0 - 2 % [facility] NRBC Pct Auto 0.0 0.0 - 0.2 /100WBC [facility] Neutrophils Absolute Auto 7.0 2.0 - 8.3 x10*3/uL [facility] Imm Gran Abs Auto 0.04(H) 0.00 - 0.03 X10*3/uL [facility] Lymphocytes Absolute Auto 3.4 1.2 - 4.9 X10*3/uL [facility] Monocytes Absolute Auto 0.7 0.1 - 1.2 X10*3/uL [facility] Eosinophils Absolute Auto 0.2 0.0 - 0.4 X10*3/uL [facility] Basophils Absolute Auto 0.1 0.0 - 0.2 X10*3/uL [facility] NRBC Abs Auto 0.000 0.0 - 0.012 X10*3/uL [facility] 10/14/2024 5:31 PM EDT 10/14/2024 5:39 PM EDT us Generic External Data Provider LAB BLOOD ORDERAB LES Final Result Performing Organization Address City/[facility]/ZIP Co de Phone Number [facility] [address] [place] [phone] * Lipase (10/14/2024 5:31 PM EDT) Lipase 29 8 - 78 U/L [facility] 10/14/2024 5:31 PM EDT 10/14/2024 5:39 PM EDT us Generic External Data Provider LAB BLOOD ORDERAB LES Final Result Performing Organization Address [facility]/ZIP Co de Phone Number [facility] [address] [place] [phone] [phone] * (ABNORMAL) Comprehensive Metabolic Panel (10/14/2024 5:31 PM EDT) Sodium 142 135 - 145 mmol/L [facility] Potassium 3.8 3.3 - 5.1 mmol/L [facility] Chloride 108 96 - 108 mmol/L [facility] Carbon Dioxide 25 22 - 29 mmol/L [facility] Anion Gap 13 12 - 20 [facility] Urea Nitrogen (BUN) 12 9 - 16 mg/dL [facility] Creatinine, Serum 0.77 0.5 - 1.4 mg/dL [facility] Creatinine Clr Calc Pharmacy 114.3 [facility] Comment:eGFR (calculated fro m the MDRD study equation) and eCrCl(calculated from the Cockcroft-Gault equation) are based ondifferent parameters and may not yield comparable results.If eCrCl result is absurd, please check patient'sheight/weight. Estimated Glomerular Filt Rate >60 [facility] [facility] Comment:Chronic Kidney Disea se: Estimated GFR < 60 mL/min/1.49r3Bslzry Kidney Disease: Estimated GFR < 15 mL/min/1.73m2 Glucose 126(H) 60 - 115 mg/dL [facility] Calcium 9.7 8.4 - 10.2 mg/dL [facility] Bilirubin, Total 0.4 0.0 - 1.0 mg/dL [facility] Aspartate Amino Transferase 33 5 - 37 U/L [facility] Alanine Aminotransferase 33 0 - 40 U/L [facility] Total Protein 7.8 6.5 - 8.0 g/dL [facility] Albumin Level 4.9 3.5 - 5.0 g/dL [facility] Alkaline Phosphatase 89 39 - 117 U/L [facility] 10/14/2024 5:31 PM EDT 10/14/2024 5:39 PM EDT us Generic External Data Provider LAB BLOOD ORDERAB LES Final Result [facility] [address] [place] [phone] [phone] * POCT urinalysis dipstick manually resulted (10/14/2024 4:00 PM EDT) Color, UA Buchanan Clarity, UA Clear Glucose, UA Trace Comment:100 mg/dL Bilirubin, UA Few 15 Comment:small Ketones, UA Positive Comment:40 mg/dL Spec Grav, UA 1.030 Blood, UA Negative Negative, None Detected pH, UA 5.5 Protein, UA Few 15 Comment:30 mg/dL Urobilinogen, UA 1.0 Leukocytes, UA Negative Negative, Rare, Trace Nitrite, UA Negative Negative, None Detected Urine 10/14/2024 4:00 PM EDT us Greg Negro MD POINT OF CARE TEST ENTER/EDIT OR DERABLES Final Result * (ABNORMAL) POCT HGB A1C (10/12/2024 11:15 AM EDT) Hemoglobin A1C 8.6(A) 4.0 - 5.7 % QC Media Lot # [id number] Lot# Expiration Date Blood 10/12/2024 11:1 5 AM EDT Teri Martins MD POINT OF CARE TEST EN TER/EDIT ORDERABLES Final Result * POCT Glucose (10/12/2024 11:14 AM EDT) Glucose Blood, POC 155 60 - 200 mg/dL QC Media Lot # [id number] Lot# Expiration Date 444 Blood Capillary blood specimen / Unknown 10/12/2024 11:14 AM EDT us Teri Martins MD POINT OF CARE TEST EN TER/EDIT ORDERABLES Final Result * High Sensitivity Troponin I (10/06/2024 4:02 PM EDT) TROPONIN I HIGH SENSITIVITY <2.7 <3.5 - 35.0 ng/L [facility] Comment:The Alonzo high sens itivity Troponin-I results should beused in conjunction with other diagnostic information suchas ECG, clinical observations and information, and patientsymptoms to aid in the diagnosis of CT. 10/06/2024 4:02 PM EDT 10/06/2024 4:06 PM EDT us Generic External Data Provider LAB BLOOD ORDERAB LES Final Result [facility] [address] [place] [phone] * (ABNORMAL) Lipid Panel, Standard (07/18/2022 10:46 AM EDT) Cholesterol, Total 210(H) <200 mg/dL [employer] [facility] HDL Cholesterol 49 > OR = 40 mg/dL [employer] [facility] Triglycerides 126 <150 mg/dL [employer] [facility] LDL Cholesterol 136(H) mg/dL (calc) [employer] [facility] Comment: Reference range: <100 Desirable range <100 mg/dL for primary prevention; <70 mg/dL for patients with CHD or diabetic patients with > or = 2 CHD risk factors. LDL-C is now calculated using the Dequan-Godfrey calculation, which is a validated novel method providing better accuracy than the Friedewald equation in the estimation of LDL-C. Dequan RODRIGUEZ et al. NORBERT. 2013;310(19): 5520-0004 (http://education.[employer]faq/DIS588) Chol/HDLC Ratio 4.3 <5.0 (calc) [facility] Non-HDL Cholesterol 161(H) <130 mg/dL (calc) [facility] Comment: For patients with diabetes plus 1 major ASCVD risk factor, treating to a non-HDL-C goal of <100 mg/dL (LDL-C of <70 mg/dL) is considered a therapeutic option. Blood Venous blood specimen / Unknown 07/18/2022 10:46 AM EDT 07/18/2022 10:47 AM EDT Narrative [facility] - 07/18/2022 9:10 PM EDT FASTING:YES PATIENT UNABLE TO VOID; ADVISED TO RETURN FOR COLLECTION. FASTING: YES Teri Martins MD LAB BLOOD ORDERABLES Final Result Performing Organization Address City/[facility]/ZIP Co de Phone Number [facility] [address], [place] [address] [employer] [facility] [address] [place] [address] * MICROALBUMIN/CREATININE RATIO, RANDOM URINE (06/01/2021 9:25 AM EDT) Creatinine Urine 144.69 mg/dL [facility] Microalbum/Creati nine Ratio Ur 11.0 ug/mg cr [facility] Comment: Albumin/Creatinine Ratio Reference Ranges: Normal: < 30 ug/mg creatinine Microalbuminuria: 30 - 300 ug/mg creatinine Clinical Albuminuria: > 300 ug/mg creatinine Microalbumin Urine 16.0 mg/L [facility] 06/01/2021 9:25 AM EDT us Historical Provider HISTORICAL/NON ORDERABLE LABS Final Result [facility] [address] from Last 3 Months or Most Recently Relevant to Health Maintenance Insurance [facility] C[address] [place], [place] DENTAL-[facility] MEDICAID STAND ADULT Care Teams Sighter Relationship Specialty Start Date End Date Teri Nick MD [address] [place] [address] PCP - General Family Medicine 06/11/19 William Garcia, PharmD [address] [place] [address] Pharmacist Pharmacy 11/02/24 Jeanne Holloway Supervisor Electronic [employer] 01/11/23 [facility] 02/26/23
--- OUTSIDE RECORDS SUMMARY | 2024-11-26 09:55 | XMS_ITS | Encounter Summary ---
Author Organization [employer] Address [address] [facility] 7 [place] [address] Care Team Providers Care Shell Core And Molding Supervisor Name Role Phone Teri Nick MD Primary Care Provide r William Garcia PharmD Unavailable [phone] Reason for Visit * Reason Onset Date Comments FYI 02/22/2023 Encounter Details Date Type Department Care Team (Late st Contact Info) Description 02/22/2023 Telephone [facility] MEDICINE [address] [place], [place] [phone] Teri Nick MD [address] [place], [place] [phone] FYI Social History Tobacco Use Types Packs/Day [...] encounter Miscellaneous Notes * Telephone Encounter - Lucinaarlene Sandhu Jaylin - 02/22/2023 9:10 AM EST Tc from pt calling in requesting an appt, due to leg pain symptom. Data Conversion Developer advised triage message orWIC was available, at this time. Pt did not agree or denied offers, pt hung up. documented in this encounter Plan of Treatment Upcoming Encounters Date Type Department Care Team (Late st Contact Info) Description 11/30/2024 10:30 AM EDT Medication Management [facility] MEDICINE [address] [place] [phone] William Garcia, PharmD [address] [place] [phone] 12/08/2024 2:00 PM EDT Office Visit [facility] CH[facility] ADULT DENTAL [address] [place] [address] Jay Kidd [address] [place] [address] 01/11/2025 11:00 AM EDT Immunization [facility] MEDICINE [address] [place] [phone] 01/13/2025 10:30 AM EDT Office Visit [facility] MEDICINE [address] [place] [phone] Teri Nick MD [address] [place] [phone] documented as of this encounter Visit Diagnoses Not on filedocumented in this encounter Additional Health Concerns Assessment Noted Time PHQ-9 Depression Total Score: 0 07/18/19 10:46 AM EDT documented as of this encounter Care Teams Shell Core And Molding Supervisor Relationship Specialty Start Date End Date Teri Nick MD [address] [place], [place] [phone] PCP - General Family Medicine 06/11/19 William Garcia, PrincessD [address] [place] [address] Pharmacist Pharmacy 11/02/24 Jeanne Holloway Incinerator Plant Laborer 01/11/23 [facility] 02/26/23 documented as of this encounter
--- OUTSIDE RECORDS SUMMARY | 2024-11-26 09:55 | XMS_ITS | Clinical Summary ---
Author Organization [address] [place] [address] Address [address] [place] [address] Phone Care Team Providers Care Award Machine Operator Name Role Phone Teri Nick MD Primary Care Provide r Allergies No known active allergies Medications fluconazole (Diflucan) 200 mg tablet Take 1 tablet (200 mg total) by mouth 1 (one) time per week. 4 each 10/05/2024 5 Encounters Date Type Department Care Team Description 10/05/2024 2:15 PM EDT Consult Orthopedic Surgery - [place] [address] [facility] [address] [place] [phone] Surjit Cheatham, ROMY Diabetic mononeuropathy simplex ([facility] V24, [facility] V28) (Primary Dx); Pain in right foot; Dermatophytosis of nail; Pain in toe of right foot; Pain in toe of left foot; Corns and callosities; Type II diabetes mellitus with peripheral circulatory disorder ([facility] V24, [facility] V28); Tinea pedis of both feet; Metatarsalgia of both feet from Last 3 Months Surgical History Surgery Date Site/Laterality Comments HERNIA REPAIR PROCEDURE: HISTORICAL HERNIA REPAIR/ING Medical History Medical History Date Comments Diabetes mellitus type 2, un complicated ([facility] V24, [facility] V28) 08/17/2016 DX:Diabetes mellitus type 2 , uncomplicated (HCC) Anxiety 08/17/2016 DX:Anxiety Arthritis 08/17/2016 DX:Arthritis Depression 04/11/2017 DX:Depression Headache 04/11/2017 DX:Headache Hypercholesterolemia 08/17/2016 DX:Hypercho lesterolemia Irritable bowel syndrome 08/17/2016 DX:Irri table bowel syndrome Morbid obesity with BMI of 4 0.0-44.9, adult ([facility] V24, [facility] V28) 04/11/2017 DX:Morbid obesity wit h BMI of 40.0-44.9, adult ([facility]) Obstructive sleep apnea syndrome 08/17/2016 DX:Obstructive sleep apnea syndrome; COMMENT: On CPAP Tobacco use 04/11/2017 DX:Tobacco use Social History Tobacco Use Types Packs/Day Years Used Date Smoking Tobacco: Every Day Smokeless Tobacco: Never Sex and Gender Information Value Date Recorded Sex Assigned at Not on file Legal Sex Male 12:59 AM EST Gender Identity Not on file Sexual Orientation Not on file Obstetrics History Last Filed Vital Signs Vital Sign Reading Time Taken Comments Blood Pressure - - Pulse - - Temperature - - Respiratory Rate - - Oxygen Saturation - - Inhaled Oxygen Concentration - - Weight 103 kg (228 lb) 10/05/2024 2:44 PM EDT Height 170.2 cm (5' 7 ) 10/05/2024 2:44 PM EDT Body Mass Index 35.71 10/05/2024 2:44 PM EDT Plan of Treatment Upcoming Encounters Date Type Department Care Team (Late st Contact Info) Description 12/24/2024 9:00 AM EDT Office Visit Orthopedic Surgery - [place] [address] [phone] Surjit Cheatham, DPM [address] [phone] Health Maintenance Due Date Last Done Comments Diabetes: Annual GFR (Glomerular Filtration Rate) 1967 Diabetes: Annual Foot Exam 10/19/1977 Diabetes: Annual Retina Eye Exam 10/19/1977 Zoster Vaccines (1 of 2) 10/19/2017 Pneumococcal Vaccine: 50+ Years (2 of 2 - PCV) 04/09/2018 04/09/2017 DTaP,Tdap,and Td Vaccines (2 - Td or Tdap) 12/26/2022 12/26/2012 Diabetes: Annual Urine Albumin-Creatinine Ratio (uACR) 10/15/2023 HIV Screening 10/15/2023 Hepatitis C Screening 10/15/2023 Social Influencers of Health Screening 10/15/2023 Depression Screening 03/18/2024 Hypertension/CHF/CAD Annual BMP Blood Test 10/05/2024 COVID-19 Vaccine ( season) 2024 10/15/2020, 09/24/2020 Influenza Vaccine (#1) 2024 , 12/22/2021, 01/24/2021, Additional history exists Diabetes: Blood Sugar Control Test (HGBA1C) 12/18/2024 06/18/2024 Colorectal Cancer Screening: FIT-DNA (Cologuard) 05/28/2027 05/27/2024, 05/27/2024 Cholesterol Screening (Lipid Panel) 07/19/2027 07/18/2022 Hepatitis A Vaccines Aged Out 09/12/2012 No [...] on patient's age to complete this topic MMR Vaccines Aged Out No longer eligi ble based on patient's age to complete this topic Meningococcal ACWY Vaccine Aged Out N o longer eligible based on patient's age to complete this topic Meningococcal B Vaccine Aged Out No l onger eligible based on patient's age to complete this topic RSV Immunization Patients Under 20 months Aged Out No longer eligible based on patient's age to complete this topic Varicella Vaccines Aged Out No longer eligible based on patient's age to complete this topic Insurance MEDICAID - [place] Care Teams Award Machine Operator Relationship Specialty Start Date End Date Teri Nick MD [address] [place] [phone] PCP - General 03/13/23
[2024-11-26 12:13] LABS: Cholesterol 124 mg/dL (<200); HDL Cholesterol 44 mg/dL (>40); Triglycerides 61 mg/dL (<150)
[2024-11-26 12:24] LABS: Microalbum/Creatinine Ratio Ur 7.0 ug/mg cr (<30)
== END 2024-11-26 08:47 | disposition home or self-care (01) ==
LOC: HO.HHCL 08:46
PROVIDERS: PCP Internal Medicine; Visit Provider Internal Medicine
DX: E11.69 Type 2 diabetes mellitus with other specified complication (principal); E78.5 Hyperlipidemia, unspecified
CPT/HCPCS: 36415; 80061; 82043; 82570

== ENCOUNTER 2024-12-23 09:46 | Outpatient (AMB) | payer MEDICAID, SELFPAY ==
--- NOTE | 2024-12-23 09:50 | A.OFFVIS_ITS ---
Vital Signs 3 12/23/24 09:51 Height 5 ft 6 in Weight 207 lb 3.752 oz BMI 33.4 BP 130/59 L Blood Pressure Location Lt brachial Position Sitting Pulse 84 Intake Visit Reasons: 6m f/u Intake Note: Sergo presents in office today in 6 months follow up of [facility]. CC: Patient c/o mid abd pain with burning sensation, pain scale 20/10, pain accompanied with diarrhea. He also reports that he is concerned about a growing mass from upper back, with pain that he noticed a while ago. Bridges Supervisor Required: Yes Bridges Supervisor Language: [place] Leonean Accompanied by: Self / Same As Patient Allergies No Known Allergies Allergy (Verified 12/23/24 09:55) HPI HPI 6m f/u: Details: Assessment & Plan (1) Encounter for colorectal cancer screening using Cologuard test: Comment: 05/2024=negative Cologuard repeat in 3 years Code(s): Z12.11 - Encounter for screening for malignant neoplasm of colon; Z12.12 - Encounter for screening for malignant neoplasm of rectum Category: Medical (2) Back pain: Code(s): M54.9 - Dorsalgia, unspecified Category: Medical (3) GERD (gastroesophageal reflux disease): Code(s): K21.9 - Gastro-esophageal reflux disease without esophagitis Category: Medical Qualifiers: Esophagitis bleeding: without hemorrhage Esophagitis presence: with esophagitis Qualified Code(s): K21.00 - Gastro-esophageal reflux disease with esophagitis, without bleeding (4) Chronic idiopathic constipation: Code(s): K59.04 - Chronic idiopathic constipation Category: Medical Plan [facility]PAL[facility] [employer] The Cologuard from 05/2024 is negative, repeat in 3 years. He continues on Linzess, bisacodyl, Dexilant and simethicone. He feels that the medication is still working well for him. He is currently in PT for his back pain. He wants copies of his xrays to take to the therapist and I provide this. He recently had a new discovery of skin cancer, but they were successful in removing it all. ROV 6 mos. Medications: Refilled dicyclomine 20 mg PO .six times a day 180 tabs 6RF abdominal pain 30 days R10.9 - Unspecified abdominal pain famotidine 40 mg PO BEDTIME 30 tabs 3RF K21.9 - Gastro-esophageal reflux disease without esophagitis, R10.13 - Epigastric pain simethicone (Gas Relief (simethicone)) 125 mg PO TID 90 tabs 6RF abdominal distention bisacodyl 5 - 10 mg (1 - 2 x 5 mg) PO BEDTIME PRN 60 tabs 6RF constipation K 59.04 - Chronic idiopathic constipation dexlansoprazole (Dexilant) 60 mg PO DAILY 30 caps 6RF K21.9 - Gastro-esophageal reflux disease without esophagitis, R10.13 - Epigastric pain, Z91.19 - Patient's noncompliance with other medical treatment and regimen linaclotide (Linzess) 290 mcg PO QAM 30 caps 6RF 30 days K59.04 - Chronic idiopathic constipation TODAYS VISIT [place] #Izabella live [facility] Medical History Nicotine dependence, cigarettes, uncomplicated Colon cancer screening Chest pain Early satiety Abdominal cramping Epigastric pain Non-adherence to medical treatment Obesity (BMI 30-39.9) USP (current) use of insulin Diabetic polyneuropathy associated with type 2 diabetes mellitus Diabetes type 2, uncontrolled Asthma TENZIN (obstructive sleep apnea) Venous insufficiency Hypertension Hyperlipidemia Surgical History History of ventral hernia repair History of surgery on lower extremity History of tonsillectomy Family History Father Renal failure Mother Depression Hypertension Social History Household Members: Spouse and Children Alcohol intake: current Alcohol intake frequency: holidays/special occasions only Patient Tobacco Use Status: Current everyday Tobacco user Tobacco use type: Cigarette Cigarettes Per Day: 15 Years Smoked: since age 19 Current occupational status: disabled Review of Systems Const Denies fatigue, Denies fever(s), Denies night sweats, Denies poor appetite and Denies weight loss ENT Reports Normal hearing present, Denies dental pain, Denies dysphagia, Denies hearing loss, Denies mouth pain, Denies odynophagia, Denies throat swelling, Denies tongue swelling and Reports other (Dentition adequate) Card Reports no additional complaints Resp Reports no additional complaints GI Details: Reports abdominal pain, Denies melena, Reports bloating, Denies hematochezia, Reports constipation, Denies GI cramping, Denies dysphagia, Denies excessive flatus, Denies early satiety, Reports heartburn, Reports diarrhea, Denies nausea, Denies odynophagia, Denies vomiting and Denies hematemesis Skin/Breast Details: Lump over thoracic spine Denies pruritus, Denies lesions, Denies rash and Denies jaundice Neuro Reports Normal hearing present and Denies Abnormal speech present Endo Denies fatigue Aller/Immun Denies throat swelling and Denies tongue swelling Physical Exam Vital Signs: Last Vital Signs Pulse 84 12/23/24 09:51 BP 130/59 L 12/23/24 09:51 BMI result Body Mass Index 33.4 Const General: cooperative, no acute distress, well developed and well groomed Nutritional Appearance: well nourished and obese Orientation/consciousness: oriented to person, oriented to place and oriented to time Limitations: language barrier HEENT Head: Yes normocephalic and Yes atraumatic Eyes General: appearance normal, both eyes and all related structures Pupils: Equal, round and reactive pupils present Neck Neck: Yes normal visual inspection and Yes no lymphadenopathy Thyroid: Thyroid normal Resp Effort & Inspection: normal respiratory effort and able to speak in complete sentences Auscultation: clear to auscultation bilaterally Cardio Rate: regular rate Rhythm: regular rhythm Heart sounds: Normal, physiologic split S2 sound present Peripheral pulses: radial pulses present and posterior tibial pulses present GI Inspection: No distended, No Abdominal panniculus present and Yes obesity Palpation (GI): Soft to palpation, nontender, no guarding, not rigid and No hepatosplenomegaly present Percussion: Yes normal to percussion Auscultation: normal bowel sounds Rectal Exam - Male: Yes deferred Back/Spine/Pelvis Back/spine/pelvis image: 2 1. Mildly reddened raised 2 in in diameter what appears to be a dermal cyst with some serosanguineous drainage Skin General skin exam: no rashes or lesions noted, turgor normal, skin not dry, no jaundice, No spider nevi and no striae Rashes: no rashes Nails: normal Neuro General: oriented to person, oriented to place and oriented to time Cranial nerves: Yes Equal, round and reactive pupils present and Yes Normal hearing present Speech: No Abnormal speech present Extrem General: Yes normal to inspection, No clubbing, No cyanosis and No edema Psych Appearance: grossly normal and well kempt Mental Status: mental status grossly normal Speech and movement: Normal speech and movement present Affect: normal affect Attitude: cooperative Thought process: Normal thought process present and not confabulating Thought content: Normal thought content present Insight: Fair insight present (Psych) Judgement: Fair judgement present (Psych) Assessment & Plan Assessment & Plan (1) Epidermal inclusion cyst: Code(s): L72.0 - Epidermal cyst Category: Medical Plan [place] #Izabella givens He continues on Linzess, bisacodyl, Dexilant and simethicone. He feels that the medication is still working well for him - The patient is a 59-year-old male here for continued management of constipation and GERD and also presenting with marked abdominal pain. - Reports a burning sensation in the stomach, centered around the belly button, with episodes reaching severe pain levels. He rates this as greater than 10/10 pain levels. - The pain onset correlated with the commencement of Mounjaro, replacing Ozempic. - Gastrointestinal symptoms noted include regular diarrhea incidents, occurring variably once to three times weekly. - Mounjaro's effect appears to decrease over the week, worsens abdominal discomfort. - he is not well acquainted with his medications. On review of his medications were uncertain if he is taking his dicyclomine which would be an appropriate treatment for the pain. - The patient has questioned medication adherence due to delegation to home nursing care. Overall I believe that this is bowel cramping and irritability as it responds to the GLP 1 hormone. Dicyclomine would be a particularly good addition especially since he has occasional diarrhea since the addition of the Mounjaro. I right down the name of the medication have check to see whether he is getting it or not. Return office visit in 6 weeks He has a doorknob complaint of a lump on his back. This is a long his midthoracic spine and it is worrisome to him because he has a history of cancer. I examined the and it appears to be a dermal cyst that needs incision and drainage. I will refer him to General surgery. Orders: Referrals 2 General Surgery Referral L72.0 - Epidermal cyst Medications: Refilled 2 linaclotide (Linzess) 290 mcg PO QAM 30 caps 6RF 30 days K59.04 - Chronic idiopathic constipation famotidine 40 mg PO BEDTIME 30 tabs 3RF K21.9 - Gastro-esophageal reflux disease without esophagitis, R10.13 - Epigastric pain dicyclomine 20 mg PO .six times a day 180 tabs 6RF abdominal pain 30 days R10.9 - Unspecified abdominal pain dexlansoprazole (Dexilant) 60 mg PO DAILY 30 caps 6RF K21.9 - Gastro-esophageal reflux disease without esophagitis, R10.13 - Epigastric pain, Z91.19 - Patient's noncompliance with other medical treatment and regimen dicyclomine 20 mg PO .six times a day 30 days 180 tabs 6RF abdominal pain R10.9 - Unspecified abdominal pain simethicone (Gas Relief (simethicone)) 125 mg PO TID 90 tabs 6RF abdominal distention Coding Level of Care Code Est Pt Level 4 (92572) Diagnoses Epidermal inclusion cyst L72.0 Time Spent (min) 35
[2024-12-23 09:51] VITALS: BP 130/59; PULSE 84; BMI 33.4
== END 2024-12-23 10:30 | disposition home or self-care (01) ==
LOC: HO.HGI 09:47
PROVIDERS: PCP Internal Medicine; Visit Provider Nurse Practitioner
DX: L72.0 Epidermal cyst (principal)
CPT/HCPCS: 99214

== ENCOUNTER → 2024-12-23 09:46 | Outpatient (BNVA) | payer MEDICAID, SELFPAY | PROVIDERS: PCP Internal Medicine; Visit Provider Nurse Practitioner | DX: K59.04 Chronic idiopathic constipation (principal); R10.13 Epigastric pain; K21.00 Gastro-esophageal reflux disease with esophagitis, without bleeding; L72.0 Epidermal cyst | CPT/HCPCS: 99212 ==

== ENCOUNTER 2025-02-25 10:47 | Outpatient (AMB) | payer MEDICAID, SELFPAY ==
[2025-02-25 10:49] VITALS: BP 136/61; PULSE 88; BMI 36.0
--- NOTE | 2025-02-25 10:49 | A.OFFVIS_ITS ---
Vital Signs 02/25/25 10:49 Height 5 ft 6 in Weight 223 lb BMI 36.0 BP 136/61 Blood Pressure Location Rt radial Position Sitting Pulse 88 Intake Visit Reasons: sebaceous cyst back Intake Note: Patient referred by PCP Dr. Sue for evaluation of a sebaceous cyst on mid back. Present for yrs. Patient c/o: itchy, bothersome, enlarging. Denies oozing at the moment. [employer] Service Rater Required: Yes Telegraph Service Rater Language: Niuean Information Interpreted: non-clinical & clinical (Vandana KERR) Accompanied by: Self / Same As Patient Allergies No Known Allergies Allergy (Verified 02/25/25 10:56) Medication List - Last Reconciled 02/25/25 by Johnathon Meza MD albuterol sulfate 90 mcg/actuation (ProAir HFA) 2 puffs inhalation Q6H PRN aspirin 81 mg PO DAILY bisacodyl 5 - 10 mg (1 - 2 x 5 mg) PO BEDTIME PRN blood sugar diagnostic (FreeStyle Lite Strips) As directed to test blood sugars 4 times daily budesonide-formoterol 160-4.5 mcg/actuation (Symbicort) 2 puffs PO BID calcipotriene 0.005% appl topical BID clonazepam 0.5 mg PO DAILY CPAP (CPAP Machine/Device) As directed dexlansoprazole (Dexilant) 60 mg PO DAILY dicyclomine 20 mg PO .six times a day 30 days empagliflozin (Jardiance) 10 mg PO QAM famotidine 40 mg PO BEDTIME fluorometholone 0.1% 1 drp ophthalmic (eye) DAILY fluticasone propionate 50 mcg/actuation (Flonase Allergy Relief) 1 spray intranasal DAILY gabapentin 600 mg PO BEDTIME insulin glargine (Lantus U-100 Insulin) 16 units subcut DAILY insulin syringe-needle U-100 (BD Insulin Syringe Ultra-Fine) Daily insulin syringe-needle U-100 (BD Veo Insulin Syringe Ultra-Fine) As directed ketorolac 10 mg PO Q6H PRN lancets (TRUEplus Lancets) As directed 4 times a day linaclotide (Linzess) 290 mcg PO QAM 30 days lisinopril 40 mg PO QAM lorazepam 0.5 mg PO DAILY PRN methocarbamol 1,500 mg (2 x 750 mg) PO Q12H PRN montelukast 10 mg PO DAILY nystatin-triamcinolone 100,000-0.1 unit/g-% 1 appl topical DAILY ofloxacin 0.3% 2 drps ophthalmic (eye) QID pen needle, diabetic (BD Ultra-Fine Madhavi Pen Needle) As directed three times a day rosuvastatin 20 mg PO DAILY 30 days sertraline 100 mg PO DAILY sertraline 50 mg PO DAILY simethicone (Gas Relief (simethicone)) 125 mg PO TID terbinafine HCl 250 mg PO DAILY tirzepatide (Mounjaro) subcut .once a week HPI Comments Details: Patient reports longstanding history of a ?lump? on his right upper back. He finds it bothersome and desires removal. I also reports it itches and he is afraid of it getting infected. He denies any trauma or instrumentation to the region. [facility] Medical History Nicotine dependence, cigarettes, uncomplicated Colon cancer screening Chest pain Early satiety Abdominal cramping Epigastric pain Non-adherence to medical treatment Obesity (BMI 30-39.9) [facility] (current) use of insulin Diabetic polyneuropathy associated with type 2 diabetes mellitus Diabetes type 2, uncontrolled Asthma TENZIN (obstructive sleep apnea) Venous insufficiency Hypertension Hyperlipidemia Surgical History History of ventral hernia repair History of surgery on lower extremity History of tonsillectomy Family History Father Renal failure Mother Depression Hypertension Social History (Updated 02/25/25 @ 10:59 by USHA Pascal) Household Members: Spouse and Children Alcohol intake: current Alcohol intake frequency: holidays/special occasions only Patient Tobacco Use Status: Current everyday Tobacco user Tobacco use type: Cigarette Cigarettes Per Day: 7 Years Smoked: since age 19 Current occupational status: disabled Review of Systems Const Details: Patient reports no other problems other than concerns with regard to possible skin cancer. He goes on to say that he had a small skin cancer removed from under his left eye at [facility]. They told him later that it was malignant. He reports that now his lesion under his eye has returned in the he desires care for that too. Physical Exam Vital Signs: Last Vital Signs Pulse 88 02/25/25 10:49 BP 136/61 02/25/25 10:49 BMI result Body Mass Index 36.0 HEENT Head: Yes normal to inspection, Yes normocephalic and Yes atraumatic Ears: hearing grossly normal bilaterally Eyes General: appearance normal, both eyes and all related structures Sclerae: sclerae normal Pupils: Equal, round and reactive pupils present EOM: EOMs intact bilaterally Neck Neck: Yes normal visual inspection Chest Chest palpation & inspection: normal inspection of the chest Back/Spine/Pelvis Other: Right upper back 2-3 cm sebaceous cyst with central comedo. No erythema no edema no discharge. Neuro Cranial nerves: Yes Equal, round and reactive pupils present Assessment & Plan Assessment & Plan (1) Sebaceous cyst: Code(s): L72.3 - Sebaceous cyst Category: Medical Plan: I told the patient I felt excisional biopsy was reasonable. I explained to him the nature of such a procedure as well as the risks involved. These include but are not limited to the risk of bleeding the risks infection the risk of recurrence risk of chronic pain the risk of unsightly scarring. He indicated that he understood. He told me that he accepted the risks of surgery and lastly indicated that he wished to proceed with excisional biopsy of his right upper back cyst. Orders: Referrals Dermatology Referral C43.9 - Malignant melanoma of skin, unspecified General Surgery Procedure Notification L72.0 - Epidermal cyst Coding Level of Care Code New Pt Level 3 (90886) Diagnoses Sebaceous cyst L72.3 Time Spent (min) 30 Comment Patient visit, record review and coordination of care time
== END 2025-02-25 11:07 | disposition home or self-care (01) ==
LOC: HO.HGS 10:48
PROVIDERS: PCP Internal Medicine; Visit Provider Surgery
DX: L72.3 Sebaceous cyst (principal)
CPT/HCPCS: 99203

== ENCOUNTER → 2025-02-25 10:47 | Outpatient (BNVA) | payer MEDICAID, SELFPAY | PROVIDERS: PCP Internal Medicine; Visit Provider Surgery | DX: L72.3 Sebaceous cyst (principal); Z79.82 Long term (current) use of aspirin | CPT/HCPCS: 99202 ==